=== PATIENT | male | born 1950 | race Caucasian/White ===

== ENCOUNTER 2020-03-25 14:58 | Inpatient (IN) | payer MEDICARE, SELFPAY ==
[2020-03-25] VITALS (27 sets, daily range): BP systolic 83–127; BP diastolic 60–87; PULSE 98–172; RESP 12–33; TEMP 36.7–37.9; O2SAT 77–98; BMI 32.8; BMI 36.1; BMI 33.4
[2020-03-25] MEDS: dilTIAZem 25 MG/5 ML Vial IV BOLUS (15:18)
--- NOTE | 2020-03-25 15:22 | NURSING ---
NO OLD EKGS
--- NOTE | 2020-03-25 15:23 | RAD_ITS ---
STUDY: X-RAY CHEST REASON FOR EXAM: Male, 69 years old. and quot;PT WAS AT [facility] AND SENT OVER FOR LOW BP AND LOW PULSE OX. 78% ON RA IN TRIAGE and quot; TECHNIQUE: Single AP portable view of the chest. COMPARISON: None. FINDINGS: Bilateral basilar predominant alveolar opacities of the consistent with bilateral pneumonia, pulmonary edema, RDS. There is no demonstrated pleural abnormality. Normal size heart. Normal mediastinum and monica. Normal visualized pulmonary arteries. Normal visualized aortic arch and descending thoracic aorta. Normal visualized thoracic spine. Normal visualized ribs, clavicles, and shoulders. There is no demonstrated abnormality of the visualized soft tissue structures of the upper abdomen. RAD/Chest 1 View (Portable) IMPRESSION: Bilateral basilar predominant pneumonia, pulmonary edema, or ARDS. Electronically Signed: Simón Pham MD at 15:54 EDT Tel , Service support ,
--- NOTE | 2020-03-25 15:23 | EKG12_ITS ---
Test Reason : Blood Pressure : / mmHG Vent. Rate : 186 BPM Atrial Rate : 202 BPM P-R Int : 000 ms QRS Dur : 084 ms QT Int : 218 ms P-R-T Axes : 000 063 -03 degrees QTc Int : 383 ms Atrial fibrillation with rapid ventricular response Nonspecific ST and T wave abnormality Abnormal ECG Confirmed by ARIADNA NANCE, CHRISTIANO ([id number]), film and video editor MADI KEARNS ([id number]) on 03/27/2020 2:37:34 PM Referred By: RAFA Confirmed By:LETICIA ROSENTHAL MD
[2020-03-25 15:56] LABS: Hematocrit 52.1 % (40-54); Hemoglobin 16.5 g/dL (13.0-16.5); Mean Corp Hgb Conc 31.7 g/dL (32-36); Mean Corpuscular Hgb 29.2 pg (27.0-32.0); Mean Corpuscular Volume 92.2 fL (80-94); Mean Platelet Vol. 10.3 fl (6.2-12.0); POSITIVE COUNT YES; POSITIVE DIFFERENTIAL YES; POSITIVE MORPHOLOGY YES; Platelet Count 180 K/mm3 (150-450); RBC Distribution Width CV 14.1 % (11.6-14.6); RBC Distribution Width SD 46.5 fl (35.1-43.9); Red Blood Count 5.65 M/mm3 (4.6-6.2)
[2020-03-25 16:23] LABS: ALB/GLOB Ratio 0.6 RATIO (0.9-2.4); AST(SGOT) 33 U/L (15-37); Alanine Aminotransfer ALT/SGPT 142 U/L (16-61); Albumin, Serum 2.4 g/dL (3.2-5.0); Alkaline Phosphatase 77 U/L (45-117); Anion Gap 8 (5-15); BUN 28 mg/dL (7-18); BUN/Creat Ratio 16.2 RATIO (10-20); Calcium,Total 8.4 mg/dL (8.5-10.1); Chloride 98 mmol/L (98-107); Creatinine, Serum 1.73 mg/dL (0.70-1.30); EST Glomerular Filtration Rate 42 mL/min (>60); Est Glom Filt Rate - Afr Amer 51 mL/min (>60); Glucose 180 mg/dL (74-106); Potassium 4.7 mmol/L (3.5-5.1); Protein, Total 6.4 g/dL (6.4-8.2); Sodium Level 137 mmol/L (136-145)
[2020-03-25 16:29] LABS: International Normalized Ratio 1.2; Prothrombin Time (Protime)PT. 14.7 SECONDS (11.7-14.9)
[2020-03-25 16:30] LABS: Partial Thromboplast Time 27.1 Seconds (24.1-36.2)
[2020-03-25 16:47] LABS: Differential Indicated MANUAL DIFF
[2020-03-25 16:50] LABS: Lymphocyte 2 % (19-41); Monocyte 4 % (0-10); Neutrophil-Band 16 % (0-5); Neutrophil-Segmented 78 % (47-70); Total Cells Counted 100 (MANUAL DIFF)
[2020-03-25 16:51] LABS: Platelet Estimate ADEQUATE (ADEQ); Red Cell Morphology NORM C+C NORMAL (NORM C&C)
[2020-03-25 16:53] LABS: Absolute Lymphocyte Count 0.64 X10^3/uL (0.83-4.51); Absolute Neutrophil Count 30.1 X10^3/uL (2.0-7.7)
--- NOTE | 2020-03-25 17:00 | NURSING ---
DR BOX FOR DR CRAIG
--- NOTE | 2020-03-25 17:03 | ED.DCSUM_ITS ---
- ER Visit Summary Date of Service: 03/25/20 Chief Complaint: Shortness of breath and cough History of Present Illness: The patient is a 69 M who presents with shortness of breath and cough that is been getting worse over the past 2 days. Patient states he feels like he has some shortness of breath in his chest. Patient admits to a cough but denies any sputum production. Patient had a recent resection of a glioblastoma at the [facility]. Patient was being seen by the radiation oncologist today and noticed that his pulse oximeter was 80%. Patient was then referred to the emergency department for possible COVID versus pulmonary embolus versus pneumonia. Physical Examination: Vital signs showed a blood pressure 95/60 with a heart rate of 172 and a respiratory rate of 33 pulse oximeter is 77% on room air. Patient is afebrile. Oral mucosa is pink and moist. Neck is supple. Trachea is midline. There is no JVD. Heart was irregularly irregular and tachycardic. Lungs are diminished bilaterally with some rhonchi in the bases. There is adequate respiratory effort noted. Abdomen is soft. Bowel sounds are normal. There is no tenderness. There is no rebound or guarding noted. Cranial nerves II through XII are intact. There are no focal motor or sensory deficits. Test Results: EKG showed atrial fibrillation with a rate of 186. There are no acute ST or T wave changes. Portable chest x-ray shows bilateral lower lobe infiltrates versus pulmonary edema versus ARDS. This was interpreted by the radiologist and reviewed by myself. CBC shows a leukocytosis of 32.0. BUN and creatinine were slightly elevated at 28 and 1.73. Total bilirubin was slightly elevated at 1.6. Troponin was slightly elevated at 0.112. Lactate was elevated at 6.0. COVID swab was obtained and was positive. Emergency Department Course and Treatment: Patient was given a dose of Cardizem initially. Patient heart rate improved with this but his blood pressure dropped to 85 systolic. Patient was given a 500 cc bolus after this. Patient's blood pressure improved. Patient's heart rate increased again to the 160s. Patient was started on a Cardizem drip. Blood cultures were obtained. Patient was started on Rocephin and Zithromax. COVID swab was obtained and is pending. Case was discussed with the hospitalist. He recommended obtaining arterial blood gas and obtaining a CT scan of the brain. CT scan of the brain does not show any acute abnormality. There is some postsurgical air and fluid collection but there is no edema. Patient will be admitted to ICU. Disposition: Admit to ICU Impression: 1. A. fib with rapid ventricular response 2. Septic shock 3. Pneumonia 4. Elevated troponin 5. COVID-19 Critical care time: 45 minutes. This was time spent obtaining history, performing physical examination, documenting, interpreting test results, discussion with consultants, and determining disposition. This note was generated with [employer] dictation software. It may contain incorrect words, spelling, and punctuation that were not noted in review of the chart prior to signing ED Disposition - Plan for ED Patient: Disposition: Acute Care Hospital [facility] Diagnosis: Bilateral COVID-19 viral pneumonia, Healthcare-associated pneumonia, Septic shock, Atrial fibrillation with rapid ventricular response, COVID-19
--- NOTE | 2020-03-25 17:08 | CT_ITS ---
STUDY: CT BRAIN WITHOUT CONTRAST REASON FOR EXAM: Male, 69 years old. Decreased blood pressure. Hypoxia. History of lymphoma. RADIATION DOSAGE (If Supplied By Facility): CTDIvol = ( 44.99 ) mGy, DLP = ( 812.98 ) mGycm TECHNIQUE: Transaxial CT imaging of the brain was performed without administration of intravenous contrast material. Individualized dose optimization techniques were used for this CT. COMPARISON: No relevant priors. FINDINGS: Normal soft tissue structures. There is evidence of a recent craniotomy in the left occipitoparietal region. There is low attenuation within the left occipital parietal region underlying the craniotomy. There is a small foci of air in the surgical bed. There is a subdural collection extending along the length of the craniotomy with a maximum thickness of 3 mm. Normal size ventricles and extra-axial spaces for the patient''s age. Otherwise normal white matter tracts of the brain. Normal basal ganglia and thalami. Normal brainstem. Normal cerebellum. There are no findings of an acute ischemic infarction. Normal visualized paranasal sinuses. CT/Brain/Head without Contrast IMPRESSION: 1. Evidence of recent surgery involving the left occipitoparietal region. There is encephalomalacia and a small subdural fluid collection underlying the craniotomy site. 2. Otherwise normal CT of the brain. Electronically Signed: Jordy Gonzalez DO at 17:52 EDT Tel [phone], Service support ,
--- NOTE | 2020-03-25 17:24 | NURSING ---
ICU 1
[2020-03-25 17:46] LABS: Allen Test Positive; Base Excess 8 mmol/L (-2 to +2); Bicarbonate 32.2 mmol/L (22-26); Blood Gas Specimen Type ART; FI02 100; O2 Delivery Device NRB; PO2 57 mmHG (75-100); SITE R Radial; SO2 91 % (95-99); Total Carbon Dioxide 34 mmol/L; pCO2 45.2 mmHg (35-45); pH 7.46 (7.35-7.45)
--- NOTE | 2020-03-25 17:48 | HP.PCM_ITS ---
Problem List (1) Acute kidney injury Status: Acute (2) Healthcare-associated pneumonia Status: Acute (3) Septic shock Status: Acute (4) Seizure disorder Status: Chronic (5) Brain tumor Status: Acute (6) Chronic atrial fibrillation Status: Chronic (7) Non Hodgkin's lymphoma Status: Chronic History of Present Illness Date of Admission: 03/25/20 Chief Complaint: Cough, weakness, shortness of breath. The patient is a 69 year old M with past medical history as mentioned above presented to the emergency room because of cough, weakness and shortness of breath. Her symptoms started around 2 days ago with mild cough, persistent, dry without sputum production, associated with shortness of breath on activity as well as profound weakness and without aggravating or relieving factors. Denies fever or chills. He mentioned that he gets short of breath when walking for short distance. He denied sore throat, nasal or sinus congestion. He denied chest pain or palpitation. He had a brain surgery on March 10, 2020 brain tumor and he was discharged from [facility] on March 14, 2020. Patient's daughter mentioned that he did well after discharge but he has been more weak and tired over the last 2 days. He had a history of non-Hodgkin's lymphoma back in 2007 and currently, he is in remission and stable. He had a history of chronic atrial fibrillation and he has been on metoprolol and Cardizem for rate control. In the emergency department, patient was in A. fib with RVR, received IV Cardizem bolus x2 without improvement and he was started on IV Cardizem drip. He was afebrile, blood pressure stable, pulse ox is 95% on nonrebreather mask. Routine blood work was remarkable for WBC of 32,000, BUN of 28, creatinine is 1.73. Blood glucose is 180. Lactic acid was 6. Troponin was 0.11. EKG revealed A. fib with RVR, no acute segment changes. COVID-19 PCR is positive. Chest x-ray revealed bilateral basilar prominent infiltrate/edema with possible ARDS. Patient is being admitted for septic shock secondary to healthcare associated pneumonia/COVID-19 viral pneumonia, complicated by acute hypoxic respiratory failure and acute kidney injury and also found to have A. fib with RVR. Past Medical History Past Medical History (Chronic Problems): Chronic Problems Seizure disorder (Chronic) Chronic atrial fibrillation (Chronic) Non Hodgkin's lymphoma (Chronic) Allergies No Known Allergies Allergy (Verified 03/25/20 15:04) Home Medications: Ambulatory Orders Medication Instructions Recorded Acetaminophen [Tylenol] 650 mg PO Q4H PRN 03/25/20 Aspirin [Aspirin, Baby] 81 mg PO DAILY 03/25/20 Dexamethasone 2 mg PO DAILY 03/25/20 Diltiazem CD [Cardizem CD] 240 mg PO DAILY 03/25/20 Levetiracetam [Keppra] 1,000 mg PO BID 03/25/20 Metoprolol Succinate [Toprol Xl] 50 mg PO DAILY 03/25/20 Ondansetron HCl [Zofran] 4 mg PO Q6H PRN 03/25/20 Sennosides/Docusate Sodium 1 ea PO BID 03/25/20 [Senna-S 8.6-50 mg Tablet] Surgical History: - - Brain surgery for tumor. Psychiatric History: No pertinent psych hx Lives: With Family Smoking Status: Never smoker Alcohol: None Drugs: None - *Family History Maternal History Items: No pertinent history Paternal History Items: No pertinent history Review of Systems Constitutional: Reports: Weakness, Fatigue. Denies: Anorexia, Chills, Fever Eyes: Denies: Blurred vision, Double vision, Drainage, Redness HEENT: Denies: Difficulty Hearing, Ear Pain, Eye Pain, Nasal bleeding, Nasal Congestion, Sore Throat Cardiovascular: Denies: Chest Pain, Chest Pressure, Chest Tightness, Heaviness, Light Headedness, Palpitations, Syncope Respiratory: Reports: Cough, Shortness of Breath, Shortness of breath at rest, Shortness of breath upon exertion. Denies: Sputum production, Wheezing Gastrointestinal: Denies: Abdominal Pain, Constipation, Diarrhea, Nausea, Vomiting Genitourinary: Denies: Dysuria, Frequency, Hematuria Musculoskeletal: Denies: Arm Pain, Back Pain, Foot Pain Skin: Denies: Dryness, Rash Neurological: Denies: Balance problems, Double vision, Change in Speech, Slurred speech, Confusion, Focal weakness, Headaches Psychiatric: Denies: Anxiety, Depression Endocrine: Denies: Change in Body Habitus, Polydipsia, Polyuria VTE Information - Inpt Only VTE Present on Admission: No VTE Mechan Device Prophylaxis: SCD's VTE Pharm Prophylaxis ordered?: No Patient Problems: Active and Suspected Problems Atrial fibrillation with rapid ventricular response (Acute) COVID-19 (Acute) Bilateral COVID-19 viral pneumonia (Acute) Acute kidney injury (Acute) Healthcare-associated pneumonia (Acute) Septic shock (Acute) Brain tumor (Acute) - Physical Exam Vitals/I&O's: Vital Signs Temp Pulse Resp BP Pulse Ox 98.1 F 145 H 28 H 111/74 95 03/25/20 17:02 03/25/20 17:02 03/25/20 17:02 03/25/20 17:16 03/25/20 17:02 Oxygen Flow Rate (L/min) 15 Oxygen Delivery Method Non-Rebreather Weight: 229 lb 4.492 oz Body Mass Index (BMI) 32.8 Intake and Output for Last 24 Hours 03/23/20 03/24/20 03/25/20 23:59 23:59 23:59 Intake Total 500 / 500 Balance 500 / 500 General: Alert, Oriented x3, Cooperative, - - Minimally short of breath. HEENT: Atraumatic, PERRLA, EOMI, Normocephalic, - - Surgical scar on the left occipital region, dry and clean, no edema or infection. Oral: Moist Mucosa, No Gingival or Mucosal Lesions/ Ulcerations Neck: Supple, No JVD, Negative Carotid Bruits, Trachea Midline, Thyroid Normal Size and Texture Lungs: Clear to auscultation, Normal air movement, No rhonchi, No wheeze, No rales, Diminished Cardiovascular: Normal S1, Normal S2, No murmurs, PMI Normal, Irregular Rate, Ta chycardic Abdomen: Bowel Sounds Present, Soft, Non Tender, Non-Distended, No Hepato- splenomegaly Extremities: No clubbing, No cyanosis, No edema Skin: No rashes, No breakdown, Incision Lymphatic: No Cervical, Supraclavicular, or Inguinal Adenopathy Neurological: Cranial nerves II-XII grossly intact, Motor Exam 5/5 strength throughout Psych/Mental Status: Normal Affect, Appropriate, Alert and oriented to time, place, person, mood and affect Laboratory Results 03/25/20 15:15: WBC 32.0 H*, RBC 5.65, Hgb 16.5, Hct 52.1, MCV 92.2, MCH 29.2, MCHC 31.7 L, RDW Std Deviation 46.5 H, RDW Coeff of Dontae 14.1, Plt Count 180, MPV 10.3, Neut % (Auto) Not Reportable, Absolute Neuts (auto) 30.1 H, Absolute Lymphs (auto) 0.64 L, Total Counted 100, Neutrophils % (Manual) 78 H, Band Neutrophils % 16 H, Lymphocytes % (Manual) 2 L, Monocytes % (Manual) 4, Diff Path Review December, Platelet Estimate ADEQUATE, RBC Morphology NORM C+C 03/25/20 15:15: PT 14.7, INR 1.2, APTT 27.1 03/25/20 15:15: Sodium 137, Potassium 4.7, Chloride 98, Carbon Dioxide 31.0, Anion Gap 8, BUN 28 H, Creatinine 1.73 H, Estim Creat Clear Calc 42.20, Est GFR (MDRD) Af Amer 51 L, Est GFR (MDRD) Non-Af 42 L, BUN/Creatinine Ratio 16.2, Glucose 180 H, Calcium 8.4 L, Total Bilirubin 1.60 H, AST 33, ALT 142 H, Alkaline Phosphatase 77, Troponin I 0.112 H, Total Protein 6.4, Albumin 2.4 L, Globulin 4.0, Albumin/Globulin Ratio 0.6 L 03/25/20 15:40: Lactic Acid 6.0 H* 03/25/20 16:35: COVID-19 (LAVON) Pending 03/25/20 17:40: Specimen Type ART, Sample Site R Radial, pH 7.46 H, Bicarbonate Actual 32.2 H, Total CO2 34, Base Excess 8 H, O2 Saturation 91 L, O2 % 100, ABG pCO2 45.2 H, ABG pO2 57 L, Jair Test Positive, O2 Delivery Device NRB Clinical Impression(s) from Imaging Studies Chest X-Ray 03/25/20 15:23 IMPRESSION: Bilateral basilar predominant pneumonia, pulmonary edema, or ARDS. Electronically Signed: Simón Pham MD at 15:54 EDT Tel , Service support , Brain CT 03/25/20 17:08 IMPRESSION: 1. Evidence of recent surgery involving the left occipitoparietal region. There is encephalomalacia and a small subdural fluid collection underlying the craniotomy site. 2. Otherwise normal CT of the brain. Electronically Signed: Jordy Gonzalez DO at 17:52 EDT Tel [phone], Service support , Current Medications Diltiazem HCl 125 mg/ Dextrose 125 mls @ 5 mls/hr IV .Q25H BRYANT; Protocol Stop: 03/26/20 17:39 Last Admin: 03/25/20 17:16 Dose: 5 mg/hr, 5 mls/hr Documented by: Sodium Chloride () 500 mls @ 500 mls/hr IV .Q1H BRYANT Stop: 03/25/20 17:59 Last Infusion: 03/25/20 16:33 Dose: Infused Documented by: Sodium Chloride () 1,000 mls @ 999 mls/hr IV .Q1H1M BRYANT; Protocol Stop: 03/25/20 20:35 Assessment/Plan All Active Problems Atrial fibrillation with rapid ventricular response (Acute) COVID-19 (Acute) Bilateral COVID-19 viral pneumonia (Acute) Acute kidney injury (Acute) Healthcare-associated pneumonia (Acute) Septic shock (Acute) Brain tumor (Acute) This is a 69 years old male patient presented to the emergency room because of cough, weakness and shortness of breath, found to have bilateral basilar lung opacities consistent with pneumonia versus ARDS, found to have lactic acid of 6 consistent with septic shock and he is being admitted for healthcare associated pneumonia. #1 septic shock: Secondary to healthcare associated/COVID-19 pneumonia. Chest x-ray reviewed. Lactic acid is 6. He is tachycardic, blood pressure stable. Patient supposed to get 30 cc/kg of IV fluid bolus but because of his COVID-19 pneumonia, I do not think that we need to give him the whole bolus of IV fluids as this may aggravate his respiratory status. Plan: Admit to ICU, cardiac monitoring, complete bedrest, blood culture, urine culture, urinalysis, start IV vancomycin and Zosyn, IV Decadron, bronchodilators, repeat lactic acid in 3 hours, critical care consult, infectious disease consult, repeat CBC and BMP t omorrow morning, PT OT evaluation and treatment when appropriate. #2 bilateral basilar Healthcare associated/COVID-19 pneumonia: COVID-19 PCR came back positive. Plan: Blood culture, urine culture, start IV vancomycin and Zosyn as above, start IV Decadron 6 mg every 24 hours, isolation precautions, infectious disease consult, repeat CBC and BMP in morning. #3 acute hypoxic respiratory failure: Secondary to #2. ABG reviewed, revealed pH of 7.46, PCO2 of 45 and PO2 57. Currently, he is on nonrebreather mask with pulse ox of 95%. He is not very tachypneic. May use BiPAP if patient started to be very tachypneic and dyspneic. #4 acute kidney injury: Secondary to #1. Patient denied any history of kidney disease. Plan for IV fluids, input output chart, repeat BMP tomorrow morning. #5 A. fib with RVR: Patient does have a history of chronic atrial fibrillation. He received IV Cardizem bolus but remained fast. He was started on IV Cardizem drip. Plan: Continue IV Cardizem drip, correct electrolytes as appropriate, continue metoprolol. Patient is not a candidate for anticoagulation because of recent brain surgery. #6 recent history of brain tumor status post brain surgery: Surgery was done on March 10, 2020 at [facility]. CT scan brain done and reviewed, no acute findings. Surgical scars clean and dry. #7 history of margins lymphoma: This is back in 2007, status post treatment, stable, in remission. He does have significant leukocytosis, hemoglobin and platelet count are normal. #8 seizure disorder: Continue Keppra. #9 CODE STATUS: DNR CCA, no intubation. I discussed the different types of CODE STATUS with the patient and his daughter was at the bedside. I informed the patient about the differences between different types of CODE STATUS including full code, DNR CCA with and without intubation and DNR CC. Patient stated that he does not want any life-sustaining measures, no intubation, no mechanical ventilation, no chest compressions. Patient's daughter was at the bedside and she asked with him again same question and she suggested that he should try breathing machine if needed and patient clearly stated that he does not want any life-sustaining measures and he does not want to live as a vegetable. CODE STATUS is DNR CCA, no intubation, confirmed with the patient. #10 DVT prophylaxis: SCDs. This note was generated with [employer] software. It may contain incorrect words, spelling, and punctuation that were not noted in checking the note before signing. Inpatient E&M: 27957 Init Hosp L3 Procedures: 83527 Advncd Care Plan 30 Min - Time spent is 18 minutes on discussion about CODE STATUS with the patient and his daughter.
[2020-03-25] MEDS: 0.9% Normal Saline 1,000 ML 999 ML IV (17:53)
[2020-03-25 18:03] LABS: Probe Check PASS
[2020-03-25 19:42] LABS: Reflex Lactate? Y
[2020-03-25 20:06] LABS: Erythrocyte Sedimentation Rate 16 mm/hr (0-20)
[2020-03-25 20:12] LABS: Fibrinogen 840 mg/dl (203-444)
[2020-03-25 20:41] LABS: CPK Total, Creatine Kinase 44 U/L (39-308); Ferritin 723 ng/mL (26-388)
[2020-03-25 20:48] LABS: Bacteria 0 SEEN /hpf (None Seen); Red Blood Cells-Urine 0 SEEN /hpf (0-5); Squamous Epithelial Cells - UA 0 SEEN /hpf (0-5)
[2020-03-25 20:49] LABS: Color, Urine Amber (Yellow); Glucose, Dipstick Normal (Normal); Ketone-Dipstick Negative (Negative); Leukocyte Esterase-Dipstick Negative /ul (Negative); Nitrite-Dipstick Negative (Negative); Occult Blood-Urine 10 /ul (Negative); Protein-Dipstick 30 mg/dl (Negative); Urine Bilirubin Dipstick Negative (Negative); Urine Clarity Clear (Clear); Urine Urobilinogen 4 mg/dl (Normal)
[2020-03-25 20:53] LABS: D-Dimer Quantitative (DVT/PE) 1.39 FEU/ug/m (0.27-0.49)
[2020-03-25 21:07] LABS: Hyaline Cast 5-10 SEEN /lpf (0-5); Mucous, Urine 1+ /hpf (<or=2+); White Blood Cells 0-5 SEEN /hpf (0-5)
[2020-03-25 21:12] LABS: Lactic Acid 2.8 mmol/L (0.4-1.9)
[2020-03-25] MEDS: dexAMETHasone 10 MG/ML Vial 6 MG IV (22:02)
[2020-03-25] MEDS: levETIRAcetam 1,000 MG Tablet 1000 MG PO (22:02)
[2020-03-25] MEDS: 0.9% Saline Lock 10 ML Syringe IV (22:03)
--- NOTE | 2020-03-25 23:35 | PCM.RX.CS ---
Consult Pharmacy has been consulted to manage selected antiobiotic: Vancomycin Type of Consult: New start Suspected Infection: Sepsis, Pneumonia Prior Doses of Antibiotics Received/Current Regimen: Medications Vancomycin HCl (Vancomycin) 1,000 mg in 200 mls @ 200 mls/hr IV Q12H BRYANT Discontinued Medications Vancomycin HCl 2,000 mg/ (Sodium Chloride) 540 mls @ 250 mls/hr IV X1 ONE Stop: 03/25/20 22:39 Last Admin: 03/25/20 22:52 Dose: Infused Labs: Sodium 137 mmol/L (136-145) 03/25/20 15:15 Potassium 4.7 mmol/L (3.5-5.1) 03/25/20 15:15 Chloride 98 mmol/L (98-107) 03/25/20 15:15 Carbon Dioxide 31.0 mmol/L (21.0-32.0) 03/25/20 15:15 Anion Gap 8 (5-15) 03/25/20 15:15 BUN 28 mg/dL (7-18) H 03/25/20 15:15 Creatinine 1.73 mg/dL (0.70-1.30) H 03/25/20 15:15 Est GFR (MDRD) Af Amer 51 mL/min (>60) L 03/25/20 15:15 Est GFR (MDRD) Non-Af 42 mL/min (>60) L 03/25/20 15:15 BUN/Creatinine Ratio 16.2 RATIO (10-20) 03/25/20 15:15 Glucose 180 mg/dL (74-106) H 03/25/20 15:15 Weight used for dosin.6 kg Estimated Creatinine Clearance: 50 Goal Trough: 15-20 mcg/mL Pharmacy Plan for Drug Dosing: Pharmacy Service will continue to monitor and adjust dosing as required. Follow-Up Labs: Trough Vancomycin Labs to be done on [date and time ordered]: 03/27/20 @0800
[2020-03-26] VITALS (43 sets, daily range): BP systolic 87–128; BP diastolic 43–92; PULSE 72–100; RESP 12–29; TEMP 37.1–37.7; O2SAT 90–97
[2020-03-26 02:53] LABS: Absolute Lymphocyte Count 0.34 X10^3/uL (0.83-4.51); Absolute Neutrophil Count 18.3 X10^3/uL (2.0-7.7); Basophil# 0.03 X10^3/uL; Basophil% 0.2 % (0-1); Hematocrit 41.8 % (40-54); Hemoglobin 13.5 g/dL (13.0-16.5); Lymphocyte # 0.34 X10^3/ul (4.0); Lymphocyte % 1.7 % (19-41); Mean Corp Hgb Conc 32.3 g/dL (32-36); Mean Corpuscular Hgb 29.7 pg (27.0-32.0); Mean Corpuscular Volume 92.1 fL (80-94); Mean Platelet Vol. 10.1 fl (6.2-12.0); Monocyte# 0.71 X10^3/uL; Monocyte% 3.6 % (0-10); NRBC Flagged by Analyzer 0 % (0-5); Neutrophil # 18.32 X10^3/uL (2.7-7.7); Neutrophil % 92.7 % (47-70); POSITIVE DIFFERENTIAL YES; POSITIVE MORPHOLOGY YES; Platelet Count 138 K/mm3 (150-450); RBC Distribution Width CV 13.9 % (11.6-14.6); RBC Distribution Width SD 46.7 fl (35.1-43.9); Red Blood Count 4.54 M/mm3 (4.6-6.2); White Blood Count 19.8 K/mm3 (4.4-11.0)
[2020-03-26 02:56] LABS: Differential Indicated SCAN CRITERIA MET
[2020-03-26 03:55] LABS: ALB/GLOB Ratio 0.5 RATIO (0.9-2.4); AST(SGOT) 21 U/L (15-37); Alanine Aminotransfer ALT/SGPT 97 U/L (16-61); Albumin, Serum 1.8 g/dL (3.2-5.0); Alkaline Phosphatase 61 U/L (45-117); Anion Gap 5 (5-15); BUN 24 mg/dL (7-18); Calcium,Total 7.4 mg/dL (8.5-10.1); Chloride 101 mmol/L (98-107); Creatinine, Serum 0.92 mg/dL (0.70-1.30); EST Glomerular Filtration Rate 86 mL/min (>60); Est Glom Filt Rate - Afr Amer 105 mL/min (>60); Estimated Creatinine Clearance 79.35 ml/min; Globulin 3.6 g/dL (2.2-4.2); Glucose 164 mg/dL (74-106); Potassium 4.6 mmol/L (3.5-5.1); Protein, Total 5.4 g/dL (6.4-8.2); Sodium Level 139 mmol/L (136-145)
[2020-03-26 04:03] LABS: Differential Comment SCANNED
--- NOTE | 2020-03-26 06:28 | CON.PCM_ITS ---
Problem List (1) Atrial fibrillation with rapid ventricular response Status: Acute (2) COVID-19 Status: Acute (3) Bilateral COVID-19 viral pneumonia Status: Acute (4) Acute kidney injury Status: Acute (5) Septic shock Status: Acute (6) Seizure disorder Status: Chronic (7) Brain tumor Status: Acute (8) Chronic atrial fibrillation Status: Chronic (9) Non Hodgkin's lymphoma Status: Chronic Reason for Consult Date of Consultation: 03/26/20 Reason for Consultation: Septic shock History of Present Illness: The patient is a 69 year old M, with extensive past medical history and recent resection of glioblastoma at the end of February at [facility], who presented to [facility] on 03/25/2020 secondary to a 2-day course of progressive shortness of breath and cough. Patient denied any sputum production, but was seen by his radiation oncologist and noted to have a pulse ox in the 80s. Patient was referred to the ER for further evaluation. On presentation to the ER, patient was noted to have a blood pressure of 95/60 with a heart rate of 172 bpm. Patient's respiratory rate was 33 and he was noted to be 77% on room air. EKG confirmed A. fib with RVR and chest x-ray showed bilateral lower lobe infiltrates. Patient had a leukocytosis of 32 and an elevated creatinine of 1.73. Troponin was slightly elevated at 1.12 and lactate was elevated at 6. COVID swab was obtained and was found to be positive. Patient was given Cardizem initially, but then a fluid bolus. P atient's heart rate remained elevated, so Cardizem drip was initiated. Cultures were obtained and patient was placed on Rocephin and Zithromax. Patient did have a CT scan of the head that showed some postsurgical air and fluid collection, but no edema. Patient was admitted to the intensive care unit. Since being in the intensive care unit, patient has been placed on BiPAP 20/12 centimeters of water and requiring 75% FiO2 to maintain saturations. Patient does report improvement in his dyspnea and chest heaviness. Patient denies any nausea or vomiting. Patient was unaware of any fevers while at home. Patient states he has not had any exterior exposure and believes he contracted COVID-19 while at the [facility] for surgery. Patient denies any respiratory conditions such as COPD or asthma. Patient does have multiple malignancies in the past. Patient is not currently on anticoagulation secondary to recent brain surgery. Did discuss with the patient about convalescent serum. After review the risks, benefits alternatives, patient is willing to proceed with convalescent serum. Patient would be open to Remdesivir, but wants to discuss it with ID. Patient is not interested in intubation unless I am sure to make it off. Review of systems otherwise negative from a constitutional, HEENT, respiratory, cardiovascular, GI, genitourinary, musculoskeletal, skin, neurologic, psychiatric and hematologic system unless stated above. Past Medical History Past Medical History (Chronic Problems): Chronic Problems Seizure disorder (Chronic) Chronic atrial fibrillation (Chronic) Non Hodgkin's lymphoma (Chronic) Allergies No Known Allergies Allergy (Verified 03/25/20 15:04) Home Medications: Ambulatory Orders Medication Instructions Recorded Acetaminophen [Tylenol] 650 mg PO Q4H PRN 03/25/20 Aspirin [Aspirin, Baby] 81 mg PO DAILY 03/25/20 Dexamethasone 2 mg PO DAILY 03/25/20 Diltiazem CD [Cardizem CD] 240 mg PO DAILY 03/25/20 Levetiracetam [Keppra] 1,000 mg PO BID 03/25/20 Metoprolol Succinate [Toprol Xl] 50 mg PO DAILY 03/25/20 Ondansetron HCl [Zofran] 4 mg PO Q6H PRN 03/25/20 Sennosides/Docusate Sodium 1 ea PO BID 03/25/20 [Senna-S 8.6-50 mg Tablet] Surgical History: - - Brain surgery for tumor. Psychiatric History: No pertinent psych hx Lives: With Family Smoking Status: Never smoker Alcohol: None Drugs: None - *Family History Maternal History Items: No pertinent history Paternal History Items: No pertinent history Review of Systems Comment: See HPI Patient Problems: Active and Suspected Problems Atrial fibrillation with rapid ventricular response (Acute) COVID-19 (Acute) Bilateral COVID-19 viral pneumonia (Acute) Acute kidney injury (Acute) Healthcare-associated pneumonia (Acute) Septic shock (Acute) Brain tumor (Acute) Objective: Chest x-ray was personally reviewed and shows bilateral lower lobe infiltrates. Patient has never had an echocardiogram or PFT at [facility]. - Physical Exam Vitals/I&O's: Vital Signs Temp Pulse Resp BP Pulse Ox 37.3 C H 95 25 H 118/82 H 94 03/26/20 06:00 03/26/20 06:00 03/26/20 06:00 03/26/20 06:00 03/26/20 06:00 Oxygen Flow Rate (L/min) 15 Oxygen Delivery Method Bi-pap Weight: 106.6 kg Body Mass Index (BMI) 33.4 Intake and Output for Last 24 Hours 03/24/20 03/25/20 03/26/20 23:59 23:59 23:59 Intake Total 2439.08 / 2465.75 185.00 / 185.00 Output Total 535 / 535 275 / 275 Balance 1904.08 / 1930.75 -90.00 / -90.00 General: Alert, Oriented x3, Cooperative, No apparent distress - On BiPAP therapy, - - Obese. HEENT: Atraumatic, PERRLA, EOMI, Normocephalic, - - No scleral icterus or injection noted. Oral: No Gingival or Mucosal Lesions/ Ulcerations, Dry Mucosa Neck: Supple, No JVD, No Nodes, Trachea Midline Lungs: No wheeze, No rales, Rhonchi - Bilateral lower lobes, - - Symmetric expansion Cardiovascular: Normal S1, Normal S2, No murmurs, Irregular Rate, No rub noted, No Gallop, Tachycardic Abdomen: Bowel Sounds Present, Soft, Non Tender, Non-Distended, Obese Extremities: No clubbing, No cyanosis, No edema, Capillary Refill Less than 3 Seconds Skin: No rashes, No breakdown Musculoskeletal: No Tenderness to Palpation of Joints or Extremities Lymphatic: No Cervical, Supraclavicular, or Inguinal Adenopathy Neurological: Cranial nerves II-XII grossly intact, Neuro grossly intact, Motor Exam 5/5 strength throughout Psych/Mental Status: Alert and oriented to time, place, person, mood and affect Laboratory Results 03/25/20 15:15: WBC 32.0 H*, RBC 5.65, Hgb 16.5, Hct 52.1, MCV 92.2, MCH 29.2, MCHC 31.7 L, RDW Std Deviation 46.5 H, RDW Coeff of Dontae 14.1, Plt Count 180, MPV 10.3, Neut % (Auto) Not Reportable, Absolute Neuts (auto) 30.1 H, Absolute Lymphs (auto) 0.64 L, Total Counted 100, Neutrophils % (Manual) 78 H, Band Neutrophils % 16 H, Lymphocytes % (Manual) 2 L, Monocytes % (Manual) 4, Diff Path Review December, Platelet Estimate ADEQUATE, RBC Morphology NORM C+C 03/25/20 15:15: PT 14.7, INR 1.2, APTT 27.1 03/25/20 15:15: Sodium 137, Potassium 4.7, Chloride 98, Carbon Dioxide 31.0, Anion Gap 8, BUN 28 H, Creatinine 1.73 H, Estim Creat Clear Calc 42.20, Est GFR (MDRD) Af Amer 51 L, Est GFR (MDRD) Non-Af 42 L, BUN/Creatinine Ratio 16.2, Glucose 180 H, Calcium 8.4 L, Total Bilirubin 1.60 H, AST 33, ALT 142 H, Alkaline Phosphatase 77, Troponin I 0.112 H, Total Protein 6.4, Albumin 2.4 L, Globulin 4.0, Albumin/Globulin Ratio 0.6 L 03/25/20 15:15: Fibrinogen 840 H, D-Dimer Quant (PE/DVT) 1.39 H* 03/25/20 15:15: ESR 16 03/25/20 15:40: Lactic Acid 6.0 H* 03/25/20 16:35: COVID-19 (LAVON) Positive 03/25/20 17:40: Specimen Type ART, Sample Site R Radial, pH 7.46 H, Bicarbonate Actual 32.2 H, Total CO2 34, Base Excess 8 H, O2 Saturation 91 L, O2 % 100, ABG pCO2 45.2 H, ABG pO2 57 L, Jair Test Positive, O2 Delivery Device NRB 03/25/20 19:57: Ferritin 723 H, Total Creatine Kinase 44, Troponin I 0.063 H, C- React Prot Ext Range 185.00 H 03/25/20 20:20: Urine Color Mile, Urine Clarity Clear, Urine pH 6.0, Ur Specific [place] 1.020, Urine Protein 30 H, Urine Glucose (UA) Normal, Urine Ketones Negative, Urine Occult Blood 10 H, Urine Nitrite Negative, Urine Bilirubin Negative, Urine Urobilinogen 4 H, Ur Leukocyte Esterase Negative, Urine RBC 0 SEEN, Urine WBC 0-5 SEEN, Ur Squamous Epith Cells 0 SEEN, Urine Bacteria 0 SEEN, Hyaline Casts 5-10 SEEN, Urine Mucus 1+ 03/25/20 20:30: Lactic Acid 2.8 H* 03/25/20 23:03: Troponin I 0.046 H 03/26/20 02:40: WBC 19.8 H, RBC 4.54 L, Hgb 13.5, Hct 41.8, MCV 92.1, MCH 29.7, MCHC 32.3, RDW Std Deviation 46.7 H, RDW Coeff of Dontae 13.9, Plt Count 138 L, MPV 10.1, Immature Gran % (Auto) 1.800 H, Neut % (Auto) 92.7 H, Lymph % (Auto) 1.7 L , [place] % (Auto) 3.6, Eos % (Auto) 0.0, Baso % (Auto) 0.2, Absolute Neuts (auto) 18.3 H, Absolute Lymphs (auto) 0.34 L, Nucleated RBC % 0, Differential Comment SCANNED 03/26/20 02:40: Sodium 139, Potassium 4.6, Chloride 101, Carbon Dioxide 33.0 H, Anion Gap 5, BUN 24 H, Creatinine 0.92, Estim Creat Clear Calc 79.35, Est GFR (MDRD) Af Amer 105, Est GFR (MDRD) Non-Af 86, BUN/Creatinine Ratio 26.0 H, Glucose 164 H, Calcium 7.4 L, Total Bilirubin 0.90, AST 21, ALT 97 H, Alkaline Phosphatase 61, Total Protein 5.4 L, Albumin 1.8 L, Globulin 3.6, Albumin/Globulin Ratio 0.5 L 03/26/20 02:40: Troponin I 0.016 Current Medications Acetaminophen (Tylenol) 650 mg PO Q6H PRN PRN PRN Reason: Pain Score 1-10/Temp > 100.7 F Albuterol/Ipratropium (Duoneb) 3 ml INHALATION Q6H.RT [facility] Last Admin: 03/26/20 01:00 Dose: Not Given Documented by: Aspirin (Aspirin, Baby) 81 mg PO DAILY [facility] Dexamethasone Sodium Phosphate (Decadron) 6 mg IV DAILY [facility] Last Admin: 03/25/20 22:02 Dose: 6 mg Documented by: Diltiazem HCl 125 mg/ Dextrose 125 mls @ 5 mls/hr IV .Q25H [facility]; Protocol Stop: 03/26/20 17:39 Last Titration: 03/26/20 06:00 Dose: 15 mg/hr, 15 mls/hr Documented by: Piperacillin Sod/Tazobactam (Sod 3.375 gm/ Sodium Chloride) 50 mls @ 12.5 mls/hr IV Q8 [facility] Last Admin: 03/26/20 06:17 Dose: 12.5 mls/hr Documented by: Vancomycin IV Pharmacy to Dose (1 ea/ Sodium Chloride) 500 mls @ 250 mls/hr IV PRN PRN; Protocol PRN Reason: Rx to Dose Vancomycin HCl (Vancomycin) 1,000 mg in 200 mls @ 200 mls/hr IV Q12H [facility] Levetiracetam (Keppra Tablet) 1,000 mg PO BID [facility] Last Admin: 03/25/20 22:02 Dose: 1,000 mg Documented by: Metoprolol Succinate (Toprol Xl (Beta Bekah)) 50 mg PO DAILY [facility] Ondansetron HCl (Zofran) 4 mg IV Q8H PRN PRN PRN Reason: NAUSEA/VOMITING Senna/Docusate Sodium (Senokot-S, Stephany-Colace) 2 tablet PO BID PRN PRN Reason: Constipation Sodium Chloride () 10 - 40 ml IV UD PRN PRN Reason: SALINE FLUSH Last Admin: 03/25/20 22:03 Dose: 40 ml Documented by: Zolpidem Tartrate (Ambien (Generic)) 5 mg PO QHS PRN PRN PRN Reason: INSOMNIA Clinical Impression(s) from Imaging Studies Chest X-Ray 03/25/20 15:23 IMPRESSION: Bilateral basilar predominant pneumonia, pulmonary edema, or ARDS. Electronically Signed: Simón Pham MD at 15:54 EDT Tel , Service support , Brain CT 03/25/20 17:08 IMPRESSION: 1. Evidence of recent surgery involving the left occipitoparietal region. There is encephalomalacia and a small subdural fluid collection underlying the craniotomy site. 2. Otherwise normal CT of the brain. Electronically Signed: Jordy Gonzalez DO at 17:52 EDT Tel [phone], Service support , Assessment/Plan Active and Suspected Problems Atrial fibrillation with rapid ventricular response (Acute) COVID-19 (Acute) Bilateral COVID-19 viral pneumonia (Acute) Acute kidney injury (Acute) Healthcare-associated pneumonia (Acute) Septic shock (Acute) Brain tumor (Acute) RECOMMENDATIONS: 1. Continue BiPAP therapy with increased FiO2 2. Agree with holding on fluid resuscitation given COVID-19 status 3. Obtain type and screen for possible convalescent serum 4. Rate control with Cardizem drip, but no coagulation 5. Possibly transition to IV Keppra 6. Defer antiviral therapy to infectious disease IMPRESSIONS: 1. Acute hypoxic respiratory failure secondary to COVID-19 and possible healthcare associated pneumonia Patient currently BiPAP dependent with high FiO2 and EPAP requirements. Patient is a DNR Comfort Care arrest without intubation. Patient is open to convalescent serum, so this procedure will be initiated. Patient will be continued on IV Decadron, but no anticoagulation given recent brain surgery. Continue with empiric antibiotics for now pending other results. Patient does have an elevated bicarbonate on BMP of unclear etiology. Patient reportedly does not have underlying lung disease and no CO2 retention of significance was noted on ABG. 2. Possible septic shock Patient does have bilateral infiltrates. Patient came in significantly hypoxic, so this may account for elevated lactate and mildly elevated troponin. Agree with empiric antibiotics for now. Blood pressures are adequate. 3. A. fib with RVR Patient with a history of chronic A. fib and is currently controlled with a Cardizem bolus marginally. Continue to replace electrolytes as necessary. Okay to continue with beta-bekah from my perspective. Patient cannot receive anticoagulation secondary to recent brain surgery. 4. Glioblastoma status post resection?seizure disorder Patient reportedly had surgery on March 10, 2020 at [facility]. Patient is suspecting this is the etiology of his COVID-19 infection. This would make patient at approximately day 16 of infection. Clinical suspicion for symptomatology longer than previously reported. Patient does have a history of seizure disorder and will need to remain on Keppra therapy. Consider reaching out to [facility] to see when patient can be reinitiated on anticoagulation. 5. Acute kidney injury Likely secondary to prerenal etiology. Patient has responded well to therapy with improvement in creatinine. Continue to replete electrolytes as necessary. 6. History of penile resection/non-Hodgkin's lymphoma/CODE STATUS Complicates care, management, recovery and prognosis. [place] catheter has been placed to facilitate urine monitoring. Patient with high FiO2 requirements at this time. We will continue to discuss with patient about intubation. Patient does have multiple comorbidities with malignancies limiting desire to be aggressive. TIME: 32 minutes critical care time spent addressing patient's hypoxic respiratory failure, septic shock, A. fib with RVR, discussion of therapy options and CODE STATUS, review of all data and collaboration with care team. (5:30 AM to 6:40 AM) [id number]: [id number] Critical care first hour
--- NOTE | 2020-03-26 08:49 | PN_ITS ---
Patient Problems: Active and Suspected Problems Atrial fibrillation with rapid ventricular response (Acute) COVID-19 (Acute) Bilateral COVID-19 viral pneumonia (Acute) Acute kidney injury (Acute) Healthcare-associated pneumonia (Acute) Septic shock (Acute) Brain tumor (Acute) Reason for Visit: Follow-up on acute respiratory failure/septic shock/COVID-19 infection Subjective: Patient was seen and examined. He is on Bipap. He dropped his oxygen saturations to the 60s whilst attempting to have his breakfast. Vitals/I&O's: Vital Signs Temp Pulse Resp BP Pulse Ox 99.2 F H 83 23 H 118/82 H 95 03/26/20 06:00 03/26/20 07:42 03/26/20 07:25 03/26/20 06:00 03/26/20 07:25 Oxygen Flow Rate (L/min) 15 Oxygen Delivery Method Bi-pap Weight: 106.6 kg Body Mass Index (BMI) 33.4 Intake and Output for Last 24 Hours 03/24/20 03/25/20 03/26/20 23:59 23:59 23:59 Intake Total 2439.08 / 2465.75 185.00 / 185.00 Output Total 535 / 535 275 / 275 Balance 1904.08 / 1930.75 -90.00 / -90.00 General: Alert, Oriented x3, Cooperative, - - in moderate respiratory distress, on Bipap HEENT: Atraumatic, PERRLA, EOMI, Normocephalic Oral: Moist Mucosa - In moderate respiratory distress, on BiPAP, looks pale, obese Neck: Supple Lungs: Clear to auscultation, Normal air movement Cardiovascular: Regular rate, Regular Rhythm, Normal S1, Normal S2, No murmurs Abdomen: Bowel Sounds Present, Soft, Non Tender, Non-Distended, No Hepato- splenomegaly Extremities: Edema - Bilateral pedal edema +1 Skin: No rashes Musculoskeletal: No Tenderness to Palpation of Joints or Extremities Lymphatic: No Cervical, Supraclavicular, or Inguinal Adenopathy Neurological: Cranial nerves II-XII grossly intact Psych/Mental Status: Normal Affect, Appropriate Laboratory Results 03/25/20 15:15: WBC 32.0 H*, RBC 5.65, Hgb 16.5, Hct 52.1, MCV 92.2, MCH 29.2, MCHC 31.7 L, RDW Std Deviation 46.5 H, RDW Coeff of Dontae 14.1, Plt Count 180, MPV 10.3, Neut % (Auto) Not Reportable, Absolute Neuts (auto) 30.1 H, Absolute Lymphs (auto) 0.64 L, Total Counted 100, Neutrophils % (Manual) 78 H, Band Neutrophils % 16 H, Lymphocytes % (Manual) 2 L, Monocytes % (Manual) 4, Diff Path Review December, Platelet Estimate ADEQUATE, RBC Morphology NORM C+C 03/25/20 15:15: PT 14.7, INR 1.2, APTT 27.1 03/25/20 15:15: Sodium 137, Potassium 4.7, Chloride 98, Carbon Dioxide 31.0, Anion Gap 8, BUN 28 H, Creatinine 1.73 H, Estim Creat Clear Calc 42.20, Est GFR (MDRD) Af Amer 51 L, Est GFR (MDRD) Non-Af 42 L, BUN/Creatinine Ratio 16.2, Glucose 180 H, Calcium 8.4 L, Total Bilirubin 1.60 H, AST 33, ALT 142 H, Alkaline Phosphatase 77, Troponin I 0.112 H, Total Protein 6.4, Albumin 2.4 L, Globulin 4.0, Albumin/Globulin Ratio 0.6 L 03/25/20 15:15: Fibrinogen 840 H, D-Dimer Quant (PE/DVT) 1.39 H* 03/25/20 15:15: ESR 16 03/25/20 15:40: Lactic Acid 6.0 H* 03/25/20 16:35: COVID-19 (LAVON) Positive 03/25/20 17:40: Specimen Type ART, Sample Site R Radial, pH 7.46 H, Bicarbonate Actual 32.2 H, Total CO2 34, Base Excess 8 H, O2 Saturation 91 L, O2 % 100, ABG pCO2 45.2 H, ABG pO2 57 L, Jair Test Positive, O2 Delivery Device NRB 03/25/20 19:57: Ferritin 723 H, Total Creatine Kinase 44, Troponin I 0.063 H, C- React Prot Ext Range 185.00 H 03/25/20 20:20: Urine Color Mile, Urine Clarity Clear, Urine pH 6.0, Ur Specific [place] 1.020, Urine Protein 30 H, Urine Glucose (UA) Normal, Urine Ketones Negative, Urine Occult Blood 10 H, Urine Nitrite Negative, Urine Bilirubin Negative, Urine Urobilinogen 4 H, Ur Leukocyte Esterase Negative, Urine RBC 0 SEEN, Urine WBC 0-5 SEEN, Ur Squamous Epith Cells 0 SEEN, Urine Bacteria 0 SEEN, Hyaline Casts 5-10 SEEN, Urine Mucus 1+ 03/25/20 20:30: Lactic Acid 2.8 H* 03/25/20 23:03: Troponin I 0.046 H 03/26/20 02:40: WBC 19.8 H, RBC 4.54 L, Hgb 13.5, Hct 41.8, MCV 92.1, MCH 29.7, MCHC 32.3, RDW Std Deviation 46.7 H, RDW Coeff of Dontae 13.9, Plt Count 138 L, MPV 10.1, Immature Gran % (Auto) 1.800 H, Neut % (Auto) 92.7 H, Lymph % (Auto) 1.7 L , [place] % (Auto) 3.6, Eos % (Auto) 0.0, Baso % (Auto) 0.2, Absolute Neuts (auto) 18.3 H, Absolute Lymphs (auto) 0.34 L, Nucleated RBC % 0, Differential Comment SCANNED 03/26/20 02:40: Sodium 139, Potassium 4.6, Chloride 101, Carbon Dioxide 33.0 H, Anion Gap 5, BUN 24 H, Creatinine 0.92, Estim Creat Clear Calc 79.35, Est GFR (MDRD) Af Amer 105, Est GFR (MDRD) Non-Af 86, BUN/Creatinine Ratio 26.0 H, Glucose 164 H, Calcium 7.4 L, Total Bilirubin 0.90, AST 21, ALT 97 H, Alkaline Phosphatase 61, Total Protein 5.4 L, Albumin 1.8 L, Globulin 3.6, Albumin/Globulin Ratio 0.5 L 03/26/20 02:40: Troponin I 0.016 03/26/20 06:15: Blood Type AB POSITIVE, Antibody Screen NEGATIVE Current Medications Acetaminophen (Tylenol) 650 mg PO Q6H PRN PRN PRN Reason: Pain Score 1-10/Temp > 100.7 F Albuterol/Ipratropium (Duoneb) 3 ml INHALATION Q4H.RT PRN PRN Reason: WHEEZING Aspirin (Aspirin, Baby) 81 mg PO DAILY [facility] Dexamethasone Sodium Phosphate (Decadron) 6 mg IV DAILY [facility] Last Admin: 03/25/20 22:02 Dose: 6 mg Documented by: Diltiazem HCl 125 mg/ Dextrose 125 mls @ 5 mls/hr IV .Q25H [facility]; Protocol Stop: 03/26/20 17:39 Last Titration: 03/26/20 06:00 Dose: 15 mg/hr, 15 mls/hr Documented by: Piperacillin Sod/Tazobactam (Sod 3.375 gm/ Sodium Chloride) 50 mls @ 12.5 mls/hr IV Q8 [facility] Last Admin: 03/26/20 06:17 Dose: 12.5 mls/hr Documented by: Vancomycin IV Pharmacy to Dose (1 ea/ Sodium Chloride) 500 mls @ 250 mls/hr IV PRN PRN; Protocol PRN Reason: Rx to Dose Vancomycin HCl (Vancomycin) 1,000 mg in 200 mls @ 200 mls/hr IV Q12H [facility] Levetiracetam (Keppra Tablet) 1,000 mg PO BID [facility] Last Admin: 03/25/20 22:02 Dose: 1,000 mg Documented by: Metoprolol Succinate (Toprol Xl (Beta Bekah)) 50 mg PO DAILY [facility] Ondansetron HCl (Zofran) 4 mg IV Q8H PRN PRN PRN Reason: NAUSEA/VOMITING Senna/Docusate Sodium (Senokot-S, Stephany-Colace) 2 tablet PO BID PRN PRN Reason: Constipation Sodium Chloride () 10 - 40 ml IV UD PRN PRN Reason: SALINE FLUSH Last Admin: 03/25/20 22:03 Dose: 40 ml Documented by: Zolpidem Tartrate (Ambien (Generic)) 5 mg PO QHS PRN PRN PRN Reason: INSOMNIA STROKE Vital Signs/Narrative: Vital Signs Temp Pulse Resp BP Pulse Ox 03/26/20 07:42 83 03/26/20 07:25 88 23 H 95 03/26/20 06:00 99.2 F H 95 25 H 118/82 H 94 03/26/20 05:00 99.2 F H 90 24 H 110/85 H 95 Medical Necessity - Tobacco Use Smoking Status: Never smoker Assessment/Plan All Active Problems Atrial fibrillation with rapid ventricular response (Acute) COVID-19 (Acute) Bilateral COVID-19 viral pneumonia (Acute) Acute kidney injury (Acute) Healthcare-associated pneumonia (Acute) Septic shock (Acute) Brain tumor (Acute) 1. Septic shock secondary to acute COVID-19 infection, improved Pressures have remained stable. Did not require use of pressors. Lactic acid improved from 6.0. Last lactic acid was 2.8 Will continue to monitor 2. Acute hypoxic respiratory failure secondary to acute COVID-19 infection, severe Patient is a DNR CC. Will continue on BiPAP, representative consulted 3. Acute COVID-19 infection, severe WBC count appears improved from 32 to 19.8 Procalcitonin is elevated, CRP elevated, urine streptococcal and Legionella antigen negative. Blood cultures are pending Continue on IV dexamethasone, Remdesivir, convalescent plasma, IV Zosyn Critical care and ID following 4. RIYA, pre-renal, secondary to #1 and 2, resolved Admitted with Cr 1.73, Creatinine now is 0.92 Will continue to monitor 5. A. fib with RVR, controlled now, on IV Cardizem drip Would add metoprolol 25 mg p.o. twice daily to overlap. Will wean off Cardizem drip. Not on anticoagulation on account of recent brain surgery 6. Status post brain surgery, for glioblastoma on 03/10/20. Records requested 7. Marginal lymphoma, stable 8. Seizure disorder, continue on Keppra 9. CODE STATUS - DNR CCA, no intubation Inpatient E&M: [id number] [facility] L3
--- NOTE | 2020-03-26 10:03 | CON.PCM_ITS ---
Problem List (1) COVID-19 Status: Acute Reason for Consult: covid Consulted by: Dr. Magaña History of Present Illness: The patient is a 69 year old M with glioblastoma resection 03/10/20 at [facility], discharged 03/14, presented to ED last night with 2 days of weakness, dyspnea, mild dry cough. Sx started 03/23 in the evening. No sick contacts, lives by himself, has been masking, had neg covid tests in the past. No headache, mild change in taste, no change in smell, no aches, no sputum, no chest pain, no abd pain, no n/v/d, no dysuria, no fever. Mild chills. Came to ED, found to be hypoxic, afib with rvr, high lactate, temp 100.3. Given azithro/ceftriaxone, changed to vanc/zosyn on admit to icu. On bipap, feeling a little better. Surgical site healing well with no issues. Full ROS performed and neg except as noted above. - Medical History Past Medical History (Chronic Problems): Chronic Problems Seizure disorder (Chronic) Chronic atrial fibrillation (Chronic) Non Hodgkin's lymphoma (Chronic) Allergies/Adverse Reactions: Allergies No Known Allergies Allergy (Verified 03/25/20 15:04) Home Medications: Ambulatory Orders Medication Instructions Recorded Acetaminophen [Tylenol] 650 mg PO Q4H PRN 03/25/20 Aspirin [Aspirin, Baby] 81 mg PO DAILY 03/25/20 Dexamethasone 2 mg PO DAILY 03/25/20 Diltiazem CD [Cardizem CD] 240 mg PO DAILY 03/25/20 Levetiracetam [Keppra] 1,000 mg PO BID 03/25/20 Metoprolol Succinate [Toprol Xl] 50 mg PO DAILY 03/25/20 Ondansetron HCl [Zofran] 4 mg PO Q6H PRN 03/25/20 Sennosides/Docusate Sodium 1 ea PO BID 03/25/20 [Senna-S 8.6-50 mg Tablet] - Social History Tobacco Use: non-smoker Vital Signs Temp Pulse Resp BP Pulse Ox 99.2 F H 89 23 H 118/82 H 92 03/26/20 06:00 03/26/20 08:00 03/26/20 07:25 03/26/20 06:00 03/26/20 08:00 Oxygen Flow Rate (L/min) 15 Oxygen Delivery Method Bi-pap Weight: 106.6 kg Body Mass Index (BMI) 33.4 Laboratory Tests Past 24 Hrs 03/25/20 03/25/20 03/25/20 15:15 15:15 15:15 WBC 32.0 H* RBC 5.65 Hgb 16.5 Hct 52.1 MCV 92.2 MCH 29.2 MCHC 31.7 L RDW Std Deviation 46.5 H RDW Coeff of Dontae 14.1 Plt Count 180 MPV 10.3 Immature Gran % (Auto) Neut % (Auto) Not Reportable Lymph % (Auto) [place] % (Auto) Eos % (Auto) Baso % (Auto) Absolute Neuts (auto) 30.1 H Absolute Lymphs (auto) 0.64 L Total Counted 100 Neutrophils % (Manual) 78 H Band Neutrophils % 16 H Lymphocytes % (Manual) 2 L Monocytes % (Manual) 4 Nucleated RBC % Differential Comment Diff Path Review May foll Platelet Estimate ADEQUATE RBC Morphology NORM C+C ESR PT 14.7 INR 1.2 APTT 27.1 Fibrinogen D-Dimer Quant (PE/DVT) Specimen Type Sample Site pH Bicarbonate Actual Total CO2 Base Excess O2 Saturation O2 % ABG pCO2 ABG pO2 Jair Test O2 Delivery Device Sodium 137 Potassium 4.7 Chloride 98 Carbon Dioxide 31.0 Anion Gap 8 BUN 28 H Creatinine 1.73 H Estim Creat Clear Calc 42.20 Est GFR (MDRD) Af Amer 51 L Est GFR (MDRD) Non-Af 42 L BUN/Creatinine Ratio 16.2 Glucose 180 H Lactic Acid Calcium 8.4 L Ferritin Total Bilirubin 1.60 H AST 33 ALT 142 H Alkaline Phosphatase 77 Total Creatine Kinase Troponin I 0.112 H C-React Prot Ext Range B-Natriuretic Peptide Total Protein 6.4 Albumin 2.4 L Globulin 4.0 Albumin/Globulin Ratio 0.6 L Urine Color Urine Clarity Urine pH Ur Specific [place] Urine Protein Urine Glucose (UA) Urine Ketones Urine Occult Blood Urine Nitrite Urine Bilirubin Urine Urobilinogen Ur Leukocyte Esterase Urine RBC Urine WBC Ur Squamous Epith Cells Urine Bacteria Hyaline Casts Urine Mucus COVID-19 (LAVON) Blood Type Antibody Screen 03/25/20 03/25/20 03/25/20 15:15 15:15 15:40 WBC RBC Hgb Hct MCV MCH MCHC RDW Std Deviation RDW Coeff of Dontae Plt Count MPV Immature Gran % (Auto) Neut % (Auto) Lymph % (Auto) [place] % (Auto) Eos % (Auto) Baso % (Auto) Absolute Neuts (auto) Absolute Lymphs (auto) Total Counted Neutrophils % (Manual) Band Neutrophils % Lymphocytes % (Manual) Monocytes % (Manual) Nucleated RBC % Differential Comment Diff Path Review Platelet Estimate RBC Morphology ESR 16 PT INR APTT Fibrinogen 840 H D-Dimer Quant (PE/DVT) 1.39 H* Specimen Type Sample Site pH Bicarbonate Actual Total CO2 Base Excess O2 Saturation O2 % ABG pCO2 ABG pO2 Jair Test O2 Delivery Device Sodium Potassium Chloride Carbon Dioxide Anion Gap BUN Creatinine Estim Creat Clear Calc Est GFR (MDRD) Af Amer Est GFR (MDRD) Non-Af BUN/Creatinine Ratio Glucose Lactic Acid 6.0 H* Calcium Ferritin Total Bilirubin AST ALT Alkaline Phosphatase Total Creatine Kinase Troponin I C-React Prot Ext Range B-Natriuretic Peptide Total Protein Albumin Globulin Albumin/Globulin Ratio Urine Color Urine Clarity Urine pH Ur Specific [place] Urine Protein Urine Glucose (UA) Urine Ketones Urine Occult Blood Urine Nitrite Urine Bilirubin Urine Urobilinogen Ur Leukocyte Esterase Urine RBC Urine WBC Ur Squamous Epith Cells Urine Bacteria Hyaline Casts Urine Mucus COVID-19 (LAVON) Blood Type Antibody Screen 03/25/20 03/25/20 03/25/20 16:35 17:40 19:57 WBC RBC Hgb Hct MCV MCH MCHC RDW Std Deviation RDW Coeff of Dontae Plt Count MPV Immature Gran % (Auto) Neut % (Auto) Lymph % (Auto) [place] % (Auto) Eos % (Auto) Baso % (Auto) Absolute Neuts (auto) Absolute Lymphs (auto) Total Counted Neutrophils % (Manual) Band Neutrophils % Lymphocytes % (Manual) Monocytes % (Manual) Nucleated RBC % Differential Comment Diff Path Review Platelet Estimate RBC Morphology ESR PT INR APTT Fibrinogen D-Dimer Quant (PE/DVT) Specimen Type ART Sample Site R Radial pH 7.46 H Bicarbonate Actual 32.2 H Total CO2 34 Base Excess 8 H O2 Saturation 91 L O2 % 100 ABG pCO2 45.2 H ABG pO2 57 L Jair Test Positive O2 Delivery Device NRB Sodium Potassium Chloride Carbon Dioxide Anion Gap BUN Creatinine Estim Creat Clear Calc Est GFR (MDRD) Af Amer Est GFR (MDRD) Non-Af BUN/Creatinine Ratio Glucose Lactic Acid Calcium Ferritin 723 H Total Bilirubin AST ALT Alkaline Phosphatase Total Creatine Kinase 44 Troponin I 0.063 H C-React Prot Ext Range 185.00 H B-Natriuretic Peptide Total Protein Albumin Globulin Albumin/Globulin Ratio Urine Color Urine Clarity Urine pH Ur Specific [place] Urine Protein Urine Glucose (UA) Urine Ketones Urine Occult Blood Urine Nitrite Urine Bilirubin Urine Urobilinogen Ur Leukocyte Esterase Urine RBC Urine WBC Ur Squamous Epith Cells Urine Bacteria Hyaline Casts Urine Mucus COVID-19 (LAVON) Positive Blood Type Antibody Screen 03/25/20 03/25/20 03/25/20 20:20 20:30 23:03 WBC RBC Hgb Hct MCV MCH MCHC RDW Std Deviation RDW Coeff of Dontae Plt Count MPV Immature Gran % (Auto) Neut % (Auto) Lymph % (Auto) [place] % (Auto) Eos % (Auto) Baso % (Auto) Absolute Neuts (auto) Absolute Lymphs (auto) Total Counted Neutrophils % (Manual) Band Neutrophils % Lymphocytes % (Manual) Monocytes % (Manual) Nucleated RBC % Differential Comment Diff Path Review Platelet Estimate RBC Morphology ESR PT INR APTT Fibrinogen D-Dimer Quant (PE/DVT) Specimen Type Sample Site pH Bicarbonate Actual Total CO2 Base Excess O2 Saturation O2 % ABG pCO2 ABG pO2 Jair Test O2 Delivery Device Sodium Potassium Chloride Carbon Dioxide Anion Gap BUN Creatinine Estim Creat Clear Calc Est GFR (MDRD) Af Amer Est GFR (MDRD) Non-Af BUN/Creatinine Ratio Glucose Lactic Acid 2.8 H* Calcium Ferritin Total Bilirubin AST ALT Alkaline Phosphatase Total Creatine Kinase Troponin I 0.046 H C-React Prot Ext Range B-Natriuretic Peptide Total Protein Albumin Globulin Albumin/Globulin Ratio Urine Color [place] Urine Clarity Clear Urine pH 6.0 Ur Specific [place] 1.020 Urine Protein 30 H Urine Glucose (UA) Normal Urine Ketones Negative Urine Occult Blood 10 H Urine Nitrite Negative Urine Bilirubin Negative Urine Urobilinogen 4 H Ur Leukocyte Esterase Negative Urine RBC 0 SEEN Urine WBC 0-5 SEEN Ur Squamous Epith Cells 0 SEEN Urine Bacteria 0 SEEN Hyaline Casts 5-10 SEEN Urine Mucus 1+ COVID-19 (LAVON) Blood Type Antibody Screen 03/26/20 03/26/20 03/26/20 02:40 02:40 02:40 WBC 19.8 H RBC 4.54 L Hgb 13.5 Hct 41.8 MCV 92.1 MCH 29.7 MCHC 32.3 RDW Std Deviation 46.7 H RDW Coeff of Dontae 13.9 Plt Count 138 L MPV 10.1 Immature Gran % (Auto) 1.800 H Neut % (Auto) 92.7 H Lymph % (Auto) 1.7 L [place] % (Auto) 3.6 Eos % (Auto) 0.0 Baso % (Auto) 0.2 Absolute Neuts (auto) 18.3 H Absolute Lymphs (auto) 0.34 L Total Counted Neutrophils % (Manual) Band Neutrophils % Lymphocytes % (Manual) Monocytes % (Manual) Nucleated RBC % 0 Differential Comment SCANNED Diff Path Review Platelet Estimate RBC Morphology ESR PT INR APTT Fibrinogen D-Dimer Quant (PE/DVT) Specimen Type Sample Site pH Bicarbonate Actual Total CO2 Base Excess O2 Saturation O2 % ABG pCO2 ABG pO2 Jair Test O2 Delivery Device Sodium 139 Potassium 4.6 Chloride 101 Carbon Dioxide 33.0 H Anion Gap 5 BUN 24 H Creatinine 0.92 Estim Creat Clear Calc 79.35 Est GFR (MDRD) Af Amer 105 Est GFR (MDRD) Non-Af 86 BUN/Creatinine Ratio 26.0 H Glucose 164 H Lactic Acid Calcium 7.4 L Ferritin Total Bilirubin 0.90 AST 21 ALT 97 H Alkaline Phosphatase 61 Total Creatine Kinase Troponin I 0.016 C-React Prot Ext Range B-Natriuretic Peptide Total Protein 5.4 L Albumin 1.8 L Globulin 3.6 Albumin/Globulin Ratio 0.5 L Urine Color Urine Clarity Urine pH Ur Specific [place] Urine Protein Urine Glucose (UA) Urine Ketones Urine Occult Blood Urine Nitrite Urine Bilirubin Urine Urobilinogen Ur Leukocyte Esterase Urine RBC Urine WBC Ur Squamous Epith Cells Urine Bacteria Hyaline Casts Urine Mucus COVID-19 (LAVON) Blood Type Antibody Screen 03/26/20 03/26/20 02:40 06:15 WBC RBC Hgb Hct MCV MCH MCHC RDW Std Deviation RDW Coeff of Dontae Plt Count MPV Immature Gran % (Auto) Neut % (Auto) Lymph % (Auto) [place] % (Auto) Eos % (Auto) Baso % (Auto) Absolute Neuts (auto) Absolute Lymphs (auto) Total Counted Neutrophils % (Manual) Band Neutrophils % Lymphocytes % (Manual) Monocytes % (Manual) Nucleated RBC % Differential Comment Diff Path Review Platelet Estimate RBC Morphology ESR PT INR APTT Fibrinogen D-Dimer Quant (PE/DVT) Specimen Type Sample Site pH Bicarbonate Actual Total CO2 Base Excess O2 Saturation O2 % ABG pCO2 ABG pO2 Jair Test O2 Delivery Device Sodium Potassium Chloride Carbon Dioxide Anion Gap BUN Creatinine Estim Creat Clear Calc Est GFR (MDRD) Af Amer Est GFR (MDRD) Non-Af BUN/Creatinine Ratio Glucose Lactic Acid Calcium Ferritin Total Bilirubin AST ALT Alkaline Phosphatase Total Creatine Kinase Troponin I C-React Prot Ext Range B-Natriuretic Peptide Pending Total Protein Albumin Globulin Albumin/Globulin Ratio Urine Color Urine Clarity Urine pH Ur Specific [place] Urine Protein Urine Glucose (UA) Urine Ketones Urine Occult Blood Urine Nitrite Urine Bilirubin Urine Urobilinogen Ur Leukocyte Esterase Urine RBC Urine WBC Ur Squamous Epith Cells Urine Bacteria Hyaline Casts Urine Mucus COVID-19 (LAVON) Blood Type AB POSITIVE Antibody Screen NEGATIVE - Other Studies Radiology: [] reviewed cxr images, bilateral alveolar infiltrates Other Studies: [] Route of nutrition/ use of supplements: [] Nutritional Intake: [] IV Site: [] [place] Catheter: [] - Physical Exam General: Alert, Oriented x3, Cooperative HEENT: Atraumatic, PERRLA, EOMI Neck: Supple, No Nodes Lungs: Diminished - some air movement, mild wheeze Cardiovascular: Irregular Rate, Tachycardic Abdomen: Soft, Non Tender, Non-Distended Extremities: No edema Skin: No rashes IV Site: Peripheral, without redness Musculoskeletal: No Tenderness to Palpation of Joints or Extremities Neurological: Cranial nerves II-XII grossly intact - Assessment/Plan Antibiotics: [] Assessment/Plan: [] Active and Suspected Problems Atrial fibrillation with rapid ventricular response (Acute) COVID-19 (Acute) Bilateral COVID-19 viral pneumonia (Acute) Acute kidney injury (Acute) Healthcare-associated pneumonia (Acute) Septic shock (Acute) Brain tumor (Acute) septic shock and hypoxic resp failure due to covid - overall low suspicion for bacterial component. Will check urine antigens, PCT, BNP. Stop vanc. Plasma has been ordered by pulm. On dex. Holding anticoag due to recent brain surgery. RIYA resolved. LFTs improving. FiO2 being weaned. Will order 5 day course of remdesivir; he gave consent. May be able to stop zosyn soon. Will follow, thank you, d/w nursing. Patient or caregiver was given a copy of the Remdesivir Fact Sheet for Patients and Parents/Caregivers. The following information was communicated to the patient or caregiver: Remdesivir is not an FDA approved drug. The FDA has authorized the emergency use of Remdesivir. The patient had the option to refuse or accept treatment with Remdesivir. The patient was informed that the number of people treated with Remdesivir is small at this time. The potential benefits and potential risks of Remdesivir are not fully known. Potential benefits of Remdesivir include a shorter time to recovery of COVID-19 infection. Potential risks or side effects of Remdesivir include sweating, shivering, nausea and vomiting or low blood pressure related to a reaction to the medication infusion and increases in liver enzymes. No drugs are approved by the FDA to treat COVID-19 at this time. The patient (or appointed lead generation representative) stated understanding of information communicated and wished to proceed with Remdesivir treatment.
[2020-03-26 10:05] LABS: BNP,B-Type NATRIURETIC PEPTIDE 191.8 pg/mL (0-100)
[2020-03-26] MEDS: dexAMETHasone 10 MG/ML Vial 6 MG IV (10:09)
[2020-03-26 10:57] LABS: Procalcitonin 6.02 ng/mL (0.00-0.09)
[2020-03-26] MEDS: levETIRAcetam IV 1,000 MG/100 ML BAG 400 MG IV ×2 (12:40→23:23)
--- NOTE | 2020-03-26 12:43 | CASEMGMT ---
Pt is on continuous bipap and pt unable to complete CM assessment at this time. Message left with pt's daughter to call this RN CM back when able. SStaten RN CM
--- NOTE | 2020-03-26 12:44 | CASEMGMT ---
RN JAZZ assessment: Phone interview with pt's daughter, Sally Lang, for initial transition planning/care coordination assessment as pt has been on continuous bipap since admission. RN JAZZ introduced self and role at [facility], daughter voices understanding and consents to assessment at this time. Daughter is A/Ox4 at this time and answers all questions appropriately at this time. Care providers, pharmacy, and demographics verified/updated at this time. Presentation: Pt sent for low BP and low pulse ox-78% on ra at triage- pt was just d/c'd from [facility] on 03/14/2020 s/p resection of glioblastoma-per daughter, pt started having 'COVID' sx's on 03/23/2020 Admitting dx: Septic, HCAP, RIYA-pt is COVID positive-daughter states the family is all quarantining at home at this time and will be continuing same as well as once pt home-daughter states no concerns getting needed supplies PCP: [facility] Specialists: [facility] neuro surg; [facility] radiation onc Preferred Pharmacy: [facility] [place] Insurance: [facility] Prescription Benefit: [facility] Living Will/HPOA: Daughter states that pt has LW/HPOA and is aware that they are not on file at [facility] at this time. Per daughter, pt's son, Stan Benton, is HPOA. Stan's phone number was incorrect in the system but corrected by this RN CM at this time. LNOK: Stan Benton, son/HPOA; Sally Lang, daughter Living Arrangements: Daughter states pt has no current DME and declines need for any further DME at this time. Pt had been independent with ADL's prior to his brain resection but family has been assisting since d/c'd from [facility]. Per daughter, pt does have some memory loss from the glioblastoma that he has not recovered. Transportation: Pt did drive prior to surgery but has not driven since and per daughter, pt has not transportation concerns. DME/HHC: Pt has no current DME and daughter declines need for any at this time. Daughter states no hx of HHC or SNF in the past and states 'I promised him I will never send him to a SNF.' Daughter states that she will take care of pt at her home at discharge, if needed. Daughter states she does not work. Daughter states no concerns with pt coming home with her at discharge. Pt is retired. Daughter states pt does not smoke or drink ETOH. Daughter inquires about physician/nurse calling to talk to her brother as he is HPOA and this RN CM advised her that would notify pt's RN, voices understanding. Daughter also reiterates that pt does not want intubation to this RN CM at this time and this RN CM advised her that pt had also told physician that as well. CM to follow PT/OT evals, home oxygen qualifications, and for any further discharge planning/needs. Advised daughter to ask for CM if any further questions/concerns/needs arise, voices understanding. Call to Christal RN to notify of son as HPOA and that he is awaiting contact from nurse/physician, voices understanding. Family Goal: Home w/ family support Plan: ANUP De Luna RN CM
[2020-03-26 14:09] LABS: Pathologist Review Reviewed
[2020-03-27] VITALS (45 sets, daily range): BP systolic 88–122; BP diastolic 65–87; PULSE 66–87; RESP 12–96; TEMP 36.9–37.5; O2SAT 87–100
--- NOTE | 2020-03-27 00:25 | CPS ---
BiPAP's IPAP and EPAP titrated down 4; readying pt. for possible use of AirVo
[2020-03-27 03:53] LABS: Hematocrit 39.6 % (40-54); Hemoglobin 12.5 g/dL (13.0-16.5); Mean Corp Hgb Conc 31.6 g/dL (32-36); Mean Corpuscular Hgb 29.7 pg (27.0-32.0); Mean Corpuscular Volume 94.1 fL (80-94); Mean Platelet Vol. 9.9 fl (6.2-12.0); Platelet Count 125 K/mm3 (150-450); RBC Distribution Width SD 47.3 fl (35.1-43.9); Red Blood Count 4.21 M/mm3 (4.6-6.2); White Blood Count 14.5 K/mm3 (4.4-11.0)
[2020-03-27 04:11] LABS: ALB/GLOB Ratio 0.5 RATIO (0.9-2.4); AST(SGOT) 38 U/L (15-37); Alanine Aminotransfer ALT/SGPT 70 U/L (16-61); Albumin, Serum 1.9 g/dL (3.2-5.0); Alkaline Phosphatase 57 U/L (45-117); Anion Gap 1 (5-15); BUN 21 mg/dL (7-18); BUN/Creat Ratio 26.8 RATIO (10-20); Chloride 101 mmol/L (98-107); Creatinine, Serum 0.78 mg/dL (0.70-1.30); EST Glomerular Filtration Rate 104 mL/min (>60); Est Glom Filt Rate - Afr Amer 126 mL/min (>60); Globulin 4.2 g/dL (2.2-4.2); Glucose 136 mg/dL (74-106); Potassium 5.7 mmol/L (3.5-5.1); Protein, Total 6.1 g/dL (6.4-8.2); Sodium Level 137 mmol/L (136-145)
--- NOTE | 2020-03-27 04:50 | CPS ---
AirVo set up in pt.'s room (60L - 80% FiO2). Pt. taken off of BiPAP to trial the AirVo and see if oxygenation demands could be met. The pt. was grateful for the momentary break from the BiPAP, but after about 10 minutes on the AirVo, the pt. started to desaturate into the mid 80's. Pt. appreciated the small break from BiPAP, and he had no problem with us putting the BiPAP back on. AirVo is currently in pt.'s room, set-up and disconnected from oxygen flowmeter. I changed pt.'s BiPAP settings back to 20/12 (alveolar recruitment).
--- NOTE | 2020-03-27 07:27 | PCM.PN.INT ---
Subjective: Patient did okay overnight. Patient has not been able to tolerate any BiPAP breaks for an extended period of time. Patient reports he feels subjectively slightly improved compared to previous. Patient denies any nausea or vomiting. No seizure activity has been reported. Patient did receive his convalescent serum yesterday. This was tolerated well without complications. General: Alert, Oriented x3, Cooperative, No apparent distress, Well developed, Well nourished, - - Speaking in full sentences HEENT: Atraumatic, PERRLA, EOMI, Normocephalic, - - No scleral icterus or injection noted Oral: No Gingival or Mucosal Lesions/ Ulcerations, Dry Mucosa Neck: Supple, No JVD, No Nodes, Trachea Midline Lungs: No rhonchi, No wheeze, No rales, Diminished, - - Symmetric expansion. Cardiovascular: Normal S1, Normal S2, No murmurs, No rub noted, No Gallop Abdomen: Bowel Sounds Present, Soft, Non Tender, Non-Distended, Obese Extremities: No clubbing, No cyanosis, No edema Skin: No rashes, No breakdown Musculoskeletal: No Tenderness to Palpation of Joints or Extremities Lymphatic: No Cervical, Supraclavicular, or Inguinal Adenopathy Neurological: Cranial nerves II-XII grossly intact, Neuro grossly intact, Motor Exam 5/5 strength throughout Psych/Mental Status: Alert and oriented to time, place, person, mood and affect Vital Signs Temp Pulse Resp BP Pulse Ox 37.4 C H 77 18 106/87 H 95 03/27/20 06:00 03/27/20 06:00 03/27/20 06:00 03/27/20 06:00 03/27/20 06:00 Oxygen Flow Rate (L/min) 15 Oxygen Delivery Method Bi-pap Weight: 106.8 kg Body Mass Index (BMI) 33.4 Intake and Output for Last 24 Hours 03/25/20 03/26/20 03/27/20 23:59 23:59 23:59 Intake Total 2439.08 / 2465.75 1287.25 / 1302.25 154.25 / 154.25 Output Total 535 / 535 1135 / 1135 290 / 290 Balance 1904.08 / 1930.75 152.25 / 167.25 -135.75 / -135.75 Labs (Last 48 Hours) 03/25/20 03/25/2003/25/20 15:15 15:15 15:15 WBC 32.0 H* RBC 5.65 Hgb 16.5 Hct 52.1 MCV 92.2 MCH 29.2 MCHC 31.7 L RDW Std Deviation 46.5 H RDW Coeff of Dontae 14.1 Plt Count 180 MPV 10.3 Immature Gran % (Auto) Neut % (Auto) Not Reportable Lymph % (Auto) [place] % (Auto) Eos % (Auto) Baso % (Auto) Absolute Neuts (auto) 30.1 H Absolute Lymphs (auto) 0.64 L Total Counted 100 Neutrophils % (Manual) 78 H Band Neutrophils % 16 H Lymphocytes % (Manual) 2 L Monocytes % (Manual) 4 Nucleated RBC % Differential Comment Diff Path Review Reviewed Platelet Estimate ADEQUATE RBC Morphology NORM C+C ESR PT 14.7 INR 1.2 APTT 27.1 Fibrinogen D-Dimer Quant (PE/DVT) Specimen Type Sample Site pH Bicarbonate Actual Total CO2 Base Excess O2 Saturation O2 % ABG pCO2 ABG pO2 Jair Test O2 Delivery Device Sodium 137 Potassium 4.7 Chloride 98 Carbon Dioxide 31.0 Anion Gap 8 BUN 28 H Creatinine 1.73 H Estim Creat Clear Calc 42.20 Est GFR (MDRD) Af Amer 51 L Est GFR (MDRD) Non-Af 42 L BUN/Creatinine Ratio 16.2 Glucose 180 H Lactic Acid Calcium 8.4 L Ferritin Total Bilirubin 1.60 H AST 33 ALT 142 H Alkaline Phosphatase 77 Total Creatine Kinase Troponin I 0.112 H C-React Prot Ext Range B-Natriuretic Peptide Total Protein 6.4 Albumin 2.4 L Globulin 4.0 Albumin/Globulin Ratio 0.6 L Procalcitonin Urine Color Urine Clarity Urine pH Ur Specific [place] Urine Protein Urine Glucose (UA) Urine Ketones Urine Occult Blood Urine Nitrite Urine Bilirubin Urine Urobilinogen Ur Leukocyte Esterase Urine RBC Urine WBC Ur Squamous Epith Cells Urine Bacteria Hyaline Casts Urine Mucus COVID-19 (LAVON) Blood Type Antibody Screen 03/25/20 03/25/20 03/25/20 15:15 15:15 15:40 WBC RBC Hgb Hct MCV MCH MCHC RDW Std Deviation RDW Coeff of Dontae Plt Count MPV Immature Gran % (Auto) Neut % (Auto) Lymph % (Auto) [place] % (Auto) Eos % (Auto) Baso % (Auto) Absolute Neuts (auto) Absolute Lymphs (auto) Total Counted Neutrophils % (Manual) Band Neutrophils % Lymphocytes % (Manual) Monocytes % (Manual) Nucleated RBC % Differential Comment Diff Path Review Platelet Estimate RBC Morphology ESR 16 PT INR APTT Fibrinogen 840 H D-Dimer Quant (PE/DVT) 1.39 H* Specimen Type Sample Site pH Bicarbonate Actual Total CO2 Base Excess O2 Saturation O2 % ABG pCO2 ABG pO2 Jair Test O2 Delivery Device Sodium Potassium Chloride Carbon Dioxide Anion Gap BUN Creatinine Estim Creat Clear Calc Est GFR (MDRD) Af Amer Est GFR (MDRD) Non-Af BUN/Creatinine Ratio Glucose Lactic Acid 6.0 H* Calcium Ferritin Total Bilirubin AST ALT Alkaline Phosphatase Total Creatine Kinase Troponin I C-React Prot Ext Range B-Natriuretic Peptide Total Protein Albumin Globulin Albumin/Globulin Ratio Procalcitonin Urine Color Urine Clarity Urine pH Ur Specific [place] Urine Protein Urine Glucose (UA) Urine Ketones Urine Occult Blood Urine Nitrite Urine Bilirubin Urine Urobilinogen Ur Leukocyte Esterase Urine RBC Urine WBC Ur Squamous Epith Cells Urine Bacteria Hyaline Casts Urine Mucus COVID-19 (LAVON) Blood Type Antibody Screen 03/25/20 03/25/20 03/25/20 16:35 17:40 19:57 WBC RBC Hgb Hct MCV MCH MCHC RDW Std Deviation RDW Coeff of Dontae Plt Count MPV Immature Gran % (Auto) Neut % (Auto) Lymph % (Auto) [place] % (Auto) Eos % (Auto) Baso % (Auto) Absolute Neuts (auto) Absolute Lymphs (auto) Total Counted Neutrophils % (Manual) Band Neutrophils % Lymphocytes % (Manual) Monocytes % (Manual) Nucleated RBC % Differential Comment Diff Path Review Platelet Estimate RBC Morphology ESR PT INR APTT Fibrinogen D-Dimer Quant (PE/DVT) Specimen Type ART Sample Site R Radial pH 7.46 H Bicarbonate Actual 32.2 H Total CO2 34 Base Excess 8 H O2 Saturation 91 L O2 % 100 ABG pCO2 45.2 H ABG pO2 57 L Jair Test Positive O2 Delivery Device NRB Sodium Potassium Chloride Carbon Dioxide Anion Gap BUN Creatinine Estim Creat Clear Calc Est GFR (MDRD) Af Amer Est GFR (MDRD) Non-Af BUN/Creatinine Ratio Glucose Lactic Acid Calcium Ferritin 723 H Total Bilirubin AST ALT Alkaline Phosphatase Total Creatine Kinase 44 Troponin I 0.063 H C-React Prot Ext Range 185.00 H B-Natriuretic Peptide Total Protein Albumin Globulin Albumin/Globulin Ratio Procalcitonin Urine Color Urine Clarity Urine pH Ur Specific [place] Urine Protein Urine Glucose (UA) Urine Ketones Urine Occult Blood Urine Nitrite Urine Bilirubin Urine Urobilinogen Ur Leukocyte Esterase Urine RBC Urine WBC Ur Squamous Epith Cells Urine Bacteria Hyaline Casts Urine Mucus COVID-19 (LAVON) Positive Blood Type Antibody Screen 03/25/20 03/25/20 03/25/20 20:20 20:30 23:03 WBC RBC Hgb Hct MCV MCH MCHC RDW Std Deviation RDW Coeff of Dontae Plt Count MPV Immature Gran % (Auto) Neut % (Auto) Lymph % (Auto) [place] % (Auto) Eos % (Auto) Baso % (Auto) Absolute Neuts (auto) Absolute Lymphs (auto) Total Counted Neutrophils % (Manual) Band Neutrophils % Lymphocytes % (Manual) Monocytes % (Manual) Nucleated RBC % Differential Comment Diff Path Review Platelet Estimate RBC Morphology ESR PT INR APTT Fibrinogen D-Dimer Quant (PE/DVT) Specimen Type Sample Site pH Bicarbonate Actual Total CO2 Base Excess O2 Saturation O2 % ABG pCO2 ABG pO2 Jair Test O2 Delivery Device Sodium Potassium Chloride Carbon Dioxide Anion Gap BUN Creatinine Estim Creat Clear Calc Est GFR (MDRD) Af Amer Est GFR (MDRD) Non-Af BUN/Creatinine Ratio Glucose Lactic Acid 2.8 H* Calcium Ferritin Total Bilirubin AST ALT Alkaline Phosphatase Total Creatine Kinase Troponin I 0.046 H C-React Prot Ext Range B-Natriuretic Peptide Total Protein Albumin Globulin Albumin/Globulin Ratio Procalcitonin Urine Color [place] Urine Clarity Clear Urine pH 6.0 Ur Specific [place] 1.020 Urine Protein 30 H Urine Glucose (UA) Normal Urine Ketones Negative Urine Occult Blood 10 H Urine Nitrite Negative Urine Bilirubin Negative Urine Urobilinogen 4 H Ur Leukocyte Esterase Negative Urine RBC 0 SEEN Urine WBC 0-5 SEEN Ur Squamous Epith Cells 0 SEEN Urine Bacteria 0 SEEN Hyaline Casts 5-10 SEEN Urine Mucus 1+ COVID-19 (LAVON) Blood Type Antibody Screen 03/26/20 03/26/20 03/26/20 02:40 02:40 02:40 WBC 19.8 H RBC 4.54 L Hgb 13.5 Hct 41.8 MCV 92.1 MCH 29.7 MCHC 32.3 RDW Std Deviation 46.7 H RDW Coeff of Dontae 13.9 Plt Count 138 L MPV 10.1 Immature Gran % (Auto) 1.800 H Neut % (Auto) 92.7 H Lymph % (Auto) 1.7 L [place] % (Auto) 3.6 Eos % (Auto) 0.0 Baso % (Auto) 0.2 Absolute Neuts (auto) 18.3 H Absolute Lymphs (auto) 0.34 L Total Counted Neutrophils % (Manual) Band Neutrophils % Lymphocytes % (Manual) Monocytes % (Manual) Nucleated RBC % 0 Differential Comment SCANNED Diff Path Review Platelet Estimate RBC Morphology ESR PT INR APTT Fibrinogen D-Dimer Quant (PE/DVT) Specimen Type Sample Site pH Bicarbonate Actual Total CO2 Base Excess O2 Saturation O2 % ABG pCO2 ABG pO2 Jair Test O2 Delivery Device Sodium 139 Potassium 4.6 Chloride 101 Carbon Dioxide 33.0 H Anion Gap 5 BUN 24 H Creatinine 0.92 Estim Creat Clear Calc 79.35 Est GFR (MDRD) Af Amer 105 Est GFR (MDRD) Non-Af 86 BUN/Creatinine Ratio 26.0 H Glucose 164 H Lactic Acid Calcium 7.4 L Ferritin Total Bilirubin 0.90 AST 21 ALT 97 H Alkaline Phosphatase 61 Total Creatine Kinase Troponin I 0.016 C-React Prot Ext Range B-Natriuretic Peptide Total Protein 5.4 L Albumin 1.8 L Globulin 3.6 Albumin/Globulin Ratio 0.5 L Procalcitonin Urine Color Urine Clarity Urine pH Ur Specific [place] Urine Protein Urine Glucose (UA) Urine Ketones Urine Occult Blood Urine Nitrite Urine Bilirubin Urine Urobilinogen Ur Leukocyte Esterase Urine RBC Urine WBC Ur Squamous Epith Cells Urine Bacteria Hyaline Casts Urine Mucus COVID-19 (LAVON) Blood Type Antibody Screen 03/26/20 03/26/20 03/26/20 02:40 06:15 10:15 WBC RBC Hgb Hct MCV MCH MCHC RDW Std Deviation RDW Coeff of Dontae Plt Count MPV Immature Gran % (Auto) Neut % (Auto) Lymph % (Auto) [place] % (Auto) Eos % (Auto) Baso % (Auto) Absolute Neuts (auto) Absolute Lymphs (auto) Total Counted Neutrophils % (Manual) Band Neutrophils % Lymphocytes % (Manual) Monocytes % (Manual) Nucleated RBC % Differential Comment Diff Path Review Platelet Estimate RBC Morphology ESR PT INR APTT Fibrinogen D-Dimer Quant (PE/DVT) Specimen Type Sample Site pH Bicarbonate Actual Total CO2 Base Excess O2 Saturation O2 % ABG pCO2 ABG pO2 Jair Test O2 Delivery Device Sodium Potassium Chloride Carbon Dioxide Anion Gap BUN Creatinine Estim Creat Clear Calc Est GFR (MDRD) Af Amer Est GFR (MDRD) Non-Af BUN/Creatinine Ratio Glucose Lactic Acid Calcium Ferritin Total Bilirubin AST ALT Alkaline Phosphatase Total Creatine Kinase Troponin I C-React Prot Ext Range B-Natriuretic Peptide 191.8 H Total Protein Albumin Globulin Albumin/Globulin Ratio Procalcitonin 6.02 H Urine Color Urine Clarity Urine pH Ur Specific [place] Urine Protein Urine Glucose (UA) Urine Ketones Urine Occult Blood Urine Nitrite Urine Bilirubin Urine Urobilinogen Ur Leukocyte Esterase Urine RBC Urine WBC Ur Squamous Epith Cells Urine Bacteria Hyaline Casts Urine Mucus COVID-19 (LAVON) Blood Type AB POSITIVE Antibody Screen NEGATIVE 03/27/20 03/27/20 03:45 03:45 WBC 14.5 H RBC 4.21 L Hgb 12.5 L Hct 39.6 L MCV 94.1 H MCH 29.7 MCHC 31.6 L RDW Std Deviation 47.3 H RDW Coeff of Dontae 14.0 Plt Count 125 L MPV 9.9 Immature Gran % (Auto) Neut % (Auto) Lymph % (Auto) [place] % (Auto) Eos % (Auto) Baso % (Auto) Absolute Neuts (auto) Absolute Lymphs (auto) Total Counted Neutrophils % (Manual) Band Neutrophils % Lymphocytes % (Manual) Monocytes % (Manual) Nucleated RBC % Differential Comment Diff Path Review Platelet Estimate RBC Morphology ESR PT INR APTT Fibrinogen D-Dimer Quant (PE/DVT) Specimen Type Sample Site pH Bicarbonate Actual Total CO2 Base Excess O2 Saturation O2 % ABG pCO2 ABG pO2 Jair Test O2 Delivery Device Sodium 137 Potassium 5.7 H Chloride 101 Carbon Dioxide 35.0 H Anion Gap 1 L BUN 21 H Creatinine 0.78 Estim Creat Clear Calc 73.00 Est GFR (MDRD) Af Amer 126 Est GFR (MDRD) Non-Af 104 BUN/Creatinine Ratio 26.8 H Glucose 136 H Lactic Acid Calcium 8.0 L Ferritin Total Bilirubin 1.00 AST 38 H ALT 70 H Alkaline Phosphatase 57 Total Creatine Kinase Troponin I C-React Prot Ext Range B-Natriuretic Peptide Total Protein 6.1 L Albumin 1.9 L Globulin 4.2 Albumin/Globulin Ratio 0.5 L Procalcitonin Urine Color Urine Clarity Urine pH Ur Specific [place] Urine Protein Urine Glucose (UA) Urine Ketones Urine Occult Blood Urine Nitrite Urine Bilirubin Urine Urobilinogen Ur Leukocyte Esterase Urine RBC Urine WBC Ur Squamous Epith Cells Urine Bacteria Hyaline Casts Urine Mucus COVID-19 (LAVON) Blood Type Antibody Screen Microbiology 03/25/20 20:20 Urine Catheter - [place] Urine Culture - Preliminary Culture exhibits no growth. 03/26/20 10:30 Urine Catheter - Catheter Streptococcus pneumoniae Antigen (M - Final 03/26/20 10:30 Urine Catheter - Catheter Legionella Antigen - Final Medical Necessity - Tobacco Use Smoking Status: Never smoker Assessment/Plan All Active Problems Atrial fibrillation with rapid ventricular response (Acute) COVID-19 (Acute) Bilateral COVID-19 viral pneumonia (Acute) Acute kidney injury (Acute) Healthcare-associated pneumonia (Acute) Septic shock (Acute) Brain tumor (Acute) RECOMMENDATIONS: 1. Continue BiPAP therapy with increased FiO2 2. Agree with holding on fluid resuscitation given COVID-19 status 3. Continue Redesivir per ID 4. Rate control with Cardizem drip, but no coagulation 5. Continue IV Keppra 6. Possible transition to p.o. Cardizem if able to tolerate BiPAP breaks IMPRESSIONS: 1. Acute hypoxic respiratory failure secondary to COVID-19 and possible healthcare associated pneumonia Patient currently BiPAP dependent with high FiO2 and EPAP requirements. Patient is a DNR Comfort Care arrest without intubation. Patient is open to convalescent serum, so this procedure will be initiated. Patient will be continued on IV Decadron, but no anticoagulation given recent brain surgery. Continue with empiric antibiotics for now given increased procalcitonin. Infectious disease is following. Patient reportedly does not have underlying lung disease and no CO2 retention of significance was noted on ABG. 2. Possible septic shock Patient does have bilateral infiltrates. Patient came in significantly hypoxic, so this may account for elevated lactate and mildly elevated troponin. Agree with empiric antibiotics for now. Blood pressures are adequate. 3. A. fib with RVR Patient with a history of chronic A. fib and is currently controlled with a Cardizem drip marginally. Potentially transition to p.o. Cardizem if able to take oral by the end of the day. Continue to replace electrolytes as necessary. Patient cannot receive anticoagulation secondary to recent brain surgery. 4. Glioblastoma status post resection?seizure disorder Patient reportedly had surgery on March 10, 2020 at [facility]. Patient is suspecting this is the etiology of his COVID-19 infection. This would make patient at approximately day 16 of infection. Clinical suspicion for symptomatology longer than previously reported. Patient does have a history of seizure disorder and will need to remain on Keppra therapy. Consider reaching out to [facility] to see when patient can be reinitiated on anticoagulation. 5. Acute kidney injury Resolved. Likely secondary to prerenal etiology. Patient has responded well to therapy with improvement in creatinine. Continue to replete electrolytes as necessary. Elevated potassium likely secondary to hemolysis. 6. History of penile resection/non-Hodgkin's lymphoma/CODE STATUS Complicates care, management, recovery and prognosis. [place] catheter has been placed to facilitate urine monitoring. Patient with high FiO2 requirements at this time. We will continue to discuss with patient about intubation. Patient does have multiple comorbidities with malignancies limiting desire to be aggressive. TIME: 35 minutes critical care time spent addressing patient's hypoxic respiratory failure, septic shock, A. fib with RVR, discussion of therapy options and CODE STATUS, review of all data and collaboration with care team. (5:30 AM to 7:40 AM) [id number] Critical care first hour
--- NOTE | 2020-03-27 07:58 | PN_ITS ---
Patient Problems: Active and Suspected Problems Atrial fibrillation with rapid ventricular response (Acute) COVID-19 (Acute) Bilateral COVID-19 viral pneumonia (Acute) Acute kidney injury (Acute) Healthcare-associated pneumonia (Acute) Septic shock (Acute) Brain tumor (Acute) Reason for Visit: Follow-up on acute respiratory failure/septic shock/COVID-19 infection Subjective: Patient was seen and examined. Overnight, patient's FiO2 requirements were decreased a bit but now up on FiO2. He easily desaturates when the BiPAP was taken off. Currently on FiO2 100%, BiPAP, 26/07. He is being kept n.p.o. Remains on Cardizem drip as he cannot take any oral medications. Records from the [facility] are still pending. His CODE STATUS is a DNR CCA, no intubation. Objective: Physical exam: General: Alert, Oriented x3, Cooperative, - - in moderate respiratory distress, on Bipap HEENT: Atraumatic, PERRLA, EOMI, Normocephalic Oral: Moist Mucosa - In moderate respiratory distress, on BiPAP, looks pale, obese Neck: Supple Lungs: Clear to auscultation, Normal air movement Cardiovascular: Regular rate, Regular Rhythm, Normal S1, Normal S2, No murmurs Abdomen: Bowel Sounds Present, Soft, Non Tender, Non-Distended, No Hepato- splenomegaly Extremities: Edema - Bilateral pedal edema +1 Skin: No rashes Musculoskeletal: No Tenderness to Palpation of Joints or Extremities Lymphatic: No Cervical, Supraclavicular, or Inguinal Adenopathy Neurological: Cranial nerves II-XII grossly intact Psych/Mental Status: Normal Affect, Appropriate Vitals/I&O's: Vital Signs Temp Pulse Resp BP Pulse Ox 99.2 F H 77 26 H 105/73 95 03/27/20 07:52 03/27/20 07:52 03/27/20 07:52 03/27/20 07:52 03/27/20 07:52 Oxygen Flow Rate (L/min) 15 Oxygen Delivery Method Bi-pap Weight: 106.8 kg Body Mass Index (BMI) 33.4 Intake and Output for Last 24 Hours 03/25/20 03/26/20 03/27/20 23:59 23:59 23:59 Intake Total 2439.08 / 2465.75 1287.25 / 1302.25 154.25 / 154.25 Output Total 535 / 535 1135 / 1135 290 / 290 Balance 1904.08 / 1930.75 152.25 / 167.25 -135.75 / -135.75 Microbiology Past 72 Hours 03/25/20 20:20 Urine Catheter - [place] Urine Culture - Preliminary Culture exhibits no growth. 03/26/20 10:30 Urine Catheter - Catheter Streptococcus pneumoniae Antigen (M - Final 03/26/20 10:30 Urine Catheter - Catheter Legionella Antigen - Final Laboratory Results 03/25/20 15:15: Diff Path Review Reviewed 03/26/20 02:40: B-Natriuretic Peptide 191.8 H 03/26/20 10:15: Procalcitonin 6.02 H 03/27/20 03:45: WBC 14.5 H, RBC 4.21 L, Hgb 12.5 L, Hct 39.6 L, MCV 94.1 H, MCH 29.7, MCHC 31.6 L, RDW Std Deviation 47.3 H, RDW Coeff of Dontae 14.0, Plt Count 125 L, MPV 9.9 03/27/20 03:45: Sodium 137, Potassium 5.7 H, Chloride 101, Carbon Dioxide 35.0 H , Anion Gap 1 L, BUN 21 H, Creatinine 0.78, Estim Creat Clear Calc 73.00, Est GFR (MDRD) Af Amer 126, Est GFR (MDRD) Non-Af 104, BUN/Creatinine Ratio 26.8 H, Glucose 136 H, Calcium 8.0 L, Total Bilirubin 1.00, AST 38 H, ALT 70 H, Alkaline Phosphatase 57, Total Protein 6.1 L, Albumin 1.9 L, Globulin 4.2, Albumin/Globulin Ratio 0.5 L Current Medications Acetaminophen (Tylenol) 650 mg PO Q6H PRN PRN PRN Reason: Pain Score 1-10/Temp > 100.7 F Albuterol/Ipratropium (Duoneb) 3 ml INHALATION Q4H.RT PRN PRN Reason: WHEEZING Aspirin (Aspirin, Baby) 81 mg PO DAILY [facility] Last Admin: 03/26/20 11:24 Dose: Not Given Documented by: Dexamethasone Sodium Phosphate (Decadron) 6 mg IV DAILY [facility] Last Admin: 03/26/20 10:09 Dose: 6 mg Documented by: Piperacillin Sod/Tazobactam (Sod 3.375 gm/ Sodium Chloride) 50 mls @ 12.5 mls/hr IV Q8 [facility] Last Admin: 03/27/20 06:23 Dose: 12.5 mls/hr Documented by: Levetiracetam () 1,000 mg in 100 mls @ 400 mls/hr IV Q12 BR[facility] Last Infusion: 03/26/20 23:38 Dose: Infused Documented by: Remdesivir (Investigational) (100 mg/ Sodium Chloride) 250 mls @ 125 mls/hr IV DAILY BRY[facility]; Protocol Stop: 03/30/20 11:59 Diltiazem HCl 125 mg/ Dextrose 125 mls @ 5 mls/hr IV .Q25H BRYANT; Protocol Last Titration: 03/27/20 06:00 Dose: 15 mg/hr, 15 mls/hr Documented by: Metoprolol Tartrate (Lopressor (Beta Bekah)) 25 mg PO BID [facility] Last Admin: 03/26/20 22:40 Dose: Not Given Documented by: Ondansetron HCl (Zofran) 4 mg IV Q8H PRN PRN PRN Reason: NAUSEA/VOMITING Senna/Docusate Sodium (Senokot-S, Stephany-Colace) 2 tablet PO BID PRN PRN Reason: Constipation Sodium Chloride () 10 - 40 ml IV UD PRN PRN Reason: SALINE FLUSH Last Admin: 03/25/20 22:03 Dose: 40 ml Documented by: Zolpidem Tartrate (Ambien (Generic)) 5 mg PO QHS PRN PRN PRN Reason: INSOMNIA STROKE Vital Signs/Narrative: Vital Signs Temp Pulse Resp BP Pulse Ox 03/27/20 07:52 99.2 F H 77 26 H 105/73 95 03/27/20 07:51 77 03/27/20 06:00 99.4 F H 77 18 106/87 H 95 03/27/20 05:00 99.2 F H 82 24 H 109/65 94 03/27/20 04:25 80 28 H 94 03/27/20 04:00 99.1 F 83 24 H 122/83 H 92 Medical Necessity - Tobacco Use Smoking Status: Never smoker Assessment/Plan All Active Problems Atrial fibrillation with rapid ventricular response (Acute) COVID-19 (Acute) Bilateral COVID-19 viral pneumonia (Acute) Acute kidney injury (Acute) Healthcare-associated pneumonia (Acute) Septic shock (Acute) Brain tumor (Acute) Summary of care: 69-year-old male with past medical history of non-Hodgkin's lymphoma, glioblastoma status post resection 03/10/20 at the [facility] [place], admitted on 03/25/20 with 2-day history of weakness, shortness of breath and cough. Patient was found to have hypoxia, elevated temperature, elevated lactic acid of 6.0, bilateral infiltrates, suggestive of bilateral pneumonia/ARDS. COVID-19 test was positive. Patient is on IV antibiotics. His CODE STATUS is a DNR CCA. 1. Septic shock secondary to acute COVID-19 infection, resolved, Lactic acid was 6.0 on admission. BPs are stable Did not require use of pressors. Last lactic acid was 2.8 Will continue to monitor 2. Acute hypoxic respiratory failure secondary to acute COVID-19 infection, severe, slightly worse Will give Lasix 40mg IV x 1 to see if it helps with oxygen saturations. Patient is a DNR CCA. Will continue on BiPAP, director of clinical education consulted 3. Acute COVID-19 infection, severe WBC count appears improved from 32 to 14.5 Procalcitonin is elevated, CRP elevated, urine streptococcal and Legionella antigen negative. Blood cultures are pending Transfused convalescent serum yesterday (2 units) Continue on IV dexamethasone, Remdesivir, convalescent plasma, IV Zosyn Critical care and ID following 4. RIYA, pre-renal, secondary to #1 and 2, resolved Admitted with Cr 1.73, Creatinine now is 0.78 Will continue to monitor 5. A. fib with RVR, controlled now, on IV Cardizem drip Unable to wean off Cardizem on account of sudden drops in oxygen saturations even with mouthcare. Not on anticoagulation on account of recent brain surgery 6. Status post brain surgery, for glioblastoma on 03/10/20. Records requested 7. Marginal lymphoma, stable 8. Seizure disorder, continue on Keppra 9. CODE STATUS - DNR CCA, no intubation Inpatient E&M: [id number] [facility] L3
[2020-03-27] MEDS: levETIRAcetam IV 1,000 MG/100 ML BAG 400 MG IV ×2 (08:21→20:35)
[2020-03-27] MEDS: dexAMETHasone 10 MG/ML Vial 6 MG IV (08:22)
[2020-03-27 08:45] LABS: Potassium 4.5 mmol/L (3.5-5.1)
[2020-03-27] MEDS: Enoxaparin 40 MG/0.4 ML Syringe SC (09:12)
[2020-03-27 10:08] LABS: Platelet Count 128 K/mm3 (150-450); RET-HE 29.1 pg (30-35); Reticulocyte Count 1.13 % (0.5-1.5)
[2020-03-27] MEDS: Furosemide 40 MG/4 ML Vial IV (10:54)
--- NOTE | 2020-03-27 12:55 | PN.ID_ITS ---
Patient Problems: Active and Suspected Problems Atrial fibrillation with rapid ventricular response (Acute) COVID-19 (Acute) Bilateral COVID-19 viral pneumonia (Acute) Acute kidney injury (Acute) Healthcare-associated pneumonia (Acute) Septic shock (Acute) Brain tumor (Acute) Subjective: Feeling ok, on 100% nippv, breathing better, no fever, no nausea - Physical Exam Vitals/I&O's: Vital Signs Temp Pulse Resp BP Pulse Ox 98.9 F 81 24 H 108/77 100 03/27/20 12:00 03/27/20 12:00 03/27/20 12:00 03/27/20 12:00 03/27/20 12:00 Oxygen Flow Rate (L/min) 100 Oxygen Delivery Method Bi-pap Weight: 106.8 kg Body Mass Index (BMI) 33.4 Intake and Output for Last 24 Hours 03/25/20 03/26/20 03/27/20 23:59 23:59 23:59 Intake Total 2439.08 / 2465.75 1287.25 / 1302.25 349.25 / 349.25 Output Total 535 / 535 1135 / 1135 1790 / 1790 Balance 1904.08 / 1930.75 152.25 / 167.25 -1440.75 / -1440.75 General: Cooperative, No apparent distress Lungs: Diminished Cardiovascular: Tachycardic Abdomen: Soft, Non Tender, Non-Distended Skin: No rashes Microbiology Past 72 Hours 03/25/20 20:20 Urine Catheter - Montgomery Urine Culture - Preliminary Culture exhibits no growth. 03/26/20 10:30 Urine Catheter - Catheter Streptococcus pneumoniae Antigen (M - Final 03/26/20 10:30 Urine Catheter - Catheter Legionella Antigen - Final Laboratory Results 03/25/20 15:15: Diff Path Review Reviewed 03/27/20 03:45: WBC 14.5 H, RBC 4.21 L, Hgb 12.5 L, Hct 39.6 L, MCV 94.1 H, MCH 29.7, MCHC 31.6 L, RDW Std Deviation 47.3 H, RDW Coeff of Dontae 14.0, Plt Count 125 L, MPV 9.9 03/27/20 03:45: Sodium 137, Potassium 5.7 H, Chloride 101, Carbon Dioxide 35.0 H , Anion Gap 1 L, BUN 21 H, Creatinine 0.78, Estim Creat Clear Calc 73.00, Est GFR (MDRD) Af Amer 126, Est GFR (MDRD) Non-Af 104, BUN/Creatinine Ratio 26.8 H, Glucose 136 H, Calcium 8.0 L, Total Bilirubin 1.00, AST 38 H, ALT 70 H, Alkaline Phosphatase 57, Total Protein 6.1 L, Albumin 1.9 L, Globulin 4.2, Albumin/Globulin Ratio 0.5 L 03/27/20 08:15: Potassium 4.5 03/27/20 08:15: Retic Count 1.13, Immature Retic Fraction 7.60, Retic Hgb Equivalent 29.1 L Current Medications Acetaminophen (Tylenol) 650 mg PO Q6H PRN PRN PRN Reason: Pain Score 1-10/Temp > 100.7 F Albuterol/Ipratropium (Duoneb) 3 ml INHALATION Q4H.RT PRN PRN Reason: WHEEZING Aspirin (Aspirin, Baby) 81 mg PO DAILY [facility] Last Admin: 03/27/20 08:22 Dose: Not Given Documented by: Dexamethasone Sodium Phosphate (Decadron) 6 mg IV DAILY [facility] Last Admin: 03/27/20 08:22 Dose: 6 mg Documented by: Enoxaparin Sodium (Lovenox) 40 mg SC DAILY@0600 [facility] Last Admin: 03/27/20 09:12 Dose: 40 mg Documented by: Piperacillin Sod/Tazobactam (Sod 3.375 gm/ Sodium Chloride) 50 mls @ 12.5 mls/hr IV Q8 [facility] Last Infusion: 03/27/20 10:25 Dose: Infused Documented by: Levetiracetam () 1,000 mg in 100 mls @ 400 mls/hr IV Q12 [facility] [place] Last Infusion: 03/27/20 08:44 Dose: Infused Documented by: Remdesivir (Investigational) (100 mg/ Sodium Chloride) 250 mls @ 125 mls/hr IV DAILY [facility]; Protocol Stop: 03/30/20 11:59 Last Admin: 03/27/20 10:54 Dose: 125 mls/hr Documented by: Diltiazem HCl 125 mg/ Dextrose 125 mls @ 5 mls/hr IV .Q25H [facility]; Protocol Last Titration: 03/27/20 09:00 Dose: 15 mg/hr, 15 mls/hr Documented by: Metoprolol Tartrate (Lopressor (Beta Bekah)) 25 mg PO BID [facility] Last Admin: 03/27/20 08:22 Dose: Not Given Documented by: Ondansetron HCl (Zofran) 4 mg IV Q8H PRN PRN PRN Reason: NAUSEA/VOMITING Senna/Docusate Sodium (Senokot-S, Stephany-Colace) 2 tablet PO BID PRN PRN Reason: Constipation Sodium Chloride () 10 - 40 ml IV UD PRN PRN Reason: SALINE FLUSH Last Admin: 03/25/20 22:03 Dose: 40 ml Documented by: Zolpidem Tartrate (Ambien (Generic)) 5 mg PO QHS PRN PRN PRN Reason: INSOMNIA Medical Necessity - Tobacco Use Smoking Status: Never smoker Route of nutrition/ use of supplements: [] Nutritional Intake: [] IV Site: [] [place] Catheter: [] - Assessment/Plan Antibiotics: [] Assessment/Plan: [] Active and Suspected Problems Atrial fibrillation with rapid ventricular response (Acute) COVID-19 (Acute) Bilateral COVID-19 viral pneumonia (Acute) Acute kidney injury (Acute) Healthcare-associated pneumonia (Acute) Septic shock (Acute) Brain tumor (Acute) septic shock and hypoxic resp failure due to covid - Given convalescent plasma. PCT was 6, cxs neg so far. On dex. Holding anticoag due to recent brain surgery. RIYA resolved. LFTs improving. 03/26 started 5 day course of remdesivir; he gave consent. On zosyn, plan on 5 days total if cxs remain neg to complete empiric short course. Will follow
--- NOTE | 2020-03-27 14:41 | NURSING ---
assisted patient in face time with family
[2020-03-27] MEDS: Metoprolol Tartrate 25 MG Tablet PO (20:31)
--- NOTE | 2020-03-27 22:25 | CPS ---
Patient trialed on a High Flow Nasal Cannula with 12 l/m of flow. Patient lasted for 8 minutes off of BIPAP.
[2020-03-28] VITALS (37 sets, daily range): BP systolic 98–146; BP diastolic 01–95; PULSE 70–128; RESP 12–28; TEMP 36.7–37.8; O2SAT 81–99
[2020-03-28] MEDS: Zolpidem Tartrate 5 MG Tablet PO (00:31)
--- NOTE | 2020-03-28 02:33 | CPS ---
BiPAP FiO2 increased to 100% per nurse for SPO2 desaturation
[2020-03-28 05:08] LABS: Hematocrit 39.6 % (40-54); Hemoglobin 12.7 g/dL (13.0-16.5); Mean Corp Hgb Conc 32.1 g/dL (32-36); Mean Corpuscular Hgb 29.7 pg (27.0-32.0); Mean Corpuscular Volume 92.7 fL (80-94); Mean Platelet Vol. 9.8 fl (6.2-12.0); Platelet Count 131 K/mm3 (150-450); RBC Distribution Width CV 13.6 % (11.6-14.6); RBC Distribution Width SD 46.2 fl (35.1-43.9); Red Blood Count 4.27 M/mm3 (4.6-6.2)
[2020-03-28 05:39] LABS: ALB/GLOB Ratio 0.5 RATIO (0.9-2.4); AST(SGOT) 19 U/L (15-37); Alanine Aminotransfer ALT/SGPT 56 U/L (16-61); Albumin, Serum 1.9 g/dL (3.2-5.0); Alkaline Phosphatase 56 U/L (45-117); Anion Gap 2 (5-15); BUN 30 mg/dL (7-18); BUN/Creat Ratio 43.3 RATIO (10-20); Calcium,Total 7.9 mg/dL (8.5-10.1); Chloride 101 mmol/L (98-107); Creatinine, Serum 0.69 mg/dL (0.70-1.30); EST Glomerular Filtration Rate 121 mL/min (>60); Est Glom Filt Rate - Afr Amer 146 mL/min (>60); Globulin 4.1 g/dL (2.2-4.2); Glucose 139 mg/dL (74-106); Potassium 4.3 mmol/L (3.5-5.1); Sodium Level 137 mmol/L (136-145)
--- NOTE | 2020-03-28 06:20 | RAD_ITS ---
STUDY: X-RAY CHEST REASON FOR EXAM: Male, 69 years old. SEVERE HYPOXIA, POSITIVE COVID-19 INFECTION TECHNIQUE: Single AP portable view of the chest. COMPARISON: 03/25/2020 FINDINGS: There is a slight decrease in alveolar opacity throughout both lungs particularly on the left consistent with improved bilateral pneumonia, pulmonary edema, or ARDS. There is no demonstrated pleural abnormality. Normal size heart. Normal mediastinum and monica. Normal visualized pulmonary arteries. Normal visualized aortic arch and descending thoracic aorta. Normal visualized thoracic spine. Normal visualized ribs, clavicles, and shoulders. There is no demonstrated abnormality of the visualized soft tissue structures of the upper abdomen. RAD/Chest 1 View (Portable) IMPRESSION: Improved bilateral pneumonia, pulmonary edema, or ARDS. Electronically Signed: Simón Pham MD at 6:40 EDT Tel , Service support ,
[2020-03-28] MEDS: Enoxaparin 40 MG/0.4 ML Syringe SC (06:28)
[2020-03-28] MEDS: Furosemide 20 MG/2 ML VIAL IV (06:29)
--- NOTE | 2020-03-28 07:14 | PCM.PN.INT ---
Subjective: Patient did okay overnight. Patient has been able to take short breaks off of the BiPAP and FiO2 requirements have slightly improved. Patient is not reporting any pain and nursing is reporting 20 to 30-minute breaks off the BiPAP. Patient has not had any significant p.o. intake. Patient did respond to diuretic therapy yesterday. Cardizem requirements have also improved General: Alert, Oriented x3, Cooperative, - - Mild conversational dyspnea. Obese. HEENT: Atraumatic, PERRLA, EOMI, Normocephalic, - - No scleral icterus or injection noted Oral: Moist Mucosa, No Gingival or Mucosal Lesions/ Ulcerations Neck: Supple, No Nodes, Trachea Midline, JVD, Right Lungs: No rhonchi, No wheeze, Diminished, Rales, - - Symmetric expansion Cardiovascular: Normal S1, Normal S2, Irregular Rate, Murmur - Grade 2 out of 6 systolic ejection murmur, No rub noted, No Gallop Abdomen: Bowel Sounds Present, Soft, Non Tender, Non-Distended, Obese Extremities: No clubbing, No cyanosis, Edema - 2+ anasarca Skin: No rashes, No breakdown Musculoskeletal: No Tenderness to Palpation of Joints or Extremities Lymphatic: No Cervical, Supraclavicular, or Inguinal Adenopathy Neurological: Cranial nerves II-XII grossly intact, Neuro grossly intact, Motor Exam 5/5 strength throughout Psych/Mental Status: Alert and oriented to time, place, person, mood and affect Vital Signs Temp Pulse Resp BP Pulse Ox 37.1 C 92 23 H 120/82 H 95 03/28/20 06:00 03/28/20 06:00 03/28/20 06:00 03/28/20 06:00 03/28/20 06:00 Oxygen Flow Rate (L/min) 50 Oxygen Delivery Method Bi-pap Weight: 105 kg Body Mass Index (BMI) 33.4 Intake and Output for Last 24 Hours 03/26/20 03/27/20 03/28/20 23:59 23:59 23:59 Intake Total 1287.25 / 1302.25 929.00 / 930.25 276.25 / 276.25 Output Total 1135 / 1135 3440 / 3490 250 / 250 Balance 152.25 / 167.25 -2511.00 / -2559.75 26.25 / 26.25 Labs (Last 48 Hours) 03/25/20 03/25/20 03/26/20 15:15 16:35 02:40 WBC RBC Hgb Hct MCV MCH MCHC RDW Std Deviation RDW Coeff of Dontae Plt Count MPV Diff Path Review Reviewed Retic Count Immature Retic Fraction Retic Hgb Equivalent Sodium Potassium Chloride Carbon Dioxide Anion Gap BUN Creatinine Estim Creat Clear Calc Est GFR (MDRD) Af Amer Est GFR (MDRD) Non-Af BUN/Creatinine Ratio Glucose Calcium Total Bilirubin AST ALT Alkaline Phosphatase B-Natriuretic Peptide 191.8 H Total Protein Albumin Globulin Albumin/Globulin Ratio Procalcitonin COVID-19 ([facility]) Positive Blood Type Antibody Screen 03/26/20 03/26/20 03/27/20 06:15 10:15 03:45 WBC 14.5 H RBC 4.21 L Hgb 12.5 L Hct 39.6 L MCV 94.1 H MCH 29.7 MCHC 31.6 L RDW Std Deviation 47.3 H RDW Coeff of Dontae 14.0 Plt Count 125 L MPV 9.9 Diff Path Review Retic Count Immature Retic Fraction Retic Hgb Equivalent Sodium Potassium Chloride Carbon Dioxide Anion Gap BUN Creatinine Estim Creat Clear Calc Est GFR (MDRD) Af Amer Est GFR (MDRD) Non-Af BUN/Creatinine Ratio Glucose Calcium Total Bilirubin AST ALT Alkaline Phosphatase B-Natriuretic Peptide Total Protein Albumin Globulin Albumin/Globulin Ratio Procalcitonin 6.02 H COVID-19 ([facility]) Blood Type AB POSITIVE Antibody Screen NEGATIVE 03/27/20 03/27/20 03/27/20 03:45 08:15 08:15 WBC RBC Hgb Hct MCV MCH MCHC RDW Std Deviation RDW Coeff of Dontae Plt Count MPV Diff Path Review Retic Count 1.13 Immature Retic Fraction 7.60 Retic Hgb Equivalent 29.1 L Sodium 137 Potassium 5.7 H 4.5 Chloride 101 Carbon Dioxide 35.0 H Anion Gap 1 L BUN 21 H Creatinine 0.78 Estim Creat Clear Calc 73.00 Est GFR (MDRD) Af Amer 126 Est GFR (MDRD) Non-Af 104 BUN/Creatinine Ratio 26.8 H Glucose 136 H Calcium 8.0 L Total Bilirubin 1.00 AST 38 H ALT 70 H Alkaline Phosphatase 57 B-Natriuretic Peptide Total Protein 6.1 L Albumin 1.9 L Globulin 4.2 Albumin/Globulin Ratio 0.5 L Procalcitonin COVID-19 ([facility]) Blood Type Antibody Screen 03/28/20 03/28/20 04:50 04:50 WBC 12.0 H RBC 4.27 L Hgb 12.7 L Hct 39.6 L MCV 92.7 MCH 29.7 MCHC 32.1 RDW Std Deviation 46.2 H RDW Coeff of Dontae 13.6 Plt Count 131 L MPV 9.8 Diff Path Review Retic Count Immature Retic Fraction Retic Hgb Equivalent Sodium 137 Potassium 4.3 Chloride 101 Carbon Dioxide 34.0 H Anion Gap 2 L BUN 30 H Creatinine 0.69 L Estim Creat Clear Calc 73.00 Est GFR (MDRD) Af Amer 146 Est GFR (MDRD) Non-Af 121 BUN/Creatinine Ratio 43.3 H Glucose 139 H Calcium 7.9 L Total Bilirubin 1.10 H AST 19 ALT 56 Alkaline Phosphatase 56 B-Natriuretic Peptide Total Protein 6.0 L Albumin 1.9 L Globulin 4.1 Albumin/Globulin Ratio 0.5 L Procalcitonin COVID-19 ([facility]) Blood Type Antibody Screen Microbiology 03/25/20 20:20 Urine Catheter - [place] Urine Culture - Preliminary Culture exhibits no growth. 03/26/20 10:30 Urine Catheter - Catheter Streptococcus pneumoniae Antigen (M - Final 03/26/20 10:30 Urine Catheter - Catheter Legionella Antigen - Final Clinical Impression(s) from Imaging Studies Chest X-Ray 03/28/20 06:20 IMPRESSION: Improved bilateral pneumonia, pulmonary edema, or ARDS. Electronically Signed: Simón Pham MD at 6:40 EDT Tel , Service support , Medical Necessity - Tobacco Use Smoking Status: Never smoker Assessment/Plan All Active Problems Atrial fibrillation with rapid ventricular response (Acute) COVID-19 (Acute) Bilateral COVID-19 viral pneumonia (Acute) Acute kidney injury (Acute) Healthcare-associated pneumonia (Acute) Septic shock (Acute) Brain tumor (Acute) RECOMMENDATIONS: 1. Continue BiPAP therapy with increased FiO2 2. Agree with holding on fluid resuscitation given COVID-19 status 3. Continue Redesivir per ID 4. Rate control with Cardizem drip, but no therapeutic coagulation given surgery 5. In addition to p.o. medications if possible 6. Attempt to discontinue Cardizem drip with initiation of p.o. rate control 7. Continue with diuretic therapy IMPRESSIONS: 1. Acute hypoxic respiratory failure secondary to COVID-19 and possible healthcare associated pneumonia Patient currently BiPAP dependent with high FiO2 and EPAP requirements. Patient is a DNR Comfort Care arrest without intubation. Patient is open to convalescent serum, so this procedure was completed. Patient will be continued on IV Decadron, but no therapeutic anticoagulation given recent brain surgery. Continue with empiric antibiotics for now given increased procalcitonin. Infectious disease is following. Patient reportedly does not have underlying lung disease and no CO2 retention of significance was noted on ABG. Patient did respond to diuretic therapy, so this will be continued on lower dose 2. Possible septic shock Patient does have bilateral infiltrates, but improved following diuresis. Patient came in significantly hypoxic, so this may account for elevated lactate and mildly elevated troponin. Agree with empiric antibiotics for now. Blood pressures are adequate. 3. A. fib with RVR Patient with a history of chronic A. fib and is currently controlled with a Cardizem drip. Will attempt to discontinue Cardizem with initiation of p.o. medications. Continue to replace electrolytes as necessary. Patient cannot receive therapeutic anticoagulation secondary to recent brain surgery. 4. Glioblastoma status post resection?seizure disorder Patient reportedly had surgery on March 10, 2020 at [facility]. Patient is suspecting this is the etiology of his COVID-19 infection. This would make patient at approximately day 16 of infection. Clinical suspicion for symptomatology longer than previously reported. Patient does have a history of seizure disorder and will need to remain on Keppra therapy. Consider reaching out to [facility] to see when patient can be reinitiated on anticoagulation. 5. Acute kidney injury Resolved. Likely secondary to prerenal etiology. Patient has responded well to therapy with improvement in creatinine. Continue to replete electrolytes as necessary. Elevated potassium likely secondary to hemolysis. 6. History of penile resection/non-Hodgkin's lymphoma/CODE STATUS Complicates care, management, recovery and prognosis. Montgomery catheter has been placed to facilitate urine monitoring. Patient with high FiO2 requirements at this time. We will continue to discuss with patient about intubation. Patient does have multiple comorbidities with malignancies limiting desire to be aggressive. Inpatient E&M: [id number] [facility] Hosp L3
[2020-03-28] MEDS: Metoprolol Tartrate 25 MG Tablet PO (08:18)
[2020-03-28] MEDS: Aspirin 81 MG TAB.CHEW PO (08:18)
--- NOTE | 2020-03-28 09:26 | PCM.PN.HOSP ---
Patient Problems: Active and Suspected Problems Atrial fibrillation with rapid ventricular response (Acute) COVID-19 (Acute) Bilateral COVID-19 viral pneumonia (Acute) Acute kidney injury (Acute) Healthcare-associated pneumonia (Acute) Septic shock (Acute) Brain tumor (Acute) Subjective: Patient seen and examined. He had no complaints this morning. He thinks his breathing is a bit better. He was put on Airvo and is tolerating it well. Tachycardia has also improved and he is now back on p.o. Cardizem. Vitals/I&O's: Vital Signs Temp Pulse Resp BP Pulse Ox 98.7 F 101 H 20 H 120/82 H 89 03/28/20 06:00 03/28/20 08:18 03/28/20 07:32 03/28/20 06:00 03/28/20 08:00 Oxygen Flow Rate (L/min) 60 Oxygen Delivery Method Bi-pap Weight: 231 lb 7.766 oz Body Mass Index (BMI) 33.4 Intake and Output for Last 24 Hours 03/26/20 03/27/20 03/28/20 23:59 23:59 23:59 Intake Total 1287.25 / 1302.25 929.00 / 930.25 276.25 / 276.25 Output Total 1135 / 1135 3440 / 3490 250 / 250 Balance 152.25 / 167.25 -2511.00 / -2559.75 26.25 / 26.25 General: Alert, Oriented x3, Cooperative, No apparent distress HEENT: Atraumatic, PERRLA, EOMI, Normocephalic Oral: Dry Mucosa Neck: Supple, No JVD, Negative Carotid Bruits Lungs: - - decreased breath sounds bibasally, few crackles. on AirVo Cardiovascular: Regular rate, Regular Rhythm, Normal S1, Normal S2, - - grade 2-3 ejection systolic murmur Abdomen: Bowel Sounds Present, Soft, Non Tender, Non-Distended, No Hepato-splenomegaly Extremities: No clubbing, No cyanosis, No edema, Capillary Refill Less than 3 Seconds Skin: No rashes, No breakdown Musculoskeletal: No Tenderness to Palpation of Joints or Extremities Lymphatic: No Cervical, Supraclavicular, or Inguinal Adenopathy Neurological: Cranial nerves II-XII grossly intact, Neuro grossly intact, Motor Exam 5/5 strength throughout Psych/Mental Status: Normal Affect, Appropriate, Alert and oriented to time, place, person, mood and affect Microbiology Past 72 Hours 03/25/20 20:20 Urine Catheter - [place] Urine Culture - Final Culture exhibits no growth. 03/26/20 10:30 Urine Catheter - Catheter Streptococcus pneumoniae Antigen (M - Final 03/26/20 10:30 Urine Catheter - Catheter Legionella Antigen - Final Laboratory Results 03/27/20 08:15: Retic Count 1.13, Immature Retic Fraction 7.60, Retic Hgb Equivalent 29.1 L 03/28/20 04:50: WBC 12.0 H, RBC 4.27 L, Hgb 12.7 L, Hct 39.6 L, MCV 92.7, MCH 29.7, MCHC 32.1, RDW Std Deviation 46.2 H, RDW Coeff of Dontae 13.6, Plt Count 131 L, MPV 9.8 03/28/20 04:50: Sodium 137, Potassium 4.3, Chloride 101, Carbon Dioxide 34.0 H, Anion Gap 2 L, BUN 30 H, Creatinine 0.69 L, Estim Creat Clear Calc 73.00, Est GFR (MDRD) Af Amer 146, Est GFR (MDRD) Non-Af 121, BUN/Creatinine Ratio 43.3 H, Glucose 139 H, Calcium 7.9 L, Total Bilirubin 1.10 H, AST 19, ALT 56, Alkaline Phosphatase 56, Total Protein 6.0 L, Albumin 1.9 L, Globulin 4.1, Albumin/Globulin Ratio 0.5 L Diagnostic Data Brain CT 03/25/20 17:08 IMPRESSION: 1. Evidence of recent surgery involving the left occipitoparietal region. There is encephalomalacia and a small subdural fluid collection underlying the craniotomy site. 2. Otherwise normal CT of the brain. Electronically Signed: Jordy Gonzalez DO at 17:52 EDT Tel [phone], Service support , Chest X-Ray 03/28/20 06:20 IMPRESSION: Improved bilateral pneumonia, pulmonary edema, or ARDS. Electronically Signed: Simón Pham MD at 6:40 EDT Tel , Service support , Current Medications Acetaminophen (Tylenol) 650 mg PO Q6H PRN PRN PRN Reason: Pain Score 1-10/Temp > 100.7 F Albuterol/Ipratropium (Duoneb) 3 ml INHALATION Q4H.RT PRN PRN Reason: WHEEZING Aspirin (Aspirin, Baby) 81 mg PO DAILY [facility] Last Admin: 03/28/20 08:18 Dose: 81 mg Documented by: Dexamethasone Sodium Phosphate (Decadron) 6 mg IV DAILY [facility] Last Admin: 03/27/20 08:22 Dose: 6 mg Documented by: Enoxaparin Sodium (Lovenox) 40 mg SC DAILY@0600 [facility] Last Admin: 03/28/20 06:28 Dose: 40 mg Documented by: Piperacillin Sod/Tazobactam (Sod 3.375 gm/ Sodium Chloride) 50 mls @ 12.5 mls/hr IV Q8 [facility] Last Admin: 03/28/20 06:31 Dose: 12.5 mls/hr Documented by: Remdesivir (Investigational) (100 mg/ Sodium Chloride) 250 mls @ 125 mls/hr IV DAILY [facility]; Protocol Stop: 03/30/20 11:59 Last Infusion: 03/27/20 14:26 Dose: Infused Documented by: Diltiazem HCl 125 mg/ Dextrose 125 mls @ 5 mls/hr IV .Q25H [facility]; Protocol Last Titration: 03/28/20 05:00 Dose: 5 mg/hr, 5 mls/hr Documented by: Levetiracetam (Keppra Tablet) 1,000 mg PO BID [facility] Metoprolol Tartrate (Lopressor (Beta Bekah)) 25 mg PO BID [facility] Last Admin: 03/28/20 08:18 Dose: 25 mg Documented by: Ondansetron HCl (Zofran) 4 mg IV Q8H PRN PRN PRN Reason: NAUSEA/VOMITING Senna/Docusate Sodium (Senokot-S, Stephany-Colace) 2 tablet PO BID PRN PRN Reason: Constipation Sodium Chloride () 10 - 40 ml IV UD PRN PRN Reason: SALINE FLUSH Last Admin: 03/25/20 22:03 Dose: 40 ml Documented by: Zolpidem Tartrate (Ambien (Generic)) 5 mg PO QHS PRN PRN PRN Reason: INSOMNIA Last Admin: 03/28/20 00:31 Dose: 5 mg Documented by: STROKE Vital Signs/Narrative: Vital Signs Temp Pulse Resp BP Pulse Ox 03/28/20 08:18 101 H 03/28/20 08:00 98 89 03/28/20 07:32 95 20 H 96 03/28/20 06:00 98.7 F 92 23 H 120/82 H 95 Medical Necessity - Tobacco Use Smoking Status: Never smoker Assessment/Plan All Active Problems Atrial fibrillation with rapid ventricular response (Acute) COVID-19 (Acute) Bilateral COVID-19 viral pneumonia (Acute) Acute kidney injury (Acute) Healthcare-associated pneumonia (Acute) Septic shock (Acute) Brain tumor (Acute) 1. Acute hypoxic respiratory failure due to COVID 19 infection. now on Airvo being diuresed gently as well titrate oxygen to maintain sats >90% 2. Septic shock due to COVID 19 infection: resolved. 3. COVID 19 infection wbc down to 12 now s/p 2 units of convalescent serum on IV dexamethasone and remdesivir. on IV zosyn as well o./a of elevated procalcitonin and elevated CRP. blood cultures still pending critical care and ID are on board 4. RIYA: resolved. 5. Afib with RVR was on cardizem drip. No on PO cardizem. not on therapeutic anticoagulation due to recent brains surgery for glioblastoma 6. History of glioblastoma s/p brain surgery had surgery on 03/10/2020 @ [facility] 7. History of marginal lymphoma: stable 8. Seizure disorder: on Keppra DVT prophylaxis; on lovenox 40mg daily Inpatient E&M: [id number] [facility] Hosp L3
--- NOTE | 2020-03-28 10:11 | CASEMGMT ---
RN CM Note: participated in ICU rounds, family on phone. Pt on airvo 95%, mohr, remdesivir, decadron. cardizem gtt off. Family updated that CM will continue to follow for needs on dc which may include HHC, oxygen, PT/OT. DC PLAN: undetermined. PT/OT evals today. Chai BLANCAN LONI ACM
--- NOTE | 2020-03-28 11:01 | CPS ---
pt oxygen levels decreased to 88% FiO2 on the Airvo. sats remaining above 90%.
[2020-03-28] MEDS: levETIRAcetam 1,000 MG Tablet 1000 MG PO ×2 (11:58→21:03)
[2020-03-28] MEDS: dexAMETHasone 10 MG/ML Vial 6 MG IV (11:58)
[2020-03-28] MEDS: 0.9% Saline Lock 10 ML Syringe IV ×3 (11:59→17:49)
[2020-03-28] MEDS: Metoprolol Tartrate 5 MG/5 ML Vial IV (17:25)
[2020-03-28] MEDS: Senna/Docusate Sodium 1 Tablet 2 TABLET PO (17:49)
[2020-03-28] MEDS: Ondansetron 4 MG/2 ML Vial IV (17:49)
[2020-03-28] MEDS: Metoprolol Tartrate 50 MG Tablet PO (20:52)
[2020-03-29] VITALS (34 sets, daily range): BP systolic 110–145; BP diastolic 75–107; PULSE 94–139; RESP 10–25; TEMP 37–37.8; O2SAT 90–99
[2020-03-29 04:55] LABS: Absolute Lymphocyte Count 0.37 X10^3/uL (0.83-4.51); Absolute Neutrophil Count 8.4 X10^3/uL (2.0-7.7); Basophil# 0.01 X10^3/uL; Basophil% 0.1 % (0-1); Hematocrit 41.1 % (40-54); Hemoglobin 12.9 g/dL (13.0-16.5); Lymphocyte # 0.37 X10^3/ul (4.0); Mean Corp Hgb Conc 31.4 g/dL (32-36); Mean Corpuscular Hgb 29.1 pg (27.0-32.0); Mean Corpuscular Volume 92.6 fL (80-94); Mean Platelet Vol. 9.7 fl (6.2-12.0); Monocyte# 0.48 X10^3/uL; Monocyte% 5.1 % (0-10); NRBC Flagged by Analyzer 0 % (0-5); Neutrophil # 8.44 X10^3/uL (2.7-7.7); Neutrophil % 90.2 % (47-70); POSITIVE DIFFERENTIAL YES; POSITIVE MORPHOLOGY YES; Platelet Count 132 K/mm3 (150-450); RBC Distribution Width CV 13.5 % (11.6-14.6); RBC Distribution Width SD 45.7 fl (35.1-43.9); Red Blood Count 4.44 M/mm3 (4.6-6.2); White Blood Count 9.4 K/mm3 (4.4-11.0)
[2020-03-29 05:03] LABS: Differential Indicated SCAN CRITERIA MET
[2020-03-29 05:19] LABS: ALB/GLOB Ratio 0.5 RATIO (0.9-2.4); AST(SGOT) 27 U/L (15-37); Alanine Aminotransfer ALT/SGPT 56 U/L (16-61); Albumin, Serum 1.8 g/dL (3.2-5.0); Alkaline Phosphatase 52 U/L (45-117); Anion Gap 3 (5-15); BUN 33 mg/dL (7-18); BUN/Creat Ratio 49.7 RATIO (10-20); Calcium,Total 7.8 mg/dL (8.5-10.1); Chloride 103 mmol/L (98-107); Creatinine, Serum 0.66 mg/dL (0.70-1.30); EST Glomerular Filtration Rate 127 mL/min (>60); Est Glom Filt Rate - Afr Amer 153 mL/min (>60); Globulin 3.8 g/dL (2.2-4.2); Glucose 116 mg/dL (74-106); Potassium 4.6 mmol/L (3.5-5.1); Protein, Total 5.6 g/dL (6.4-8.2); Sodium Level 139 mmol/L (136-145)
[2020-03-29] MEDS: Enoxaparin 40 MG/0.4 ML Syringe SC (05:32)
[2020-03-29 05:46] LABS: Differential Comment SCANNED; Reactive Lymphocyte 2+
--- NOTE | 2020-03-29 07:06 | PCM.PN.INT ---
Subjective: Patient did well overnight. Patient continues on BiPAP with sleep, but was able to tolerate high flow nasal cannula for significant portion of the day yesterday. No significant fever was reported overnight. Patient continues to have a dry cough. No seizure activity has been noted. Patient situation has been discussed with daughter and son on 2 separate occasions, so they are updated Objective: Patient able to be taken off the Cardizem drip over the last 24 hours. General: Alert, Oriented x3, Cooperative, No apparent distress, Well developed, Well nourished, - - Obese. HEENT: Atraumatic, PERRLA, EOMI, Normocephalic, - - No scleral icterus or injection noted Oral: Moist Mucosa, No Gingival or Mucosal Lesions/ Ulcerations Neck: Supple, No JVD, No Nodes, Trachea Midline Lungs: No rhonchi, No wheeze, Diminished, Rales - Right base Cardiovascular: Normal S1, Normal S2, Irregular Rate Abdomen: Bowel Sounds Present, Soft, Non Tender, Non-Distended, Obese Extremities: No clubbing, No cyanosis, Edema Skin: No rashes, No breakdown Musculoskeletal: No Tenderness to Palpation of Joints or Extremities Lymphatic: No Cervical, Supraclavicular, or Inguinal Adenopathy Neurological: Cranial nerves II-XII grossly intact, Neuro grossly intact, Motor Exam 5/5 strength throughout Psych/Mental Status: Alert and oriented to time, place, person, mood and affect Vital Signs Temp Pulse Resp BP Pulse Ox 37.1 C 128 H 19 H 114/75 95 03/29/20 07:00 03/29/20 07:00 03/29/20 07:00 03/29/20 07:00 03/29/20 07:00 Oxygen Flow Rate (L/min) 60 Oxygen Delivery Method Bi-pap Weight: 106 kg Body Mass Index (BMI) 33.4 Intake and Output for Last 24 Hours 03/27/20 03/28/20 03/29/20 23:59 23:59 23:59 Intake Total 929.00 / 930.25 1016.25 / 1016.25 100 / 100 Output Total 3440 / 3490 2150 / 2150 475 / 475 Balance -2511.00 / -2559.75 -1133.75 / -1133.75 -375 / -375 Labs (Last 48 Hours) 03/27/20 03/27/2003/28/20 08:15 08:15 04:50 WBC 12.0 H RBC 4.27 L Hgb 12.7 L Hct 39.6 L MCV 92.7 MCH 29.7 MCHC 32.1 RDW Std Deviation 46.2 H RDW Coeff of Dontae 13.6 Plt Count 131 L MPV 9.8 Immature Gran % (Auto) Neut % (Auto) Lymph % (Auto) Dare % (Auto) Eos % (Auto) Baso % (Auto) Absolute Neuts (auto) Absolute Lymphs (auto) Nucleated RBC % Differential Comment Reactive Lymphocytes Retic Count 1.13 Immature Retic Fraction 7.60 Retic Hgb Equivalent 29.1 L Sodium Potassium 4.5 Chloride Carbon Dioxide Anion Gap BUN Creatinine Estim Creat Clear Calc Est GFR (MDRD) Af Amer Est GFR (MDRD) Non-Af BUN/Creatinine Ratio Glucose Calcium Total Bilirubin AST ALT Alkaline Phosphatase Total Protein Albumin Globulin Albumin/Globulin Ratio 03/28/20 03/29/20 03/29/20 04:50 04:40 04:40 WBC 9.4 RBC 4.44 L Hgb 12.9 L Hct 41.1 MCV 92.6 MCH 29.1 MCHC 31.4 L RDW Std Deviation 45.7 H RDW Coeff of Dontae 13.5 Plt Count 132 L MPV 9.7 Immature Gran % (Auto) 0.600 Neut % (Auto) 90.2 H Lymph % (Auto) 4.0 L Dare % (Auto) 5.1 Eos % (Auto) 0.0 Baso % (Auto) 0.1 Absolute Neuts (auto) 8.4 H Absolute Lymphs (auto) 0.37 L Nucleated RBC % 0 Differential Comment SCANNED Reactive Lymphocytes 2+ Retic Count Immature Retic Fraction Retic Hgb Equivalent Sodium 137 139 Potassium 4.3 4.6 Chloride 101 103 Carbon Dioxide 34.0 H 33.0 H Anion Gap 2 L 3 L BUN 30 H 33 H Creatinine 0.69 L 0.66 L Estim Creat Clear Calc 73.00 73.00 Est GFR (MDRD) Af Amer 146 153 Est GFR (MDRD) Non-Af 121 127 BUN/Creatinine Ratio 43.3 H 49.7 H Glucose 139 H 116 H Calcium 7.9 L 7.8 L Total Bilirubin 1.10 H 1.70 H AST 19 27 ALT 56 56 Alkaline Phosphatase 56 52 Total Protein 6.0 L 5.6 L Albumin 1.9 L 1.8 L Globulin 4.1 3.8 Albumin/Globulin Ratio 0.5 L 0.5 L Microbiology 03/25/20 17:10 Blood Culture (Wb) - Anticubital Right Blood Culture - Preliminary No growth in 48 hours. 03/25/20 17:08 Blood Culture (Wb) - Left Forearm Blood Culture - Preliminary No growth in 48 hours. 03/25/20 20:20 Urine Catheter - Montgomery Urine Culture - Final Culture exhibits no growth. Medical Necessity - Tobacco Use Smoking Status: Never smoker Assessment/Plan All Active Problems Atrial fibrillation with rapid ventricular response (Acute) COVID-19 (Acute) Bilateral COVID-19 viral pneumonia (Acute) Acute kidney injury (Acute) Healthcare-associated pneumonia (Acute) Septic shock (Acute) Brain tumor (Acute) RECOMMENDATIONS: 1. Continue BiPAP therapy with increased FiO2 2. Agree with holding on fluid resuscitation given COVID-19 status 3. Continue Redesivir per ID 4. Continue with rate control. Possibly titrate up 5. No systemic anticoagulation secondary to recent surgery status 6. Add diuretic therapy 7. Wean oxygen as tolerated IMPRESSIONS: 1. Acute hypoxic respiratory failure secondary to COVID-19 and possible healthcare associated pneumonia Patient currently BiPAP dependent with high FiO2 and EPAP requirements. Patient is a DNR Comfort Care arrest without intubation. Patient is open to convalescent serum, so this procedure was completed. Patient will be continued on IV Decadron, but no therapeutic anticoagulation given recent brain surgery. Continue with empiric antibiotics for now given increased procalcitonin. Infectious disease is following, so we will defer to them on discontinuation. Patient reportedly does not have underlying lung disease and no CO2 retention of significance was noted on ABG. Patient did respond to diuretic therapy, so this will be continued on lower dose 2. Possible septic shock Patient does have bilateral infiltrates, but improved following diuresis. Patient came in significantly hypoxic, so this may account for elevated lactate and mildly elevated troponin. Agree with empiric antibiotics for now. Blood pressures are adequate. 3. A. fib with RVR Patient with a history of chronic A. fib and is currently controlled with Lopressor. Can titrate up if necessary for rate control. Continue to replace electrolytes as necessary. Patient cannot receive therapeutic anticoagulation secondary to recent brain surgery. 4. Glioblastoma status post resection?seizure disorder Patient reportedly had surgery on March 10, 2020 at [facility]. Patient is suspecting this is the etiology of his COVID-19 infection. This would make patient at approximately day 16 of infection. Clinical suspicion for symptomatology longer than previously reported. Patient does have a history of seizure disorder and will need to remain on Keppra therapy. Consider reaching out to [facility] to see when patient can be reinitiated on anticoagulation. 5. Acute kidney injury Resolved. Likely secondary to prerenal etiology. Patient has responded well to therapy with improvement in creatinine. Continue to replete electrolytes as necessary. Elevated potassium likely secondary to hemolysis. This has been stable otherwise 6. History of penile resection/non-Hodgkin's lymphoma/CODE STATUS Complicates care, management, recovery and prognosis. Montgomery catheter has been placed to facilitate urine monitoring. Patient with high FiO2 requirements at this time. We will continue to discuss with patient about intubation. Patient does have multiple comorbidities with malignancies limiting desire to be aggressive. Inpatient E&M: [id number] [facility] Hosp L3
[2020-03-29] MEDS: Aspirin 81 MG TAB.CHEW PO (09:19)
[2020-03-29] MEDS: Senna/Docusate Sodium 1 Tablet 2 TABLET PO (09:19)
[2020-03-29] MEDS: Metoprolol Tartrate 100 MG Tablet PO (09:19)
[2020-03-29] MEDS: 0.9% Saline Lock 10 ML Syringe IV ×2 (09:19→16:10)
[2020-03-29] MEDS: levETIRAcetam 1,000 MG Tablet 1000 MG PO ×2 (09:20→21:21)
[2020-03-29] MEDS: Furosemide 20 MG Tablet PO (09:20)
[2020-03-29] MEDS: dexAMETHasone 10 MG/ML Vial 6 MG IV (09:20)
--- NOTE | 2020-03-29 10:13 | PN_ITS ---
Patient Problems: Active and Suspected Problems Atrial fibrillation with rapid ventricular response (Acute) COVID-19 (Acute) Bilateral COVID-19 viral pneumonia (Acute) Acute kidney injury (Acute) Healthcare-associated pneumonia (Acute) Septic shock (Acute) Brain tumor (Acute) Subjective: Patient seen. He had an uneventful night. He complained of constipation. Shortness of breath that improved. He was on arrival at time of review. Review of stems otherwise negative. Vitals reviewed. He was a bit tachycardic this morning with heart rate being around 115. Vitals/I&O's: Vital Signs Temp Pulse Resp BP Pulse Ox 98.7 F 115 H 19 H 114/75 95 03/29/20 07:00 03/29/20 09:19 03/29/20 07:00 03/29/20 07:00 03/29/20 07:00 Oxygen Flow Rate (L/min) 60 Oxygen Delivery Method Bi-pap Weight: 233 lb 11.04 oz Body Mass Index (BMI) 33.4 Intake and Output for Last 24 Hours 03/27/20 03/28/20 03/29/20 23:59 23:59 23:59 Intake Total 929.00 / 930.25 1016.25 / 1016.25 100 / 100 Output Total 3440 / 3490 2150 / 2150 475 / 475 Balance -2511.00 / -2559.75 -1133.75 / -1133.75 -375 / -375 General: Alert, Oriented x3, Cooperative, No apparent distress HEENT: Atraumatic, PERRLA, EOMI, Normocephalic Oral: Dry Mucosa Neck: Supple, No JVD, Negative Carotid Bruits Lungs: - - decreased breath sounds bibasally, few crackles. on AirVo Cardiovascular: Regular rate, Regular Rhythm, Normal S1, Normal S2, - - grade 2- 3 ejection systolic murmur Abdomen: Bowel Sounds Present, Soft, Non Tender, Non-Distended, No Hepato- splenomegaly Extremities: No clubbing, No cyanosis, No edema, Capillary Refill Less than 3 Seconds Skin: No rashes, No breakdown Musculoskeletal: No Tenderness to Palpation of Joints or Extremities Lymphatic: No Cervical, Supraclavicular, or Inguinal Adenopathy Neurological: Cranial nerves II-XII grossly intact, Neuro grossly intact, Motor Exam 5/5 strength throughout Psych/Mental Status: Normal Affect, Appropriate, Alert and oriented to time, place, person, mood and affect Microbiology Past 72 Hours 03/25/20 17:10 Blood Culture (Wb) - Anticubital Right Blood Culture - Preliminary No growth in 48 hours. 03/25/20 17:08 Blood Culture (Wb) - Left Forearm Blood Culture - Preliminary No growth in 48 hours. 03/25/20 20:20 Urine Catheter - Montgomery Urine Culture - Final Culture exhibits no growth. 03/26/20 10:30 Urine Catheter - Catheter Streptococcus pneumoniae Antigen (M - Final 03/26/20 10:30 Urine Catheter - Catheter Legionella Antigen - Final Laboratory Results 03/29/20 04:40: WBC 9.4, RBC 4.44 L, Hgb 12.9 L, Hct 41.1, MCV 92.6, MCH 29.1, MCHC 31.4 L, RDW Std Deviation 45.7 H, RDW Coeff of Dontae 13.5, Plt Count 132 L, MPV 9.7, Immature Gran % (Auto) 0.600, Neut % (Auto) 90.2 H, Lymph % (Auto) 4.0 L, [place] % (Auto) 5.1, Eos % (Auto) 0.0, Baso % (Auto) 0.1, Absolute Neuts (auto) 8.4 H, Absolute Lymphs (auto) 0.37 L, Nucleated RBC % 0, Differential Comment SCANNED, Reactive Lymphocytes 2+ 03/29/20 04:40: Sodium 139, Potassium 4.6, Chloride 103, Carbon Dioxide 33.0 H, Anion Gap 3 L, BUN 33 H, Creatinine 0.66 L, Estim Creat Clear Calc 73.00, Est GFR (MDRD) Af Amer 153, Est GFR (MDRD) Non-Af 127, BUN/Creatinine Ratio 49.7 H, Glucose 116 H, Calcium 7.8 L, Total Bilirubin 1.70 H, AST 27, ALT 56, Alkaline Phosphatase 52, Total Protein 5.6 L, Albumin 1.8 L, Globulin 3.8, Albumin/Globulin Ratio 0.5 L Current Medications Acetaminophen (Tylenol) 650 mg PO Q6H PRN PRN PRN Reason: Pain Score 1-10/Temp > 100.7 F Albuterol/Ipratropium (Duoneb) 3 ml INHALATION Q4H.RT PRN PRN Reason: WHEEZING Aspirin (Aspirin, Baby) 81 mg PO DAILY [facility] Last Admin: 03/29/20 09:19 Dose: 81 mg Documented by: Dexamethasone Sodium Phosphate (Decadron) 6 mg IV DAILY [facility] Last Admin: 03/29/20 09:20 Dose: 6 mg Documented by: Enoxaparin Sodium (Lovenox) 40 mg SC DAILY@0600 [facility] Last Admin: 03/29/20 05:32 Dose: 40 mg Documented by: Piperacillin Sod/Tazobactam (Sod 3.375 gm/ Sodium Chloride) 50 mls @ 12.5 mls/hr IV Q8 [facility] Last Admin: 03/29/20 05:33 Dose: 12.5 mls/hr Documented by: Remdesivir (Investigational) (100 mg/ Sodium Chloride) 250 mls @ 125 mls/hr IV DAILY [facility]; Protocol Stop: 03/30/20 11:59 Last Infusion: 03/28/20 16:00 Dose: Infused Documented by: Levetiracetam (Keppra Tablet) 1,000 mg PO BID [facility] Last Admin: 03/29/20 09:20 Dose: 1,000 mg Documented by: Metoprolol Tartrate (Lopressor (Beta Bekah)) 100 mg PO BID [facility] Last Admin: 03/29/20 09:19 Dose: 100 mg Documented by: Ondansetron HCl (Zofran) 4 mg IV Q8H PRN PRN PRN Reason: NAUSEA/VOMITING Last Admin: 03/28/20 17:49 Dose: 4 mg Documented by: Senna/Docusate Sodium (Senokot-S, Stephany-Colace) 2 tablet PO BID PRN PRN Reason: Constipation Last Admin: 03/29/20 09:19 Dose: 2 tablet Documented by: Sodium Chloride () 10 - 40 ml IV UD PRN PRN Reason: SALINE FLUSH Last Admin: 03/29/20 09:19 Dose: 30 ml Documented by: Zolpidem Tartrate (Ambien (Generic)) 5 mg PO QHS PRN PRN PRN Reason: INSOMNIA Last Admin: 03/28/20 00:31 Dose: 5 mg Documented by: STROKE Vital Signs/Narrative: Vital Signs Temp Pulse Resp BP Pulse Ox 03/29/20 09:19 115 H 03/29/20 07:00 98.7 F 110 H 19 H 114/75 95 Medical Necessity - Tobacco Use Smoking Status: Never smoker Assessment/Plan All Active Problems Atrial fibrillation with rapid ventricular response (Acute) COVID-19 (Acute) Bilateral COVID-19 viral pneumonia (Acute) Acute kidney injury (Acute) Healthcare-associated pneumonia (Acute) Septic shock (Acute) Brain tumor (Acute) 1. Acute hypoxic respiratory failure due to COVID 19 infection. * now on Airvo * being diuresed gently as well * titrate oxygen to maintain sats >90% * 2. Septic shock due to COVID 19 infection: resolved. 3. COVID 19 infection * wbc down to 9.4 * s/p 2 units of convalescent serum * on IV dexamethasone and remdesivir. on IV zosyn as well o./a of elevated procalcitonin and elevated CRP. blood cultures show no growth after 48 hours * critical care and ID are on board * 4. RIYA: resolved. 5. Afib with RVR * was on cardizem drip. No on PO cardizem. * not on therapeutic anticoagulation due to recent brains surgery for glioblastoma * 6. History of glioblastoma s/p brain surgery * had surgery on 03/10/2020 @ [facility] * 7. History of marginal lymphoma: stable 8. Seizure disorder: on Keppra DVT prophylaxis; on lovenox 40mg daily Inpatient E&M: [id number] [facility] Hosp L3
[2020-03-29] MEDS: Metoprolol Tartrate 5 MG/5 ML Vial IV (16:10)
[2020-03-29] MEDS: Polyethylene Glycol 3350 17 GM PACKET PO (16:10)
[2020-03-29] MEDS: Ondansetron 4 MG/2 ML Vial IV (16:11)
[2020-03-29] MEDS: Metoprolol Tartrate 100 MG Tablet 200 MG PO (21:21)
[2020-03-30] VITALS (37 sets, daily range): BP systolic 100–147; BP diastolic 67–101; PULSE 82–126; RESP 12–27; TEMP 37.1–37.7; O2SAT 89–97
[2020-03-30] MEDS: 0.9% Saline Lock 10 ML Syringe IV ×3 (00:13→08:31)
--- NOTE | 2020-03-30 01:13 | CPS ---
nurse decreased fio2 to 65%
[2020-03-30] MEDS: Enoxaparin 40 MG/0.4 ML Syringe SC (04:26)
[2020-03-30 04:57] LABS: Absolute Lymphocyte Count 0.44 X10^3/uL (0.83-4.51); Absolute Neutrophil Count 10.2 X10^3/uL (2.0-7.7); Basophil# 0.02 X10^3/uL; Basophil% 0.2 % (0-1); Eosinophil# 0.01 X10^3/uL; Eosinophils% 0.1 % (0-5); Hematocrit 43.7 % (40-54); Hemoglobin 13.8 g/dL (13.0-16.5); Lymphocyte # 0.44 X10^3/ul (4.0); Lymphocyte % 3.9 % (19-41); Mean Corp Hgb Conc 31.6 g/dL (32-36); Mean Corpuscular Hgb 29.4 pg (27.0-32.0); Mean Platelet Vol. 10.6 fl (6.2-12.0); Monocyte# 0.58 X10^3/uL; Monocyte% 5.1 % (0-10); NRBC Flagged by Analyzer 0.2 % (0-5); Neutrophil # 10.24 X10^3/uL (2.7-7.7); Neutrophil % 89.6 % (47-70); POSITIVE DIFFERENTIAL YES; Platelet Count 122 K/mm3 (150-450); RBC Distribution Width CV 13.6 % (11.6-14.6); RBC Distribution Width SD 45.7 fl (35.1-43.9); White Blood Count 11.4 K/mm3 (4.4-11.0)
[2020-03-30 04:58] LABS: Differential Indicated SCAN CRITERIA MET
[2020-03-30 05:08] LABS: ALB/GLOB Ratio 0.5 RATIO (0.9-2.4); AST(SGOT) 34 U/L (15-37); Alanine Aminotransfer ALT/SGPT 70 U/L (16-61); Alkaline Phosphatase 56 U/L (45-117); Anion Gap 4 (5-15); BUN 33 mg/dL (7-18); BUN/Creat Ratio 39.6 RATIO (10-20); Chloride 102 mmol/L (98-107); Creatinine, Serum 0.83 mg/dL (0.70-1.30); EST Glomerular Filtration Rate 97 mL/min (>60); Est Glom Filt Rate - Afr Amer 118 mL/min (>60); Estimated Creatinine Clearance 87.95 ml/min; Globulin 3.8 g/dL (2.2-4.2); Glucose 117 mg/dL (74-106); Potassium 4.6 mmol/L (3.5-5.1); Protein, Total 5.8 g/dL (6.4-8.2); Sodium Level 139 mmol/L (136-145)
[2020-03-30 05:30] LABS: Differential Comment SCANNED
--- NOTE | 2020-03-30 06:14 | PN_ITS ---
Subjective: The patient was seen and examined at the bedside this morning. Events from the last 24 hours have been reviewed. The patient is currently afebrile, hemodynamically stable and maintaining appropriate oxygen saturations on BiPAP with an FiO2 requirement of 60%. The patient does report some improvement in his shortness of breath. Objective: The patient's most recent lab work, culture data and imaging studies have all been personally reviewed. Strep and urine Legionella antigens were negative. Blood and urine cultures have shown no growth to date. General: Alert, Cooperative, No apparent distress HEENT: Atraumatic, Normocephalic Oral: No Gingival or Mucosal Lesions/ Ulcerations Neck: Supple, No Nodes, Trachea Midline Lungs: Diminished Cardiovascular: Normal S1, Normal S2, Irregular Rate Abdomen: Bowel Sounds Present, Soft, Non Tender, Obese Extremities: No clubbing, No cyanosis, Edema Skin: No breakdown Musculoskeletal: No Muscle Wasting Lymphatic: No Cervical, Supraclavicular, or Inguinal Adenopathy Neurological: Cranial nerves II-XII grossly intact, Neuro grossly intact Psych/Mental Status: Flat Affect Vital Signs Temp Pulse Resp BP Pulse Ox 98.8 F 113 H 19 H 137/96 H 95 03/30/20 05:00 03/30/20 05:00 03/30/20 05:00 03/30/20 05:00 03/30/20 05:00 Oxygen Flow Rate (L/min) 60 Oxygen Delivery Method Bi-pap Weight: 228 lb 13.437 oz Body Mass Index (BMI) 33.4 Intake and Output for Last 24 Hours 03/28/20 03/29/20 03/30/20 23:59 23:59 23:59 Intake Total 1016.25 / 1016.25 910 / 910 50 / 50 Output Total 2150 / 2150 1275 / 1450 375 / 375 Balance -1133.75 / -1133.75 -365 / -540 -325 / -325 Labs (Last 48 Hours) 03/29/20 03/29/20 03/30/20 04:40 04:40 04:20 WBC 9.4 11.4 H RBC 4.44 L 4.70 Hgb 12.9 L 13.8 Hct 41.1 43.7 MCV 92.6 93.0 MCH 29.1 29.4 MCHC 31.4 L 31.6 L RDW Std Deviation 45.7 H 45.7 H RDW Coeff of Dontae 13.5 13.6 Plt Count 132 L 122 L MPV 9.7 10.6 Immature Gran % (Auto) 0.600 1.100 H Neut % (Auto) 90.2 H 89.6 H Lymph % (Auto) 4.0 L 3.9 L [place] % (Auto) 5.1 5.1 Eos % (Auto) 0.0 0.1 Baso % (Auto) 0.1 0.2 Absolute Neuts (auto) 8.4 H 10.2 H Absolute Lymphs (auto) 0.37 L 0.44 L Nucleated RBC % 0 0.2 Differential Comment SCANNED SCANNED Reactive Lymphocytes 2+ Sodium 139 Potassium 4.6 Chloride 103 Carbon Dioxide 33.0 H Anion Gap 3 L BUN 33 H Creatinine 0.66 L Estim Creat Clear Calc 73.00 Est GFR (MDRD) Af Amer 153 Est GFR (MDRD) Non-Af 127 BUN/Creatinine Ratio 49.7 H Glucose 116 H Calcium 7.8 L Total Bilirubin 1.70 H AST 27 ALT 56 Alkaline Phosphatase 52 Total Protein 5.6 L Albumin 1.8 L Globulin 3.8 Albumin/Globulin Ratio 0.5 L 03/30/20 04:20 WBC RBC Hgb Hct MCV MCH MCHC RDW Std Deviation RDW Coeff of Dontae Plt Count MPV Immature Gran % (Auto) Neut % (Auto) Lymph % (Auto) [place] % (Auto) Eos % (Auto) Baso % (Auto) Absolute Neuts (auto) Absolute Lymphs (auto) Nucleated RBC % Differential Comment Reactive Lymphocytes Sodium 139 Potassium 4.6 Chloride 102 Carbon Dioxide 33.0 H Anion Gap 4 L BUN 33 H Creatinine 0.83 Estim Creat Clear Calc 87.95 Est GFR (MDRD) Af Amer 118 Est GFR (MDRD) Non-Af 97 BUN/Creatinine Ratio 39.6 H Glucose 117 H Calcium 8.0 L Total Bilirubin 1.60 H AST 34 ALT 70 H Alkaline Phosphatase 56 Total Protein 5.8 L Albumin 2.0 L Globulin 3.8 Albumin/Globulin Ratio 0.5 L Microbiology 03/25/20 17:10 Blood Culture (Wb) - Anticubital Right Blood Culture - Preliminary No growth in 48 hours. 03/25/20 17:08 Blood Culture (Wb) - Left Forearm Blood Culture - Preliminary No growth in 48 hours. 03/25/20 20:20 Urine Catheter - [place] Urine Culture - Final Culture exhibits no growth. Clinical Impression(s) from Imaging Studies Chest X-Ray 03/25/20 15:23 IMPRESSION: Bilateral basilar predominant pneumonia, pulmonary edema, or ARDS. Electronically Signed: Simón Pham MD at 15:54 EDT Tel , Service support , Brain CT 03/25/20 17:08 IMPRESSION: 1. Evidence of recent surgery involving the left occipitoparietal region. There is encephalomalacia and a small subdural fluid collection underlying the craniotomy site. 2. Otherwise normal CT of the brain. Electronically Signed: Jordy Gonzalez DO at 17:52 EDT Tel [phone], Service support , Chest X-Ray 03/28/20 06:20 IMPRESSION: Improved bilateral pneumonia, pulmonary edema, or ARDS. Electronically Signed: Simón Pham MD at 6:40 EDT Tel , Service support , Medical Necessity - Tobacco Use Smoking Status: Never smoker Assessment/Plan All Active Problems Atrial fibrillation with rapid ventricular response (Acute) COVID-19 (Acute) Bilateral COVID-19 viral pneumonia (Acute) Acute kidney injury (Acute) Healthcare-associated pneumonia (Acute) Septic shock (Acute) Brain tumor (Acute) RECOMMENDATIONS: 1. Continue current supportive measures and wean supplemental oxygen to maintain saturations at or above 90%. 2. Continue Decadron as ordered to complete 10 days of treatment. Continue Remdesevir. 3. Continue DVT prophylaxis Lovenox. 4. Continue baseline antiepileptics. 5. Continue scheduled beta-jaspreet. 6. Continue empiric antimicrobial therapy. IMPRESSIONS: 1. Acute hypoxemic respiratory failure secondary to COVID-19 and possible healthcare associated pneumonia Oxygenation status appears to be slowly improving. Recommend continuing current supportive measures including noninvasive positive pressure ventilatory support as tolerated. Wean FiO2 to maintain oxygen saturations at or above 90%. Continue empiric antimicrobials for now. Continue Decadron and Remdesevir to complete treatment course. 2. Atrial fibrillation with RVR The patient does have a history of chronic atrial fibrillation. He is currently on high doses of beta-jaspreet with marginal control of heart rate. Recommend restarting outpatient Cardizem and long-acting beta blockade tomorrow. 3. Glioblastoma status post recent resection/unspecified seizure disorder Continue outpatient Keppra. Recent neurosurgical intervention would preclude the use of treatment strength Lovenox in this setting. 4. Acute kidney injury Most likely prerenal in etiology. Continue current supportive measures. Continue to monitor urine output. No indication for renal replacement therapy at the current time. 5. History of non-Hodgkin's lymphoma Complicates care, management, recovery and prognosis. Physical therapy to evaluate the patient once medically stabilized. Nutrition services is currently following. This note was generated with [employer] dictation software. It may contain incorrect words, spelling, and punctuation that were not noted in checking the note before signing. Inpatient E&M: [id number] [facility] Hosp L3
[2020-03-30] MEDS: Metoprolol Tartrate 100 MG Tablet 200 MG PO (08:29)
[2020-03-30] MEDS: dexAMETHasone 10 MG/ML Vial 6 MG IV (08:30)
[2020-03-30] MEDS: Polyethylene Glycol 3350 17 GM PACKET PO (08:30)
[2020-03-30] MEDS: Aspirin 81 MG TAB.CHEW PO (08:30)
[2020-03-30] MEDS: levETIRAcetam 1,000 MG Tablet 1000 MG PO ×2 (08:30→20:48)
--- NOTE | 2020-03-30 10:43 | PN_ITS ---
Patient Problems: Active and Suspected Problems Atrial fibrillation with rapid ventricular response (Acute) COVID-19 (Acute) Bilateral COVID-19 viral pneumonia (Acute) Acute kidney injury (Acute) Healthcare-associated pneumonia (Acute) Septic shock (Acute) Brain tumor (Acute) Subjective: Patient seen and examined. He has no complaints this morning. He remains on the Airvo during the nightand was on BiPAP during the night. He has been tachycardic with heart rate being 120 today he had a mild fever of 99.4 Fahrenheit today. Vitals/I&O's: Vital Signs Temp Pulse Resp BP Pulse Ox 99.4 F H 120 H 15 112/82 H 95 03/30/20 10:00 03/30/20 10:00 03/30/20 10:00 03/30/20 10:00 03/30/20 10:00 Oxygen Flow Rate (L/min) 60 Oxygen Delivery Method CPAP Weight: 228 lb 13.437 oz Body Mass Index (BMI) 33.4 Intake and Output for Last 24 Hours 03/28/20 03/29/20 03/30/20 23:59 23:59 23:59 Intake Total 1016.25 / 1016.25 910 / 910 350 / 350 Output Total 2150 / 2150 1275 / 1450 575 / 575 Balance -1133.75 / -1133.75 -365 / -540 -225 / -225 General: Alert, Oriented x3, Cooperative, No apparent distress HEENT: Atraumatic, PERRLA, EOMI, Normocephalic Oral: Dry Mucosa Neck: Supple, No JVD, Negative Carotid Bruits Lungs: - - decreased breath sounds bibasally, no crackles. on AirVo Cardiovascular: Regular rate, Regular Rhythm, Normal S1, Normal S2, - - grade 2- 3 ejection systolic murmur Abdomen: Bowel Sounds Present, Soft, Non Tender, Non-Distended, No Hepato- splenomegaly Extremities: No clubbing, No cyanosis, No edema, Capillary Refill Less than 3 Seconds Skin: No rashes, No breakdown Musculoskeletal: No Tenderness to Palpation of Joints or Extremities Lymphatic: No Cervical, Supraclavicular, or Inguinal Adenopathy Neurological: Cranial nerves II-XII grossly intact, Neuro grossly intact, Motor Exam 5/5 strength throughout Psych/Mental Status: Normal Affect, Appropriate, Alert and oriented to time, place, person, mood and affect Microbiology Past 72 Hours 03/25/20 17:10 Blood Culture (Wb) - Anticubital Right Blood Culture - Preliminary No growth in 48 hours. 03/25/20 17:08 Blood Culture (Wb) - Left Forearm Blood Culture - Preliminary No growth in 48 hours. 03/25/20 20:20 Urine Catheter - [place] Urine Culture - Final Culture exhibits no growth. Laboratory Results 03/30/20 04:20: WBC 11.4 H, RBC 4.70, Hgb 13.8, Hct 43.7, MCV 93.0, MCH 29.4, MCHC 31.6 L, RDW Std Deviation 45.7 H, RDW Coeff of Dontae 13.6, Plt Count 122 L, MPV 10.6, Immature Gran % (Auto) 1.100 H, Neut % (Auto) 89.6 H, Lymph % (Auto) 3.9 L, [place] % (Auto) 5.1, Eos % (Auto) 0.1, Baso % (Auto) 0.2, Absolute Neuts (auto) 10.2 H, Absolute Lymphs (auto) 0.44 L, Nucleated RBC % 0.2, Differential Comment SCANNED 03/30/20 04:20: Sodium 139, Potassium 4.6, Chloride 102, Carbon Dioxide 33.0 H, Anion Gap 4 L, BUN 33 H, Creatinine 0.83, Estim Creat Clear Calc 87.95, Est GFR (MDRD) Af Amer 118, Est GFR (MDRD) Non-Af 97, BUN/Creatinine Ratio 39.6 H, Glucose 117 H, Calcium 8.0 L, Total Bilirubin 1.60 H, AST 34, ALT 70 H, Alkaline Phosphatase 56, Total Protein 5.8 L, Albumin 2.0 L, Globulin 3.8, Albumin/Globulin Ratio 0.5 L Diagnostic Data Brain CT 03/25/20 17:08 IMPRESSION: 1. Evidence of recent surgery involving the left occipitoparietal region. There is encephalomalacia and a small subdural fluid collection underlying the craniotomy site. 2. Otherwise normal CT of the brain. Electronically Signed: Jordy Gonzalez DO at 17:52 EDT Tel [phone], Service support , Chest X-Ray 03/28/20 06:20 IMPRESSION: Improved bilateral pneumonia, pulmonary edema, or ARDS. Electronically Signed: Simón Pham MD at 6:40 EDT Tel , Service support , Current Medications Acetaminophen (Tylenol) 650 mg PO Q6H PRN PRN PRN Reason: Pain Score 1-10/Temp > 100.7 F Albuterol/Ipratropium (Duoneb) 3 ml INHALATION Q4H.RT PRN PRN Reason: WHEEZING Aspirin (Aspirin, Baby) 81 mg PO DAILY [facility] Last Admin: 03/30/20 08:30 Dose: 81 mg Documented by: Dexamethasone Sodium Phosphate (Decadron) 6 mg IV DAILY [facility] Stop: 04/03/20 12:00 Last Admin: 03/30/20 08:30 Dose: 6 mg Documented by: Diltiazem HCl (Cardizem Cd) 240 mg PO DAILY [facility] Enoxaparin Sodium (Lovenox) 40 mg SC DAILY@0600 [facility] Last Admin: 03/30/20 04:26 Dose: 40 mg Documented by: Piperacillin Sod/Tazobactam (Sod 3.375 gm/ Sodium Chloride) 50 mls @ 12.5 mls/hr IV Q8 [facility] Last Admin: 03/30/20 05:15 Dose: 12.5 mls/hr Documented by: Remdesivir (Investigational) (100 mg/ Sodium Chloride) 250 mls @ 125 mls/hr IV DAILY [facility]; Protocol Stop: 03/30/20 11:59 Last Infusion: 03/29/20 13:14 Dose: Infused Documented by: Levetiracetam (Keppra Tablet) 1,000 mg PO BID [facility] Last Admin: 03/30/20 08:30 Dose: 1,000 mg Documented by: Metoprolol Succinate (Toprol Xl (Beta Bekah)) 50 mg PO DAILY [facility] Ondansetron HCl (Zofran) 4 mg IV Q8H PRN PRN PRN Reason: NAUSEA/VOMITING Last Admin: 03/29/20 16:11 Dose: 4 mg Documented by: Polyethylene Glycol (Miralax) 17 gm PO DAILY [facility] Last Admin: 03/30/20 08:30 Dose: 17 gm Documented by: Senna/Docusate Sodium (Senokot-S, Stephany-Colace) 2 tablet PO BID PRN PRN Reason: Constipation Last Admin: 03/29/20 09:19 Dose: 2 tablet Documented by: Sodium Chloride () 10 - 40 ml IV UD PRN PRN Reason: SALINE FLUSH Last Admin: 03/30/20 08:31 Dose: 10 ml Documented by: Zolpidem Tartrate (Ambien (Generic)) 5 mg PO QHS PRN PRN PRN Reason: INSOMNIA Last Admin: 03/28/20 00:31 Dose: 5 mg Documented by: STROKE Vital Signs/Narrative: Vital Signs Temp Pulse Resp BP BP Pulse Ox 03/30/20 10:00 99.4 F H 120 H 15 112/82 H 95 03/30/20 09:00 116 H 27 H 108/88 H 94 03/30/20 08:29 107 H 108/84 H 03/30/20 08:00 99 F 106 H 21 H 108/84 H 93 03/30/20 07:14 115 H 03/30/20 07:00 99.2 F H 113 H 25 H 128/97 H 95 Medical Necessity - Tobacco Use Smoking Status: Never smoker Assessment/Plan All Active Problems Atrial fibrillation with rapid ventricular response (Acute) COVID-19 (Acute) Bilateral COVID-19 viral pneumonia (Acute) Acute kidney injury (Acute) Healthcare-associated pneumonia (Acute) Septic shock (Acute) Brain tumor (Acute) 1. Acute hypoxic respiratory failure due to COVID 19 infection. * still on Airvo and BIPAP intermittently * being diuresed gently as well * titrate oxygen to maintain sats >90% * 2. Septic shock due to COVID 19 infection: resolved. 3. COVID 19 infection * wbc up to 11.4 today * s/p 2 units of convalescent serum * on IV dexamethasone and remdesivir. on IV zosyn as well o./a of elevated procalcitonin and elevated CRP. blood cultures show no growth after 48 hours * critical care and ID are on board * 4. RIYA: resolved. 5. Afib with RVR * on PO cardizem. HR is up to 120 today. On cardizem 240mg daily * not on therapeutic anticoagulation due to recent brains surgery for glioblastoma * 6. History of glioblastoma s/p brain surgery * had surgery on 03/10/2020 @ [facility] * 7. History of marginal lymphoma: stable 8. Seizure disorder: on Keppra DVT prophylaxis; on lovenox 40mg daily Inpatient E&M: [id number] [facility] Hosp L3
[2020-03-31] VITALS (35 sets, daily range): BP systolic 89–124; BP diastolic 60–91; PULSE 97–127; RESP 12–28; TEMP 36.9–37.6; O2SAT 91–97
[2020-03-31 04:40] LABS: ALB/GLOB Ratio 0.6 RATIO (0.9-2.4); AST(SGOT) 23 U/L (15-37); Alanine Aminotransfer ALT/SGPT 63 U/L (16-61); Alkaline Phosphatase 53 U/L (45-117); Anion Gap 2 (5-15); BUN 28 mg/dL (7-18); BUN/Creat Ratio 32.4 RATIO (10-20); Calcium,Total 7.7 mg/dL (8.5-10.1); Chloride 103 mmol/L (98-107); Creatinine, Serum 0.86 mg/dL (0.70-1.30); EST Glomerular Filtration Rate 93 mL/min (>60); Est Glom Filt Rate - Afr Amer 113 mL/min (>60); Estimated Creatinine Clearance 84.88 ml/min; Globulin 3.6 g/dL (2.2-4.2); Glucose 100 mg/dL (74-106); Potassium 4.2 mmol/L (3.5-5.1); Protein, Total 5.6 g/dL (6.4-8.2); Sodium Level 140 mmol/L (136-145)
[2020-03-31] MEDS: Enoxaparin 40 MG/0.4 ML Syringe SC (05:11)
[2020-03-31] MEDS: 0.9% Saline Lock 10 ML Syringe IV ×2 (05:12→08:11)
--- NOTE | 2020-03-31 05:56 | PN_ITS ---
Subjective: The patient was seen and examined at the bedside this morning. Events from the last 24 hours have been reviewed. The patient is currently afebrile, hemodynamically stable and maintaining appropriate oxygen saturations on Airvo heated high flow. The patient is currently documented to be overall net -2.2 L for the hospital admission. Objective: The patient's most recent lab work, culture data and imaging studies have all been personally reviewed. Strep and urine Legionella antigens were negative. Blood and urine cultures have shown no growth to date. General: Alert, Cooperative, No apparent distress HEENT: Atraumatic, Normocephalic Oral: No Gingival or Mucosal Lesions/ Ulcerations Neck: Supple, No Nodes, Trachea Midline Lungs: No rhonchi, No wheeze, No rales, Diminished, Tachypneic Cardiovascular: Normal S1, Normal S2, Irregular Rate, Murmur, Tachycardic Abdomen: Bowel Sounds Present, Soft, Non Tender Extremities: No clubbing, No cyanosis, Edema Skin: No breakdown Musculoskeletal: No Tenderness to Palpation of Joints or Extremities Lymphatic: No Cervical, Supraclavicular, or Inguinal Adenopathy Neurological: Cranial nerves II-XII grossly intact, Neuro grossly intact Psych/Mental Status: Flat Affect Vital Signs Temp Pulse Resp BP Pulse Ox 98.6 F 125 H 21 H 110/69 97 03/31/20 05:00 03/31/20 05:00 03/31/20 05:00 03/31/20 05:00 03/31/20 05:00 Oxygen Flow Rate (L/min) 40 Oxygen Delivery Method CPAP Weight: 226 lb 6.636 oz Body Mass Index (BMI) 33.4 Intake and Output for Last 24 Hours 03/29/20 03/30/20 03/31/20 23:59 23:59 23:59 Intake Total 910 / 910 1070 / 1070 110 / 110 Output Total 1275 / 1450 1210 / 1210 280 / 280 Balance -365 / -540 -140 / -140 -170 / -170 Labs (Last 48 Hours) 03/30/20 03/30/20 03/31/20 04:20 04:20 04:10 WBC 11.4 H 6.7 RBC 4.70 Pending Hgb 13.8 Pending Hct 43.7 Pending MCV 93.0 Pending MCH 29.4 Pending MCHC 31.6 L Pending RDW Std Deviation 45.7 H Pending RDW Coeff of Dontae 13.6 Pending Plt Count 122 L Pending MPV 10.6 Immature Gran % (Auto) 1.100 H Neut % (Auto) 89.6 H Pending Lymph % (Auto) 3.9 L [place] % (Auto) 5.1 Eos % (Auto) 0.1 Baso % (Auto) 0.2 Absolute Neuts (auto) 10.2 H Pending Absolute Lymphs (auto) 0.44 L Total Counted 100 Neutrophils % (Manual) 92 H Lymphocytes % (Manual) 6 L Monocytes % (Manual) 2 Nucleated RBC % 0.2 Differential Comment SCANNED MANUAL DIFF Platelet Estimate ADEQUATE RBC Morphology NORM C+C Sodium 139 Potassium 4.6 Chloride 102 Carbon Dioxide 33.0 H Anion Gap 4 L BUN 33 H Creatinine 0.83 Estim Creat Clear Calc 87.95 Est GFR (MDRD) Af Amer 118 Est GFR (MDRD) Non-Af 97 BUN/Creatinine Ratio 39.6 H Glucose 117 H Calcium 8.0 L Total Bilirubin 1.60 H AST 34 ALT 70 H Alkaline Phosphatase 56 Total Protein 5.8 L Albumin 2.0 L Globulin 3.8 Albumin/Globulin Ratio 0.5 L 03/31/20 04:10 WBC RBC Hgb Hct MCV MCH MCHC RDW Std Deviation RDW Coeff of Dontae Plt Count MPV Immature Gran % (Auto) Neut % (Auto) Lymph % (Auto) [place] % (Auto) Eos % (Auto) Baso % (Auto) Absolute Neuts (auto) Absolute Lymphs (auto) Total Counted Neutrophils % (Manual) Lymphocytes % (Manual) Monocytes % (Manual) Nucleated RBC % Differential Comment Platelet Estimate RBC Morphology Sodium 140 Potassium 4.2 Chloride 103 Carbon Dioxide 35.0 H Anion Gap 2 L BUN 28 H Creatinine 0.86 Estim Creat Clear Calc 84.88 Est GFR (MDRD) Af Amer 113 Est GFR (MDRD) Non-Af 93 BUN/Creatinine Ratio 32.4 H Glucose 100 Calcium 7.7 L Total Bilirubin 1.70 H AST 23 ALT 63 H Alkaline Phosphatase 53 Total Protein 5.6 L Albumin 2.0 L Globulin 3.6 Albumin/Globulin Ratio 0.6 L Clinical Impression(s) from Imaging Studies Chest X-Ray 03/25/20 15:23 IMPRESSION: Bilateral basilar predominant pneumonia, pulmonary edema, or ARDS. Electronically Signed: Simón Pham MD at 15:54 EDT Tel , Service support , Brain CT 03/25/20 17:08 IMPRESSION: 1. Evidence of recent surgery involving the left occipitoparietal region. There is encephalomalacia and a small subdural fluid collection underlying the craniotomy site. 2. Otherwise normal CT of the brain. Electronically Signed: Jordy Gonzalez DO at 17:52 EDT Tel [phone], Service support , Chest X-Ray 03/28/20 06:20 IMPRESSION: Improved bilateral pneumonia, pulmonary edema, or ARDS. Electronically Signed: Simón Pham MD at 6:40 EDT Tel , Service support , Medical Necessity - Tobacco Use Smoking Status: Never smoker Assessment/Plan All Active Problems Atrial fibrillation with rapid ventricular response (Acute) COVID-19 (Acute) Bilateral COVID-19 viral pneumonia (Acute) Acute kidney injury (Acute) Healthcare-associated pneumonia (Acute) Septic shock (Acute) Brain tumor (Acute) RECOMMENDATIONS: 1. Continue current supportive measures and wean supplemental oxygen to maintain saturations at or above 90%. 2. Continue Decadron as ordered to complete 10 days of treatment. Continue Remdesevir. 3. Continue DVT prophylaxis Lovenox. 4. Continue baseline antiepileptics. 5. Continue scheduled beta-jaspreet and cardizem. 6. Continue empiric antimicrobial therapy. IMPRESSIONS: 1. Acute hypoxemic respiratory failure secondary to COVID-19 and possible healthcare associated pneumonia Oxygenation status appears to be slowly improving. Recommend continuing current supportive measures including noninvasive positive pressure ventilatory support as tolerated. Wean FiO2 to maintain oxygen saturations at or above 90%. Continue empiric antimicrobials for now. Continue Decadron and Remdesevir to complete treatment course. 2. Atrial fibrillation with RVR The patient does have a history of chronic atrial fibrillation. Plan to continue baseline outpatient Cardizem and Toprol-XL. 3. Glioblastoma status post recent resection/unspecified seizure disorder Continue outpatient Keppra. Recent neurosurgical intervention would preclude the use of treatment strength Lovenox in this setting. 4. Acute kidney injury Improved. Most likely prerenal in etiology. Continue current supportive measures. Continue to monitor urine output. No indication for renal replacement therapy at the current time. 5. History of non-Hodgkin's lymphoma Complicates care, management, recovery and prognosis. Physical therapy to work with the patient. Nutrition services is currently following. This note was generated with [employer] dictation software. It may contain incorrect words, spelling, and punctuation that were not noted in checking the note before signing. Inpatient E&M: 58705 [facility]s Hosp L3
--- NOTE | 2020-03-31 06:45 | CPS ---
P had dried blood on his upper lip, mustache when R.T. came in to the room. R.T. cleaned up blood and put Airvo cannula back in. while R.T. decreased settings on the Airvo, pt had a nose bleed which R.T. cleaned up and informed RN about. R.T. left a small gauze pad under right nare in case he had another nose bleed. Might have to switch to BIPAP or Venti mask if nose bleeds continue.
[2020-03-31] MEDS: levETIRAcetam 1,000 MG Tablet 1000 MG PO ×2 (08:10→21:36)
[2020-03-31] MEDS: dilTIAZem CD 240 MG Capsule PO (08:10)
[2020-03-31] MEDS: Aspirin 81 MG TAB.CHEW PO (08:10)
[2020-03-31] MEDS: Metoprolol(XL)Succ 50 MG Tablet PO (08:10)
[2020-03-31] MEDS: Polyethylene Glycol 3350 17 GM PACKET PO (08:10)
[2020-03-31] MEDS: dexAMETHasone 10 MG/ML Vial 6 MG IV (08:11)
[2020-03-31 09:15] LABS: Absolute Neutrophil Count 10.5 X10^3/uL (2.0-7.7); Basophil# 0.01 X10^3/uL; Basophil% 0.1 % (0-1); Eosinophil# 0.04 X10^3/uL; Eosinophils% 0.3 % (0-5); Hematocrit 44.7 % (40-54); Lymphocyte % 5.1 % (19-41); Mean Corp Hgb Conc 31.3 g/dL (32-36); Mean Corpuscular Hgb 29.1 pg (27.0-32.0); Mean Corpuscular Volume 92.9 fL (80-94); Mean Platelet Vol. 10.6 fl (6.2-12.0); Monocyte# 0.46 X10^3/uL; Monocyte% 3.9 % (0-10); NRBC Flagged by Analyzer 0 % (0-5); Neutrophil # 10.53 X10^3/uL (2.7-7.7); Neutrophil % 89.2 % (47-70); POSITIVE DIFFERENTIAL YES; Platelet Count 132 K/mm3 (150-450); RBC Distribution Width CV 13.2 % (11.6-14.6); RBC Distribution Width SD 44.9 fl (35.1-43.9); Red Blood Count 4.81 M/mm3 (4.6-6.2); White Blood Count 11.8 K/mm3 (4.4-11.0)
[2020-03-31 09:19] LABS: Differential Indicated SCAN CRITERIA MET
--- NOTE | 2020-03-31 09:45 | CASEMGMT ---
RN CM Note: participated in ICU interdisciplinary rounds. Pt remains on Airvo and Bipap for oxygen needs. IV antibiotics, Decadron IV, Lovenox. Passed mobility: PT/OT working with patient. DC Plan is undetermined. Family states they do not wish to consider SNF, however if pt would need SNF on dc, may need to speak with them re: TCU as an option for short term. DC Plan: undetermined. Chai JO RN ACM
--- NOTE | 2020-03-31 10:30 | PN_ITS ---
Patient Problems: Active and Suspected Problems Atrial fibrillation with rapid ventricular response (Acute) COVID-19 (Acute) Bilateral COVID-19 viral pneumonia (Acute) Acute kidney injury (Acute) Healthcare-associated pneumonia (Acute) Septic shock (Acute) Brain tumor (Acute) Subjective: Patient seen and examined. He had had an uneventful night and has no complaints today. Review of symptoms otherwise negative. Labs and vitals reviewed. He remains on airvo. Still remains tachycardic and tachypneic. Blood pressure come down to 89/62 today. Vitals/I&O's: Vital Signs Temp Pulse Resp BP Pulse Ox 98.7 F 120 H 24 H 89/62 L 93 03/31/20 10:00 03/31/20 10:00 03/31/20 10:00 03/31/20 10:00 03/31/20 10:00 Oxygen Flow Rate (L/min) 40 Oxygen Delivery Method CPAP Weight: 226 lb 6.636 oz Body Mass Index (BMI) 33.4 Intake and Output for Last 24 Hours 03/29/20 03/30/20 03/31/20 23:59 23:59 23:59 Intake Total 910 / 910 1070 / 1070 520 / 520 Output Total 1275 / 1450 1210 / 1210 495 / 495 Balance -365 / -540 -140 / -140 General: Alert, Oriented x3, Cooperative, No apparent distress HEENT: Atraumatic, PERRLA, EOMI, Normocephalic Oral: Dry Mucosa Neck: Supple, No JVD, Negative Carotid Bruits Lungs: - - decreased breath sounds bibasally, no crackles. on AirVo Cardiovascular: Regular rate, Regular Rhythm, Normal S1, Normal S2, - - grade 2- 3 ejection systolic murmur Abdomen: Bowel Sounds Present, Soft, Non Tender, Non-Distended, No Hepato- splenomegaly Extremities: No clubbing, No cyanosis, No edema, Capillary Refill Less than 3 Seconds Skin: No rashes, No breakdown Musculoskeletal: No Tenderness to Palpation of Joints or Extremities Lymphatic: No Cervical, Supraclavicular, or Inguinal Adenopathy Neurological: Cranial nerves II-XII grossly intact, Neuro grossly intact, Motor Exam 5/5 strength throughout Psych/Mental Status: Normal Affect, Appropriate, Alert and oriented to time, place, person, mood and affect Microbiology Past 72 Hours 03/25/20 17:10 Blood Culture (Wb) - Anticubital Right Blood Culture - Final No growth in 5 days. 03/25/20 17:08 Blood Culture (Wb) - Left Forearm Blood Culture - Final No growth in 5 days. 03/25/20 20:20 Urine Catheter - [place] Urine Culture - Final Culture exhibits no growth. Laboratory Results 03/31/20 04:10: WBC Cancelled, Corrected WBC Cancelled, RBC Cancelled, Hgb Cancelled, Hct Cancelled, MCV Cancelled, MCH Cancelled, MCHC Cancelled, RDW Std Deviation Cancelled, RDW Coeff of Dontae Cancelled, Plt Count Cancelled, MPV Cancelled, Immature Gran % (Auto) Cancelled, Neut % (Auto) Cancelled, Lymph % (Auto) Cancelled, [place] % (Auto) Cancelled, Eos % (Auto) Cancelled, Baso % (Auto) Cancelled, Absolute Neuts (auto) Cancelled, Absolute Lymphs (auto) Cancelled, Total Counted Cancelled, Neutrophils % (Manual) Cancelled, Band Neutrophils % Cancelled, Lymphocytes % (Manual) Cancelled, Monocytes % (Manual) Cancelled, Eosinophils % (Manual) Cancelled, Basophils % (Manual) Cancelled, Metamyelocytes % Cancelled, Myelocytes % Cancelled, Promyelocytes % Cancelled, Blast Cells % Cancelled, Plasma Cell % (Manual) Cancelled, Other Cells % Cancelled, Nucleated RBC % Cancelled, Nucleated RBCs/100 WBC Cancelled, Differential Comment Cancelled, Diff Path Review Cancelled, Hypersegmented Neuts Cancelled, Atypical Lymphocytes Cancelled, Reactive Lymphocytes Cancelled, Smudge Cells Cancelled, Toxic Granulation Cancelled, Toxic Vacuolation Cancelled, Dohle Bodies Cancelled, Sujatha Rods Cancelled, Platelet Estimate Cancelled, Plt Morphology Comment Cancelled, RBC Morphology Cancelled, Polychromasia Cancelled, Hypochromasia Cancelled, Poikilocytosis Cancelled, Basophilic Stippling Cancelled, Anisocytosis Cancelled, Microcytosis Cancelled, Macrocytosis Cancelled, Spherocytes Cancelled, Sickle Cells Cancelled, Target Cells Cancelled, Tear Drop Cells Cancelled, Ovalocytes Cancelled, Stomatocytes Cancelled, [place] Bodies Cancelled, [place] Cells Cancelled, Bite Cells Cancelled, Crenated Cell Cancelled, Acanthocytes (Spur) Cancelled, Rouleaux Cancelled, Schistocytes Cancelled 03/31/20 04:10: Sodium 140, Potassium 4.2, Chloride 103, Carbon Dioxide 35.0 H, Anion Gap 2 L, BUN 28 H, Creatinine 0.86, Estim Creat Clear Calc 84.88, Est GFR (MDRD) Af Amer 113, Est GFR (MDRD) Non-Af 93, BUN/Creatinine Ratio 32.4 H, Glucose 100, Calcium 7.7 L, Total Bilirubin 1.70 H, AST 23, ALT 63 H, Alkaline Phosphatase 53, Total Protein 5.6 L, Albumin 2.0 L, Globulin 3.6, Albumin/Globulin Ratio 0.6 L 03/31/20 04:10: WBC 11.8 H, RBC 4.81, Hgb 14.0, Hct 44.7, MCV 92.9, MCH 29.1, MCHC 31.3 L, RDW Std Deviation 44.9 H, RDW Coeff of Dontae 13.2, Plt Count 132 L, MPV 10.6, Immature Gran % (Auto) 1.400 H, Neut % (Auto) 89.2 H, Lymph % (Auto) 5.1 L, [place] % (Auto) 3.9, Eos % (Auto) 0.3, Baso % (Auto) 0.1, Absolute Neuts (auto) 10.5 H, Absolute Lymphs (auto) 0.60 L, Nucleated RBC % 0 Current Medications Acetaminophen (Tylenol) 650 mg PO Q6H PRN PRN PRN Reason: Pain Score 1-10/Temp > 100.7 F Albuterol/Ipratropium (Duoneb) 3 ml INHALATION Q4H.RT PRN PRN Reason: WHEEZING Aspirin (Aspirin, Baby) 81 mg PO DAILY [facility] Last Admin: 03/31/20 08:10 Dose: 81 mg Documented by: Dexamethasone Sodium Phosphate (Decadron) 6 mg IV DAILY [facility] Stop: 04/03/20 12:00 Last Admin: 03/31/20 08:11 Dose: 6 mg Documented by: Diltiazem HCl (Cardizem Cd) 240 mg PO DAILY [facility] Last Admin: 03/31/20 08:10 Dose: 240 mg Documented by: Enoxaparin Sodium (Lovenox) 40 mg SC DAILY@0600 [facility] Last Admin: 03/31/20 05:11 Dose: 40 mg Documented by: Piperacillin Sod/Tazobactam (Sod 3.375 gm/ Sodium Chloride) 50 mls @ 12.5 mls/hr IV Q8 [facility] Last Infusion: 03/31/20 09:12 Dose: Infused Documented by: Sodium Chloride () 250 mls @ 15 mls/hr IV .[id number] PRN PRN Reason: Saline Flush Last Admin: 03/31/20 09:12 Dose: 12.5 mls/hr Documented by: Sodium Chloride () 250 mls @ 15 mls/hr IV .[id number] PRN PRN Reason: Additional IVPB Infusion Levetiracetam (Keppra Tablet) 1,000 mg PO BID [facility] Last Admin: 03/31/20 08:10 Dose: 1,000 mg Documented by: Metoprolol Succinate (Toprol Xl (Beta Bekah)) 50 mg PO DAILY [facility] Last Admin: 03/31/20 08:10 Dose: 50 mg Documented by: Ondansetron HCl (Zofran) 4 mg IV Q8H PRN PRN PRN Reason: NAUSEA/VOMITING Last Admin: 03/29/20 16:11 Dose: 4 mg Documented by: Polyethylene Glycol (Miralax) 17 gm PO DAILY [facility] Last Admin: 03/31/20 08:10 Dose: 17 gm Documented by: Senna/Docusate Sodium (Senokot-S, Stephany-Colace) 2 tablet PO BID PRN PRN Reason: Constipation Last Admin: 03/29/20 09:19 Dose: 2 tablet Documented by: Sodium Chloride () 10 - 40 ml IV UD PRN PRN Reason: SALINE FLUSH Last Admin: 03/31/20 08:11 Dose: 10 ml Documented by: Zolpidem Tartrate (Ambien (Generic)) 5 mg PO QHS PRN PRN PRN Reason: INSOMNIA Last Admin: 03/28/20 00:31 Dose: 5 mg Documented by: STROKE Vital Signs/Narrative: Vital Signs Temp Pulse Resp BP Pulse Ox 03/31/20 10:00 98.7 F 120 H 24 H 89/62 L 93 03/31/20 09:00 98.6 F 123 H 21 H 99/63 92 08/25/20 08:10 120 H 03/31/20 08:00 98.7 F 118 H 19 H 95/63 94 03/31/20 07:47 108 H 03/31/20 07:00 98.9 F 117 H 23 H 112/79 97 03/31/20 06:45 109 H 22 H 94 Medical Necessity - Tobacco Use Smoking Status: Never smoker Assessment/Plan All Active Problems Atrial fibrillation with rapid ventricular response (Acute) COVID-19 (Acute) Bilateral COVID-19 viral pneumonia (Acute) Acute kidney injury (Acute) Healthcare-associated pneumonia (Acute) Septic shock (Acute) Brain tumor (Acute) 1. Acute hypoxic respiratory failure due to COVID 19 infection. * still on Airvo and BIPAP intermittently * Gentle diuresis with IV Lasix. * titrate oxygen to maintain sats >90% * 2. Septic shock due to COVID 19 infection: resolved. 3. COVID 19 infection * wbc up to 11.4 today * s/p 2 units of convalescent serum * on IV dexamethasone and remdesivir. on IV zosyn as well o./a of elevated procalcitonin and elevated CRP. blood cultures show no growth after 48 hours * critical care and ID are on board * 4. RIYA: resolved. 5. Afib with RVR * On cardizem 240mg daily and metoprolol * not on therapeutic anticoagulation due to recent brains surgery for gliobla stoma * 6. History of glioblastoma s/p brain surgery * had surgery on 03/10/2020 @ [facility] * 7. History of marginal lymphoma: stable 8. Seizure disorder: on Keppra DVT prophylaxis; on lovenox 40mg daily Inpatient E&M: 94782 [facility] Hosp L3
--- NOTE | 2020-03-31 14:21 | CASEMGMT ---
SW called daughter to offer support, message left. GERBER Esquivel
[2020-04-01] VITALS (35 sets, daily range): BP systolic 81–116; BP diastolic 59–83; PULSE 82–115; RESP 12–95; TEMP 37.1–38.1; O2SAT 89–98
--- NOTE | 2020-04-01 00:46 | CPS ---
Pt. taken of AirVo and placed back on BiPAP. Titrated pt.'s FiO2 from 50% to 65%; meet pt.'s oxygenation needs
[2020-04-01] MEDS: Enoxaparin 40 MG/0.4 ML Syringe SC (05:05)
[2020-04-01 05:06] LABS: Absolute Lymphocyte Count 0.44 X10^3/uL (0.83-4.51); Absolute Neutrophil Count 9.4 X10^3/uL (2.0-7.7); Basophil# 0.01 X10^3/uL; Basophil% 0.1 % (0-1); Eosinophil# 0.05 X10^3/uL; Eosinophils% 0.5 % (0-5); Hematocrit 43.1 % (40-54); Lymphocyte # 0.44 X10^3/ul (4.0); Lymphocyte % 4.2 % (19-41); Mean Corp Hgb Conc 32.5 g/dL (32-36); Mean Corpuscular Hgb 29.5 pg (27.0-32.0); Mean Corpuscular Volume 90.7 fL (80-94); Mean Platelet Vol. 10.1 fl (6.2-12.0); Monocyte# 0.24 X10^3/uL; Monocyte% 2.3 % (0-10); NRBC Flagged by Analyzer 0 % (0-5); Neutrophil # 9.43 X10^3/uL (2.7-7.7); Neutrophil % 90.9 % (47-70); POSITIVE DIFFERENTIAL YES; Platelet Count 125 K/mm3 (150-450); RBC Distribution Width CV 13.1 % (11.6-14.6); RBC Distribution Width SD 42.9 fl (35.1-43.9); Red Blood Count 4.75 M/mm3 (4.6-6.2); White Blood Count 10.4 K/mm3 (4.4-11.0)
[2020-04-01 05:09] LABS: Differential Indicated SCAN CRITERIA MET
[2020-04-01 05:23] LABS: Differential Comment SCANNED
[2020-04-01 05:28] LABS: Anion Gap 2 (5-15); BUN 22 mg/dL (7-18); BUN/Creat Ratio 34.6 RATIO (10-20); Calcium,Total 7.9 mg/dL (8.5-10.1); Chloride 105 mmol/L (98-107); Creatinine, Serum 0.64 mg/dL (0.70-1.30); EST Glomerular Filtration Rate 133 mL/min (>60); Est Glom Filt Rate - Afr Amer 161 mL/min (>60); Glucose 102 mg/dL (74-106); Potassium 4.3 mmol/L (3.5-5.1); Sodium Level 140 mmol/L (136-145)
--- NOTE | 2020-04-01 06:09 | PCM.PN.INT ---
Subjective: The patient was seen and examined at the bedside this morning. Events from the last 24 hours have been reviewed. The patient is currently afebrile, hemodynamically stable and maintaining appropriate oxygen saturations on Airvo at the present time. The patient once again tolerated BiPAP overnight. He is currently documented to be overall net -2.8 L for the hospital admission. Objective: The patient's most recent lab work, culture data and imaging studies have all been personally reviewed. Strep and urine Legionella antigens were negative. Blood and urine cultures have shown no growth to date. General: Alert, Cooperative, No apparent distress, - - Sitting in bedside recliner. HEENT: Atraumatic, PERRLA, Normocephalic Oral: Dry Mucosa Neck: Supple, No Nodes, Trachea Midline Lungs: No rhonchi, No wheeze, No rales, Diminished, Tachypneic Cardiovascular: Normal S1, Normal S2, Irregular Rate, Murmur, Tachycardic Abdomen: Bowel Sounds Present, Soft, Non Tender Extremities: No clubbing, No cyanosis Skin: No breakdown Musculoskeletal: No Tenderness to Palpation of Joints or Extremities Lymphatic: No Cervical, Supraclavicular, or Inguinal Adenopathy Neurological: Cranial nerves II-XII grossly intact, Neuro grossly intact Psych/Mental Status: Flat Affect Vital Signs Temp Pulse Resp BP Pulse Ox 98.8 F 94 21 H 111/74 96 04/01/20 06:00 04/01/20 06:00 04/01/20 06:00 04/01/20 06:00 04/01/20 06:00 Oxygen Flow Rate (L/min) 45 Oxygen Delivery Method CPAP Weight: 227 lb 15.327 oz Body Mass Index (BMI) 33.4 Intake and Output for Last 24 Hours 03/30/20 03/31/20 04/01/20 23:59 23:59 23:59 Intake Total 1070 / 1070 841.88 / 841.88 Output Total 1210 / 1210 1160 / 1260 425 / 425 Balance -140 / -140 -318.12 / -418.12 -425 / -425 Labs (Last 48 Hours) 03/31/20 03/31/20 03/31/20 04:10 04:10 04:10 WBC Cancelled 11.8 H Corrected WBC Cancelled RBC Cancelled 4.81 Hgb Cancelled 14.0 Hct Cancelled 44.7 MCV Cancelled 92.9 MCH Cancelled 29.1 MCHC Cancelled 31.3 L RDW Std Deviation Cancelled 44.9 H RDW Coeff of Dontae Cancelled 13.2 Plt Count Cancelled 132 L MPV Cancelled 10.6 Immature Gran % (Auto) Cancelled 1.400 H Neut % (Auto) Cancelled 89.2 H Lymph % (Auto) Cancelled 5.1 L [place] % (Auto) Cancelled 3.9 Eos % (Auto) Cancelled 0.3 Baso % (Auto) Cancelled 0.1 Absolute Neuts (auto) Cancelled 10.5 H Absolute Lymphs (auto) Cancelled 0.60 L Total Counted Cancelled Neutrophils % (Manual) Cancelled Band Neutrophils % Cancelled Lymphocytes % (Manual) Cancelled Monocytes % (Manual) Cancelled Eosinophils % (Manual) Cancelled Basophils % (Manual) Cancelled Metamyelocytes % Cancelled Myelocytes % Cancelled Promyelocytes % Cancelled Blast Cells % Cancelled Plasma Cell % (Manual) Cancelled Other Cells % Cancelled Nucleated RBC % Cancelled 0 Nucleated RBCs/100 WBC Cancelled Differential Comment Cancelled Diff Path Review Cancelled Hypersegmented Neuts Cancelled Atypical Lymphocytes Cancelled Reactive Lymphocytes Cancelled Smudge Cells Cancelled Toxic Granulation Cancelled Toxic Vacuolation Cancelled Dohle Bodies Cancelled Sujatha Rods Cancelled Platelet Estimate Cancelled Plt Morphology Comment Cancelled RBC Morphology Cancelled Polychromasia Cancelled Hypochromasia Cancelled Poikilocytosis Cancelled Basophilic Stippling Cancelled Anisocytosis Cancelled Microcytosis Cancelled Macrocytosis Cancelled Spherocytes Cancelled Sickle Cells Cancelled Target Cells Cancelled Tear Drop Cells Cancelled Ovalocytes Cancelled Stomatocytes Cancelled Michel-[place] Bodies Cancelled [place] Cells Cancelled Bite Cells Cancelled Crenated Cell Cancelled Acanthocytes (Spur) Cancelled Rouleaux Cancelled Schistocytes Cancelled Sodium 140 Potassium 4.2 Chloride 103 Carbon Dioxide 35.0 H Anion Gap 2 L BUN 28 H Creatinine 0.86 Estim Creat Clear Calc 84.88 Est GFR (MDRD) Af Amer 113 Est GFR (MDRD) Non-Af 93 BUN/Creatinine Ratio 32.4 H Glucose 100 Calcium 7.7 L Total Bilirubin 1.70 H AST 23 ALT 63 H Alkaline Phosphatase 53 Total Protein 5.6 L Albumin 2.0 L Globulin 3.6 Albumin/Globulin Ratio 0.6 L 04/01/20 04/01/20 05:00 05:00 WBC 10.4 Corrected WBC RBC 4.75 Hgb 14.0 Hct 43.1 MCV 90.7 MCH 29.5 MCHC 32.5 RDW Std Deviation 42.9 RDW Coeff of Dontae 13.1 Plt Count 125 L MPV 10.1 Immature Gran % (Auto) 2.000 H Neut % (Auto) 90.9 H Lymph % (Auto) 4.2 L [place] % (Auto) 2.3 Eos % (Auto) 0.5 Baso % (Auto) 0.1 Absolute Neuts (auto) 9.4 H Absolute Lymphs (auto) 0.44 L Total Counted Neutrophils % (Manual) Band Neutrophils % Lymphocytes % (Manual) Monocytes % (Manual) Eosinophils % (Manual) Basophils % (Manual) Metamyelocytes % Myelocytes % Promyelocytes % Blast Cells % Plasma Cell % (Manual) Other Cells % Nucleated RBC % 0 Nucleated RBCs/100 WBC Differential Comment SCANNED Diff Path Review Hypersegmented Neuts Atypical Lymphocytes Reactive Lymphocytes Smudge Cells Toxic Granulation Toxic Vacuolation Dohle Bodies Sujatha Rods Platelet Estimate Plt Morphology Comment RBC Morphology Polychromasia Hypochromasia Poikilocytosis Basophilic Stippling Anisocytosis Microcytosis Macrocytosis Spherocytes Sickle Cells Target Cells Tear Drop Cells Ovalocytes Stomatocytes Michel-[place] Bodies Camila Cells Bite Cells Crenated Cell Acanthocytes (Spur) Rouleaux Schistocytes Sodium 140 Potassium 4.3 Chloride 105 Carbon Dioxide 33.0 H Anion Gap 2 L BUN 22 H Creatinine 0.64 L Estim Creat Clear Calc 73.00 Est GFR (MDRD) Af Amer 161 Est GFR (MDRD) Non-Af 133 BUN/Creatinine Ratio 34.6 H Glucose 102 Calcium 7.9 L Total Bilirubin AST ALT Alkaline Phosphatase Total Protein Albumin Globulin Albumin/Globulin Ratio Microbiology 03/25/20 17:10 Blood Culture (Wb) - Anticubital Right Blood Culture - Final No growth in 5 days. 03/25/20 17:08 Blood Culture (Wb) - Left Forearm Blood Culture - Final No growth in 5 days. Clinical Impression(s) from Imaging Studies Chest X-Ray 03/25/20 15:23 IMPRESSION: Bilateral basilar predominant pneumonia, pulmonary edema, or ARDS. Electronically Signed: Simón Pham MD at 15:54 EDT Tel , Service support , Brain CT 03/25/20 17:08 IMPRESSION: 1. Evidence of recent surgery involving the left occipitoparietal region. There is encephalomalacia and a small subdural fluid collection underlying the craniotomy site. 2. Otherwise normal CT of the brain. Electronically Signed: Jordy Gonzalez DO at 17:52 EDT Tel [phone], Service support , Chest X-Ray 03/28/20 06:20 IMPRESSION: Improved bilateral pneumonia, pulmonary edema, or ARDS. Electronically Signed: Simón Pham MD at 6:40 EDT Tel , Service support , Medical Necessity - Tobacco Use Smoking Status: Never smoker Assessment/Plan All Active Problems Atrial fibrillation with rapid ventricular response (Acute) COVID-19 (Acute) Bilateral COVID-19 viral pneumonia (Acute) Acute kidney injury (Acute) Healthcare-associated pneumonia (Acute) Septic shock (Acute) Brain tumor (Acute) RECOMMENDATIONS: 1. Continue current supportive measures and wean supplemental oxygen to maintain saturations at or above 90%. 2. Continue Decadron as ordered to complete 10 days of treatment. 3. Continue DVT prophylaxis Lovenox. 4. Continue baseline antiepileptics. 5. Continue scheduled beta-jaspreet and cardizem. IMPRESSIONS: 1. Acute hypoxemic respiratory failure secondary to COVID-19 and possible healthcare associated pneumonia Oxygenation status appears to be slowly improving. Recommend continuing current supportive measures including noninvasive positive pressure ventilatory support as tolerated. Wean FiO2 to maintain oxygen saturations at or above 90%. The patient has completed treatment courses of antimicrobials and Remdesevir. Continue Decadron x 10 days to complete treatment course. 2. Atrial fibrillation with RVR The patient does have a history of chronic atrial fibrillation. Plan to continue baseline outpatient Cardizem and Toprol-XL. 3. Glioblastoma status post recent resection/unspecified seizure disorder Continue outpatient Keppra. Recent neurosurgical intervention would preclude the use of treatment strength Lovenox in this setting. 4. Acute kidney injury Improved. Most likely prerenal in etiology. Continue current supportive measures. Continue to monitor urine output. No indication for renal replacement therapy at the current time. 5. History of non-Hodgkin's lymphoma Complicates care, management, recovery and prognosis. Physical therapy to work with the patient. Nutrition services is currently following. This note was generated with [employer] dictation software. It may contain incorrect words, spelling, and punctuation that were not noted in checking the note before signing. Inpatient E&M: 70424 Subs Hosp L3
[2020-04-01] MEDS: Metoprolol(XL)Succ 50 MG Tablet PO (08:41)
[2020-04-01] MEDS: levETIRAcetam 1,000 MG Tablet 1000 MG PO ×2 (08:41→20:54)
[2020-04-01] MEDS: Aspirin 81 MG TAB.CHEW PO (08:42)
[2020-04-01] MEDS: dilTIAZem CD 240 MG Capsule PO (08:42)
[2020-04-01] MEDS: dexAMETHasone 10 MG/ML Vial 6 MG IV (08:42)
[2020-04-01] MEDS: Polyethylene Glycol 3350 17 GM PACKET PO (08:42)
--- NOTE | 2020-04-01 09:59 | PCM.PN.HOSP ---
Patient Problems: Active and Suspected Problems Atrial fibrillation with rapid ventricular response (Acute) COVID-19 (Acute) Bilateral COVID-19 viral pneumonia (Acute) Acute kidney injury (Acute) Healthcare-associated pneumonia (Acute) Septic shock (Acute) Brain tumor (Acute) Subjective: Patient seen and examined. He has no complaints and feels well. He still is on Airvo. Review of systems otherwise negative. He has remained hemodynamically stable and tachycardia is improving. He has been a bit tachypneic. Labs and vitals reviewed. Vitals/I&O's: Vital Signs Temp Pulse Resp BP Pulse Ox 98.8 F 103 H 25 H 108/69 95 04/01/20 09:00 04/01/20 09:00 04/01/20 09:00 04/01/20 09:00 04/01/20 09:00 Oxygen Flow Rate (L/min) 45 Oxygen Delivery Method CPAP Weight: 227 lb 15.327 oz Body Mass Index (BMI) 33.4 Intake and Output for Last 24 Hours 03/30/20 03/31/20 04/01/20 23:59 23:59 23:59 Intake Total 1070 / 1070 841.88 / 841.88 298.12 / 298.12 Output Total 1210 / 1210 1160 / 1260 425 / 425 Balance -140 / -140 -318.12 / -418.12 -126.88 / -126.88 General: Alert, Oriented x3, Cooperative, No apparent distress HEENT: Atraumatic, PERRLA, EOMI, Normocephalic Oral: Dry Mucosa Neck: Supple, No JVD, Negative Carotid Bruits Lungs: - - decreased breath sounds bibasally, no crackles. on AirVo Cardiovascular: Regular rate, Regular Rhythm, Normal S1, Normal S2, - - grade 2-3 ejection systolic murmur Abdomen: Bowel Sounds Present, Soft, Non Tender, Non-Distended, No Hepato-splenomegaly Extremities: No clubbing, No cyanosis, No edema, Capillary Refill Less than 3 Seconds Skin: No rashes, No breakdown Musculoskeletal: No Tenderness to Palpation of Joints or Extremities Lymphatic: No Cervical, Supraclavicular, or Inguinal Adenopathy Neurological: Cranial nerves II-XII grossly intact, Neuro grossly intact, Motor Exam 5/5 strength throughout Psych/Mental Status: Normal Affect, Appropriate, Alert and oriented to time, place, person, mood and affect Microbiology Past 72 Hours 03/25/20 17:10 Blood Culture (Wb) - Anticubital Right Blood Culture - Final No growth in 5 days. 03/25/20 17:08 Blood Culture (Wb) - Left Forearm Blood Culture - Final No growth in 5 days. Laboratory Results 04/01/20 05:00: WBC 10.4, RBC 4.75, Hgb 14.0, Hct 43.1, MCV 90.7, MCH 29.5, MCHC 32.5, RDW Std Deviation 42.9, RDW Coeff of Dontae 13.1, Plt Count 125 L, MPV 10.1, Immature Gran % (Auto) 2.000 H, Neut % (Auto) 90.9 H, Lymph % (Auto) 4.2 L, [place] % (Auto) 2.3, Eos % (Auto) 0.5, Baso % (Auto) 0.1, Absolute Neuts (auto) 9.4 H, Absolute Lymphs (auto) 0.44 L, Nucleated RBC % 0, Differential Comment SCANNED 04/01/20 05:00: Sodium 140, Potassium 4.3, Chloride 105, Carbon Dioxide 33.0 H, Anion Gap 2 L, BUN 22 H, Creatinine 0.64 L, Estim Creat Clear Calc 73.00, Est GFR (MDRD) Af Amer 161, Est GFR (MDRD) Non-Af 133, BUN/Creatinine Ratio 34.6 H, Glucose 102, Calcium 7.9 L Current Medications Acetaminophen (Tylenol) 650 mg PO Q6H PRN PRN PRN Reason: Pain Score 1-10/Temp > 100.7 F Albuterol/Ipratropium (Duoneb) 3 ml INHALATION Q4H.RT PRN PRN Reason: WHEEZING Aspirin (Aspirin, Baby) 81 mg PO DAILY [facility] Last Admin: 04/01/20 08:42 Dose: 81 mg Documented by: Dexamethasone Sodium Phosphate (Decadron) 6 mg IV DAILY [facility] Stop: 04/03/20 12:00 Last Admin: 04/01/20 08:42 Dose: 6 mg Documented by: Diltiazem HCl (Cardizem Cd) 240 mg PO DAILY [facility] Last Admin: 04/01/20 08:42 Dose: 240 mg Documented by: Enoxaparin Sodium (Lovenox) 40 mg SC DAILY@0600 [facility] Last Admin: 04/01/20 05:05 Dose: 40 mg Documented by: Sodium Chloride () 250 mls @ 15 mls/hr IV .[id number] PRN PRN Reason: Saline Flush Last Infusion: 04/01/20 09:13 Dose: Infused Documented by: Sodium Chloride () 250 mls @ 15 mls/hr IV .[id number] PRN PRN Reason: Additional IVPB Infusion Levetiracetam (Keppra Tablet) 1,000 mg PO BID [facility] Last Admin: 04/01/20 08:41 Dose: 1,000 mg Documented by: Metoprolol Succinate (Toprol Xl (Beta Bekah)) 50 mg PO DAILY [facility] Last Admin: 04/01/20 08:41 Dose: 50 mg Documented by: Ondansetron HCl (Zofran) 4 mg IV Q8H PRN PRN PRN Reason: NAUSEA/VOMITING Last Admin: 03/29/20 16:11 Dose: 4 mg Documented by: Polyethylene Glycol (Miralax) 17 gm PO DAILY [facility] Last Admin: 04/01/20 08:42 Dose: 17 gm Documented by: Senna/Docusate Sodium (Senokot-S, Stephany-Colace) 2 tablet PO BID PRN PRN Reason: Constipation Last Admin: 03/29/20 09:19 Dose: 2 tablet Documented by: Sodium Chloride () 10 - 40 ml IV UD PRN PRN Reason: SALINE FLUSH Last Admin: 03/31/20 08:11 Dose: 10 ml Documented by: Zolpidem Tartrate (Ambien (Generic)) 5 mg PO QHS PRN PRN PRN Reason: INSOMNIA Last Admin: 03/28/20 00:31 Dose: 5 mg Documented by: STROKE Vital Signs/Narrative: Vital Signs Temp Pulse Resp BP BP Pulse Ox 04/01/20 09:00 98.8 F 103 H 25 H 108/69 95 04/01/20 08:41 106 H 116/83 H 04/01/20 08:00 99 F 97 25 H 116/83 H 96 04/01/20 07:42 101 H 04/01/20 07:00 98.7 F 97 12 101/65 96 04/01/20 06:30 99 22 H 93 04/01/20 06:00 98.8 F 94 21 H 111/74 96 Medical Necessity - Tobacco Use Smoking Status: Never smoker Assessment/Plan All Active Problems Atrial fibrillation with rapid ventricular response (Acute) COVID-19 (Acute) Bilateral COVID-19 viral pneumonia (Acute) Acute kidney injury (Acute) Healthcare-associated pneumonia (Acute) Septic shock (Acute) Brain tumor (Acute) 1. Acute hypoxic respiratory failure due to COVID 19 infection. still on Airvo and BIPAP intermittently titrate oxygen to maintain sats >90% 2. Septic shock due to COVID 19 infection: resolved. 3. COVID 19 infection s/p 2 units of convalescent serum on IV dexamethasone and remdesivir. has completed course of IV zosyn. critical care and ID are on board 4. RIYA: resolved. 5. Afib with RVR On cardizem 240mg daily and metoprolol. HR control is improving. not on therapeutic anticoagulation due to recent brains surgery for glioblastoma 6. History of glioblastoma s/p brain surgery had surgery on 03/10/2020 @ [facility] 7. History of marginal lymphoma: stable 8. Seizure disorder: on Keppra DVT prophylaxis; on lovenox 40mg daily Inpatient E&M: 53717 [facility] Hosp L3
[2020-04-01] MEDS: Mirtazapine 15 MG Tablet 7.5 MG PO (20:54)
[2020-04-02] VITALS (33 sets, daily range): BP systolic 87–109; BP diastolic 55–77; PULSE 84–121; RESP 11–30; TEMP 37.3–37.9; O2SAT 89–97; BMI 32.2
[2020-04-02 04:03] LABS: Absolute Lymphocyte Count 0.44 X10^3/uL (0.83-4.51); Basophil# 0.01 X10^3/uL; Basophil% 0.1 % (0-1); Eosinophil# 0.13 X10^3/uL; Eosinophils% 1.5 % (0-5); Hematocrit 42.2 % (40-54); Hemoglobin 13.6 g/dL (13.0-16.5); Lymphocyte # 0.44 X10^3/ul (4.0); Lymphocyte % 4.9 % (19-41); Mean Corp Hgb Conc 32.2 g/dL (32-36); Mean Corpuscular Hgb 28.9 pg (27.0-32.0); Mean Corpuscular Volume 89.8 fL (80-94); Mean Platelet Vol. 10.4 fl (6.2-12.0); Monocyte# 0.22 X10^3/uL; Monocyte% 2.5 % (0-10); NRBC Flagged by Analyzer 0 % (0-5); Neutrophil % 89.7 % (47-70); POSITIVE DIFFERENTIAL YES; Platelet Count 119 K/mm3 (150-450); RBC Distribution Width CV 13.1 % (11.6-14.6); White Blood Count 8.9 K/mm3 (4.4-11.0)
[2020-04-02 04:04] LABS: Anion Gap 2 (5-15); BUN 19 mg/dL (7-18); BUN/Creat Ratio 42.6 RATIO (10-20); Calcium,Total 7.6 mg/dL (8.5-10.1); Chloride 106 mmol/L (98-107); Creatinine, Serum 0.45 mg/dL (0.70-1.30); Differential Indicated SCAN CRITERIA MET; EST Glomerular Filtration Rate 200 mL/min (>60); Est Glom Filt Rate - Afr Amer 242 mL/min (>60); Glucose 96 mg/dL (74-106); Potassium 3.8 mmol/L (3.5-5.1); Sodium Level 139 mmol/L (136-145)
--- NOTE | 2020-04-02 04:33 | NURSING ---
pt refused nystatin at 0220, states I would rather wait until other AM meds and bipap is off.
[2020-04-02 04:55] LABS: Differential Comment SCANNED
[2020-04-02] MEDS: Enoxaparin 40 MG/0.4 ML Syringe SC (06:03)
[2020-04-02] MEDS: NYSTATIN 500,000 UNIT/5 ML UDC 500000 UNIT PO ×5 (06:04→21:20)
--- NOTE | 2020-04-02 06:08 | PN_ITS ---
Subjective: The patient was seen and examined at the bedside this morning. Events from the last 24 hours have been reviewed. The patient is currently afebrile, hemodynamically stable and maintaining appropriate oxygen saturations on BiPAP with an FiO2 requirement of 55%. Per nursing report, the patient has developed thrush and was started on scheduled nystatin overnight. Objective: The patient's most recent lab work, culture data and imaging studies have all been personally reviewed. Strep and urine Legionella antigens were negative. Blood and urine cultures have shown no growth to date. General: Alert, Cooperative, No apparent distress HEENT: Atraumatic, Normocephalic Oral: - - Thrush present Neck: Supple, No Nodes, Trachea Midline Lungs: No rhonchi, No wheeze, No rales, Diminished Cardiovascular: Normal S1, Normal S2, Irregular Rate, Murmur Abdomen: Bowel Sounds Present, Soft, Non Tender Extremities: No clubbing, No cyanosis Skin: No breakdown Musculoskeletal: No Muscle Wasting Lymphatic: No Cervical, Supraclavicular, or Inguinal Adenopathy Neurological: Cranial nerves II-XII grossly intact, Neuro grossly intact Psych/Mental Status: Flat Affect Vital Signs Temp Pulse Resp BP Pulse Ox 99.8 F H 108 H 26 H 91/64 95 04/02/20 04:00 04/02/20 05:23 04/02/20 05:23 04/02/20 05:00 04/02/20 05:23 Oxygen Flow Rate (L/min) 45 Oxygen Delivery Method Bi-pap Weight: 227 lb 15.327 oz Body Mass Index (BMI) 33.4 Intake and Output for Last 24 Hours 03/31/20 04/01/20 04/02/20 23:59 23:59 23:59 Intake Total 841.88 / 841.88 1158.12 / 1158.12 7.5 / 7.5 Output Total 1160 / 1260 1275 / 1275 200 / 200 Balance -318.12 / -418.12 -116.88 / -116.88 -192.5 / -192.5 Labs (Last 48 Hours) 03/31/20 03/31/20 04/01/20 04:10 04:10 05:00 WBC Cancelled 11.8 H 10.4 Corrected WBC Cancelled RBC Cancelled 4.81 4.75 Hgb Cancelled 14.0 14.0 Hct Cancelled 44.7 43.1 MCV Cancelled 92.9 90.7 MCH Cancelled 29.1 29.5 MCHC Cancelled 31.3 L 32.5 RDW Std Deviation Cancelled 44.9 H 42.9 RDW Coeff of Dontae Cancelled 13.2 13.1 Plt Count Cancelled 132 L 125 L MPV Cancelled 10.6 10.1 Immature Gran % (Auto) Cancelled 1.400 H 2.000 H Neut % (Auto) Cancelled 89.2 H 90.9 H Lymph % (Auto) Cancelled 5.1 L 4.2 L [place] % (Auto) Cancelled 3.9 2.3 Eos % (Auto) Cancelled 0.3 0.5 Baso % (Auto) Cancelled 0.1 0.1 Absolute Neuts (auto) Cancelled 10.5 H 9.4 H Absolute Lymphs (auto) Cancelled 0.60 L 0.44 L Total Counted Cancelled Neutrophils % (Manual) Cancelled Band Neutrophils % Cancelled Lymphocytes % (Manual) Cancelled Monocytes % (Manual) Cancelled Eosinophils % (Manual) Cancelled Basophils % (Manual) Cancelled Metamyelocytes % Cancelled Myelocytes % Cancelled Promyelocytes % Cancelled Blast Cells % Cancelled Plasma Cell % (Manual) Cancelled Other Cells % Cancelled Nucleated RBC % Cancelled 0 0 Nucleated RBCs/100 WBC Cancelled Differential Comment Cancelled SCANNED Diff Path Review Cancelled Hypersegmented Neuts Cancelled Atypical Lymphocytes Cancelled Reactive Lymphocytes Cancelled Smudge Cells Cancelled Toxic Granulation Cancelled Toxic Vacuolation Cancelled Dohle Bodies Cancelled Sujatha Rods Cancelled Platelet Estimate Cancelled Plt Morphology Comment Cancelled RBC Morphology Cancelled Polychromasia Cancelled Hypochromasia Cancelled Poikilocytosis Cancelled Basophilic Stippling Cancelled Anisocytosis Cancelled Microcytosis Cancelled Macrocytosis Cancelled Spherocytes Cancelled Sickle Cells Cancelled Target Cells Cancelled Tear Drop Cells Cancelled Ovalocytes Cancelled Stomatocytes Cancelled Michel-[place] Bodies Cancelled [place] Cells Cancelled Bite Cells Cancelled Crenated Cell Cancelled Acanthocytes (Spur) Cancelled Rouleaux Cancelled Schistocytes Cancelled Sodium Potassium Chloride Carbon Dioxide Anion Gap BUN Creatinine Estim Creat Clear Calc Est GFR (MDRD) Af Amer Est GFR (MDRD) Non-Af BUN/Creatinine Ratio Glucose Calcium 04/01/20 04/02/20 04/02/20 05:00 03:40 03:40 WBC 8.9 Corrected WBC RBC 4.70 Hgb 13.6 Hct 42.2 MCV 89.8 MCH 28.9 MCHC 32.2 RDW Std Deviation 43.0 RDW Coeff of Dontae 13.1 Plt Count 119 L MPV 10.4 Immature Gran % (Auto) 1.300 H Neut % (Auto) 89.7 H Lymph % (Auto) 4.9 L [place] % (Auto) 2.5 Eos % (Auto) 1.5 Baso % (Auto) 0.1 Absolute Neuts (auto) 8.0 H Absolute Lymphs (auto) 0.44 L Total Counted Neutrophils % (Manual) Band Neutrophils % Lymphocytes % (Manual) Monocytes % (Manual) Eosinophils % (Manual) Basophils % (Manual) Metamyelocytes % Myelocytes % Promyelocytes % Blast Cells % Plasma Cell % (Manual) Other Cells % Nucleated RBC % 0 Nucleated RBCs/100 WBC Differential Comment SCANNED Diff Path Review Hypersegmented Neuts Atypical Lymphocytes Reactive Lymphocytes Smudge Cells Toxic Granulation Toxic Vacuolation Dohle Bodies Sujatha Rods Platelet Estimate Plt Morphology Comment RBC Morphology Polychromasia Hypochromasia Poikilocytosis Basophilic Stippling Anisocytosis Microcytosis Macrocytosis Spherocytes Sickle Cells Target Cells Tear Drop Cells Ovalocytes Stomatocytes Michel-[place] Bodies [place] Cells Bite Cells Crenated Cell Acanthocytes (Spur) Rouleaux Schistocytes Sodium 140 139 Potassium 4.3 3.8 Chloride 105 106 Carbon Dioxide 33.0 H 31.0 Anion Gap 2 L 2 L BUN 22 H 19 H Creatinine 0.64 L 0.45 L Estim Creat Clear Calc 73.00 73.00 Est GFR (MDRD) Af Amer 161 242 Est GFR (MDRD) Non-Af 133 200 BUN/Creatinine Ratio 34.6 H 42.6 H Glucose 102 96 Calcium 7.9 L 7.6 L Microbiology 03/25/20 17:10 Blood Culture (Wb) - Anticubital Right Blood Culture - Final No growth in 5 days. 03/25/20 17:08 Blood Culture (Wb) - Left Forearm Blood Culture - Final No growth in 5 days. Clinical Impression(s) from Imaging Studies Chest X-Ray 03/25/20 15:23 IMPRESSION: Bilateral basilar predominant pneumonia, pulmonary edema, or ARDS. Electronically Signed: Simón Pham MD at 15:54 EDT Tel , Service support , Brain CT 03/25/20 17:08 IMPRESSION: 1. Evidence of recent surgery involving the left occipitoparietal region. There is encephalomalacia and a small subdural fluid collection underlying the craniotomy site. 2. Otherwise normal CT of the brain. Electronically Signed: Jrody Gonzalez DO at 17:52 EDT Tel [phone], Service support , Chest X-Ray 03/28/20 06:20 IMPRESSION: Improved bilateral pneumonia, pulmonary edema, or ARDS. Electronically Signed: Simón Pham MD at 6:40 EDT Tel , Service support , Medical Necessity - Tobacco Use Smoking Status: Never smoker Assessment/Plan All Active Problems Atrial fibrillation with rapid ventricular response (Acute) COVID-19 (Acute) Bilateral COVID-19 viral pneumonia (Acute) Acute kidney injury (Acute) Healthcare-associated pneumonia (Acute) Septic shock (Acute) Brain tumor (Acute) RECOMMENDATIONS: 1. Continue current supportive measures and wean supplemental oxygen to maintain saturations at or above 90%. 2. Continue Decadron as ordered to complete 10 days of treatment. 3. Continue DVT prophylaxis Lovenox. 4. Continue baseline antiepileptics. 5. Continue scheduled beta-jaspreet and cardizem. 6. Obtain repeat chest x-ray this morning. 7. Encourage incentive spirometer use and mobilize patient as tolerated. IMPRESSIONS: 1. Acute hypoxemic respiratory failure secondary to COVID-19 and possible healthcare associated pneumonia Oxygenation status appears to be slowly improving. Recommend continuing current supportive measures including noninvasive positive pressure ventilatory support as tolerated. Wean FiO2 to maintain oxygen saturations at or above 90%. The patient has completed treatment courses of antimicrobials and Remdesevir. Continue Decadron x 10 days to complete treatment course. 2. Atrial fibrillation with RVR The patient does have a history of chronic atrial fibrillation. Plan to continue baseline outpatient Cardizem and Toprol-XL. 3. Glioblastoma status post recent resection/unspecified seizure disorder Continue outpatient Keppra. Recent neurosurgical intervention would preclude the use of treatment strength Lovenox in this setting. 4. Acute kidney injury Improved. Most likely prerenal in etiology. Continue current supportive measures. Continue to monitor urine output. No indication for renal replacement therapy at the current time. 5. History of non-Hodgkin's lymphoma Complicates care, management, recovery and prognosis. Physical therapy to work with the patient. Nutrition services is currently following. This note was generated with [employer] dictation software. It may contain incorrect words, spelling, and punctuation that were not noted in checking the note before signing. Inpatient E&M: 33709 Subs Hosp L3
[2020-04-02] MEDS: levETIRAcetam 1,000 MG Tablet 1000 MG PO ×2 (08:45→21:20)
[2020-04-02] MEDS: Aspirin 81 MG TAB.CHEW PO (08:45)
[2020-04-02] MEDS: dilTIAZem CD 240 MG Capsule PO (08:45)
[2020-04-02] MEDS: dexAMETHasone 10 MG/ML Vial 6 MG IV (08:45)
[2020-04-02] MEDS: Metoprolol(XL)Succ 50 MG Tablet PO (08:45)
[2020-04-02] MEDS: Polyethylene Glycol 3350 17 GM PACKET PO (08:56)
[2020-04-02] MEDS: 0.9% Saline Lock 10 ML Syringe IV (08:57)
--- NOTE | 2020-04-02 09:31 | RAD_ITS ---
STUDY: X-RAY CHEST REASON FOR EXAM: Male, 69 years old. RESPIRATORY FAILURE, COVID TECHNIQUE: Single AP portable view of the chest. COMPARISON: Comparison is made with prior study 03/28/2020. FINDINGS: EKG electrodes are seen. Persistent bilateral pulmonary infiltrates. Since prior study, there has been mild degree of improvement at the left lung base. Blunting of both costophrenic angles. Normal size heart. Normal mediastinum and monica. Normal visualized pulmonary arteries. There is atherosclerotic tortuosity of the aortic arch and descending thoracic aorta. There are diffuse degenerative changes of the visualized thoracic spine. Normal visualized ribs, clavicles, and shoulders. Gaseous distention of the visualized colon. RAD/Chest 1 View (Portable) IMPRESSION: Bilateral pulmonary infiltrates worse in the right hemithorax with mild improved aeration at the left lung base. Electronically Signed: Jona Gonzalez, at 11:21 EDT , Service support ,
--- NOTE | 2020-04-02 10:20 | CASEMGMT ---
LONI CM Note: COVID +. Participated in ICU interdisciplinary rounds. Patient continues on Airvo high flow oxygen. PT/OT ok to work with patient, but is limited with oxygen needs. Will increase ambulation when high flow O2 is not needed. Decadron x 2 more days. Continue Cardizem and metoprolol, per physician HR control is difficult. DC PLAN: undetermined. Family would like patient to return home. CM will continue to follow and evaluate when oxygen needs are down to nasal cannula and PT/OT is able to fully work with patient. Chai BLANCAN RN ACM
--- NOTE | 2020-04-02 10:36 | PN_ITS ---
Patient Problems: Active and Suspected Problems Atrial fibrillation with rapid ventricular response (Acute) COVID-19 (Acute) Bilateral COVID-19 viral pneumonia (Acute) Acute kidney injury (Acute) Healthcare-associated pneumonia (Acute) Septic shock (Acute) Brain tumor (Acute) Reason for Visit: follow up for COVID 19 infection Subjective: Patient seen and examined. He has no complaints, and feels at baseline,. He was started on remeron to help with his mood and also his appetite. Review of systems otherwise negative. He is still remains tachycardic and tachypneic. Vitals/I&O's: Vital Signs Temp Pulse Resp BP Pulse Ox 99.4 F H 107 H 26 H 96/64 94 04/02/20 09:00 04/02/20 09:00 04/02/20 09:00 04/02/20 09:00 04/02/20 08:00 Oxygen Flow Rate (L/min) 45 Oxygen Delivery Method Bi-pap Weight: 224 lb 6.889 oz Body Mass Index (BMI) 33.4 Intake and Output for Last 24 Hours 03/31/20 04/01/20 04/02/20 23:59 23:59 23:59 Intake Total 841.88 / 841.88 1158.12 / 1158.12 157.5 / 157.5 Output Total 1160 / 1260 1275 / 1275 200 / 200 Balance -318.12 / -418.12 -116.88 / -116.88 -42.5 / -42.5 General: Alert, Oriented x3, Cooperative, No apparent distress HEENT: Atraumatic, PERRLA, EOMI, Normocephalic Oral: Dry Mucosa Neck: Supple, No JVD, Negative Carotid Bruits Lungs: - - decreased breath sounds bibasally, no crackles. on AirVo Cardiovascular: Regular rate, Regular Rhythm, Normal S1, Normal S2, - - grade 2- 3 ejection systolic murmur Abdomen: Bowel Sounds Present, Soft, Non Tender, Non-Distended, No Hepato- splenomegaly Extremities: No clubbing, No cyanosis, No edema, Capillary Refill Less than 3 Seconds Skin: No rashes, No breakdown Musculoskeletal: No Tenderness to Palpation of Joints or Extremities Lymphatic: No Cervical, Supraclavicular, or Inguinal Adenopathy Neurological: Cranial nerves II-XII grossly intact, Neuro grossly intact, Motor Exam 5/5 strength throughout Psych/Mental Status: Normal Affect, Appropriate, Alert and oriented to time, place, person, mood and affect Microbiology Past 72 Hours 03/25/20 17:10 Blood Culture (Wb) - Anticubital Right Blood Culture - Final No growth in 5 days. 03/25/20 17:08 Blood Culture (Wb) - Left Forearm Blood Culture - Final No growth in 5 days. Laboratory Results 04/02/20 03:40: WBC 8.9, RBC 4.70, Hgb 13.6, Hct 42.2, MCV 89.8, MCH 28.9, MCHC 32.2, RDW Std Deviation 43.0, RDW Coeff of Dontae 13.1, Plt Count 119 L, MPV 10.4, Immature Gran % (Auto) 1.300 H, Neut % (Auto) 89.7 H, Lymph % (Auto) 4.9 L, [place] % (Auto) 2.5, Eos % (Auto) 1.5, Baso % (Auto) 0.1, Absolute Neuts (auto) 8.0 H, Absolute Lymphs (auto) 0.44 L, Nucleated RBC % 0, Differential Comment SCANNED 04/02/20 03:40: Sodium 139, Potassium 3.8, Chloride 106, Carbon Dioxide 31.0, Anion Gap 2 L, BUN 19 H, Creatinine 0.45 L, Estim Creat Clear Calc 73.00, Est GFR (MDRD) Af Amer 242, Est GFR (MDRD) Non-Af 200, BUN/Creatinine Ratio 42.6 H, Glucose 96, Calcium 7.6 L Diagnostic Data Brain CT 03/25/20 17:08 IMPRESSION: 1. Evidence of recent surgery involving the left occipitoparietal region. There is encephalomalacia and a small subdural fluid collection underlying the craniotomy site. 2. Otherwise normal CT of the brain. Electronically Signed: Jordy Gonzalez DO at 17:52 EDT Tel [phone], Service support , Current Medications Acetaminophen (Tylenol) 650 mg PO Q6H PRN PRN PRN Reason: Pain Score 1-10/Temp > 100.7 F Albuterol/Ipratropium (Duoneb) 3 ml INHALATION Q4H.RT PRN PRN Reason: WHEEZING Aspirin (Aspirin, Baby) 81 mg PO DAILY [facility] Last Admin: 04/02/20 08:45 Dose: 81 mg Documented by: Dexamethasone Sodium Phosphate (Decadron) 6 mg IV DAILY [facility] Stop: 04/03/20 12:00 Last Admin: 04/02/20 08:45 Dose: 6 mg Documented by: Diltiazem HCl (Cardizem Cd) 240 mg PO DAILY [facility] Last Admin: 04/02/20 08:45 Dose: 240 mg Documented by: Enoxaparin Sodium (Lovenox) 40 mg SC DAILY@0600 [facility] Last Admin: 04/02/20 06:03 Dose: 40 mg Documented by: Sodium Chloride () 250 mls @ 15 mls/hr IV .[id number] PRN PRN Reason: Saline Flush Last Infusion: 04/02/20 03:30 Dose: 0 mls/hr Documented by: Sodium Chloride () 250 mls @ 15 mls/hr IV .[id number] PRN PRN Reason: Additional IVPB Infusion Levetiracetam (Keppra Tablet) 1,000 mg PO BID [facility] Last Admin: 04/02/20 08:45 Dose: 1,000 mg Documented by: Metoprolol Succinate (Toprol Xl (Beta Bekah)) 50 mg PO DAILY [facility] Last Admin: 04/02/20 08:45 Dose: 50 mg Documented by: Mirtazapine (Remeron) 7.5 mg PO QHS [facility] Last Admin: 04/01/20 20:54 Dose: 7.5 mg Documented by: Nystatin (Nystatin) 500,000 unit PO 4X/DAY [facility] Last Admin: 04/02/20 08:45 Dose: 500,000 unit Documented by: Ondansetron HCl (Zofran) 4 mg IV Q8H PRN PRN PRN Reason: NAUSEA/VOMITING Last Admin: 03/29/20 16:11 Dose: 4 mg Documented by: Polyethylene Glycol (Miralax) 17 gm PO DAILY [facility] Last Admin: 04/02/20 08:56 Dose: 17 gm Documented by: Senna/Docusate Sodium (Senokot-S, Stephany-Colace) 2 tablet PO BID PRN PRN Reason: Constipation Last Admin: 03/29/20 09:19 Dose: 2 tablet Documented by: Sodium Chloride () 10 - 40 ml IV UD PRN PRN Reason: SALINE FLUSH Last Admin: 04/02/20 08:57 Dose: 10 ml Documented by: Zolpidem Tartrate (Ambien (Generic)) 5 mg PO QHS PRN PRN PRN Reason: INSOMNIA Last Admin: 03/28/20 00:31 Dose: 5 mg Documented by: STROKE Vital Signs/Narrative: Vital Signs Temp Pulse Resp BP BP Pulse Ox 04/02/20 09:00 99.4 F H 107 H 26 H 96/64 04/02/20 08:45 96 100/72 04/02/20 08:00 99.3 F H 99 25 H 100/72 94 04/02/20 07:30 103 H 04/02/20 07:00 101 H 23 H 93/71 94 Medical Necessity - Tobacco Use Smoking Status: Never smoker Assessment/Plan All Active Problems Atrial fibrillation with rapid ventricular response (Acute) COVID-19 (Acute) Bilateral COVID-19 viral pneumonia (Acute) Acute kidney injury (Acute) Healthcare-associated pneumonia (Acute) Septic shock (Acute) Brain tumor (Acute) 1. Acute hypoxic respiratory failure due to COVID 19 infection. * still on Airvo and BIPAP intermittently * titrate oxygen to maintain sats >90% * 2. Septic shock due to COVID 19 infection: resolved. 3. COVID 19 infection * s/p 2 units of convalescent serum * on IV dexamethasone and remdesivir. has completed course of IV zosyn. * critical care and ID are on board * 4. RIYA: resolved. 5. Afib with RVR * On cardizem 240mg daily and metoprolol. HR control is still difficult. BP has been running in the 90s, so cant titrate cardizem and metoprolol now. * not on therapeutic anticoagulation due to recent brains surgery for glioblastoma * 6. History of glioblastoma s/p brain surgery * had surgery on 03/10/2020 @ [facility] * 7. History of marginal lymphoma: stable 8. Seizure disorder: on Keppra DVT prophylaxis; on lovenox 40mg daily Inpatient E&M: 33522 [facility] L3
--- NOTE | 2020-04-02 10:45 | PCM.NTREPORT ---
Nutrition Therapy Report - History Current diet / nutrition support order:: regular diet; Ensure Enlive w/ meals and Ensure pudding or Magic Cup w/ meals - Anthropometric Measurements Height:: 5 ft 10 in Weight:: 101.8 kg Body Mass Index (BMI):: 32.2 - Relevant Labs Relevant Labs:: WBC 11.8 K/mm3 (4.4-11.0) H 03/31/20 04:10 RBC 4.44 M/mm3 (4.6-6.2) L 03/29/20 04:40 Hgb 12.9 g/dL (13.0-16.5) L 03/29/20 04:40 Hct 39.6 % (40-54) L 03/28/20 04:50 MCV 94.1 fL (80-94) H 03/27/20 03:45 MCHC 31.3 g/dL (32-36) L 03/31/20 04:10 RDW Std Deviation 44.9 fl (35.1-43.9) H 03/31/20 04:10 Plt Count 119 K/mm3 (150-450) L 04/02/20 03:40 Immature Gran % (Auto) 1.300 % (0.0-0.9) H 04/02/20 03:40 Neut % (Auto) 89.7 % (47-70) H 04/02/20 03:40 Lymph % (Auto) 4.9 % (19-41) L 04/02/20 03:40 Absolute Neuts (auto) 8.0 X10^3/uL (2.0-7.7) H 04/02/20 03:40 Absolute Lymphs (auto) 0.44 X10^3/uL (0.83-4.51) L 04/02/20 03:40 Neutrophils % (Manual) 78 % (47-70) H 03/25/20 15:15 Band Neutrophils % 16 % (0-5) H 03/25/20 15:15 Lymphocytes % (Manual) 2 % (19-41) L 03/25/20 15:15 Retic Hgb Equivalent 29.1 pg (30-35) L 03/27/20 08:15 Fibrinogen 840 mg/dl (203-444) H 03/25/20 15:15 D-Dimer Quant (PE/DVT) 1.39 FEU/ug/m (0.27-0.49) H* 03/25/20 15:15 Potassium 5.7 mmol/L (3.5-5.1) H 03/27/20 03:45 Carbon Dioxide 33.0 mmol/L (21.0-32.0) H 04/01/20 05:00 Anion Gap 2 (5-15) L 04/02/20 03:40 BUN 19 mg/dL (7-18) H 04/02/20 03:40 Creatinine 0.45 mg/dL (0.70-1.30) L 04/02/20 03:40 Est GFR (MDRD) Af Amer 51 mL/min (>60) L 03/25/20 15:15 Est GFR (MDRD) Non-Af 42 mL/min (>60) L 03/25/20 15:15 BUN/Creatinine Ratio 42.6 RATIO (10-20) H 04/02/20 03:40 Glucose 117 mg/dL (74-106) H 03/30/20 04:20 Lactic Acid 2.8 mmol/L (0.4-1.9) H* 03/25/20 20:30 Calcium 7.6 mg/dL (8.5-10.1) L 04/02/20 03:40 Ferritin 723 ng/mL (26-388) H 03/25/20 19:57 Total Bilirubin 1.70 mg/dL (0.20-1.00) H 03/31/20 04:10 AST 38 U/L (15-37) H 03/27/20 03:45 ALT 63 U/L (16-61) H 03/31/20 04:10 Troponin I 0.046 ng/mL (<0.045) H 03/25/20 23:03 C-React Prot Ext Range 185.00 mg/L (0.0-3.0) H 03/25/20 19:57 B-Natriuretic Peptide 191.8 pg/mL (0-100) H 03/26/20 02:40 Total Protein 5.6 g/dL (6.4-8.2) L 03/31/20 04:10 Albumin 2.0 g/dL (3.2-5.0) L 03/31/20 04:10 Albumin/Globulin Ratio 0.6 RATIO (0.9-2.4) L 03/31/20 04:10 Procalcitonin 6.02 ng/mL (0.00-0.09) H 03/26/20 10:15 - Assessment Food / Nutrition-Related History:: Discussed in ICU rounds. Continues w/ poor intake-consuming only juice at times. Remeron started yesterday. Per nursing staff, pt w/ thrush, which may also be contributing to poor appetite/intake. Wt decrease of 1.6 kg since last review. Overall wt loss of 3.8kg/3.5% since admission on 03/25/20. Currently w/ scrotal, bilat ankle/arm/pedal non-pitting edema per nursing documentation. - Nutrition Diagnosis Problem / Etiology / Signs & Symptoms (PES):: Severe, acute malnutrition in context of acute illness related to inadequate energy intake as evidenced by estimated PO intake meeting <50% of estimated nutritional needs and 3.8kg/3.5% wt loss x 8 days Evidence of Malnutrition Exists:: Yes Severe PCM:: Acute Illness - Nutrition Intervention Nutrition Prescription:: 3417-0303 calories/day, 90-110 g protein/day - Food / Nutrient Delivery Interventions Summary of nutrition intervention:: Discussed w/ family and nursing staff in rounds. Will continue to monitor PO intake at meals. Will change ONS to Ensure Clear as pt appears to be most accepting of juice at this time. Nutrition support ordered as / adjusted to:: continue regular diet; will switch supplement to ensure clear Nutrition education provided?: No - MNT Monitoring Further MNT monitoring and evaluation required?: Yes MNT Follow-up in:: 1-2 days
[2020-04-02] MEDS: Mirtazapine 15 MG Tablet 7.5 MG PO (21:20)
--- NOTE | 2020-04-02 22:46 | NURSING ---
spoke with daughter, Sally for pt update.
[2020-04-03] VITALS (37 sets, daily range): BP systolic 84–131; BP diastolic 60–92; PULSE 82–105; RESP 12–32; TEMP 37–37.7; O2SAT 90–98
[2020-04-03] MEDS: Enoxaparin 40 MG/0.4 ML Syringe SC (05:44)
--- NOTE | 2020-04-03 06:14 | PN_ITS ---
Subjective: The patient was seen and examined at the bedside this morning. Events from the last 24 hours have been reviewed. Patient once again tolerated BiPAP overnight with a decrease in his FiO2 to 50%. He was subsequently transitioned back to Airvo heated high flow this morning with an FiO2 of 71%. Per nursing staff, urine output has been decreasing. P.o. intake has not been great. Therefore, gentle IV fluid hydration was started this morning. Objective: The patient's most recent lab work, culture data and imaging studies have all been personally reviewed. Strep and urine Legionella antigens were negative. Blood and urine cultures have shown no growth to date. General: Alert, Cooperative, No apparent distress HEENT: Atraumatic, Normocephalic Oral: No Gingival or Mucosal Lesions/ Ulcerations Neck: Supple, No Nodes, Trachea Midline Lungs: Diminished Cardiovascular: Normal S1, Normal S2, Irregular Rate, Murmur Abdomen: Bowel Sounds Present, Soft, Non Tender Extremities: No clubbing, No cyanosis, No edema Skin: No breakdown Musculoskeletal: No Tenderness to Palpation of Joints or Extremities Lymphatic: No Cervical, Supraclavicular, or Inguinal Adenopathy Neurological: Neuro grossly intact Psych/Mental Status: Flat Affect Vital Signs Temp Pulse Resp BP Pulse Ox 98.6 F 99 21 H 115/80 94 04/03/20 05:00 04/03/20 05:21 04/03/20 05:21 04/03/20 05:00 04/03/20 05:21 Oxygen Flow Rate (L/min) 35 Oxygen Delivery Method Bi-pap Weight: 225 lb 8.526 oz Body Mass Index (BMI) 32.2 Intake and Output for Last 24 Hours 04/01/20 04/02/20 04/03/20 23:59 23:59 23:59 Intake Total 1158.12 / 1158.12 427.5 / 427.5 Output Total 1275 / 1275 750 / 850 350 / 350 Balance -116.88 / -116.88 -322.5 / -422.5 -350 / -350 Labs (Last 48 Hours) 04/02/20 04/02/20 03:40 03:40 WBC 8.9 RBC 4.70 Hgb 13.6 Hct 42.2 MCV 89.8 MCH 28.9 MCHC 32.2 RDW Std Deviation 43.0 RDW Coeff of Dontae 13.1 Plt Count 119 L MPV 10.4 Immature Gran % (Auto) 1.300 H Neut % (Auto) 89.7 H Lymph % (Auto) 4.9 L [place] % (Auto) 2.5 Eos % (Auto) 1.5 Baso % (Auto) 0.1 Absolute Neuts (auto) 8.0 H Absolute Lymphs (auto) 0.44 L Nucleated RBC % 0 Differential Comment SCANNED Sodium 139 Potassium 3.8 Chloride 106 Carbon Dioxide 31.0 Anion Gap 2 L BUN 19 H Creatinine 0.45 L Estim Creat Clear Calc 73.00 Est GFR (MDRD) Af Amer 242 Est GFR (MDRD) Non-Af 200 BUN/Creatinine Ratio 42.6 H Glucose 96 Calcium 7.6 L Clinical Impression(s) from Imaging Studies Chest X-Ray 03/25/20 15:23 IMPRESSION: Bilateral basilar predominant pneumonia, pulmonary edema, or ARDS. Electronically Signed: Simón Pham MD at 15:54 EDT Tel , Service support , Brain CT 03/25/20 17:08 IMPRESSION: 1. Evidence of recent surgery involving the left occipitoparietal region. There is encephalomalacia and a small subdural fluid collection underlying the craniotomy site. 2. Otherwise normal CT of the brain. Electronically Signed: Jordy Gonzalez DO at 17:52 EDT Tel [phone], Service support , Chest X-Ray 03/28/20 06:20 IMPRESSION: Improved bilateral pneumonia, pulmonary edema, or ARDS. Electronically Signed: Simón Pham MD at 6:40 EDT Tel , Service support , Chest X-Ray 04/02/20 09:31 IMPRESSION: Bilateral pulmonary infiltrates worse in the right hemithorax with mild improved aeration at the left lung base. Electronically Signed: Jona Gonzalez, at 11:21 EDT , Service support , Medical Necessity - Tobacco Use Smoking Status: Never smoker Assessment/Plan All Active Problems Atrial fibrillation with rapid ventricular response (Acute) COVID-19 (Acute) Bilateral COVID-19 viral pneumonia (Acute) Acute kidney injury (Acute) Healthcare-associated pneumonia (Acute) Septic shock (Acute) Brain tumor (Acute) RECOMMENDATIONS: 1. Continue current supportive measures and wean supplemental oxygen to maintain saturations at or above 90%. 2. Continue Decadron as ordered to complete 10 days of treatment. 3. Continue DVT prophylaxis Lovenox. 4. Continue baseline antiepileptics. 5. Continue scheduled beta-jaspreet and cardizem. 6. Start gentle IV fluid hydration. 7. Encourage incentive spirometer use and mobilize patient as tolerated. IMPRESSIONS: 1. Acute hypoxemic respiratory failure secondary to COVID-19 and possible healthcare associated pneumonia Oxygenation status appears to be slowly improving. Recommend continuing current supportive measures including noninvasive positive pressure ventilatory support as tolerated. Wean FiO2 to maintain oxygen saturations at or above 90%. The patient has completed treatment courses of antimicrobials and Remdesevir. Continue Decadron x 10 days to complete treatment course. 2. Atrial fibrillation with RVR The patient does have a history of chronic atrial fibrillation. Plan to continue baseline outpatient Cardizem and Toprol-XL. 3. Glioblastoma status post recent resection/unspecified seizure disorder Continue outpatient Keppra. Recent neurosurgical intervention would preclude the use of treatment strength Lovenox in this setting. 4. Acute kidney injury Improved. Most likely prerenal in etiology. Continue current supportive measures. Continue to monitor urine output. No indication for renal rep lacement therapy at the current time. 5. History of non-Hodgkin's lymphoma Complicates care, management, recovery and prognosis. Physical therapy to work with the patient. Nutrition services is currently following. This note was generated with [employer] software. It may contain incorrect words, spelling, and punctuation that were not noted in checking the note before signing. Inpatient E&M: [id number] [facility] L3
[2020-04-03] MEDS: Dext 5%-0.45% NS 1,000 ML 100 ML IV ×2 (07:56→17:34)
[2020-04-03 08:23] LABS: Absolute Neutrophil Count 8.6 X10^3/uL (2.0-7.7); Basophil# 0.02 X10^3/uL; Basophil% 0.2 % (0-1); Eosinophil# 0.03 X10^3/uL; Eosinophils% 0.3 % (0-5); Hematocrit 41.3 % (40-54); Hemoglobin 13.2 g/dL (13.0-16.5); Lymphocyte % 3.2 % (19-41); Mean Corpuscular Hgb 28.8 pg (27.0-32.0); Mean Corpuscular Volume 90.2 fL (80-94); Mean Platelet Vol. 10.6 fl (6.2-12.0); Monocyte# 0.32 X10^3/uL; Monocyte% 3.4 % (0-10); NRBC Flagged by Analyzer 0 % (0-5); Neutrophil # 8.64 X10^3/uL (2.7-7.7); Neutrophil % 91.2 % (47-70); POSITIVE COUNT YES; POSITIVE DIFFERENTIAL YES; Platelet Count 136 K/mm3 (150-450); RBC Distribution Width CV 13.3 % (11.6-14.6); Red Blood Count 4.58 M/mm3 (4.6-6.2); White Blood Count 9.5 K/mm3 (4.4-11.0)
[2020-04-03] MEDS: levETIRAcetam 1,000 MG Tablet 1000 MG PO ×2 (08:33→20:19)
[2020-04-03] MEDS: Aspirin 81 MG TAB.CHEW PO (08:33)
[2020-04-03] MEDS: NYSTATIN 500,000 UNIT/5 ML UDC 500000 UNIT PO ×3 (08:33→20:19)
[2020-04-03] MEDS: Polyethylene Glycol 3350 17 GM PACKET PO (08:33)
[2020-04-03] MEDS: Metoprolol(XL)Succ 50 MG Tablet PO (08:34)
[2020-04-03] MEDS: dexAMETHasone 10 MG/ML Vial 6 MG IV (08:34)
[2020-04-03] MEDS: dilTIAZem CD 240 MG Capsule PO (08:34)
[2020-04-03] MEDS: 0.9% Saline Lock 10 ML Syringe IV (08:35)
[2020-04-03 08:40] LABS: Anion Gap 4 (5-15); BUN 19 mg/dL (7-18); BUN/Creat Ratio 37.5 RATIO (10-20); Calcium,Total 7.8 mg/dL (8.5-10.1); Chloride 109 mmol/L (98-107); Creatinine, Serum 0.51 mg/dL (0.70-1.30); EST Glomerular Filtration Rate 173 mL/min (>60); Est Glom Filt Rate - Afr Amer 210 mL/min (>60); Glucose 113 mg/dL (74-106); Potassium 4.1 mmol/L (3.5-5.1); Sodium Level 141 mmol/L (136-145)
[2020-04-03 08:47] LABS: Differential Indicated SCAN CRITERIA MET
[2020-04-03 08:48] LABS: Platelet Estimate ADEQUATE (ADEQ)
[2020-04-03 09:26] LABS: BNP,B-Type NATRIURETIC PEPTIDE 136.9 pg/mL (0-100)
--- NOTE | 2020-04-03 09:40 | PN_ITS ---
Patient Problems: Active and Suspected Problems Atrial fibrillation with rapid ventricular response (Acute) COVID-19 (Acute) Bilateral COVID-19 viral pneumonia (Acute) Acute kidney injury (Acute) Healthcare-associated pneumonia (Acute) Septic shock (Acute) Brain tumor (Acute) Subjective: Patient seen and examined. He had no complaints today. He does seem depressed and was started on Remeron yesterday. He remains on Avap. He remains hemodynamically stable. Heart rate control has improved. Labs and vitals reviewed. Vitals/I&O's: Vital Signs Temp Pulse Resp BP Pulse Ox 98.6 F 94 27 H 115/73 90 04/03/20 08:00 04/03/20 09:00 04/03/20 09:00 04/03/20 09:00 04/03/20 09:00 Oxygen Flow Rate (L/min) 35 Oxygen Delivery Method Bi-pap Weight: 225 lb 8.526 oz Body Mass Index (BMI) 32.2 Intake and Output for Last 24 Hours 04/01/20 04/02/20 04/03/20 23:59 23:59 23:59 Intake Total 1158.12 / 1158.12 427.5 / 427.5 Output Total 1275 / 1275 750 / 850 400 / 400 Balance -116.88 / -116.88 -322.5 / -422.5 -400 / -400 General: Alert, Oriented x3, Cooperative, No apparent distress HEENT: Atraumatic, PERRLA, EOMI, Normocephalic Oral: Dry Mucosa Neck: Supple, No JVD, Negative Carotid Bruits Lungs: - - decreased breath sounds bibasally, no crackles. on AirVo Cardiovascular: Regular rate, Regular Rhythm, Normal S1, Normal S2, - - grade 2- 3 ejection systolic murmur Abdomen: Bowel Sounds Present, Soft, Non Tender, Non-Distended, No Hepato- splenomegaly Extremities: No clubbing, No cyanosis, No edema, Capillary Refill Less than 3 Seconds Skin: No rashes, No breakdown Musculoskeletal: No Tenderness to Palpation of Joints or Extremities Lymphatic: No Cervical, Supraclavicular, or Inguinal Adenopathy Neurological: Cranial nerves II-XII grossly intact, Neuro grossly intact, Motor Exam 5/5 strength throughout Psych/Mental Status: Normal Affect, Appropriate, Alert and oriented to time, place, person, mood and affect Psych/Mental Status: Depressed, Alert and oriented to time, place, person, mood and affect Microbiology Past 72 Hours 03/25/20 17:10 Blood Culture (Wb) - Anticubital Right Blood Culture - Final No growth in 5 days. 03/25/20 17:08 Blood Culture (Wb) - Left Forearm Blood Culture - Final No growth in 5 days. Laboratory Results 04/03/20 07:50: WBC 9.5, RBC 4.58 L, Hgb 13.2, Hct 41.3, MCV 90.2, MCH 28.8, MCHC 32.0, RDW Std Deviation 43.0, RDW Coeff of Dontae 13.3, Plt Count 136 L, MPV 10.6, Immature Gran % (Auto) 1.700 H, Neut % (Auto) 91.2 H, Lymph % (Auto) 3.2 L , [place] % (Auto) 3.4, Eos % (Auto) 0.3, Baso % (Auto) 0.2, Absolute Neuts (auto) 8.6 H, Absolute Lymphs (auto) 0.30 L, Nucleated RBC % 0, Platelet Estimate ADEQUATE 04/03/20 07:50: Sodium 141, Potassium 4.1, Chloride 109 H, Carbon Dioxide 28.0, Anion Gap 4 L, BUN 19 H, Creatinine 0.51 L, Estim Creat Clear Calc 73.00, Est GFR (MDRD) Af Amer 210, Est GFR (MDRD) Non-Af 173, BUN/Creatinine Ratio 37.5 H, Glucose 113 H, Calcium 7.8 L 04/03/20 07:50: B-Natriuretic Peptide 136.9 H Diagnostic Data Brain CT 03/25/20 17:08 IMPRESSION: 1. Evidence of recent surgery involving the left occipitoparietal region. There is encephalomalacia and a small subdural fluid collection underlying the craniotomy site. 2. Otherwise normal CT of the brain. Electronically Signed: Jordy Gonzalez DO at 17:52 EDT Tel [phone], Service support , Chest X-Ray 04/02/20 09:31 IMPRESSION: Bilateral pulmonary infiltrates worse in the right hemithorax with mild improved aeration at the left lung base. Electronically Signed: Jona Gonzalez, at 11:21 EDT , Service support , Current Medications Acetaminophen (Tylenol) 650 mg PO Q6H PRN PRN PRN Reason: Pain Score 1-10/Temp > 100.7 F Albuterol/Ipratropium (Duoneb) 3 ml INHALATION Q4H.RT PRN PRN Reason: WHEEZING Aspirin (Aspirin, Baby) 81 mg PO DAILY [facility] Last Admin: 04/03/20 08:33 Dose: 81 mg Documented by: Dexamethasone Sodium Phosphate (Decadron) 6 mg IV DAILY [facility] Stop: 04/03/20 12:00 Last Admin: 04/03/20 08:34 Dose: 6 mg Documented by: Diltiazem HCl (Cardizem Cd) 240 mg PO DAILY [facility] Last Admin: 04/03/20 08:34 Dose: 240 mg Documented by: Enoxaparin Sodium (Lovenox) 40 mg SC DAILY@0600 [facility] Last Admin: 04/03/20 05:44 Dose: 40 mg Documented by: Sodium Chloride () 250 mls @ 15 mls/hr IV .[id number] PRN PRN Reason: Saline Flush Last Infusion: 04/02/20 03:30 Dose: 0 mls/hr Documented by: Sodium Chloride () 250 mls @ 15 mls/hr IV .[id number] PRN PRN Reason: Additional IVPB Infusion Dextrose/Sodium Chloride () 1,000 mls @ 100 mls/hr IV .Q10H [facility] Last Admin: 04/03/20 07:56 Dose: 100 mls/hr Documented by: Levetiracetam (Keppra Tablet) 1,000 mg PO BID [facility] Last Admin: 04/03/20 08:33 Dose: 1,000 mg Documented by: Metoprolol Succinate (Toprol Xl (Beta Bekah)) 50 mg PO DAILY [facility] Last Admin: 04/03/20 08:34 Dose: 50 mg Documented by: Mirtazapine (Remeron) 7.5 mg PO QHS [facility] Last Admin: 04/02/20 21:20 Dose: 7.5 mg Documented by: Nystatin (Nystatin) 500,000 unit PO 4X/DAY [facility] Last Admin: 04/03/20 08:33 Dose: 500,000 unit Documented by: Ondansetron HCl (Zofran) 4 mg IV Q8H PRN PRN PRN Reason: NAUSEA/VOMITING Last Admin: 03/29/20 16:11 Dose: 4 mg Documented by: Polyethylene Glycol (Miralax) 17 gm PO DAILY [facility] Last Admin: 04/03/20 08:33 Dose: 17 gm Documented by: Senna/Docusate Sodium (Senokot-S, Stephany-Colace) 2 tablet PO BID PRN PRN Reason: Constipation Last Admin: 03/29/20 09:19 Dose: 2 tablet Documented by: Sodium Chloride () 10 - 40 ml IV UD PRN PRN Reason: SALINE FLUSH Last Admin: 04/03/20 08:35 Dose: 20 ml Documented by: Zolpidem Tartrate (Ambien (Generic)) 5 mg PO QHS PRN PRN PRN Reason: INSOMNIA Last Admin: 03/28/20 00:31 Dose: 5 mg Documented by: STROKE Vital Signs/Narrative: Vital Signs Temp Pulse Resp BP BP Pulse Ox 04/03/20 09:00 94 27 H 115/73 90 04/03/20 08:34 105 H 113/73 04/03/20 08:00 98.6 F 97 20 H 113/73 93 04/03/20 07:16 86 04/03/20 07:00 92 20 H 103/79 93 04/03/20 06:55 91 20 H 94 04/03/20 06:00 84 19 H 121/83 H 90 Medical Necessity - Tobacco Use Smoking Status: Never smoker Assessment/Plan All Active Problems Atrial fibrillation with rapid ventricular response (Acute) COVID-19 (Acute) Bilateral COVID-19 viral pneumonia (Acute) Acute kidney injury (Acute) Healthcare-associated pneumonia (Acute) Septic shock (Acute) Brain tumor (Acute) 1. Acute hypoxic respiratory failure due to COVID 19 infection. * still on Airvo and BIPAP intermittently * CXR yesterday showed bilateral pulmonary infiltrates worse in the right hemithorax with mild improved aeration of the left lung base. * in cumulative negative balance by 3.25L * titrate oxygen to maintain sats >90% * 2. Septic shock due to COVID 19 infection: resolved. 3. COVID 19 infection * s/p 2 units of convalescent serum * on IV dexamethasone and remdesivir. has completed course of IV zosyn. * critical care and ID are on board * 4. Depression: patient started on remeron to help with his mood and his appetite 5. RIYA: resolved. 6. Afib with RVR * On cardizem 240mg daily and metoprolol. HR control has improved. * not on therapeutic anticoagulation due to recent brains surgery for glioblastoma * 7. History of glioblastoma s/p brain surgery * had surgery on 03/10/2020 @ [facility] * 8. History of marginal lymphoma: stable 9. Seizure disorder: on Keppra DVT prophylaxis; on lovenox 40mg daily Inpatient E&M: 44781 [facility] Hosp L3
--- NOTE | 2020-04-03 16:55 | CPS ---
decreased airvo to 65%. pt tolerated well.
[2020-04-03] MEDS: Mirtazapine 15 MG Tablet 7.5 MG PO (20:19)
[2020-04-04] VITALS (35 sets, daily range): BP systolic 70–117; BP diastolic 50–82; PULSE 67–111; RESP 12–32; TEMP 36.7–37.8; O2SAT 84–97
[2020-04-04] MEDS: Dext 5%-0.45% NS 1,000 ML 100 ML IV ×3 (03:35→23:53)
[2020-04-04 04:06] LABS: Absolute Lymphocyte Count 0.37 X10^3/uL (0.83-4.51); Basophil# 0.02 X10^3/uL; Basophil% 0.2 % (0-1); Eosinophil# 0.02 X10^3/uL; Eosinophils% 0.2 % (0-5); Hematocrit 40.6 % (40-54); Hemoglobin 13.2 g/dL (13.0-16.5); Lymphocyte # 0.37 X10^3/ul (4.0); Lymphocyte % 3.7 % (19-41); Mean Corp Hgb Conc 32.5 g/dL (32-36); Mean Corpuscular Hgb 29.5 pg (27.0-32.0); Mean Corpuscular Volume 90.6 fL (80-94); Mean Platelet Vol. 10.2 fl (6.2-12.0); Monocyte# 0.48 X10^3/uL; Monocyte% 4.8 % (0-10); NRBC Flagged by Analyzer 0 % (0-5); Neutrophil # 8.95 X10^3/uL (2.7-7.7); Neutrophil % 89.2 % (47-70); POSITIVE DIFFERENTIAL YES; Platelet Count 190 K/mm3 (150-450); RBC Distribution Width CV 13.2 % (11.6-14.6); Red Blood Count 4.48 M/mm3 (4.6-6.2)
[2020-04-04 04:07] LABS: Differential Indicated SCAN CRITERIA MET
[2020-04-04 04:15] LABS: Differential Comment SCANNED
[2020-04-04 04:19] LABS: Anion Gap 6 (5-15); BUN 19 mg/dL (7-18); BUN/Creat Ratio 33.7 RATIO (10-20); Calcium,Total 7.5 mg/dL (8.5-10.1); Chloride 105 mmol/L (98-107); Creatinine, Serum 0.56 mg/dL (0.70-1.30); EST Glomerular Filtration Rate 153 mL/min (>60); Est Glom Filt Rate - Afr Amer 185 mL/min (>60); Glucose 134 mg/dL (74-106); Potassium 3.9 mmol/L (3.5-5.1); Sodium Level 138 mmol/L (136-145)
[2020-04-04] MEDS: Enoxaparin 40 MG/0.4 ML Syringe SC (05:36)
[2020-04-04] MEDS: 0.9% Saline Lock 10 ML Syringe IV (05:36)
--- NOTE | 2020-04-04 05:56 | PCM.PN.INT ---
Subjective: The patient was seen and examined at the bedside this morning. Events from the last 24 hours have been reviewed. The patient is currently afebrile, hemodynamically stable and maintaining appropriate oxygen saturations on BiPAP with an FiO2 requirement of 50%. The patient is currently documented to be overall net -1.3 L for the hospital admission. He seems to be in better spirits this morning. He does report improvement in his degree of shortness of breath with time. Objective: The patient's most recent lab work, culture data and imaging studies have all been personally reviewed. Strep and urine Legionella antigens were negative. Blood and urine cultures have shown no growth to date. General: Alert, Cooperative, No apparent distress HEENT: Atraumatic, PERRLA, Normocephalic Oral: No Gingival or Mucosal Lesions/ Ulcerations Neck: Supple, No Nodes, Trachea Midline Lungs: No rhonchi, No wheeze, No rales, Diminished, - - Fair inspiratory effort Cardiovascular: Normal S1, Normal S2, Irregular Rate, Murmur Abdomen: Bowel Sounds Present, Soft, Non Tender Extremities: No clubbing, No cyanosis, No edema Skin: No breakdown Musculoskeletal: No Tenderness to Palpation of Joints or Extremities Lymphatic: No Cervical, Supraclavicular, or Inguinal Adenopathy Neurological: Cranial nerves II-XII grossly intact, Neuro grossly intact Psych/Mental Status: Normal Affect, Appropriate Vital Signs Temp Pulse Resp BP Pulse Ox 98.4 F 75 26 H 80/69 L 97 04/04/20 05:00 04/04/20 05:00 04/04/20 05:00 04/04/20 05:00 04/04/20 05:00 Oxygen Flow Rate (L/min) 35 Oxygen Delivery Method Bi-pap Weight: 233 lb 7.512 oz Body Mass Index (BMI) 32.2 Intake and Output for Last 24 Hours 04/02/20 04/03/20 04/04/20 23:59 23:59 23:59 Intake Total 427.5 / 427.5 1493.33 / 1493.33 1000 / 1000 Output Total 750 / 850 840 / 840 125 / 125 Balance -322.5 / -422.5 653.33 / 653.33 875 / 875 Labs (Last 48 Hours) 04/03/20 04/03/20 04/03/20 07:50 07:50 07:50 WBC 9.5 RBC 4.58 L Hgb 13.2 Hct 41.3 MCV 90.2 MCH 28.8 MCHC 32.0 RDW Std Deviation 43.0 RDW Coeff of Dontae 13.3 Plt Count 136 L MPV 10.6 Immature Gran % (Auto) 1.700 H Neut % (Auto) 91.2 H Lymph % (Auto) 3.2 L [place] % (Auto) 3.4 Eos % (Auto) 0.3 Baso % (Auto) 0.2 Absolute Neuts (auto) 8.6 H Absolute Lymphs (auto) 0.30 L Nucleated RBC % 0 Differential Comment Platelet Estimate ADEQUATE Sodium 141 Potassium 4.1 Chloride 109 H Carbon Dioxide 28.0 Anion Gap 4 L BUN 19 H Creatinine 0.51 L Estim Creat Clear Calc 73.00 Est GFR (MDRD) Af Amer 210 Est GFR (MDRD) Non-Af 173 BUN/Creatinine Ratio 37.5 H Glucose 113 H Calcium 7.8 L B-Natriuretic Peptide 136.9 H 04/04/20 04/04/20 03:50 03:50 WBC 10.0 RBC 4.48 L Hgb 13.2 Hct 40.6 MCV 90.6 MCH 29.5 MCHC 32.5 RDW Std Deviation 43.0 RDW Coeff of Dontae 13.2 Plt Count 190 MPV 10.2 Immature Gran % (Auto) 1.900 H Neut % (Auto) 89.2 H Lymph % (Auto) 3.7 L [place] % (Auto) 4.8 Eos % (Auto) 0.2 Baso % (Auto) 0.2 Absolute Neuts (auto) 9.0 H Absolute Lymphs (auto) 0.37 L Nucleated RBC % 0 Differential Comment SCANNED Platelet Estimate Sodium 138 Potassium 3.9 Chloride 105 Carbon Dioxide 27.0 Anion Gap 6 BUN 19 H Creatinine 0.56 L Estim Creat Clear Calc 73.00 Est GFR (MDRD) Af Amer 185 Est GFR (MDRD) Non-Af 153 BUN/Creatinine Ratio 33.7 H Glucose 134 H Calcium 7.5 L B-Natriuretic Peptide Clinical Impression(s) from Imaging Studies Chest X-Ray 03/25/20 15:23 IMPRESSION: Bilateral basilar predominant pneumonia, pulmonary edema, or ARDS. Electronically Signed: Simón Pham MD at 15:54 EDT Tel , Service support , Brain CT 03/25/20 17:08 IMPRESSION: 1. Evidence of recent surgery involving the left occipitoparietal region. There is encephalomalacia and a small subdural fluid collection underlying the craniotomy site. 2. Otherwise normal CT of the brain. Electronically Signed: Jordy Gonzalez DO at 17:52 EDT Tel [phone], Service support , Chest X-Ray 03/28/20 06:20 IMPRESSION: Improved bilateral pneumonia, pulmonary edema, or ARDS. Electronically Signed: Simón Pham MD at 6:40 EDT Tel , Service support , Chest X-Ray 04/02/20 09:31 IMPRESSION: Bilateral pulmonary infiltrates worse in the right hemithorax with mild improved aeration at the left lung base. Electronically Signed: Jona Gonzalez, at 11:21 EDT , Service support , Medical Necessity - Tobacco Use Smoking Status: Never smoker Assessment/Plan All Active Problems Atrial fibrillation with rapid ventricular response (Acute) COVID-19 (Acute) Bilateral COVID-19 viral pneumonia (Acute) Acute kidney injury (Acute) Healthcare-associated pneumonia (Acute) Septic shock (Acute) Brain tumor (Acute) RECOMMENDATIONS: 1. Continue current supportive measures and wean supplemental oxygen to maintain saturations at or above 90%. 2. Continue Decadron as ordered to complete 10 days of treatment. 3. Continue DVT prophylaxis Lovenox. 4. Continue baseline antiepileptics. 5. Continue scheduled beta-jaspreet and cardizem. 6. Continue gentle IV fluid hydration. 7. Encourage incentive spirometer use and mobilize patient as tolerated. IMPRESSIONS: 1. Acute hypoxemic respiratory failure secondary to COVID-19 and possible healthcare associated pneumonia Oxygenation status appears to be slowly improving. Recommend continuing current supportive measures including noninvasive positive pressure ventilatory support and Airvo heated high flow as tolerated. Wean FiO2 to maintain oxygen saturations at or above 90%. The patient has completed treatment courses of antimicrobials and Remdesevir. Continue Decadron x 10 days to complete treatment course. 2. Atrial fibrillation with RVR The patient does have a history of chronic atrial fibrillation. Plan to continue baseline outpatient Cardizem and Toprol-XL. Rate is currently controlled. 3. Glioblastoma status post recent resection/unspecified seizure disorder Continue outpatient Keppra. Recent neurosurgical intervention would preclude the use of treatment strength Lovenox in this setting. 4. Acute kidney injury Resolved. Most likely prerenal in etiology. Continue current supportive measures. Continue to monitor urine output. No indication for renal replacement therapy at the current time. 5. History of non-Hodgkin's lymphoma Complicates care, management, recovery and prognosis. Physical therapy to work with the patient. Nutrition services is currently following. This note was generated with [employer] dictation software. It may contain incorrect words, spelling, and punctuation that were not noted in checking the note before signing. Inpatient E&M: [id number] Subs Hosp L2
--- NOTE | 2020-04-04 09:47 | PN_ITS ---
Patient Problems: Active and Suspected Problems Atrial fibrillation with rapid ventricular response (Acute) COVID-19 (Acute) Bilateral COVID-19 viral pneumonia (Acute) Acute kidney injury (Acute) Healthcare-associated pneumonia (Acute) Septic shock (Acute) Brain tumor (Acute) Subjective: Patient seen and examined. He feels well and has no complaints. His mood is much better today. Review of systems otherwise negative. He has remained hemodynamically stable. He remains on airvo Vitals/I&O's: Vital Signs Temp Pulse Resp BP Pulse Ox 98.4 F 80 19 H 93/74 94 04/04/20 08:00 04/04/20 08:00 04/04/20 08:00 04/04/20 08:00 04/04/20 08:00 Oxygen Flow Rate (L/min) 35 Oxygen Delivery Method CPAP Weight: 233 lb 7.512 oz Body Mass Index (BMI) 32.2 Intake and Output for Last 24 Hours 04/02/20 04/03/20 04/04/20 23:59 23:59 23:59 Intake Total 427.5 / 427.5 1493.33 / 1493.33 1000 / 1000 Output Total 750 / 850 840 / 840 170 / 170 Balance -322.5 / -422.5 653.33 / 653.33 830 / 830 General: Alert, Oriented x3, Cooperative, No apparent distress HEENT: Atraumatic, PERRLA, EOMI, Normocephalic Oral: Dry Mucosa Neck: Supple, No JVD, Negative Carotid Bruits Lungs: - - decreased breath sounds bibasally, no crackles. on AirVo Cardiovascular: Regular rate, Regular Rhythm, Normal S1, Normal S2, - - grade 2- 3 ejection systolic murmur Abdomen: Bowel Sounds Present, Soft, Non Tender, Non-Distended, No Hepato- splenomegaly Extremities: No clubbing, No cyanosis, No edema, Capillary Refill Less than 3 Seconds Skin: No rashes, No breakdown Musculoskeletal: No Tenderness to Palpation of Joints or Extremities Lymphatic: No Cervical, Supraclavicular, or Inguinal Adenopathy Neurological: Cranial nerves II-XII grossly intact, Neuro grossly intact, Motor Exam 5/5 strength throughout Psych/Mental Status: Normal Affect, Appropriate, Alert and oriented to time, place, person, mood and affect Psych/Mental Status: normal affet Alert and oriented to time, place, person, mood and affect Laboratory Results 04/04/20 03:50: WBC 10.0, RBC 4.48 L, Hgb 13.2, Hct 40.6, MCV 90.6, MCH 29.5, MCHC 32.5, RDW Std Deviation 43.0, RDW Coeff of Dontae 13.2, Plt Count 190, MPV 10.2, Immature Gran % (Auto) 1.900 H, Neut % (Auto) 89.2 H, Lymph % (Auto) 3.7 L , [place] % (Auto) 4.8, Eos % (Auto) 0.2, Baso % (Auto) 0.2, Absolute Neuts (auto) 9.0 H, Absolute Lymphs (auto) 0.37 L, Nucleated RBC % 0, Differential Comment SCANNED 04/04/20 03:50: Sodium 138, Potassium 3.9, Chloride 105, Carbon Dioxide 27.0, Anion Gap 6, BUN 19 H, Creatinine 0.56 L, Estim Creat Clear Calc 73.00, Est GFR (MDRD) Af Amer 185, Est GFR (MDRD) Non-Af 153, BUN/Creatinine Ratio 33.7 H, Glucose 134 H, Calcium 7.5 L Diagnostic Data Brain CT 03/25/20 17:08 IMPRESSION: 1. Evidence of recent surgery involving the left occipitoparietal region. There is encephalomalacia and a small subdural fluid collection underlying the craniotomy site. 2. Otherwise normal CT of the brain. Electronically Signed: Jordy Gonzalez DO at 17:52 EDT Tel [phone], Service support , Chest X-Ray 04/02/20 09:31 IMPRESSION: Bilateral pulmonary infiltrates worse in the right hemithorax with mild improved aeration at the left lung base. Electronically Signed: Jona Gonzalez, at 11:21 EDT , Service support , Current Medications Acetaminophen (Tylenol) 650 mg PO Q6H PRN PRN PRN Reason: Pain Score 1-10/Temp > 100.7 F Albuterol/Ipratropium (Duoneb) 3 ml INHALATION Q4H.RT PRN PRN Reason: WHEEZING Aspirin (Aspirin, Baby) 81 mg PO DAILY [facility] Last Admin: 04/03/20 08:33 Dose: 81 mg Documented by: Diltiazem HCl (Cardizem Cd) 240 mg PO DAILY [facility] Last Admin: 04/03/20 08:34 Dose: 240 mg Documented by: Enoxaparin Sodium (Lovenox) 40 mg SC DAILY@0600 [facility] Last Admin: 04/04/20 05:36 Dose: 40 mg Documented by: Sodium Chloride () 250 mls @ 15 mls/hr IV .[id number] PRN PRN Reason: Saline Flush Last Infusion: 04/04/20 04:42 Dose: Infused Documented by: Sodium Chloride () 250 mls @ 15 mls/hr IV .[id number] PRN PRN Reason: Additional IVPB Infusion Dextrose/Sodium Chloride () 1,000 mls @ 100 mls/hr IV .Q10H [facility] Last Admin: 04/04/20 03:35 Dose: 100 mls/hr Documented by: Levetiracetam (Keppra Tablet) 1,000 mg PO BID [facility] Last Admin: 04/03/20 20:19 Dose: 1,000 mg Documented by: Metoprolol Succinate (Toprol Xl (Beta Bekah)) 50 mg PO DAILY [facility] Last Admin: 04/03/20 08:34 Dose: 50 mg Documented by: Mirtazapine (Remeron) 7.5 mg PO QHS [facility] Last Admin: 04/03/20 20:19 Dose: 7.5 mg Documented by: Nystatin (Nystatin) 500,000 unit PO 4X/DAY [facility] Last Admin: 04/03/20 20:19 Dose: 500,000 unit Documented by: Ondansetron HCl (Zofran) 4 mg IV Q8H PRN PRN PRN Reason: NAUSEA/VOMITING Last Admin: 03/29/20 16:11 Dose: 4 mg Documented by: Polyethylene Glycol (Miralax) 17 gm PO DAILY [facility] Last Admin: 04/03/20 08:33 Dose: 17 gm Documented by: Senna/Docusate Sodium (Senokot-S, Stephany-Colace) 2 tablet PO BID PRN PRN Reason: Constipation Last Admin: 03/29/20 09:19 Dose: 2 tablet Documented by: Sodium Chloride () 10 - 40 ml IV UD PRN PRN Reason: SALINE FLUSH Last Admin: 04/04/20 05:36 Dose: 20 ml Documented by: Zolpidem Tartrate (Ambien (Generic)) 5 mg PO QHS PRN PRN PRN Reason: INSOMNIA Last Admin: 03/28/20 00:31 Dose: 5 mg Documented by: STROKE Vital Signs/Narrative: Vital Signs Temp Pulse Resp BP Pulse Ox 04/04/20 08:00 98.4 F 80 19 H 93/74 94 04/04/20 07:57 87 04/04/20 07:22 67 20 H 94 04/04/20 07:00 98.3 F 77 20 H 109/72 93 04/04/20 06:00 98.4 F 82 20 H 108/70 90 Medical Necessity - Tobacco Use Smoking Status: Never smoker Assessment/Plan All Active Problems Atrial fibrillation with rapid ventricular response (Acute) COVID-19 (Acute) Bilateral COVID-19 viral pneumonia (Acute) Acute kidney injury (Acute) Healthcare-associated pneumonia (Acute) Septic shock (Acute) Brain tumor (Acute) 1. Acute hypoxic respiratory failure due to COVID 19 infection. * still on Airvo and BIPAP intermittently * in cumulative negative balance by 1.37L * titrate oxygen to maintain sats >90% * 2. Septic shock due to COVID 19 infection: resolved. 3. COVID 19 infection * s/p 2 units of convalescent serum * has completed his course of IV zosyn, remeron and dexamethasone. * critical care and ID are on board * 4. Depression: feels much better today. On remeron. 5. RIYA: resolved. 6. Afib with RVR * On cardizem 240mg daily and metoprolol. HR control has improved. * not on therapeutic anticoagulation due to recent brains surgery for glioblastoma * 7. History of glioblastoma s/p brain surgery * had surgery on 03/10/2020 @ [facility] * 8. History of marginal lymphoma: stable 9. Seizure disorder: on Keppra DVT prophylaxis; on lovenox 40mg daily Inpatient E&M: [id number] Subs Hosp L2
[2020-04-04] MEDS: Aspirin 81 MG TAB.CHEW PO (10:23)
[2020-04-04] MEDS: levETIRAcetam 1,000 MG Tablet 1000 MG PO ×2 (10:23→22:28)
[2020-04-04] MEDS: dilTIAZem CD 240 MG Capsule PO (10:23)
[2020-04-04] MEDS: Polyethylene Glycol 3350 17 GM PACKET PO (10:24)
[2020-04-04] MEDS: Metoprolol(XL)Succ 50 MG Tablet PO (10:24)
[2020-04-04] MEDS: NYSTATIN 500,000 UNIT/5 ML UDC 500000 UNIT PO ×4 (10:24→22:29)
[2020-04-04] MEDS: Mirtazapine 15 MG Tablet 7.5 MG PO (22:28)
[2020-04-05] VITALS (32 sets, daily range): BP systolic 81–116; BP diastolic 58–79; PULSE 83–110; RESP 12–32; TEMP 37.4–37.9; O2SAT 90–97
[2020-04-05 04:26] LABS: Absolute Lymphocyte Count 0.51 X10^3/uL (0.83-4.51); Absolute Neutrophil Count 6.9 X10^3/uL (2.0-7.7); Basophil# 0.02 X10^3/uL; Basophil% 0.2 % (0-1); Eosinophil# 0.22 X10^3/uL; Eosinophils% 2.6 % (0-5); Hematocrit 43.7 % (40-54); Hemoglobin 14.1 g/dL (13.0-16.5); Lymphocyte # 0.51 X10^3/ul (4.0); Mean Corp Hgb Conc 32.3 g/dL (32-36); Mean Corpuscular Hgb 29.5 pg (27.0-32.0); Mean Corpuscular Volume 91.4 fL (80-94); Mean Platelet Vol. 9.9 fl (6.2-12.0); Monocyte% 7.1 % (0-10); NRBC Flagged by Analyzer 0 % (0-5); Neutrophil # 6.88 X10^3/uL (2.7-7.7); Neutrophil % 81.7 % (47-70); POSITIVE DIFFERENTIAL YES; Platelet Count 204 K/mm3 (150-450); RBC Distribution Width CV 13.3 % (11.6-14.6); RBC Distribution Width SD 44.8 fl (35.1-43.9); Red Blood Count 4.78 M/mm3 (4.6-6.2); White Blood Count 8.4 K/mm3 (4.4-11.0)
[2020-04-05 04:28] LABS: Differential Indicated SCAN CRITERIA MET
[2020-04-05 05:02] LABS: Anion Gap 4 (5-15); BUN 12 mg/dL (7-18); BUN/Creat Ratio 18.9 RATIO (10-20); Calcium,Total 7.5 mg/dL (8.5-10.1); Chloride 103 mmol/L (98-107); Creatinine, Serum 0.64 mg/dL (0.70-1.30); EST Glomerular Filtration Rate 133 mL/min (>60); Est Glom Filt Rate - Afr Amer 161 mL/min (>60); Glucose 86 mg/dL (74-106); Potassium 3.7 mmol/L (3.5-5.1); Sodium Level 139 mmol/L (136-145)
[2020-04-05 05:05] LABS: Differential Comment SCANNED
[2020-04-05] MEDS: Enoxaparin 40 MG/0.4 ML Syringe SC (05:57)
--- NOTE | 2020-04-05 06:17 | PCM.PN.INT ---
Subjective: The patient was seen and examined at the bedside this morning. Events from the last 24 hours have been reviewed. The patient was again maintained on BiPAP overnight with an FiO2 requirement of 40%. He was subsequently transitioned back to Airvo heated high flow this morning with an FiO2 of 50%. The patient is currently net even for the hospital admission. Objective: The patient's most recent lab work, culture data and imaging studies have all been personally reviewed. Strep and urine Legionella antigens were negative. Blood and urine cultures have shown no growth to date. General: Alert, Cooperative, No apparent distress HEENT: Atraumatic, PERRLA, Normocephalic Oral: Moist Mucosa, No Gingival or Mucosal Lesions/ Ulcerations Neck: Supple, No Nodes, Trachea Midline Lungs: No rhonchi, No wheeze, No rales, Diminished Cardiovascular: Normal S1, Normal S2, Irregular Rate, Murmur Abdomen: Bowel Sounds Present, Soft, Non Tender Extremities: No clubbing, No cyanosis, No edema Skin: No breakdown Musculoskeletal: No Tenderness to Palpation of Joints or Extremities Lymphatic: No Cervical, Supraclavicular, or Inguinal Adenopathy Neurological: Cranial nerves II-XII grossly intact, Neuro grossly intact Psych/Mental Status: Normal Affect, Appropriate Vital Signs Temp Pulse Resp BP Pulse Ox 100.1 F H 93 25 H 102/68 93 04/05/20 06:00 04/05/20 06:00 04/05/20 06:00 04/05/20 06:00 04/05/20 06:00 Oxygen Flow Rate (L/min) 35 Oxygen Delivery Method CPAP Weight: 228 lb 13.437 oz Body Mass Index (BMI) 32.2 Intake and Output for Last 24 Hours 04/03/20 04/04/20 04/05/20 23:59 23:59 23:59 Intake Total 1493.33 / 1493.33 4176.67 / 4176.67 Output Total 840 / 840 1070 / 1220 835 / 835 Balance 653.33 / 653.33 3106.67 / 2956.67 -835 / -835 Labs (Last 48 Hours) 04/03/20 04/03/20 04/03/20 07:50 07:50 07:50 WBC 9.5 RBC 4.58 L Hgb 13.2 Hct 41.3 MCV 90.2 MCH 28.8 MCHC 32.0 RDW Std Deviation 43.0 RDW Coeff of Dontae 13.3 Plt Count 136 L MPV 10.6 Immature Gran % (Auto) 1.700 H Neut % (Auto) 91.2 H Lymph % (Auto) 3.2 L [place] % (Auto) 3.4 Eos % (Auto) 0.3 Baso % (Auto) 0.2 Absolute Neuts (auto) 8.6 H Absolute Lymphs (auto) 0.30 L Nucleated RBC % 0 Differential Comment Platelet Estimate ADEQUATE Sodium 141 Potassium 4.1 Chloride 109 H Carbon Dioxide 28.0 Anion Gap 4 L BUN 19 H Creatinine 0.51 L Estim Creat Clear Calc 73.00 Est GFR (MDRD) Af Amer 210 Est GFR (MDRD) Non-Af 173 BUN/Creatinine Ratio 37.5 H Glucose 113 H Calcium 7.8 L B-Natriuretic Peptide 136.9 H 04/04/20 04/04/20 04/05/20 03:50 03:50 04:00 WBC 10.0 8.4 RBC 4.48 L 4.78 Hgb 13.2 14.1 Hct 40.6 43.7 MCV 90.6 91.4 MCH 29.5 29.5 MCHC 32.5 32.3 RDW Std Deviation 43.0 44.8 H RDW Coeff of Dontae 13.2 13.3 Plt Count 190 204 MPV 10.2 9.9 Immature Gran % (Auto) 1.900 H 2.400 H Neut % (Auto) 89.2 H 81.7 H Lymph % (Auto) 3.7 L 6.0 L [place] % (Auto) 4.8 7.1 Eos % (Auto) 0.2 2.6 Baso % (Auto) 0.2 0.2 Absolute Neuts (auto) 9.0 H 6.9 Absolute Lymphs (auto) 0.37 L 0.51 L Nucleated RBC % 0 0 Differential Comment SCANNED SCANNED Platelet Estimate Sodium 138 Potassium 3.9 Chloride 105 Carbon Dioxide 27.0 Anion Gap 6 BUN 19 H Creatinine 0.56 L Estim Creat Clear Calc 73.00 Est GFR (MDRD) Af Amer 185 Est GFR (MDRD) Non-Af 153 BUN/Creatinine Ratio 33.7 H Glucose 134 H Calcium 7.5 L B-Natriuretic Peptide 04/05/20 04:00 WBC RBC Hgb Hct MCV MCH MCHC RDW Std Deviation RDW Coeff of Dontae Plt Count MPV Immature Gran % (Auto) Neut % (Auto) Lymph % (Auto) [place] % (Auto) Eos % (Auto) Baso % (Auto) Absolute Neuts (auto) Absolute Lymphs (auto) Nucleated RBC % Differential Comment Platelet Estimate Sodium 139 Potassium 3.7 Chloride 103 Carbon Dioxide 32.0 Anion Gap 4 L BUN 12 Creatinine 0.64 L Estim Creat Clear Calc 73.00 Est GFR (MDRD) Af Amer 161 Est GFR (MDRD) Non-Af 133 BUN/Creatinine Ratio 18.9 Glucose 86 Calcium 7.5 L B-Natriuretic Peptide Clinical Impression(s) from Imaging Studies Chest X-Ray 03/25/20 15:23 IMPRESSION: Bilateral basilar predominant pneumonia, pulmonary edema, or ARDS. Electronically Signed: Simón Pham MD at 15:54 EDT Tel , Service support , Brain CT 03/25/20 17:08 IMPRESSION: 1. Evidence of recent surgery involving the left occipitoparietal region. There is encephalomalacia and a small subdural fluid collection underlying the craniotomy site. 2. Otherwise normal CT of the brain. Electronically Signed: Jordy Gonzalez DO at 17:52 EDT Tel [phone], Service support , Chest X-Ray 03/28/20 06:20 IMPRESSION: Improved bilateral pneumonia, pulmonary edema, or ARDS. Electronically Signed: Simón Pham MD at 6:40 EDT Tel , Service support , Chest X-Ray 04/02/20 09:31 IMPRESSION: Bilateral pulmonary infiltrates worse in the right hemithorax with mild improved aeration at the left lung base. Electronically Signed: Jona Gonzalez, at 11:21 EDT , Service support , Medical Necessity - Tobacco Use Smoking Status: Never smoker Assessment/Plan All Active Problems Atrial fibrillation with rapid ventricular response (Acute) COVID-19 (Acute) Bilateral COVID-19 viral pneumonia (Acute) Acute kidney injury (Acute) Healthcare-associated pneumonia (Acute) Septic shock (Acute) Brain tumor (Acute) RECOMMENDATIONS: 1. Continue current supportive measures and wean supplemental oxygen to maintain saturations at or above 90%. 2. Continue DVT prophylaxis Lovenox. 3. Continue baseline antiepileptics. 4. Continue scheduled beta-jaspreet and cardizem. 5. Encourage incentive spirometer use and mobilize patient as tolerated. 6. The patient can be made PCU status. IMPRESSIONS: 1. Acute hypoxemic respiratory failure secondary to COVID-19 and possible healthcare associated pneumonia Oxygenation status appears to be slowly improving. Recommend continuing current supportive measures including noninvasive positive pressure ventilatory support and Airvo heated high flow as tolerated. Wean FiO2 to maintain oxygen saturations at or above 90%. The patient has completed treatment courses of decadron, antimicrobials and Remdesevir. 2. Atrial fibrillation with RVR The patient does have a history of chronic atrial fibrillation. Plan to continue baseline outpatient Cardizem and Toprol-XL. Rate is currently controlled. 3. Glioblastoma status post recent resection/unspecified seizure disorder Continue outpatient Keppra. Recent neurosurgical intervention would preclude the use of treatment strength Lovenox in this setting. 4. Acute kidney injury Resolved. Most likely prerenal in etiology. Continue current supportive measures. Continue to monitor urine output. No indication for renal replacement therapy at the current time. 5. History of non-Hodgkin's lymphoma Complicates care, management, recovery and prognosis. Physical therapy to work with the patient. Nutrition services is currently following. This note was generated with [employer] software. It may contain incorrect words, spelling, and punctuation that were not noted in checking the note before signing. Inpatient E&M: 94695 Subs Hosp L2
--- NOTE | 2020-04-05 07:28 | PN_ITS ---
Patient Problems: Active and Suspected Problems Atrial fibrillation with rapid ventricular response (Acute) COVID-19 (Acute) Bilateral COVID-19 viral pneumonia (Acute) Acute kidney injury (Acute) Healthcare-associated pneumonia (Acute) Septic shock (Acute) Brain tumor (Acute) Subjective: Patient seen and examined. He had no acute events overnight. He has mild fever peaking at 100.1 Fahrenheit. He was on BiPAP overnight with 50% oxygen and is back on the Airvo this morning. Labs and vitals reviewed. Vitals/I&O's: Vital Signs Temp Pulse Resp BP Pulse Ox 100.1 F H 93 25 H 102/68 93 04/05/20 06:00 04/05/20 06:00 04/05/20 06:00 04/05/20 06:00 04/05/20 06:00 Oxygen Flow Rate (L/min) 35 Oxygen Delivery Method CPAP Weight: 228 lb 13.437 oz Body Mass Index (BMI) 32.2 Intake and Output for Last 24 Hours 04/03/20 04/04/20 04/05/20 23:59 23:59 23:59 Intake Total 1493.33 / 1493.33 4176.67 / 4176.67 Output Total 840 / 840 1070 / 1220 835 / 835 Balance 653.33 / 653.33 3106.67 / 2956.67 -835 / -835 General: Alert, Oriented x3, Cooperative, No apparent distress HEENT: Atraumatic, PERRLA, EOMI, Normocephalic Oral: Dry Mucosa Neck: Supple, No JVD, Negative Carotid Bruits Lungs: - - decreased breath sounds bibasally, no crackles. on AirVo Cardiovascular: Regular rate, Regular Rhythm, Normal S1, Normal S2, - - grade 2- 3 ejection systolic murmur Abdomen: Bowel Sounds Present, Soft, Non Tender, Non-Distended, No Hepato- splenomegaly Extremities: No clubbing, No cyanosis, No edema, Capillary Refill Less than 3 Seconds Skin: No rashes, No breakdown Musculoskeletal: No Tenderness to Palpation of Joints or Extremities Lymphatic: No Cervical, Supraclavicular, or Inguinal Adenopathy Neurological: Cranial nerves II-XII grossly intact, Neuro grossly intact, Motor Exam 5/5 strength throughout Psych/Mental Status: Normal Affect, Appropriate, Alert and oriented to time, place, person, mood and affect Psych/Mental Status: normal affect Alert and oriented to time, place, person, mood and affect Laboratory Results 04/05/20 04:00: WBC 8.4, RBC 4.78, Hgb 14.1, Hct 43.7, MCV 91.4, MCH 29.5, MCHC 32.3, RDW Std Deviation 44.8 H, RDW Coeff of Dontae 13.3, Plt Count 204, MPV 9.9, Immature Gran % (Auto) 2.400 H, Neut % (Auto) 81.7 H, Lymph % (Auto) 6.0 L, [place] % (Auto) 7.1, Eos % (Auto) 2.6, Baso % (Auto) 0.2, Absolute Neuts (auto) 6.9, Absolute Lymphs (auto) 0.51 L, Nucleated RBC % 0, Differential Comment SCANNED 04/05/20 04:00: Sodium 139, Potassium 3.7, Chloride 103, Carbon Dioxide 32.0, Anion Gap 4 L, BUN 12, Creatinine 0.64 L, Estim Creat Clear Calc 73.00, Est GFR (MDRD) Af Amer 161, Est GFR (MDRD) Non-Af 133, BUN/Creatinine Ratio 18.9, Glucose 86, Calcium 7.5 L Diagnostic Data Brain CT 03/25/20 17:08 IMPRESSION: 1. Evidence of recent surgery involving the left occipitoparietal region. There is encephalomalacia and a small subdural fluid collection underlying the craniotomy site. 2. Otherwise normal CT of the brain. Electronically Signed: Jordy Gonzalez DO at 17:52 EDT Tel [phone], Service support , Chest X-Ray 04/02/20 09:31 IMPRESSION: Bilateral pulmonary infiltrates worse in the right hemithorax with mild improved aeration at the left lung base. Electronically Signed: Jona Gonzalez, at 11:21 EDT , Service support , Current Medications Acetaminophen (Tylenol) 650 mg PO Q6H PRN PRN PRN Reason: Pain Score 1-10/Temp > 100.7 F Albuterol/Ipratropium (Duoneb) 3 ml INHALATION Q4H.RT PRN PRN Reason: WHEEZING Aspirin (Aspirin, Baby) 81 mg PO DAILY [facility] Last Admin: 04/04/20 10:23 Dose: 81 mg Documented by: Diltiazem HCl (Cardizem Cd) 240 mg PO DAILY [facility] Last Admin: 04/04/20 10:23 Dose: 240 mg Documented by: Enoxaparin Sodium (Lovenox) 40 mg SC DAILY@0600 [facility] Last Admin: 04/05/20 05:57 Dose: 40 mg Documented by: Sodium Chloride () 250 mls @ 15 mls/hr IV .[id number] PRN PRN Reason: Saline Flush Last Infusion: 04/04/20 04:42 Dose: Infused Documented by: Sodium Chloride () 250 mls @ 15 mls/hr IV .[id number] PRN PRN Reason: Additional IVPB Infusion Dextrose/Sodium Chloride () 1,000 mls @ 100 mls/hr IV .Q10H [facility] Last Admin: 04/04/20 23:53 Dose: 100 mls/hr Documented by: Levetiracetam (Keppra Tablet) 1,000 mg PO BID [facility] Last Admin: 04/04/20 22:28 Dose: 1,000 mg Documented by: Metoprolol Succinate (Toprol Xl (Beta Bekah)) 50 mg PO DAILY [facility] Last Admin: 04/04/20 10:24 Dose: 50 mg Documented by: Mirtazapine (Remeron) 7.5 mg PO QHS [facility] Last Admin: 04/04/20 22:28 Dose: 7.5 mg Documented by: Nystatin (Nystatin) 500,000 unit PO 4X/DAY [facility] Last Admin: 04/04/20 22:29 Dose: 500,000 unit Documented by: Ondansetron HCl (Zofran) 4 mg IV Q8H PRN PRN PRN Reason: NAUSEA/VOMITING Last Admin: 03/29/20 16:11 Dose: 4 mg Documented by: Polyethylene Glycol (Miralax) 17 gm PO DAILY [facility] Last Admin: 04/04/20 10:24 Dose: 17 gm Documented by: Senna/Docusate Sodium (Senokot-S, Stephany-Colace) 2 tablet PO BID PRN PRN Reason: Constipation Last Admin: 03/29/20 09:19 Dose: 2 tablet Documented by: Sodium Chloride () 10 - 40 ml IV UD PRN PRN Reason: SALINE FLUSH Last Admin: 04/04/20 05:36 Dose: 20 ml Documented by: Zolpidem Tartrate (Ambien (Generic)) 5 mg PO QHS PRN PRN PRN Reason: INSOMNIA Last Admin: 03/28/20 00:31 Dose: 5 mg Documented by: STROKE Vital Signs/Narrative: Vital Signs Temp Pulse Resp BP Pulse Ox 04/05/20 06:00 100.1 F H 93 25 H 102/68 93 04/05/20 05:35 99 26 H 97 04/05/20 05:00 100.2 F H 104 H 26 H 104/71 96 04/05/20 04:00 100.1 F H 104 H 27 H 109/76 96 Medical Necessity - Tobacco Use Smoking Status: Never smoker Assessment/Plan All Active Problems Atrial fibrillation with rapid ventricular response (Acute) COVID-19 (Acute) Bilateral COVID-19 viral pneumonia (Acute) Acute kidney injury (Acute) Healthcare-associated pneumonia (Acute) Septic shock (Acute) Brain tumor (Acute) 1. Acute hypoxic respiratory failure due to COVID 19 infection. * still on Airvo and BIPAP intermittently * in cumulative positive balance by 74 mils. * titrate oxygen to maintain sats >90% * 2. Septic shock due to COVID 19 infection: resolved. 3. COVID 19 infection * s/p 2 units of convalescent serum * completed course of IV zosyn, remeron and dexamethasone. * critical care and ID are on board * 4. Depression: On remeron. 5. RIYA: resolved. 6. Afib with RVR * On cardizem 240mg daily and metoprolol. * not on therapeutic anticoagulation due to recent brains surgery for glioblastoma * 7. History of glioblastoma s/p brain surgery * had surgery on 03/10/2020 @ [facility] * 8. History of marginal lymphoma: stable 9. Seizure disorder: on Keppra DVT prophylaxis; on lovenox 40mg daily Inpatient E&M: [id number] [facility] [place] Hosp L2
[2020-04-05] MEDS: Dext 5%-0.45% NS 1,000 ML 100 ML IV ×2 (09:34→19:16)
[2020-04-05] MEDS: levETIRAcetam 1,000 MG Tablet 1000 MG PO ×2 (09:50→21:11)
[2020-04-05] MEDS: dilTIAZem CD 240 MG Capsule PO (09:50)
[2020-04-05] MEDS: Aspirin 81 MG TAB.CHEW PO (09:50)
[2020-04-05] MEDS: Polyethylene Glycol 3350 17 GM PACKET PO (09:50)
[2020-04-05] MEDS: NYSTATIN 500,000 UNIT/5 ML UDC 500000 UNIT PO ×4 (09:51→21:11)
[2020-04-05] MEDS: Mirtazapine 15 MG Tablet 7.5 MG PO (21:11)
[2020-04-06] VITALS (20 sets, daily range): BP systolic 84–122; BP diastolic 56–80; PULSE 84–123; RESP 20–29; TEMP 37.4–38; O2SAT 90–96
[2020-04-06 04:24] LABS: Absolute Lymphocyte Count 0.57 X10^3/uL (0.83-4.51); Absolute Neutrophil Count 5.9 X10^3/uL (2.0-7.7); Basophil# 0.02 X10^3/uL; Basophil% 0.3 % (0-1); Eosinophil# 0.18 X10^3/uL; Eosinophils% 2.3 % (0-5); Hematocrit 38.8 % (40-54); Hemoglobin 12.4 g/dL (13.0-16.5); Lymphocyte # 0.57 X10^3/ul (4.0); Lymphocyte % 7.4 % (19-41); Mean Corpuscular Hgb 29.2 pg (27.0-32.0); Mean Corpuscular Volume 91.3 fL (80-94); Mean Platelet Vol. 9.9 fl (6.2-12.0); Monocyte# 0.77 X10^3/uL; NRBC Flagged by Analyzer 0 % (0-5); Neutrophil # 5.86 X10^3/uL (2.7-7.7); POSITIVE DIFFERENTIAL YES; Platelet Count 212 K/mm3 (150-450); RBC Distribution Width CV 13.7 % (11.6-14.6); RBC Distribution Width SD 45.5 fl (35.1-43.9); Red Blood Count 4.25 M/mm3 (4.6-6.2); White Blood Count 7.7 K/mm3 (4.4-11.0)
[2020-04-06 04:26] LABS: Differential Indicated SCAN CRITERIA MET
[2020-04-06 04:38] LABS: Anion Gap 4 (5-15); BUN 8 mg/dL (7-18); BUN/Creat Ratio 11.9 RATIO (10-20); Calcium,Total 7.3 mg/dL (8.5-10.1); Chloride 103 mmol/L (98-107); Creatinine, Serum 0.67 mg/dL (0.70-1.30); EST Glomerular Filtration Rate 124 mL/min (>60); Est Glom Filt Rate - Afr Amer 151 mL/min (>60); Glucose 105 mg/dL (74-106); Potassium 3.4 mmol/L (3.5-5.1); Sodium Level 138 mmol/L (136-145)
[2020-04-06 04:49] LABS: Differential Comment SCANNED
[2020-04-06] MEDS: Dext 5%-0.45% NS 1,000 ML 100 ML IV (05:48)
[2020-04-06] MEDS: Enoxaparin 40 MG/0.4 ML Syringe SC (06:04)
--- NOTE | 2020-04-06 06:54 | PN_ITS ---
Patient Problems: Active and Suspected Problems Atrial fibrillation with rapid ventricular response (Acute) COVID-19 (Acute) Bilateral COVID-19 viral pneumonia (Acute) Acute kidney injury (Acute) Healthcare-associated pneumonia (Acute) Septic shock (Acute) Brain tumor (Acute) Subjective: Patient did well overnight. No acute issues were reported. Patient was placed on D5 half-normal saline secondary to decreased p.o. intake. Patient has required 50% by high flow nasal cannula to maintain saturations. Blood pressure has been acceptable. Patient is not reporting any dyspnea or pain at this time. Patient does state that therapy wipes me out. - Physical Exam Vitals/I&O's: Vital Signs Temp Pulse Resp BP Pulse Ox 37.5 C H 87 28 H 106/69 95 04/06/20 04:00 04/06/20 05:45 04/06/20 05:45 04/06/20 04:00 04/06/20 05:45 Oxygen Flow Rate (L/min) 35 Oxygen Delivery Method CPAP Weight: 105.4 kg Body Mass Index (BMI) 32.2 Intake and Output for Last 24 Hours 04/04/20 04/05/20 04/06/20 23:59 23:59 23:59 Intake Total 4176.67 / 4176.67 2610.00 / 2610.00 1013.33 / 1013.33 Output Total 1070 / 1220 1935 / 1935 650 / 650 Balance 3106.67 / 2956.67 675.00 / 675.00 363.33 / 363.33 General: Alert, Oriented x3, Cooperative, No apparent distress, Well developed, Well nourished, - - Speaks in full sentences. HEENT: Atraumatic, PERRLA, EOMI, Normocephalic, - - No scleral icterus or inje ction noted. Nasal cannula in place. Oral: Moist Mucosa, No Gingival or Mucosal Lesions/ Ulcerations Neck: Supple, No JVD, No Nodes, Trachea Midline Lungs: No rhonchi, No wheeze, No rales, Diminished, - - Symmetric expansion. Cardiovascular: Normal S1, Normal S2, Irregular Rate, Murmur, No rub noted, No Gallop Abdomen: Bowel Sounds Present, Soft, Non Tender, Non-Distended Extremities: No clubbing, No cyanosis, No edema, Capillary Refill Less than 3 Seconds Skin: No rashes, No breakdown Musculoskeletal: No Tenderness to Palpation of Joints or Extremities Lymphatic: No Cervical, Supraclavicular, or Inguinal Adenopathy Neurological: Cranial nerves II-XII grossly intact, Neuro grossly intact, Motor Exam 5/5 strength throughout Psych/Mental Status: Alert and oriented to time, place, person, mood and affect Laboratory Results 04/06/20 04:15: WBC 7.7, RBC 4.25 L, Hgb 12.4 L, Hct 38.8 L, MCV 91.3, MCH 29.2, MCHC 32.0, RDW Std Deviation 45.5 H, RDW Coeff of Dontae 13.7, Plt Count 212, MPV 9.9, Immature Gran % (Auto) 4.000 H, Neut % (Auto) 76.0 H, Lymph % (Auto) 7.4 L, [place] % (Auto) 10.0, Eos % (Auto) 2.3, Baso % (Auto) 0.3, Absolute Neuts (auto) 5.9, Absolute Lymphs (auto) 0.57 L, Nucleated RBC % 0, Differential Comment SCANNED 04/06/20 04:15: Sodium 138, Potassium 3.4 L, Chloride 103, Carbon Dioxide 31.0, Anion Gap 4 L, BUN 8, Creatinine 0.67 L, Estim Creat Clear Calc 73.00, Est GFR (MDRD) Af Amer 151, Est GFR (MDRD) Non-Af 124, BUN/Creatinine Ratio 11.9, Glucose 105, Calcium 7.3 L Current Medications Acetaminophen (Tylenol) 650 mg PO Q6H PRN PRN PRN Reason: Pain Score 1-10/Temp > 100.7 F Albuterol/Ipratropium (Duoneb) 3 ml INHALATION Q4H.RT PRN PRN Reason: WHEEZING Aspirin (Aspirin, Baby) 81 mg PO DAILY [facility] Last Admin: 04/05/20 09:50 Dose: 81 mg Documented by: Diltiazem HCl (Cardizem Cd) 240 mg PO DAILY [facility] Last Admin: 04/05/20 09:50 Dose: 240 mg Documented by: Enoxaparin Sodium (Lovenox) 40 mg SC DAILY@0600 [facility] Last Admin: 04/06/20 06:04 Dose: 40 mg Documented by: Sodium Chloride () 250 mls @ 15 mls/hr IV .[id number] PRN PRN Reason: Saline Flush Last Infusion: 04/04/20 04:42 Dose: Infused Documented by: Sodium Chloride () 250 mls @ 15 mls/hr IV .[id number] PRN PRN Reason: Additional IVPB Infusion Dextrose/Sodium Chloride () 1,000 mls @ 100 mls/hr IV .Q10H [facility] Last Infusion: 04/06/20 05:56 Dose: Infused Documented by: Levetiracetam (Keppra Tablet) 1,000 mg PO BID [facility] Last Admin: 04/05/20 21:11 Dose: 1,000 mg Documented by: Metoprolol Succinate (Toprol Xl (Beta Bekah)) 50 mg PO DAILY [facility] Last Admin: 04/05/20 10:30 Dose: Not Given Documented by: Mirtazapine (Remeron) 7.5 mg PO QHS [facility] Last Admin: 04/05/20 21:11 Dose: 7.5 mg Documented by: Nystatin (Nystatin) 500,000 unit PO 4X/DAY [facility] Last Admin: 04/05/20 21:11 Dose: 500,000 unit Documented by: Ondansetron HCl (Zofran) 4 mg IV Q8H PRN PRN PRN Reason: NAUSEA/VOMITING Last Admin: 03/29/20 16:11 Dose: 4 mg Documented by: Polyethylene Glycol (Miralax) 17 gm PO DAILY [facility] Last Admin: 04/05/20 09:50 Dose: 17 gm Documented by: Senna/Docusate Sodium (Senokot-S, Stephany-Colace) 2 tablet PO BID PRN PRN Reason: Constipation Last Admin: 03/29/20 09:19 Dose: 2 tablet Documented by: Sodium Chloride () 10 - 40 ml IV UD PRN PRN Reason: SALINE FLUSH Last Admin: 04/04/20 05:36 Dose: 20 ml Documented by: Zolpidem Tartrate (Ambien (Generic)) 5 mg PO QHS PRN PRN PRN Reason: INSOMNIA Last Admin: 03/28/20 00:31 Dose: 5 mg Documented by: Medical Necessity - Tobacco Use Smoking Status: Never smoker Assessment/Plan All Active Problems Atrial fibrillation with rapid ventricular response (Acute) COVID-19 (Acute) Bilateral COVID-19 viral pneumonia (Acute) Acute kidney injury (Acute) Healthcare-associated pneumonia (Acute) Septic shock (Acute) Brain tumor (Acute) RECOMMENDATIONS: 1. Continue current supportive measures and wean supplemental oxygen to maintain saturations at or above 90%. 2. Continue DVT prophylaxis Lovenox and baseline antiepileptics. 3. Discontinue IV fluids secondary to volume concerns. Potassium supplementation. 4. Continue scheduled beta-bekah and cardizem. 5. Encourage incentive spirometer use and mobilize patient as tolerated. 6. Increase activity as tolerated. Potential trial of nasal cannula oxygen later today IMPRESSIONS: 1. Acute hypoxemic respiratory failure secondary to COVID-19 and possible healthcare associated pneumonia Oxygenation status appears to be slowly improving. Recommend continuing current supportive measures including noninvasive positive pressure ventilatory support and Airvo heated high flow as tolerated. Wean FiO2 to maintain oxygen saturations at or above 90%. The patient has completed treatment courses of decadron, antimicrobials and Remdesevir. Will discontinue IV fluids secondary to volume concerns. Encourage p.o. intake. 2. Atrial fibrillation with RVR The patient does have a history of chronic atrial fibrillation. Plan to continue baseline outpatient Cardizem and Toprol-XL. Rate is currently controlled. 3. Glioblastoma status post recent resection/unspecified seizure disorder Continue outpatient Keppra. Recent neurosurgical intervention would preclude the use of treatment strength Lovenox in this setting. 4. Acute kidney injury Resolved. Most likely prerenal in etiology. Continue current supportive measures. Continue to monitor urine output. No indication for renal replacement therapy at the current time. 5. History of non-Hodgkin's lymphoma Complicates care, management, recovery and prognosis. Physical therapy to work with the patient. Nutrition services is currently following. Inpatient E&M: [id number] Subs Hosp L2
[2020-04-06] MEDS: NYSTATIN 500,000 UNIT/5 ML UDC 500000 UNIT PO ×4 (08:51→21:20)
[2020-04-06] MEDS: dilTIAZem CD 240 MG Capsule PO (08:51)
[2020-04-06] MEDS: levETIRAcetam 1,000 MG Tablet 1000 MG PO ×2 (08:51→21:20)
[2020-04-06] MEDS: Aspirin 81 MG TAB.CHEW PO (08:51)
[2020-04-06] MEDS: Polyethylene Glycol 3350 17 GM PACKET PO (08:52)
--- NOTE | 2020-04-06 09:38 | PN_ITS ---
Patient Problems: Active and Suspected Problems Atrial fibrillation with rapid ventricular response (Acute) COVID-19 (Acute) Bilateral COVID-19 viral pneumonia (Acute) Acute kidney injury (Acute) Healthcare-associated pneumonia (Acute) Septic shock (Acute) Brain tumor (Acute) Subjective: Chief complaint: Follow-up after admission for septic shock secondary to bilateral COVID-19 viral pneumonia complicated by acute hypoxic respiratory failure status post extubation, found to have acute kidney injury and A. fib with RVR. Patient seen and examined. No acute events overnight. He was taken off CPAP this morning. Currently, he is on 6 L of oxygen. He reported that he is feeling okay, no significant shortness of breath at this time. Denied cough or sputum production. Denied fever or chills. He is afebrile, slightly tachycardic, blood pressure is borderline but asymptomatic, pulse ox is 90% on 6 L. - Physical Exam Vitals/I&O's: Vital Signs Temp Pulse Resp BP Pulse Ox 99.3 F H 105 H 28 H 84/60 L 90 04/06/20 08:55 04/06/20 08:55 04/06/20 08:55 04/06/20 08:55 04/06/20 09:02 Oxygen Flow Rate (L/min) 6 Oxygen Delivery Method Nasal Cannula Weight: 232 lb 5.875 oz Body Mass Index (BMI) 32.2 Intake and Output for Last 24 Hours 04/04/20 04/05/20 04/06/20 23:59 23:59 23:59 Intake Total 4176.67 / 4176.67 2610.00 / 2610.00 1013.33 / 1013.33 Output Total 1070 / 1220 1935 / 1935 650 / 650 Balance 3106.67 / 2956.67 675.00 / 675.00 363.33 / 363.33 General: Alert, Oriented x3, Cooperative, No apparent distress HEENT: Atraumatic, PERRLA, EOMI, Normocephalic Oral: Moist Mucosa, No Gingival or Mucosal Lesions/ Ulcerations Neck: Supple, No JVD, Negative Carotid Bruits Lungs: Clear to auscultation, No rhonchi, No wheeze, No rales, Diminished, - - Decreased breath sounds bilateral, otherwise clear. Cardiovascular: Normal S1, Normal S2, PMI Normal, Irregular Rate, Tachycardic Abdomen: Bowel Sounds Present, Soft, Non Tender, Non-Distended, No Hepato- splenomegaly Extremities: No clubbing, No cyanosis, Edema Skin: No rashes, No breakdown Neurological: Cranial nerves II-XII grossly intact, Neuro grossly intact Psych/Mental Status: Normal Affect, Appropriate, Alert and oriented to time, place, person, mood and affect Laboratory Results 04/06/20 04:15: WBC 7.7, RBC 4.25 L, Hgb 12.4 L, Hct 38.8 L, MCV 91.3, MCH 29.2, MCHC 32.0, RDW Std Deviation 45.5 H, RDW Coeff of Dontae 13.7, Plt Count 212, MPV 9.9, Immature Gran % (Auto) 4.000 H, Neut % (Auto) 76.0 H, Lymph % (Auto) 7.4 L, [place] % (Auto) 10.0, Eos % (Auto) 2.3, Baso % (Auto) 0.3, Absolute Neuts (auto) 5.9, Absolute Lymphs (auto) 0.57 L, Nucleated RBC % 0, Differential Comment SCANNED 04/06/20 04:15: Sodium 138, Potassium 3.4 L, Chloride 103, Carbon Dioxide 31.0, Anion Gap 4 L, BUN 8, Creatinine 0.67 L, Estim Creat Clear Calc 73.00, Est GFR (MDRD) Af Amer 151, Est GFR (MDRD) Non-Af 124, BUN/Creatinine Ratio 11.9, Glucose 105, Calcium 7.3 L Current Medications Acetaminophen (Tylenol) 650 mg PO Q6H PRN PRN PRN Reason: Pain Score 1-10/Temp > 100.7 F Albuterol/Ipratropium (Duoneb) 3 ml INHALATION Q4H.RT PRN PRN Reason: WHEEZING Aspirin (Aspirin, Baby) 81 mg PO DAILY [facility] Last Admin: 04/06/20 08:51 Dose: 81 mg Documented by: Diltiazem HCl (Cardizem Cd) 240 mg PO DAILY [facility] Last Admin: 04/06/20 08:51 Dose: 240 mg Documented by: Enoxaparin Sodium (Lovenox) 40 mg SC DAILY@0600 [facility] Last Admin: 04/06/20 06:04 Dose: 40 mg Documented by: Sodium Chloride () 250 mls @ 15 mls/hr IV .[id number] PRN PRN Reason: Saline Flush Last Infusion: 04/04/20 04:42 Dose: Infused Documented by: Sodium Chloride () 250 mls @ 15 mls/hr IV .[id number] PRN PRN Reason: Additional IVPB Infusion Dextrose/Sodium Chloride () 1,000 mls @ 100 mls/hr IV .Q10H BRYANT Last Infusion: 04/06/20 05:56 Dose: Infused Documented by: Levetiracetam (Keppra Tablet) 1,000 mg PO BID [facility] Last Admin: 04/06/20 08:51 Dose: 1,000 mg Documented by: Metoprolol Succinate (Toprol Xl (Beta Bekah)) 50 mg PO DAILY [facility] Last Admin: 04/05/20 10:30 Dose: Not Given Documented by: Mirtazapine (Remeron) 7.5 mg PO QHS [facility] Last Admin: 04/05/20 21:11 Dose: 7.5 mg Documented by: Nystatin (Nystatin) 500,000 unit PO 4X/DAY [facility] Last Admin: 04/06/20 08:51 Dose: 500,000 unit Documented by: Ondansetron HCl (Zofran) 4 mg IV Q8H PRN PRN PRN Reason: NAUSEA/VOMITING Last Admin: 03/29/20 16:11 Dose: 4 mg Documented by: Polyethylene Glycol (Miralax) 17 gm PO DAILY [facility] Last Admin: 04/06/20 08:52 Dose: 17 gm Documented by: Senna/Docusate Sodium (Senokot-S, Stephany-Colace) 2 tablet PO BID PRN PRN Reason: Constipation Last Admin: 03/29/20 09:19 Dose: 2 tablet Documented by: Sodium Chloride () 10 - 40 ml IV UD PRN PRN Reason: SALINE FLUSH Last Admin: 04/04/20 05:36 Dose: 20 ml Documented by: Zolpidem Tartrate (Ambien (Generic)) 5 mg PO QHS PRN PRN PRN Reason: INSOMNIA Last Admin: 03/28/20 00:31 Dose: 5 mg Documented by: Medical Necessity - Tobacco Use Smoking Status: Never smoker Assessment/Plan All Active Problems Atrial fibrillation with rapid ventricular response (Acute) COVID-19 (Acute) Bilateral COVID-19 viral pneumonia (Acute) Acute kidney injury (Acute) Healthcare-associated pneumonia (Acute) Septic shock (Acute) Brain tumor (Acute) This is a 69 years old male patient presented to the emergency room because of cough, weakness and shortness of breath, found to have bilateral basilar lung opacities consistent with pneumonia versus ARDS, found to have lactic acid of 6 consistent with septic shock and he is being admitted for healthcare associated pneumonia. #1 septic shock: Secondary to healthcare associated/COVID-19 pneumonia. He completed treatment with IV antibiotics, IV steroids and Remdesivir. Blood culture showed no growth in 5 days. Urine culture showed no growth. He has been afebrile, leukocytosis resolved. Critical care on the case. Plan to linette nue same treatment. #2 bilateral basilar Healthcare associated/COVID-19 pneumonia: As mentioned above, he completed treatment with IV antibiotics, IV steroids and remdesivir. COVID-19 PCR came back positive. Cultures were negative as mentioned above. Plan as above. #3 acute hypoxic respiratory failure: Patient has been on CPAP. Currently, he is on nasal cannula at 6 L. Pulse ox is 92%. He is slightly tachycardic, afebrile, blood pressure is borderline but asymptomatic. He is on bronchodilators. He does not seem to be dyspneic or tachypneic, comfortable. Plan to continue same treatment. #4 acute kidney injury: Secondary to #1. Resolved, both BUN and creatinine are back to normal. #5 A. fib with RVR: Heart rate has been around 110. Continue Cardizem and metoprolol for rate control. He is not on anticoagulation as he had a recent history of brain surgery. #6 recent history of brain tumor status post brain surgery: Surgery was done on March 10, 2020 at [facility]. On admission, CT scan brain done and showed no acute findings. #7 history of non-Hodgkin's lymphoma: This is back in 2007, status post treatment, stable, in remission. #8 seizure disorder: Continue Keppra. #9 CODE STATUS: DNR CCA, no intubation. #10 DVT prophylaxis: Subcu Lovenox. This note was generated with [email or web address] dictation software. It may contain incorrect words, spelling, and punctuation that were not noted in checking the note before signing. Inpatient E&M: 29094 Subs Hosp L2
--- NOTE | 2020-04-06 10:04 | CASEMGMT ---
RN CM Note: participated in interdisciplinary rounds. Patient was on high flow oxygen overnight, now on 6L NC. PT/OT to work with patient today to increase activity. Activity has been limited due to need for Bipap or Hi-Flow oxygen previously. Physician spoke with pt re: home vs snf and patient will need to be able to tolerate NC 6L with activity if he would like to return home. -Attempted call to daughter. No answer, and unable to leave message. Asked nurse if she speaks to daughter to give her CM phone #. RNCM plans to discuss home needs re: DME, Home oxygen and Home Health. Anticipate [facility] as they are able to take COVID + patients. -DME [facility] for home oxygen per [facility] PPO: Kelly Snyder, Jessica HAYES. Andres BLANCAN RN ACM
[2020-04-06] MEDS: Metoprolol(XL)Succ 50 MG Tablet PO (10:10)
--- NOTE | 2020-04-06 10:20 | CASEMGMT ---
LONI SCHULZ Note: participated in interdisciplinary rounds. Patient was on high flow oxygen overnight, now on 6L NC. PT/OT to work with patient today to increase activity. Activity has been limited due to need for Bipap or Hi-Flow oxygen previously. Physician spoke with pt re: home vs snf and patient will need to be able to tolerate NC 6L with activity if he would like to return home. [facility] for [place] is Lillian. [facility] for [place] is Amaris, Lazaro and Cristian. Call to daughter and discussed above. Daughter would like patient to return home. LONI SCHULZ let daughter know PT/OT would be working with patient more actively today as he is not limited by high flow oxygen tubing. LONI SCHULZ also discussed SNF if recommended and even though daughter is stating we told him we would never put him in a shelter, this post hospital stay would be a short term stay for medical management and PT/OT if needed, but RN JAZZ would work first to try and arrange DME for Home and HHC. Daughter would like a hospital bed also for him. LONI SCHULZ let her know insurance may cover, but if not, then RN JAZZ could get rental fees for her. Daughter also would like to know if pt would still need to be isolated @ home on discharge. This will need to be determined by physician. Pt's exwife (daughter's mother) may take pt home with her on dc, and she also lives in [place] near daughter. Daughter states they are friends and her home may be quieter. LONI SCHULZ asked daughter to discuss with her mom and patient and let CM know as soon as possible. Will need updated name, address, phone number for mother if pt decides to return home with her. -First choice for DME IS [facility] in [place]. This is not listed on [employer] site. Call to [facility] PH: , . Spoke with George to verify insurance. Demographic sheet and insurance card faxed to him with request to check insurance for oxygen and hospital bed and rental cost for bed if this would not be covered. -Call to [facility]. they are not sure if they can take COVID + patient at this time, but requested referral be faxed to them. This was completed. PH: FX: Chai BSN RN ACM
--- NOTE | 2020-04-06 14:47 | CASEMGMT ---
Addendum entered by Mickey Cortez 04/06/20 14:59: -Call received from George @ [employer] [employer] [facility] in [place]. Partial insurance review was completed and patient has same in and out network, however appears to pay on 50% of DME supplies. Per George, this is a certain, lower cost [employer] policy, however his insurance person will be in tomorrow and will verify benefits and give out of pocket costs for oxygen and hospital bed. -Discussed patient's homegoing situation. He will need 2 portable tanks on discharge as it is over an hour drive home. Recommend home oxygen be set up in home day prior to discharge and have family taught as patient may be on higher flow oxygen on dc. Will request daughter pickler helper portable tanks and bring to hospital on discharge. -Will await call back from DME provider prior to contacting daughter so as to finalize insurance coverage and out of pocket costs. Chai RENDON Original Note: LONI SCHULZ Note: Call received from [facility]- they cannot accept patients at this time. LONI SCHULZ asked for another recommendation as [place] is not in our immediate area. She recommended [facility]. -Call to [facility]. Spoke with Intake nurse re: referral. Referral faxed to them including patient was COVID + and has [employer] [facility] PPO. PH: FX: Chai RENDON
[2020-04-06] MEDS: Mirtazapine 15 MG Tablet 7.5 MG PO (21:20)
[2020-04-07] VITALS (18 sets, daily range): BP systolic 86–141; BP diastolic 64–109; PULSE 90–141; RESP 12–32; TEMP 36.2–37.2; O2SAT 77–98
[2020-04-07] MEDS: Enoxaparin 40 MG/0.4 ML Syringe SC (05:04)
[2020-04-07] MEDS: 0.9% Saline Lock 10 ML Syringe IV ×2 (05:05→06:29)
[2020-04-07 06:01] LABS: Absolute Lymphocyte Count 0.41 X10^3/uL (0.83-4.51); Basophil# 0.04 X10^3/uL; Basophil% 0.6 % (0-1); Eosinophil# 0.12 X10^3/uL; Eosinophils% 1.8 % (0-5); Hematocrit 42.5 % (40-54); Lymphocyte # 0.41 X10^3/ul (4.0); Lymphocyte % 6.1 % (19-41); Mean Corp Hgb Conc 30.6 g/dL (32-36); Mean Corpuscular Hgb 28.8 pg (27.0-32.0); Mean Corpuscular Volume 94.2 fL (80-94); Mean Platelet Vol. 9.7 fl (6.2-12.0); Monocyte# 0.83 X10^3/uL; Monocyte% 12.4 % (0-10); NRBC Flagged by Analyzer 0 % (0-5); Neutrophil # 4.98 X10^3/uL (2.7-7.7); Neutrophil % 74.5 % (47-70); POSITIVE DIFFERENTIAL YES; Platelet Count 222 K/mm3 (150-450); RBC Distribution Width CV 13.7 % (11.6-14.6); RBC Distribution Width SD 47.6 fl (35.1-43.9); Red Blood Count 4.51 M/mm3 (4.6-6.2); White Blood Count 6.7 K/mm3 (4.4-11.0)
[2020-04-07 06:17] LABS: Anion Gap 3 (5-15); BUN 8 mg/dL (7-18); Calcium,Total 7.8 mg/dL (8.5-10.1); Chloride 108 mmol/L (98-107); EST Glomerular Filtration Rate 227 mL/min (>60); Est Glom Filt Rate - Afr Amer 275 mL/min (>60); Glucose 98 mg/dL (74-106); Potassium 3.6 mmol/L (3.5-5.1); Sodium Level 138 mmol/L (136-145)
[2020-04-07 06:23] LABS: Differential Indicated SCAN CRITERIA MET
[2020-04-07] MEDS: Furosemide 20 MG/2 ML VIAL IV (06:29)
--- NOTE | 2020-04-07 06:55 | PCM.PN.PUL ---
Patient Problems: Active and Suspected Problems Atrial fibrillation with rapid ventricular response (Acute) COVID-19 (Acute) Bilateral COVID-19 viral pneumonia (Acute) Acute kidney injury (Acute) Healthcare-associated pneumonia (Acute) Septic shock (Acute) Brain tumor (Acute) Subjective: Patient did okay overnight. Patient has had several bouts of watery diarrhea, but denies any abdominal pain, nausea or vomiting. Patient did have his [place] removed and has had difficulty voiding. Patient was bladder scanned for 600 mL's earlier in the shift. Patient feels subjectively improved compared to previous. Patient did require 8 L nasal cannula overnight to maintain saturations while sleeping. - Physical Exam Vitals/I&O's: Vital Signs Temp Pulse Resp BP Pulse Ox 37.1 C 92 21 H 90/67 97 04/07/20 05:34 04/07/20 05:34 04/07/20 05:34 04/07/20 05:34 04/07/20 05:34 Oxygen Flow Rate (L/min) 8 Oxygen Delivery Method Nasal Cannula Weight: 106.2 kg Body Mass Index (BMI) 32.2 Intake and Output for Last 24 Hours 04/05/20 04/06/20 04/07/20 23:59 23:59 23:59 Intake Total 2610.00 / 2610.00 1233.33 / 1233.33 100 / 100 Output Total 1935 / 1935 1125 / 1125 600 / 600 Balance 675.00 / 675.00 108.33 / 108.33 -500 / -500 General: Alert, Oriented x3, Cooperative, No apparent distress, - - Obese. Speaking in full sentences. HEENT: Atraumatic, PERRLA, EOMI, Normocephalic, - - No scleral icterus or injection noted Oral: Moist Mucosa, No Gingival or Mucosal Lesions/ Ulcerations Neck: Supple, No JVD, No Nodes, Trachea Midline Lungs: No rhonchi, No wheeze, Diminished, Rales - Right base, - - Symmetric expansion. Cardiovascular: Normal S1, Normal S2, No murmurs, No rub noted, No Gallop, Tachycardic Abdomen: Bowel Sounds Present, Soft, Non Tender, Distended, Obese Extremities: No clubbing, No cyanosis, Edema - 1+ Skin: - - No change compared to previous Musculoskeletal: No Tenderness to Palpation of Joints or Extremities Lymphatic: No Cervical, Supraclavicular, or Inguinal Adenopathy Neurological: Cranial nerves II-XII grossly intact, Neuro grossly intact, Motor Exam 5/5 strength throughout Psych/Mental Status: Alert and oriented to time, place, person, mood and affect Microbiology Past 72 Hours 04/07/20 04:45 Stool C. difficile DNA Amplification - Final Laboratory Results 04/07/20 04:45: WBC Cancelled, Corrected WBC Cancelled, RBC Cancelled, Hgb Cancelled, Hct Cancelled, MCV Cancelled, MCH Cancelled, MCHC Cancelled, RDW Std Deviation Cancelled, RDW Coeff of Dontae Cancelled, Plt Count Cancelled, MPV Cancelled, Immature Gran % (Auto) Cancelled, Neut % (Auto) Cancelled, Lymph % (Auto) Cancelled, Callahan % (Auto) Cancelled, Eos % (Auto) Cancelled, Baso % (Auto) Cancelled, Absolute Neuts (auto) Cancelled, Absolute Lymphs (auto) Cancelled, Total Counted Cancelled, Neutrophils % (Manual) Cancelled, Band Neutrophils % Cancelled, Lymphocytes % (Manual) Cancelled, Monocytes % (Manual) Cancelled, Eosinophils % (Manual) Cancelled, Basophils % (Manual) Cancelled, Metamyelocytes % Cancelled, Myelocytes % Cancelled, Promyelocytes % Cancelled, Blast Cells % Cancelled, Plasma Cell % (Manual) Cancelled, Other Cells % Cancelled, Nucleated RBC % Cancelled, Nucleated RBCs/100 WBC Cancelled, Differential Comment Cancelled, Diff Path Review Cancelled, Hypersegmented Neuts Cancelled, Atypical Lymphocytes Cancelled, Reactive Lymphocytes Cancelled, Smudge Cells Cancelled, Toxic Granulation Cancelled, Toxic Vacuolation Cancelled, Dohle Bodies Cancelled, Sujatha Rods Cancelled, Platelet Estimate Cancelled, Plt Morphology Comment Cancelled, RBC Morphology Cancelled, Polychromasia Cancelled, Hypochromasia Cancelled, Poikilocytosis Cancelled, Basophilic Stippling Cancelled, Anisocytosis Cancelled, Microcytosis Cancelled, Macrocytosis Cancelled, Spherocytes Cancelled, Sickle Cells Cancelled, Target Cells Cancelled, Tear Drop Cells Cancelled, Ovalocytes Cancelled, Stomatocytes Cancelled, Michel-[place] Bodies Cancelled, Leverett Cells Cancelled, Bite Cells Cancelled, Crenated Cell Cancelled, Acanthocytes (Spur) Cancelled, Rouleaux Cancelled, Schistocytes Cancelled 04/07/20 04:45: Sodium Cancelled, Potassium Cancelled, Chloride Cancelled, Carbon Dioxide Cancelled, Anion Gap Cancelled, BUN Cancelled, Creatinine Cancelled, Estim Creat Clear Calc Cancelled, Est GFR (MDRD) Af Amer Cancelled, Est GFR (MDRD) Non-Af Cancelled, BUN/Creatinine Ratio Cancelled, Glucose Cancelled, Calcium Cancelled 04/07/20 05:50: Sodium 138, Potassium 3.6, Chloride 108 H, Carbon Dioxide 27.0, Anion Gap 3 L, BUN 8, Creatinine 0.40 L, Estim Creat Clear Calc 73.00, Est GFR (MDRD) Af Amer 275, Est GFR (MDRD) Non-Af 227, BUN/Creatinine Ratio 20.0, Glucose 98, Calcium 7.8 L 04/07/20 05:50: WBC 6.7, RBC 4.51 L, Hgb 13.0, Hct 42.5, MCV 94.2 H, MCH 28.8, MCHC 30.6 L, RDW Std Deviation 47.6 H, RDW Coeff of Dontae 13.7, Plt Count 222, MPV 9.7, Immature Gran % (Auto) 4.600 H, Neut % (Auto) 74.5 H, Lymph % (Auto) 6.1 L, Callahan % (Auto) 12.4 H, Eos % (Auto) 1.8, Baso % (Auto) 0.6, Absolute Neuts (auto) 5.0, Absolute Lymphs (auto) 0.41 L, Nucleated RBC % 0 Current Medications Acetaminophen (Tylenol) 650 mg PO Q6H PRN PRN PRN Reason: Pain Score 1-10/Temp > 100.7 F Albuterol/Ipratropium (Duoneb) 3 ml INHALATION Q4H.RT PRN PRN Reason: WHEEZING Aspirin (Aspirin, Baby) 81 mg PO DAILY [facility] Last Admin: 04/06/20 08:51 Dose: 81 mg Documented by: Diltiazem HCl (Cardizem Cd) 240 mg PO DAILY [facility] Last Admin: 04/06/20 08:51 Dose: 240 mg Documented by: Enoxaparin Sodium (Lovenox) 40 mg SC DAILY@0600 [facility] Last Admin: 04/07/20 05:04 Dose: 40 mg Documented by: Sodium Chloride () 250 mls @ 15 mls/hr IV .[id number] PRN PRN Reason: Saline Flush Last Infusion: 04/04/20 04:42 Dose: Infused Documented by: Sodium Chloride () 250 mls @ 15 mls/hr IV .[id number] PRN PRN Reason: Additional IVPB Infusion Levetiracetam (Keppra Tablet) 1,000 mg PO BID [facility] Last Admin: 04/06/20 21:20 Dose: 1,000 mg Documented by: Metoprolol Succinate (Toprol Xl (Beta Bekah)) 50 mg PO DAILY [facility] Last Admin: 04/06/20 10:10 Dose: 50 mg Documented by: Mirtazapine (Remeron) 7.5 mg PO QHS [facility] Last Admin: 04/06/20 21:20 Dose: 7.5 mg Documented by: Nystatin (Nystatin) 500,000 unit PO 4X/DAY [facility] Last Admin: 04/06/20 21:20 Dose: 500,000 unit Documented by: Ondansetron HCl (Zofran) 4 mg IV Q8H PRN PRN PRN Reason: NAUSEA/VOMITING Last Admin: 03/29/20 16:11 Dose: 4 mg Documented by: Polyethylene Glycol (Miralax) 17 gm PO DAILY [facility] Last Admin: 04/06/20 08:52 Dose: 17 gm Documented by: Senna/Docusate Sodium (Senokot-S, Stephany-Colace) 2 tablet PO BID PRN PRN Reason: Constipation Last Admin: 03/29/20 09:19 Dose: 2 tablet Documented by: Sodium Chloride () 10 - 40 ml IV UD PRN PRN Reason: SALINE FLUSH Last Admin: 04/07/20 06:29 Dose: 20 ml Documented by: Zolpidem Tartrate (Ambien (Generic)) 5 mg PO QHS PRN PRN PRN Reason: INSOMNIA Last Admin: 03/28/20 00:31 Dose: 5 mg Documented by: Medical Necessity - Tobacco Use Smoking Status: Never smoker Assessment/Plan All Active Problems Atrial fibrillation with rapid ventricular response (Acute) COVID-19 (Acute) Bilateral COVID-19 viral pneumonia (Acute) Acute kidney injury (Acute) Healthcare-associated pneumonia (Acute) Septic shock (Acute) Brain tumor (Acute) RECOMMENDATIONS: 1. Continue current supportive measures and wean supplemental oxygen to maintain saturations at or above 90%. 2. Continue DVT prophylaxis Lovenox and baseline antiepileptics. 3. Diuretic therapy intermittently. Potassium supplementation. 4. Continue scheduled beta-bekah and cardizem. 5. Encourage incentive spirometer use and mobilize patient as tolerated. 6. Increase activity as tolerated. Continue to wean nasal cannula as tolerated IMPRESSIONS: 1. Acute hypoxemic respiratory failure secondary to COVID-19 and possible healthcare associated pneumonia Oxygenation status appears to be slowly improving. Recommend continuing current supportive measures including noninvasive positive pressure ventilatory support and Airvo heated high flow as required. Wean FiO2 to maintain oxygen saturations at or above 90%. The patient has completed treatment courses of decadron, antimicrobials and Remdesevir. IV fluids were discontinued yesterday. Will add diuretic therapy today. Encourage p.o. intake. 2. Atrial fibrillation with RVR The patient does have a history of chronic atrial fibrillation. Plan to continue baseline outpatient Cardizem and Toprol-XL. Rate is currently marginally controlled. 3. Glioblastoma status post recent resection/unspecified seizure disorder Continue outpatient Keppra. Recent neurosurgical intervention would preclude the use of treatment strength Lovenox in this setting. 4. Acute kidney injury Resolved. Most likely prerenal in etiology. Continue current supportive measures. Continue to monitor urine output. No indication for renal replacement therapy at the current time. 5. History of non-Hodgkin's lymphoma Complicates care, management, recovery and prognosis. Physical therapy to work with the patient. Nutrition services is currently following. 6. Diarrhea C. difficile negative. No significant abdominal symptomatology. Defer to ID, but Imodium may be considered. Inpatient E&M: 06961 Subs Hosp L2
[2020-04-07 07:02] LABS: Differential Comment SCANNED
[2020-04-07] MEDS: levETIRAcetam 1,000 MG Tablet 1000 MG PO ×2 (08:28→21:08)
[2020-04-07] MEDS: NYSTATIN 500,000 UNIT/5 ML UDC 500000 UNIT PO ×4 (08:28→21:08)
[2020-04-07] MEDS: Metoprolol(XL)Succ 50 MG Tablet PO (08:28)
[2020-04-07] MEDS: Aspirin 81 MG TAB.CHEW PO (08:28)
[2020-04-07] MEDS: dilTIAZem CD 240 MG Capsule PO (08:29)
--- NOTE | 2020-04-07 08:43 | PN_ITS ---
Patient Problems: Active and Suspected Problems Atrial fibrillation with rapid ventricular response (Acute) COVID-19 (Acute) Bilateral COVID-19 viral pneumonia (Acute) Acute kidney injury (Acute) Healthcare-associated pneumonia (Acute) Septic shock (Acute) Brain tumor (Acute) Subjective: Chief complaint: Follow-up after admission for septic shock secondary to bilateral COVID-19 viral pneumonia complicated by acute hypoxic respiratory failure status post extubation, found to have acute kidney injury and A. fib with RVR. Patient seen and examined. No acute events overnight. Nursing staff reported that patient had diarrhea multiple times. Patient denied any abdominal pain, nausea or vomiting. Denied fever or chills. He mentioned that he is feeling better in terms of shortness of breath. He remains on 7 to 8 L of oxygen, afebrile, tachycardic, blood pressure stable. - Physical Exam Vitals/I&O's: Vital Signs Temp Pulse Resp BP Pulse Ox 97.2 F L 134 H 27 H 141/109 H 94 04/07/20 08:25 04/07/20 08:28 04/07/20 08:25 04/07/20 08:28 04/07/20 08:25 Oxygen Flow Rate (L/min) 8 Oxygen Delivery Method Nasal Cannula Weight: 234 lb 2.095 oz Body Mass Index (BMI) 32.2 Intake and Output for Last 24 Hours 04/05/20 04/06/20 04/07/20 23:59 23:59 23:59 Intake Total 2610.00 / 2610.00 1233.33 / 1233.33 100 / 100 Output Total 1935 / 1935 1125 / 1125 600 / 600 Balance 675.00 / 675.00 108.33 / 108.33 -500 / -500 General: Alert, Oriented x3, Cooperative, No apparent distress HEENT: Atraumatic, PERRLA, EOMI, Normocephalic Oral: Moist Mucosa, No Gingival or Mucosal Lesions/ Ulcerations Neck: Supple, No JVD, Negative Carotid Bruits, Trachea Midline, Thyroid Normal Size and Texture Lungs: No rhonchi, No wheeze, Diminished, Rales, - - Decreased breath sounds bilateral, crackles in the right base. Cardiovascular: Regular rate, Regular Rhythm, Normal S1, Normal S2, PMI Normal, Tachycardic Abdomen: Bowel Sounds Present, Soft, Non Tender, Non-Distended, No Hepato- splenomegaly Extremities: No clubbing, No cyanosis, Edema Skin: No rashes, No breakdown Lymphatic: No Cervical, Supraclavicular, or Inguinal Adenopathy Neurological: Cranial nerves II-XII grossly intact, Neuro grossly intact Psych/Mental Status: Normal Affect, Appropriate, Alert and oriented to time, place, person, mood and affect Microbiology Past 72 Hours 04/07/20 04:45 Stool C. difficile DNA Amplification - Final Laboratory Results 04/07/20 04:45: WBC Cancelled, Corrected WBC Cancelled, RBC Cancelled, Hgb Cancelled, Hct Cancelled, MCV Cancelled, MCH Cancelled, MCHC Cancelled, RDW Std Deviation Cancelled, RDW Coeff of Dontae Cancelled, Plt Count Cancelled, MPV Cancelled, Immature Gran % (Auto) Cancelled, Neut % (Auto) Cancelled, Lymph % (Auto) Cancelled, [place] % (Auto) Cancelled, Eos % (Auto) Cancelled, Baso % (Auto) Cancelled, Absolute Neuts (auto) Cancelled, Absolute Lymphs (auto) Cancelled, Total Counted Cancelled, Neutrophils % (Manual) Cancelled, Band Neutrophils % Cancelled, Lymphocytes % (Manual) Cancelled, Monocytes % (Manual) Cancelled, Eosinophils % (Manual) Cancelled, Basophils % (Manual) Cancelled, Metamyelocytes % Cancelled, Myelocytes % Cancelled, Promyelocytes % Cancelled, Blast Cells % Cancelled, Plasma Cell % (Manual) Cancelled, Other Cells % Cancelled, Nucleated RBC % Cancelled, Nucleated RBCs/100 WBC Cancelled, Differential Comment Cancelled, Diff Path Review Cancelled, Hypersegmented Neuts Cancelled, Atypical Lymphocytes Cancelled, Reactive Lymphocytes Cancelled, Smudge Cells Cancelled, Toxic Granulation Cancelled, Toxic Vacuolation Cancelled, Dohle Bodies Cancelled, Sujatha Rods Cancelled, Platelet Estimate Cancelled, Plt Morphology Comment Cancelled, RBC Morphology Cancelled, Polychromasia Cancelled, Hypochromasia Cancelled, Poikilocytosis Cancelled, Basophilic Stippling Cancelled, Anisocytosis Cancelled, Microcytosis Cancelled, Macrocytosis Cancelled, Spherocytes Cancelled, Sickle Cells Cancelled, Target Cells Cancelled, Tear Drop Cells Cancelled, Ovalocytes Cancelled, Stomatocytes Cancelled, Michel-[place] Bodies Cancelled, Camila Cells Cancelled, Bite Cells C ancelled, Crenated Cell Cancelled, Acanthocytes (Spur) Cancelled, Rouleaux Cancelled, Schistocytes Cancelled 04/07/20 04:45: Sodium Cancelled, Potassium Cancelled, Chloride Cancelled, Carbon Dioxide Cancelled, Anion Gap Cancelled, BUN Cancelled, Creatinine Cancelled, Estim Creat Clear Calc Cancelled, Est GFR (MDRD) Af Amer Cancelled, Est GFR (MDRD) Non-Af Cancelled, BUN/Creatinine Ratio Cancelled, Glucose Cancelled, Calcium Cancelled 04/07/20 05:50: Sodium 138, Potassium 3.6, Chloride 108 H, Carbon Dioxide 27.0, Anion Gap 3 L, BUN 8, Creatinine 0.40 L, Estim Creat Clear Calc 73.00, Est GFR (MDRD) Af Amer 275, Est GFR (MDRD) Non-Af 227, BUN/Creatinine Ratio 20.0, Gluc ose 98, Calcium 7.8 L 04/07/20 05:50: WBC 6.7, RBC 4.51 L, Hgb 13.0, Hct 42.5, MCV 94.2 H, MCH 28.8, MCHC 30.6 L, RDW Std Deviation 47.6 H, RDW Coeff of Dontae 13.7, Plt Count 222, MPV 9.7, Immature Gran % (Auto) 4.600 H, Neut % (Auto) 74.5 H, Lymph % (Auto) 6.1 L, [place] % (Auto) 12.4 H, Eos % (Auto) 1.8, Baso % (Auto) 0.6, Absolute Neuts (auto) 5.0, Absolute Lymphs (auto) 0.41 L, Nucleated RBC % 0, Differential Comment SCANNED Current Medications Acetaminophen (Tylenol) 650 mg PO Q6H PRN PRN PRN Reason: Pain Score 1-10/Temp > 100.7 F Albuterol/Ipratropium (Duoneb) 3 ml INHALATION Q4H.RT PRN PRN Reason: WHEEZING Aspirin (Aspirin, Baby) 81 mg PO DAILY [facility] Last Admin: 04/07/20 08:28 Dose: 81 mg Documented by: Diltiazem HCl (Cardizem Cd) 240 mg PO DAILY [facility] Last Admin: 04/07/20 08:29 Dose: 240 mg Documented by: Enoxaparin Sodium (Lovenox) 40 mg SC DAILY@0600 [facility] Last Admin: 04/07/20 05:04 Dose: 40 mg Documented by: Sodium Chloride () 250 mls @ 15 mls/hr IV .[id number] PRN PRN Reason: Saline Flush Last Infusion: 04/04/20 04:42 Dose: Infused Documented by: Sodium Chloride () 250 mls @ 15 mls/hr IV .[id number] PRN PRN Reason: Additional IVPB Infusion Levetiracetam (Keppra Tablet) 1,000 mg PO BID [facility] Last Admin: 04/07/20 08:28 Dose: 1,000 mg Documented by: Metoprolol Succinate (Toprol Xl (Beta Bekah)) 50 mg PO DAILY [facility] Last Admin: 04/07/20 08:28 Dose: 50 mg Documented by: Mirtazapine (Remeron) 7.5 mg PO QHS [facility] Last Admin: 04/06/20 21:20 Dose: 7.5 mg Documented by: Nystatin (Nystatin) 500,000 unit PO 4X/DAY [facility] Last Admin: 04/07/20 08:28 Dose: 500,000 unit Documented by: Ondansetron HCl (Zofran) 4 mg IV Q8H PRN PRN PRN Reason: NAUSEA/VOMITING Last Admin: 03/29/20 16:11 Dose: 4 mg Documented by: Polyethylene Glycol (Miralax) 17 gm PO DAILY [facility] Last Admin: 04/07/20 07:41 Dose: Not Given Documented by: Potassium [facility] ([facility]) [facility] Stop: 04/08/20 08:01 Last Admin: 04/07/20 08:29 Dose: 20 meq Documented by: Senna/Docusate Sodium (Senokot-S, Stephany-Colace) 2 tablet PO BID PRN PRN Reason: Constipation Last Admin: 03/29/20 09:19 Dose: 2 tablet Documented by: Sodium Chloride () 10 - 40 ml IV UD PRN PRN Reason: SALINE FLUSH Last Admin: 04/07/20 06:29 Dose: 20 ml Documented by: Zolpidem Tartrate (Ambien (Generic)) 5 mg PO QHS PRN PRN PRN Reason: INSOMNIA Last Admin: 03/28/20 00:31 Dose: 5 mg Documented by: Medical Necessity - Tobacco Use Smoking Status: Never smoker Assessment/Plan All Active Problems Atrial fibrillation with rapid ventricular response (Acute) COVID-19 (Acute) Bilateral COVID-19 viral pneumonia (Acute) Acute kidney injury (Acute) Healthcare-associated pneumonia (Acute) Septic shock (Acute) Brain tumor (Acute) This is a 69 years old male patient presented to the emergency room because of cough, weakness and shortness of breath, found to have bilateral basilar lung opacities consistent with pneumonia found to have lactic acid of 6 consistent with septic shock secondary to bilateral COVID-19 pneumonia with probably secondary bacterial pneumonia as well. #1 septic shock: Secondary to healthcare associated/COVID-19 pneumonia. He completed treatment with IV antibiotics, IV steroids and Remdesivir. Blood culture showed no growth in 5 days. Urine culture showed no growth. He has been afebrile, leukocytosis resolved, hemodynamically stable. Patient developed diarrhea and stool was negative for C. difficile. Critical care on the case. Plan to continue same treatment, wean off oxygen as tolerated. #2 bilateral basilar Healthcare associated/COVID-19 pneumonia: As mentioned above, he completed treatment with IV antibiotics, IV steroids and remdesivir. COVID-19 PCR came back positive. Hemodynamically stable, requiring high flow oxygen. Cultures were negative as mentioned above. Plan as above. #3 acute hypoxic respiratory failure: Patient has been on CPAP. Currently, he is on nasal cannula at 8 L. Pulse ox is 94%. He became tachycardic after he got out of bed, afebrile, blood pressure is borderline but asymptomatic. He is on bronchodilators. He does not seem to be dyspneic or tachypneic, comfortable. Plan to continue same treatment. #4 acute kidney injury: Secondary to #1. Resolved, both BUN and creatinine are back to normal. #5 A. fib with RVR: Heart rate has been around 110. Continue Cardizem and metoprolol for rate control. He is not on anticoagulation as he had a recent history of brain surgery. #6 recent history of brain tumor status post brain surgery: Surgery was done on March 10, 2020 at [facility]. On admission, CT scan brain done and showed no acute findings. #7 history of non-Hodgkin's lymphoma: This is back in 2007, status post treatment, stable, in remission. #8 seizure disorder: Continue Keppra. #9 CODE STATUS: DNR CCA, no intubation. #10 DVT prophylaxis: Subcu Lovenox. This note was generated with [employer] dictation software. It may contain incorrect words, spelling, and punctuation that were not noted in checking the note before signing. Inpatient E&M: 46215 Subs Hosp L2
--- NOTE | 2020-04-07 09:29 | CASEMGMT ---
LONI SCHULZ Note: reviewed dc plans of home with HHS and home oxygen and as patient lives in [place], it would be safer dc to have home oxygen set up in home day prior to discharge. Patient will need 2 portable tanks to return home, and it would benefit to have his home oxygen set up. OLNI SCHULZ is working on set up with DME in [place]. -DC Plan: anticipate home with home health. Not medically ready for dc today. Patient remains on 8L NC, and needed 10L NC yesterday with activity. Chai BLANCAN RN ACM
--- NOTE | 2020-04-07 10:05 | PCM.PN.ID ---
Patient Problems: Active and Suspected Problems Atrial fibrillation with rapid ventricular response (Acute) COVID-19 (Acute) Bilateral COVID-19 viral pneumonia (Acute) Acute kidney injury (Acute) Healthcare-associated pneumonia (Acute) Septic shock (Acute) Brain tumor (Acute) Subjective: Feeling better, breathing ok, no fever, no cough. - Physical Exam Vitals/I&O's: Vital Signs Temp Pulse Resp BP Pulse Ox 97.2 F L 134 H 27 H 141/109 H 94 04/07/20 08:25 04/07/20 08:28 04/07/20 08:25 04/07/20 08:28 04/07/20 08:25 Oxygen Flow Rate (L/min) 8 Oxygen Delivery Method Nasal Cannula Weight: 106.2 kg Body Mass Index (BMI) 32.2 Intake and Output for Last 24 Hours 04/05/20 04/06/20 04/07/20 23:59 23:59 23:59 Intake Total 2610.00 / 2610.00 1233.33 / 1233.33 100 / 100 Output Total 1935 / 1935 1125 / 1125 600 / 600 Balance 675.00 / 675.00 108.33 / 108.33 -500 / -500 General: Alert, Cooperative, No apparent distress Lungs: Clear to auscultation, Normal air movement Cardiovascular: Tachycardic Abdomen: Soft, Non Tender, Non-Distended Skin: No rashes Microbiology Past 72 Hours 04/07/20 04:45 Stool C. difficile DNA Amplification - Final Laboratory Results 04/07/20 04:45: WBC Cancelled, Corrected WBC Cancelled, RBC Cancelled, Hgb Cancelled, Hct Cancelled, MCV Cancelled, MCH Cancelled, MCHC Cancelled, RDW Std Deviation Cancelled, RDW Coeff of Dontae Cancelled, Plt Count Cancelled, MPV Cancelled, Immature Gran % (Auto) Cancelled, Neut % (Auto) Cancelled, Lymph % (Auto) Cancelled, [place] % (Auto) Cancelled, Eos % (Auto) Cancelled, Baso % (Auto) Cancelled, Absolute Neuts (auto) Cancelled, Absolute Lymphs (auto) Cancelled, Total Counted Cancelled, Neutrophils % (Manual) Cancelled, Band Neutrophils % Cancelled, Lymphocytes % (Manual) Cancelled, Monocytes % (Manual) Cancelled, Eosinophils % (Manual) Cancelled, Basophils % (Manual) Cancelled, Metamyelocytes % Cancelled, Myelocytes % Cancelled, Promyelocytes % Cancelled, Blast Cells % Cancelled, Plasma Cell % (Manual) Cancelled, Other Cells % Cancelled, Nucleated RBC % Cancelled, Nucleated RBCs/100 WBC Cancelled, Differential Comment Cancelled, Diff Path Review Cancelled, Hypersegmented Neuts Cancelled, Atypical Lymphocytes Cancelled, Reactive Lymphocytes Cancelled, Smudge Cells Cancelled, Toxic Granulation Cancelled, Toxic Vacuolation Cancelled, Dohle Bodies Cancelled, Sujatha Rods Cancelled, Platelet Estimate Cancelled, Plt Morphology Comment Cancelled, RBC Morphology Cancelled, Polychromasia Cancelled, Hypochromasia Cancelled, Poikilocytosis Cancelled, Basophilic Stippling Cancelled, Anisocytosis Cancelled, Microcytosis Cancelled, Macrocytosis Cancelled, Spherocytes Cancelled, Sickle Cells Cancelled, Target Cells Cancelled, Tear Drop Cells Cancelled, Ovalocytes Cancelled, Stomatocytes Cancelled, Michel-[place] Bodies Cancelled, [place] Cells Cancelled, Bite Cells Cancelled, Crenated Cell Cancelled, Acanthocytes (Spur) Cancelled, Rouleaux Cancelled, Schistocytes Cancelled 04/07/20 04:45: Sodium Cancelled, Potassium Cancelled, Chloride Cancelled, Carbon Dioxide Cancelled, Anion Gap Cancelled, BUN Cancelled, Creatinine Cancelled, Estim Creat Clear Calc Cancelled, Est GFR (MDRD) Af Amer Cancelled, Est GFR (MDRD) Non-Af Cancelled, BUN/Creatinine Ratio Cancelled, Glucose Cancelled, Calcium Cancelled 04/07/20 05:50: Sodium 138, Potassium 3.6, Chloride 108 H, Carbon Dioxide 27.0, Anion Gap 3 L, BUN 8, Creatinine 0.40 L, Estim Creat Clear Calc 73.00, Est GFR (MDRD) Af Amer 275, Est GFR (MDRD) Non-Af 227, BUN/Creatinine Ratio 20.0, Glucose 98, Calcium 7.8 L 04/07/20 05:50: WBC 6.7, RBC 4.51 L, Hgb 13.0, Hct 42.5, MCV 94.2 H, MCH 28.8, MCHC 30.6 L, RDW Std Deviation 47.6 H, RDW Coeff of Dontae 13.7, Plt Count 222, MPV 9.7, Immature Gran % (Auto) 4.600 H, Neut % (Auto) 74.5 H, Lymph % (Auto) 6.1 L, [place] % (Auto) 12.4 H, Eos % (Auto) 1.8, Baso % (Auto) 0.6, Absolute Neuts (auto) 5.0, Absolute Lymphs (auto) 0.41 L, Nucleated RBC % 0, Differential Comment SCANNED Current Medications Acetaminophen (Tylenol) 650 mg PO Q6H PRN PRN PRN Reason: Pain Score 1-10/Temp > 100.7 F Albuterol/Ipratropium (Duoneb) 3 ml INHALATION Q4H.RT PRN PRN Reason: WHEEZING Aspirin (Aspirin, Baby) 81 mg PO DAILY [facility] Last Admin: 04/07/20 08:28 Dose: 81 mg Documented by: Diltiazem HCl (Cardizem Cd) 240 mg PO DAILY [facility] Last Admin: 04/07/20 08:29 Dose: 240 mg Documented by: Enoxaparin Sodium (Lovenox) 40 mg SC DAILY@0600 [facility] Last Admin: 04/07/20 05:04 Dose: 40 mg Documented by: Sodium Chloride () 250 mls @ 15 mls/hr IV .[id number] PRN PRN Reason: Saline Flush Last Infusion: 04/04/20 04:42 Dose: Infused Documented by: Sodium Chloride () 250 mls @ 15 mls/hr IV .[id number] PRN PRN Reason: Additional IVPB Infusion Levetiracetam (Keppra Tablet) 1,000 mg PO BID [facility] Last Admin: 04/07/20 08:28 Dose: 1,000 mg Documented by: Metoprolol Succinate (Toprol Xl (Beta Bekah)) 50 mg PO DAILY [facility] Last Admin: 04/07/20 08:28 Dose: 50 mg Documented by: Mirtazapine (Remeron) 7.5 mg PO QHS [facility] Last Admin: 04/06/20 21:20 Dose: 7.5 mg Documented by: Nystatin (Nystatin) 500,000 unit PO 4X/DAY [facility] Last Admin: 04/07/20 08:28 Dose: 500,000 unit Documented by: Ondansetron HCl (Zofran) 4 mg IV Q8H PRN PRN PRN Reason: NAUSEA/VOMITING Last Admin: 03/29/20 16:11 Dose: 4 mg Documented by: Polyethylene Glycol (Miralax) 17 gm PO DAILY [facility] Last Admin: 04/07/20 07:41 Dose: Not Given Documented by: Potassium Chloride (K-Dur) 20 meq PO DAILYCM [facility] Stop: 04/08/20 08:01 Last Admin: 04/07/20 08:29 Dose: 20 meq Documented by: Senna/Docusate Sodium (Senokot-S, Stephany-Colace) 2 tablet PO BID PRN PRN Reason: Constipation Last Admin: 03/29/20 09:19 Dose: 2 tablet Documented by: Sodium Chloride () 10 - 40 ml IV UD PRN PRN Reason: SALINE FLUSH Last Admin: 04/07/20 06:29 Dose: 20 ml Documented by: Zolpidem Tartrate (Ambien (Generic)) 5 mg PO QHS PRN PRN PRN Reason: INSOMNIA Last Admin: 03/28/20 00:31 Dose: 5 mg Documented by: Medical Necessity - Tobacco Use Smoking Status: Never smoker Route of nutrition/ use of supplements: [] Nutritional Intake: [] IV Site: [] [place] Catheter: [] - Assessment/Plan Antibiotics: [] Assessment/Plan: [] Active and Suspected Problems Atrial fibrillation with rapid ventricular response (Acute) COVID-19 (Acute) Bilateral COVID-19 viral pneumonia (Acute) Acute kidney injury (Acute) Healthcare-associated pneumonia (Acute) Septic shock (Acute) Brain tumor (Acute) septic shock and hypoxic resp failure due to covid - Given convalescent plasma. PCT was 6 on admit, cxs neg. Completed decadron. RIYA resolved. 03/26 started 5 day course of remdesivir. Overall improved, on 8L this AM. Sx started 03/23/20, CDC says with severe illness to quarantine at most for 20 days from start of symptoms (04/12/20). Will follow
--- NOTE | 2020-04-07 11:57 | CASEMGMT ---
-LONI SCHULZ Note: call received from George @ [employer] in [place]. Insurance review for Oxygen and Hospital Bed was completed. Per George, patient has 80% coverage through [facility] and copay would be approximately $35 for hospital bed, and $15 for oxygen/month. Discussed request to set up oxygen day prior to discharge or in am prior to patient returning home due to patient's respiratory needs and this can be arranged. Script for home oxygen started, ex- address listed as this is where pt plans to go on dc. -Call to [facility] to update and they are able to accept patient with ongoing COVID precautions. Will need order, DC instructions faxed on dc. Daughter is considering whether patient needs HHC or not- will continue to follow up with her and discuss. -Lengthy call to daughterSally. Updated on all of above. Daughter states she spoke with her father and mother (pt's ex-) re: patient going to mother's home on discharge to quarantine for the additional days until 04/12/[address] Frankel. Discussed having Sally merchandise pickup/receiving associate the 2 portable tanks from [employer] (on their recommendation for the 1.25 hr ride home) prior to coming to [place], and being sure to be taught on how to adjust oxygen, change portable tank if needed, and identify when tank is running low. She states she will do this. Her mother will be driving patient home, however Sally will follow in her own car so she does not have to quarantine again. LONI SCHULZ recommended patient have pulse oximetry on discharge and this can be bought through [employer] or [employer]. No futher questions at this time. -LONI SCHULZ called and left message for Julisa Benton requesting call back to verify patient can go to her home on discharge and to discuss dc plan. Julisa Benton (ex ) [address] [place] [address] DC PLAN: Home to ex-'s house. Oxygen through [employer] to be set up in home prior to discharge, daughter and pt are considering home health care if needed. Chai BLANCAN RN ACM
[2020-04-07] MEDS: Metoprolol Tartrate 5 MG/5 ML Vial IV (13:06)
[2020-04-07] MEDS: Mirtazapine 15 MG Tablet 7.5 MG PO (21:08)
[2020-04-07] MEDS: Furosemide 40 MG/4 ML Vial IV (22:41)
[2020-04-08] VITALS (21 sets, daily range): BP systolic 91–105; BP diastolic 59–75; PULSE 78–134; RESP 20–28; TEMP 35.9–37.2; O2SAT 91–99
--- NOTE | 2020-04-08 04:00 | RAD_ITS ---
STUDY: X-RAY CHEST REASON FOR EXAM: Male, 69 years old. Covid pneumonia. Shortness of breath. TECHNIQUE: Single AP portable view of the chest. COMPARISON: 04/02/2020 FINDINGS: Nodular groundglass opacities scattered throughout both lungs, worsened from prior imaging. No pleural effusion or pneumothorax. Borderline cardiomegaly, unchanged. Normal mediastinum and monica. Normal visualized pulmonary arteries. Normal visualized aortic arch and descending thoracic aorta. There are diffuse degenerative changes of the visualized thoracic spine. Normal visualized ribs, clavicles, and shoulders. There is no demonstrated abnormality of the visualized soft tissue structures of the upper abdomen. RAD/Chest 1 View (Portable) IMPRESSION: Worsening bilateral airspace infiltrates. Electronically Signed: Ford Mendoza MD at 4:49 EDT Tel , Service support ,
[2020-04-08] MEDS: Enoxaparin 40 MG/0.4 ML Syringe SC (05:36)
[2020-04-08 05:50] LABS: Absolute Lymphocyte Count 0.51 X10^3/uL (0.83-4.51); Absolute Neutrophil Count 6.1 X10^3/uL (2.0-7.7); Basophil# 0.06 X10^3/uL; Basophil% 0.7 % (0-1); Eosinophil# 0.13 X10^3/uL; Eosinophils% 1.6 % (0-5); Hematocrit 40.6 % (40-54); Hemoglobin 13.2 g/dL (13.0-16.5); Lymphocyte # 0.51 X10^3/ul (4.0); Lymphocyte % 6.2 % (19-41); Mean Corp Hgb Conc 32.5 g/dL (32-36); Mean Corpuscular Hgb 29.9 pg (27.0-32.0); Mean Corpuscular Volume 91.9 fL (80-94); Monocyte# 1.03 X10^3/uL; Monocyte% 12.5 % (0-10); NRBC Flagged by Analyzer 0 % (0-5); Neutrophil # 6.08 X10^3/uL (2.7-7.7); Neutrophil % 74.1 % (47-70); POSITIVE DIFFERENTIAL YES; Platelet Count 322 K/mm3 (150-450); RBC Distribution Width CV 13.5 % (11.6-14.6); RBC Distribution Width SD 45.2 fl (35.1-43.9); Red Blood Count 4.42 M/mm3 (4.6-6.2); White Blood Count 8.2 K/mm3 (4.4-11.0)
[2020-04-08 05:56] LABS: Differential Indicated SCAN CRITERIA MET
[2020-04-08 06:14] LABS: Differential Comment SCANNED
[2020-04-08 06:18] LABS: Anion Gap 5 (5-15); BUN 10 mg/dL (7-18); BUN/Creat Ratio 16.9 RATIO (10-20); Calcium,Total 7.9 mg/dL (8.5-10.1); Chloride 100 mmol/L (98-107); Creatinine, Serum 0.59 mg/dL (0.70-1.30); EST Glomerular Filtration Rate 145 mL/min (>60); Est Glom Filt Rate - Afr Amer 175 mL/min (>60); Glucose 91 mg/dL (74-106); Magnesium 2.2 mg/dL (1.6-2.6); Phosphorus 2.9 mg/dL (2.5-4.9); Potassium 3.4 mmol/L (3.5-5.1); Sodium Level 139 mmol/L (136-145)
--- NOTE | 2020-04-08 07:52 | PN_ITS ---
Patient Problems: Active and Suspected Problems Atrial fibrillation with rapid ventricular response (Acute) COVID-19 (Acute) Bilateral COVID-19 viral pneumonia (Acute) Acute kidney injury (Acute) Healthcare-associated pneumonia (Acute) Septic shock (Acute) Brain tumor (Acute) Subjective: Patient did okay through most of the day yesterday. However, overnight patient had an issue where he desaturated into the 50s. Patient was given an extra dose of Lasix and had to be placed back on high flow nasal cannula at 65% to maintain saturations. Patient is also had intermittent episodes of tachycardia. Patient this morning feels that he is relatively unchanged, but is slightly frustrated that he is requiring his high flow nasal cannula again. - Physical Exam Vitals/I&O's: Vital Signs Temp Pulse Resp BP Pulse Ox 36.6 C 123 H 24 H 93/66 95 04/08/20 05:36 04/08/20 07:03 04/08/20 07:03 04/08/20 05:36 04/08/20 07:03 Oxygen Flow Rate (L/min) 6 Oxygen Delivery Method CPAP Weight: 104.4 kg Body Mass Index (BMI) 32.2 Intake and Output for Last 24 Hours 04/06/20 04/07/20 04/08/20 23:59 23:59 23:59 Intake Total 1233.33 / 1233.33 440 / 440 Output Total 1125 / 1125 600 / 600 900 / 900 Balance 108.33 / 108.33 -160 / -160 -900 / -900 General: Alert, Oriented x3, Cooperative, No apparent distress, - - No conversational dyspnea. HEENT: Atraumatic, PERRLA, EOMI, Normocephalic, - - No scleral icterus or injection noted Oral: Moist Mucosa, No Gingival or Mucosal Lesions/ Ulcerations Neck: Supple, No Nodes, Trachea Midline, JVD, Right Lungs: No rhonchi, No wheeze, Diminished, Rales, - - Symmetric expansion. No dullness to percussion Cardiovascular: Normal S1, Normal S2, No murmurs, No rub noted, No Gallop, Tachycardic Abdomen: Bowel Sounds Present, Soft, Non Tender, Distended, Obese Extremities: No clubbing, No cyanosis, Edema - 2+ lower extremities Skin: - - No change from previous Musculoskeletal: No Tenderness to Palpation of Joints or Extremities Lymphatic: No Cervical, Supraclavicular, or Inguinal Adenopathy Neurological: Cranial nerves II-XII grossly intact, Neuro grossly intact, Motor Exam 5/5 strength throughout Psych/Mental Status: Alert and oriented to time, place, person, mood and affect Microbiology Past 72 Hours 04/07/20 04:45 Stool C. difficile DNA Amplification - Final Laboratory Results 04/08/20 05:40: WBC 8.2, RBC 4.42 L, Hgb 13.2, Hct 40.6, MCV 91.9, MCH 29.9, MCHC 32.5 D, RDW Std Deviation 45.2 H, RDW Coeff of Dontae 13.5, Plt Count 322, MPV 10.0, Immature Gran % (Auto) 4.900 H, Neut % (Auto) 74.1 H, Lymph % (Auto) 6.2 L, [place] % (Auto) 12.5 H, Eos % (Auto) 1.6, Baso % (Auto) 0.7, Absolute Neuts (auto) 6.1, Absolute Lymphs (auto) 0.51 L, Nucleated RBC % 0, Differential Comment SCANNED 04/08/20 05:40: Sodium 139, Potassium 3.4 L, Chloride 100, Carbon Dioxide 34.0 H , Anion Gap 5, BUN 10, Creatinine 0.59 L, Estim Creat Clear Calc 73.00, Est GFR (MDRD) Af Amer 175, Est GFR (MDRD) Non-Af 145, BUN/Creatinine Ratio 16.9, Glucose 91, Calcium 7.9 L, Phosphorus 2.9, Magnesium 2.2 Current Medications Acetaminophen (Tylenol) 650 mg PO Q6H PRN PRN PRN Reason: Pain Score 1-10/Temp > 100.7 F Albuterol/Ipratropium (Duoneb) 3 ml INHALATION Q4H.RT PRN PRN Reason: WHEEZING Aspirin (Aspirin, Baby) 81 mg PO DAILY [facility] Last Admin: 04/07/20 08:28 Dose: 81 mg Documented by: Diltiazem HCl (Cardizem Cd) 240 mg PO DAILY [facility] Last Admin: 04/07/20 08:29 Dose: 240 mg Documented by: Enoxaparin Sodium (Lovenox) 40 mg SC DAILY@0600 [facility] Last Admin: 04/08/20 05:36 Dose: 40 mg Documented by: Furosemide (Lasix) 40 mg IV BID@1000,1800 [facility] Sodium Chloride () 250 mls @ 15 mls/hr IV .[id number] PRN PRN Reason: Saline Flush Last Infusion: 04/04/20 04:42 Dose: Infused Documented by: Sodium Chloride () 250 mls @ 15 mls/hr IV .[id number] PRN PRN Reason: Additional IVPB Infusion Levetiracetam (Keppra Tablet) 1,000 mg PO BID [facility] Last Admin: 04/07/20 21:08 Dose: 1,000 mg Documented by: Metoprolol Succinate (Toprol Xl (Beta Bekah)) 50 mg PO DAILY [facility] Last Admin: 04/07/20 08:28 Dose: 50 mg Documented by: Mirtazapine (Remeron) 7.5 mg PO QHS [facility] Last Admin: 04/07/20 21:08 Dose: 7.5 mg Documented by: Nystatin (Nystatin) 500,000 unit PO 4X/DAY [facility] Last Admin: 04/07/20 21:08 Dose: 500,000 unit Documented by: Ondansetron HCl (Zofran) 4 mg IV Q8H PRN PRN PRN Reason: NAUSEA/VOMITING Last Admin: 03/29/20 16:11 Dose: 4 mg Documented by: Polyethylene Glycol (Miralax) 17 gm PO DAILY [facility] Last Admin: 04/07/20 07:41 Dose: Not Given Documented by: Potassium Chlor[facility] ([facility]Dur) [facility] Stop: 04/08/20 08:01 Last Admin: 04/07/20 08:29 Dose: 20 meq Documented by: Senna/Docusate Sodium (Senokot-S, Stephany-Colace) 2 tablet PO BID PRN PRN Reason: Constipation Last Admin: 03/29/20 09:19 Dose: 2 tablet Documented by: Sodium Chloride () 10 - 40 ml IV UD PRN PRN Reason: SALINE FLUSH Last Admin: 04/07/20 06:29 Dose: 20 ml Documented by: Zolpidem Tartrate (Ambien (Generic)) 5 mg PO QHS PRN PRN PRN Reason: INSOMNIA Last Admin: 03/28/20 00:31 Dose: 5 mg Documented by: Clinical Impression(s) from Imaging Studies Chest X-Ray 04/08/20 04:00 IMPRESSION: Worsening bilateral airspace infiltrates. Electronically Signed: Ford Mendoza MD at 4:49 EDT Tel , Service support , Medical Necessity - Tobacco Use Smoking Status: Never smoker Assessment/Plan All Active Problems Atrial fibrillation with rapid ventricular response (Acute) COVID-19 (Acute) Bilateral COVID-19 viral pneumonia (Acute) Acute kidney injury (Acute) Healthcare-associated pneumonia (Acute) Septic shock (Acute) Brain tumor (Acute) RECOMMENDATIONS: 1. Continue current supportive measures and wean supplemental oxygen to maintain saturations at or above 90%. 2. Continue DVT prophylaxis Lovenox and baseline antiepileptics. 3. Schedule diuretic therapy with potassium supplementation. 4. Continue scheduled beta-bekah and cardizem. Possibly titrate up beta- bekah if tachycardia persists 5. Encourage incentive spirometer use and mobilize patient as tolerated. 6. Increase activity as tolerated. Continue to wean nasal cannula as tolerated IMPRESSIONS: 1. Acute hypoxemic respiratory failure secondary to COVID-19 and possible healthcare associated pneumonia Oxygenation status appears to be slowly improving. Recommend continuing current supportive measures including noninvasive positive pressure ventilatory support and Airvo heated high flow as required. Wean FiO2 to maintain oxygen saturations at or above 90%. The patient has completed treatment courses of decadron, antimicrobials and Remdesevir. Patient's x-ray shows significant increase in infiltrates bilaterally. This is likely secondary to fluid as patient does have a positive fluid balance. Will initiate patient on Lasix therapy along with potassium supplementation. 2. Atrial fibrillation with RVR The patient does have a history of chronic atrial fibrillation. Plan to continue baseline outpatient Cardizem and Toprol-XL. Rate is currently marginally controlled. May need to increase Toprol dosing if persists. Blood pressures are marginal at this time, but acceptable 3. Glioblastoma status post recent resection/unspecified seizure disorder Continue outpatient Keppra. Recent neurosurgical intervention would preclude the use of treatment strength Lovenox in this setting. 4. Acute kidney injury Resolved. Most likely prerenal in etiology. Continue current supportive measures. Continue to monitor urine output. No indication for renal replacement therapy at the current time. 5. History of non-Hodgkin's lymphoma Complicates care, management, recovery and prognosis. Physical therapy to work with the patient. Nutrition services is currently following. 6. Diarrhea Resolved. C. difficile negative. No significant abdominal symptomatology. Defer to ID, but Imodium may be considered. Inpatient E&M: [id number] Subs Hosp L3
[2020-04-08] MEDS: dilTIAZem CD 240 MG Capsule PO (08:43)
[2020-04-08] MEDS: Aspirin 81 MG TAB.CHEW PO (08:43)
[2020-04-08] MEDS: Metoprolol(XL)Succ 50 MG Tablet PO (08:43)
[2020-04-08] MEDS: Furosemide 40 MG/4 ML Vial IV ×2 (08:43→17:31)
[2020-04-08] MEDS: 0.9% Saline Lock 10 ML Syringe IV ×2 (08:44→17:31)
[2020-04-08] MEDS: levETIRAcetam 1,000 MG Tablet 1000 MG PO ×2 (08:44→21:27)
[2020-04-08] MEDS: NYSTATIN 500,000 UNIT/5 ML UDC 500000 UNIT PO ×4 (08:44→21:27)
--- NOTE | 2020-04-08 09:07 | CASEMGMT ---
LONI SCHULZ Note: Call back received from patient's ex Julisa who will be caring for patient on discharge. discussed plan for Home oxygen through [facility]- need to set up in home prior to picking patient up, HHC through [facility], though daughter is not sure this will be needed. CM will discuss with her closer to dc. Julisa also asked if she would need to re-quarantine if patient comes to home prior to the Apr 12 date given by ID . She stated the health department said she did not need to re-quarantine, LONI SCHULZ let her know ELISHA Garay can be asked re: this. Julisa also aware that Hospitalist said pt would not be ready for discharge today or tomorrow. -discussed possible need for SNF if patient continues to require higher flow oxygen and slow recovery as short term stay. Julisa stated that daughter spoke with pt last night re: this, but patient said I'm not going anywhere but home. LONI SCHULZ let Julisa know, if this would be needed, physician can discuss with patient. -[facility] also said they have a bed for patient and will not need a hospital bed. -DC Plan: deferred for now, but Home Oxygen and HHC preliminarily are set up. Chai JO RN ACM
--- NOTE | 2020-04-08 09:55 | PN_ITS ---
Patient Problems: Active and Suspected Problems Atrial fibrillation with rapid ventricular response (Acute) COVID-19 (Acute) Bilateral COVID-19 viral pneumonia (Acute) Acute kidney injury (Acute) Healthcare-associated pneumonia (Acute) Septic shock (Acute) Brain tumor (Acute) Subjective: Chief complaint: Follow-up after admission for septic shock secondary to bilateral COVID-19 viral pneumonia complicated by acute hypoxic respiratory failure status post extubation, found to have acute kidney injury and A. fib with RVR. Patient seen and examined. Overnight, patient started to desaturate down to the 50s. He was given IV Lasix. He was started back on CPAP. He is requiring more oxygen, has been tachycardic. He is afebrile, blood pressure borderline, pulse ox is maintained on Airvo. - Physical Exam Vitals/I&O's: Vital Signs Temp Pulse Resp BP Pulse Ox 97.1 F L 109 H 22 H 102/72 95 04/08/20 09:16 04/08/20 09:16 04/08/20 09:16 04/08/20 09:16 04/08/20 09:16 Oxygen Flow Rate (L/min) 6 Oxygen Delivery Method CPAP Weight: 230 lb 2.601 oz Body Mass Index (BMI) 32.2 Intake and Output for Last 24 Hours 04/06/20 04/07/20 04/08/20 23:59 23:59 23:59 Intake Total 1233.33 / 1233.33 440 / 440 Output Total 1125 / 1125 600 / 600 1000 / 1000 Balance 108.33 / 108.33 -160 / -160 -1000 / -1000 General: Alert, Oriented x3, Cooperative HEENT: Atraumatic, PERRLA, EOMI, Normocephalic Oral: Moist Mucosa, No Gingival or Mucosal Lesions/ Ulcerations Neck: Supple, No JVD, Negative Carotid Bruits, Trachea Midline, Thyroid Normal Size and Texture Lungs: No rhonchi, No wheeze, Diminished, - - Decreased breath sounds bilateral, occasional faint crackles. Cardiovascular: Regular rate, Regular Rhythm, Normal S1, Normal S2, PMI Normal, Tachycardic Abdomen: Bowel Sounds Present, Soft, Non Tender, Non-Distended, No Hepato- splenomegaly Extremities: No clubbing, No cyanosis, Edema Skin: No rashes, No breakdown Lymphatic: No Cervical, Supraclavicular, or Inguinal Adenopathy Neurological: Cranial nerves II-XII grossly intact, Neuro grossly intact Psych/Mental Status: Normal Affect, Appropriate, Alert and oriented to time, place, person, mood and affect Microbiology Past 72 Hours 04/07/20 04:45 Stool C. difficile DNA Amplification - Final Laboratory Results 04/08/20 05:40: WBC 8.2, RBC 4.42 L, Hgb 13.2, Hct 40.6, MCV 91.9, MCH 29.9, MCHC 32.5 D, RDW Std Deviation 45.2 H, RDW Coeff of Dontae 13.5, Plt Count 322, MPV 10.0, Immature Gran % (Auto) 4.900 H, Neut % (Auto) 74.1 H, Lymph % (Auto) 6.2 L, Bee % (Auto) 12.5 H, Eos % (Auto) 1.6, Baso % (Auto) 0.7, Absolute Neuts (auto) 6.1, Absolute Lymphs (auto) 0.51 L, Nucleated RBC % 0, Differential Comment SCANNED 04/08/20 05:40: Sodium 139, Potassium 3.4 L, Chloride 100, Carbon Dioxide 34.0 H , Anion Gap 5, BUN 10, Creatinine 0.59 L, Estim Creat Clear Calc 73.00, Est GFR (MDRD) Af Amer 175, Est GFR (MDRD) Non-Af 145, BUN/Creatinine Ratio 16.9, Glucose 91, Calcium 7.9 L, Phosphorus 2.9, Magnesium 2.2 Clinical Impression(s) from Imaging Studies Chest X-Ray 04/08/20 04:00 IMPRESSION: Worsening bilateral airspace infiltrates. Electronically Signed: Ford Mendoza MD at 4:49 EDT Tel , Service support , Current Medications Acetaminophen (Tylenol) 650 mg PO Q6H PRN PRN PRN Reason: Pain Score 1-10/Temp > 100.7 F Albuterol/Ipratropium (Duoneb) 3 ml INHALATION Q4H.RT PRN PRN Reason: WHEEZING Aspirin (Aspirin, Baby) 81 mg PO DAILY [facility] Last Admin: 04/08/20 08:43 Dose: 81 mg Documented by: Diltiazem HCl (Cardizem Cd) 240 mg PO DAILY [facility] Last Admin: 04/08/20 08:43 Dose: 240 mg Documented by: Enoxaparin Sodium (Lovenox) 40 mg SC DAILY@0600 [facility] Last Admin: 04/08/20 05:36 Dose: 40 mg Documented by: Furosemide (Lasix) 40 mg IV BID@1000,1800 [facility] Last Admin: 04/08/20 08:43 Dose: 40 mg Documented by: Sodium Chloride () 250 mls @ 15 mls/hr IV .[id number] PRN PRN Reason: Saline Flush Last Infusion: 04/04/20 04:42 Dose: Infused Documented by: Sodium Chloride () 250 mls @ 15 mls/hr IV .[id number] PRN PRN Reason: Additional IVPB Infusion Levetiracetam (Keppra Tablet) 1,000 mg PO BID [facility] Last Admin: 04/08/20 08:44 Dose: 1,000 mg Documented by: Metoprolol Succinate (Toprol Xl (Beta Bekah)) 50 mg PO DAILY [facility] Last Admin: 04/08/20 08:43 Dose: 50 mg Documented by: Mirtazapine (Remeron) 7.5 mg PO QHS [facility] Last Admin: 04/07/20 21:08 Dose: 7.5 mg Documented by: Nystatin (Nystatin) 500,000 unit PO 4X/DAY [facility] Last Admin: 04/08/20 08:44 Dose: 500,000 unit Documented by: Ondansetron HCl (Zofran) 4 mg IV Q8H PRN PRN PRN Reason: NAUSEA/VOMITING Last Admin: 03/29/20 16:11 Dose: 4 mg Documented by: Polyethylene Glycol (Miralax) 17 gm PO DAILY [facility] Last Admin: 04/08/20 08:34 Dose: Not Given Documented by: Potassium Chloride (K-Dur) 40 meq PO BIDCM [facility] Last Admin: 04/08/20 08:43 Dose: 40 meq Documented by: Senna/Docusate Sodium (Senokot-S, Stephany-Colace) 2 tablet PO BID PRN PRN Reason: Constipation Last Admin: 03/29/20 09:19 Dose: 2 tablet Documented by: Sodium Chloride () 10 - 40 ml IV UD PRN PRN Reason: SALINE FLUSH Last Admin: 04/08/20 08:44 Dose: 20 ml Documented by: Zolpidem Tartrate (Ambien (Generic)) 5 mg PO QHS PRN PRN PRN Reason: INSOMNIA Last Admin: 03/28/20 00:31 Dose: 5 mg Documented by: Medical Necessity - Tobacco Use Smoking Status: Never smoker Assessment/Plan All Active Problems Atrial fibrillation with rapid ventricular response (Acute) COVID-19 (Acute) Bilateral COVID-19 viral pneumonia (Acute) Acute kidney injury (Acute) Healthcare-associated pneumonia (Acute) Septic shock (Acute) Brain tumor (Acute) This is a 69 years old male patient presented to the emergency room because of cough, weakness and shortness of breath, found to have bilateral basilar lung opacities consistent with pneumonia found to have lactic acid of 6 consistent with septic shock secondary to bilateral COVID-19 pneumonia with probably secondary bacterial pneumonia as well. #1 septic shock: Secondary acute bilateral COVID-19 pneumonia as well as possible secondary bacterial pneumonia, healthcare associated. He completed treatment with IV antibiotics, IV steroids and Remdesivir. Blood culture showed no growth in 5 days. Urine culture showed no growth. He has been afebrile, leukocytosis resolved, hemodynamically stable. Overnight, patient is requiring more oxygen, has been on CPAP and currently on airVo. Critical care on the case. Plan to continue noninvasive support ventilation with Airvo, wean off oxygen as tolerated. #2 bilateral basilar Healthcare associated/COVID-19 pneumonia: As mentioned above, he completed treatment with IV antibiotics, IV steroids and remdesivir. COVID-19 PCR came back positive. He is requiring more oxygen as mentioned above. Chest x-ray reveals worsening bilateral infiltrate which could be due to volume overload. Patient has been getting intermittent IV Lasix. Cultures were negative as mentioned above. Plan as above. #3 acute hypoxic respiratory failure: Overnight, patient desaturated and he did require CPAP. Currently, he is on airvo. He is still tachycardic, but pressure stable, afebrile. He is on bronchodilators. He does not seem to be dyspneic or tachypneic, comfortable. Plan to continue same treatment. #4 acute kidney injury: Secondary to #1. Resolved, both BUN and creatinine are back to normal. #5 A. fib with RVR: Heart rate remained around 110. Continue Cardizem and metoprolol for rate control. He is not on anticoagulation as he had a recent history of brain surgery. #6 recent history of brain tumor status post brain surgery: Surgery was done on March 10, 2020 at [facility]. On admission, CT scan brain done and showed no acute findings. #7 history of non-Hodgkin's lymphoma: This is back in 2007, status post treatment, stable, in remission. #8 seizure disorder: Continue Keppra. #9 CODE STATUS: DNR CCA, no intubation. #10 DVT prophylaxis: Subcu Lovenox. This note was generated with [employer] dictation software. It may contain incorrect words, spelling, and punctuation that were not noted in checking the note before signing. Inpatient E&M: [id number] [facility] Hosp L3
[2020-04-08] MEDS: Metoprolol Tartrate 25 MG Tablet PO (12:15)
[2020-04-08] MEDS: Mirtazapine 15 MG Tablet 7.5 MG PO (21:27)
--- NOTE | 2020-04-08 22:03 | NURSING ---
Pt. having a coughing fit. Sats down to 81%. Pt. boosted in the bed and sat head up higher. O2 increased to 10L NC. Pt. requesting something for cough. paged.
[2020-04-08] MEDS: guaiFENesin 1,200 MG Tablet 1200 MG PO (22:36)
[2020-04-09] VITALS (13 sets, daily range): BP systolic 86–114; BP diastolic 66–77; PULSE 97–141; RESP 25–30; TEMP 36.2–36.8; O2SAT 91–96
[2020-04-09 05:31] LABS: Absolute Neutrophil Count 5.5 X10^3/uL (2.0-7.7); Basophil# 0.04 X10^3/uL; Basophil% 0.5 % (0-1); Eosinophil# 0.16 X10^3/uL; Hematocrit 38.1 % (40-54); Hemoglobin 12.3 g/dL (13.0-16.5); Lymphocyte % 8.7 % (19-41); Mean Corp Hgb Conc 32.3 g/dL (32-36); Mean Corpuscular Hgb 29.7 pg (27.0-32.0); Mean Platelet Vol. 9.4 fl (6.2-12.0); Monocyte% 16.1 % (0-10); NRBC Flagged by Analyzer 0 % (0-5); Platelet Count 282 K/mm3 (150-450); RBC Distribution Width CV 13.3 % (11.6-14.6); RBC Distribution Width SD 45.1 fl (35.1-43.9); Red Blood Count 4.14 M/mm3 (4.6-6.2); White Blood Count 8.1 K/mm3 (4.4-11.0)
[2020-04-09 05:42] LABS: Anion Gap 2 (5-15); BUN 12 mg/dL (7-18); BUN/Creat Ratio 20.3 RATIO (10-20); Calcium,Total 8.1 mg/dL (8.5-10.1); Chloride 100 mmol/L (98-107); Creatinine, Serum 0.59 mg/dL (0.70-1.30); EST Glomerular Filtration Rate 145 mL/min (>60); Est Glom Filt Rate - Afr Amer 175 mL/min (>60); Glucose 98 mg/dL (74-106); Potassium 3.6 mmol/L (3.5-5.1); Sodium Level 138 mmol/L (136-145)
[2020-04-09] MEDS: Enoxaparin 40 MG/0.4 ML Syringe SC (06:12)
--- NOTE | 2020-04-09 06:39 | PCM.PN.PUL ---
Patient Problems: Active and Suspected Problems Atrial fibrillation with rapid ventricular response (Acute) COVID-19 (Acute) Bilateral COVID-19 viral pneumonia (Acute) Acute kidney injury (Acute) Healthcare-associated pneumonia (Acute) Septic shock (Acute) Brain tumor (Acute) Subjective: Patient did well overnight. No acute issues were reported. Patient did have a coughing episode and had to go up slightly on his oxygen, but was able to be weaned to nasal cannula over the course the last 24 hours. Patient with no complaints this morning. - Physical Exam Vitals/I&O's: Vital Signs Temp Pulse Resp BP Pulse Ox 36.4 C L 104 H 26 H 104/66 94 04/09/20 06:15 04/09/20 06:15 04/09/20 06:15 04/09/20 06:15 04/09/20 06:15 Oxygen Flow Rate (L/min) 8 Oxygen Delivery Method Nasal Cannula Weight: 104.3 kg Body Mass Index (BMI) 32.2 Intake and Output for Last 24 Hours 04/07/20 04/08/20 04/09/20 23:59 23:59 23:59 Intake Total 440 / 440 1090 / 1090 Output Total 600 / 600 1150 / 1150 Balance -160 / -160 -60 / -60 General: Alert, Oriented x3, Cooperative, No apparent distress, Well developed, Well nourished, - - Obese. Speaking in full sentences. HEENT: Atraumatic, PERRLA, EOMI, Normocephalic, - - No scleral icterus or injection noted Oral: Moist Mucosa, No Gingival or Mucosal Lesions/ Ulcerations Neck: Supple, No JVD, No Nodes, Trachea Midline Lungs: No rhonchi, No wheeze, No rales, Diminished, - - Symmetric expansion. No dullness to percussion Cardiovascular: Regular rate, Regular Rhythm, Normal S1, Normal S2, No murmurs, No rub noted, No Gallop Abdomen: Bowel Sounds Present, Soft, Non Tender, Non-Distended, Obese Extremities: No clubbing, No cyanosis, Capillary Refill Less than 3 Seconds, Edema Skin: - - No change compared to previous Musculoskeletal: No Tenderness to Palpation of Joints or Extremities Lymphatic: No Cervical, Supraclavicular, or Inguinal Adenopathy Neurological: Cranial nerves II-XII grossly intact, Neuro grossly intact, Motor Exam 5/5 strength throughout Psych/Mental Status: Alert and oriented to time, place, person, mood and affect Microbiology Past 72 Hours 04/07/20 04:45 Stool C. difficile DNA Amplification - Final Laboratory Results 04/09/20 05:15: WBC 8.1, RBC 4.14 L, Hgb 12.3 L, Hct 38.1 L, MCV 92.0, MCH 29.7, MCHC 32.3, RDW Std Deviation 45.1 H, RDW Coeff of Dontae 13.3, Plt Count 282, MPV 9.4, Immature Gran % (Auto) 4.700 H, Neut % (Auto) 68.0, Lymph % (Auto) 8.7 L, [place] % (Auto) 16.1 H, Eos % (Auto) 2.0, Baso % (Auto) 0.5, Absolute Neuts (auto) 5.5, Absolute Lymphs (auto) 0.70 L, Nucleated RBC % 0 04/09/20 05:15: Sodium 138, Potassium 3.6, Chloride 100, Carbon Dioxide 36.0 H, Anion Gap 2 L, BUN 12, Creatinine 0.59 L, Estim Creat Clear Calc 73.00, Est GFR (MDRD) Af Amer 175, Est GFR (MDRD) Non-Af 145, BUN/Creatinine Ratio 20.3 H, Glucose 98, Calcium 8.1 L Current Medications Acetaminophen (Tylenol) 650 mg PO Q6H PRN PRN PRN Reason: Pain Score 1-10/Temp > 100.7 F Albuterol/Ipratropium (Duoneb) 3 ml INHALATION Q4H.RT PRN PRN Reason: WHEEZING Aspirin (Aspirin, Baby) 81 mg PO DAILY [facility] Last Admin: 04/08/20 08:43 Dose: 81 mg Documented by: Diltiazem HCl (Cardizem Cd) 240 mg PO DAILY [facility] Last Admin: 04/08/20 08:43 Dose: 240 mg Documented by: Enoxaparin Sodium (Lovenox) 40 mg SC DAILY@0600 [facility] Last Admin: 04/09/20 06:12 Dose: 40 mg Documented by: Furosemide (Lasix) 40 mg IV BID@1000,1800 [facility] Last Admin: 04/08/20 17:31 Dose: 40 mg Documented by: Guaifenesin (Mucinex) 1,200 mg PO BID [facility] Last Admin: 04/08/20 22:36 Dose: 1,200 mg Documented by: Sodium Chloride () 250 mls @ 15 mls/hr IV .[id number] PRN PRN Reason: Saline Flush Last Infusion: 04/04/20 04:42 Dose: Infused Documented by: Sodium Chloride () 250 mls @ 15 mls/hr IV .[id number] PRN PRN Reason: Additional IVPB Infusion Levetiracetam (Keppra Tablet) 1,000 mg PO BID [facility] Last Admin: 04/08/20 21:27 Dose: 1,000 mg Documented by: Metoprolol Succinate (Toprol Xl (Beta Bekah)) 50 mg PO DAILY [facility] Last Admin: 04/08/20 08:43 Dose: 50 mg Documented by: Mirtazapine (Remeron) 7.5 mg PO QHS [facility] Last Admin: 04/08/20 21:27 Dose: 7.5 mg Documented by: Nystatin (Nystatin) 500,000 unit PO 4X/DAY [facility] Last Admin: 04/08/20 21:27 Dose: 500,000 unit Documented by: Ondansetron HCl (Zofran) 4 mg IV Q8H PRN PRN PRN Reason: NAUSEA/VOMITING Last Admin: 03/29/20 16:11 Dose: 4 mg Documented by: Polyethylene Glycol (Miralax) 17 gm PO DAILY [facility] Last Admin: 04/08/20 08:34 Dose: Not Given Documented by: [facility] Last Admin: 04/08/20 17:31 Dose: 40 meq Documented by: Senna/Docusate Sodium (Senokot-S, Stephany-Colace) 2 tablet PO BID PRN PRN Reason: Constipation Last Admin: 03/29/20 09:19 Dose: 2 tablet Documented by: Sodium Chloride () 10 - 40 ml IV UD PRN PRN Reason: SALINE FLUSH Last Admin: 04/08/20 17:31 Dose: 10 ml Documented by: Zolpidem Tartrate (Ambien (Generic)) 5 mg PO QHS PRN PRN PRN Reason: INSOMNIA Last Admin: 03/28/20 00:31 Dose: 5 mg Documented by: Medical Necessity - Tobacco Use Smoking Status: Never smoker Assessment/Plan All Active Problems Atrial fibrillation with rapid ventricular response (Acute) COVID-19 (Acute) Bilateral COVID-19 viral pneumonia (Acute) Acute kidney injury (Acute) Healthcare-associated pneumonia (Acute) Septic shock (Acute) Brain tumor (Acute) RECOMMENDATIONS: 1. Continue current supportive measures and wean supplemental oxygen to maintain saturations at or above 90%. 2. Continue DVT prophylaxis Lovenox and baseline antiepileptics. 3. Continue scheduled diuretic therapy with potassium supplementation. 4. Continue scheduled beta-bekah and cardizem. Possibly titrate up beta-bekah if tachycardia persists 5. Encourage incentive spirometer use and mobilize patient as tolerated. 6. Increase activity as tolerated. Continue to wean nasal cannula as tolerated IMPRESSIONS: 1. Acute hypoxemic respiratory failure secondary to COVID-19 and possible healthcare associated pneumonia Oxygenation status appears to be slowly improving. Recommend continuing current supportive measures including noninvasive positive pressure ventilatory support and Airvo heated high flow as required. Wean FiO2 to maintain oxygen saturations at or above 90%. The patient has completed treatment courses of decadron, antimicrobials and Remdesevir. Patient's x-ray shows significant increase in infiltrates bilaterally previously. This is likely secondary to fluid as patient does have a positive fluid balance. Patient has responded well to diuretic therapy. We will continue 2. Atrial fibrillation with RVR The patient does have a history of chronic atrial fibrillation. Plan to continue baseline outpatient Cardizem and Toprol-XL. Rate is currently marginally controlled. May need to increase Toprol dosing if persists. Blood pressures are improving at this time. 3. Glioblastoma status post recent resection/unspecified seizure disorder Continue outpatient Keppra. Recent neurosurgical intervention would preclude the use of treatment strength Lovenox in this setting. 4. Acute kidney injury Resolved. Most likely prerenal in etiology. Continue current supportive measures. Continue to monitor urine output. No indication for renal replacement therapy at the current time. 5. History of non-Hodgkin's lymphoma Complicates care, management, recovery and prognosis. Physical therapy to work with the patient. Nutrition services is currently following. 6. Diarrhea Resolved. C. difficile negative. No significant abdominal symptomatology. Defer to ID, but Imodium may be considered. Inpatient E&M: 22991 Subs Hosp L2
--- NOTE | 2020-04-09 08:31 | PN_ITS ---
Patient Problems: Active and Suspected Problems Atrial fibrillation with rapid ventricular response (Acute) COVID-19 (Acute) Bilateral COVID-19 viral pneumonia (Acute) Acute kidney injury (Acute) Healthcare-associated pneumonia (Acute) Septic shock (Acute) Brain tumor (Acute) Subjective: Chief complaint: Follow-up after admission for septic shock secondary to bilateral COVID-19 viral pneumonia complicated by acute hypoxic respiratory failure status post extubation, found to have acute kidney injury and A. fib with RVR. Patient seen and examined. No acute events overnight. This morning, he is on nasal cannula at 7 L. Patient has no specific complaints. Breathing has been okay. Having some intermittent cough, mild. He has been afebrile, heart rate has been around 100 210, blood pressure stable, pulse ox is 94% on 7 L. - Physical Exam Vitals/I&O's: Vital Signs Temp Pulse Resp BP Pulse Ox 97.6 F L 99 26 H 104/66 94 04/09/20 06:15 04/09/20 07:39 04/09/20 06:15 04/09/20 06:15 04/09/20 06:15 Oxygen Flow Rate (L/min) 8 Oxygen Delivery Method Nasal Cannula Weight: 229 lb 15.074 oz Body Mass Index (BMI) 32.2 Intake and Output for Last 24 Hours 04/07/20 04/08/20 04/09/20 23:59 23:59 23:59 Intake Total 440 / 440 1090 / 1090 Output Total 600 / 600 1150 / 1150 Balance -160 / -160 -60 / -60 General: Alert, Oriented x3, Cooperative, No apparent distress HEENT: Atraumatic, PERRLA, EOMI, Normocephalic Oral: Moist Mucosa, No Gingival or Mucosal Lesions/ Ulcerations Neck: Supple, No JVD, Negative Carotid Bruits, Trachea Midline, Thyroid Normal Size and Texture Lungs: No rhonchi, No wheeze, No rales, Diminished, - - Decreased breath sounds bilateral, otherwise clear. Cardiovascular: Regular rate, Regular Rhythm, Normal S1, Normal S2, PMI Normal, Tachycardic Abdomen: Bowel Sounds Present, Soft, Non Tender, Non-Distended, No Hepato-splenomegaly Extremities: No clubbing, No cyanosis, Edema Skin: No rashes, No breakdown Lymphatic: No Cervical, Supraclavicular, or Inguinal Adenopathy Neurological: Cranial nerves II-XII grossly intact, Neuro grossly intact Psych/Mental Status: Normal Affect, Appropriate Microbiology Past 72 Hours 04/07/20 04:45 Stool C. difficile DNA Amplification - Final Laboratory Results 04/09/20 05:15: WBC 8.1, RBC 4.14 L, Hgb 12.3 L, Hct 38.1 L, MCV 92.0, MCH 29.7, MCHC 32.3, RDW Std Deviation 45.1 H, RDW Coeff of Dontae 13.3, Plt Count 282, MPV 9.4, Immature Gran % (Auto) 4.700 H, Neut % (Auto) 68.0, Lymph % (Auto) 8.7 L, [place] % (Auto) 16.1 H, Eos % (Auto) 2.0, Baso % (Auto) 0.5, Absolute Neuts (auto) 5.5, Absolute Lymphs (auto) 0.70 L, Nucleated RBC % 0 04/09/20 05:15: Sodium 138, Potassium 3.6, Chloride 100, Carbon Dioxide 36.0 H, Anion Gap 2 L, BUN 12, Creatinine 0.59 L, Estim Creat Clear Calc 73.00, Est GFR (MDRD) Af Amer 175, Est GFR (MDRD) Non-Af 145, BUN/Creatinine Ratio 20.3 H, Glucose 98, Calcium 8.1 L Current Medications Acetaminophen (Tylenol) 650 mg PO Q6H PRN PRN PRN Reason: Pain Score 1-10/Temp > 100.7 F Albuterol/Ipratropium (Duoneb) 3 ml INHALATION Q4H.RT PRN PRN Reason: WHEEZING Aspirin (Aspirin, Baby) 81 mg PO DAILY [facility] Last Admin: 04/08/20 08:43 Dose: 81 mg Documented by: Diltiazem HCl (Cardizem Cd) 240 mg PO DAILY [facility] Last Admin: 04/08/20 08:43 Dose: 240 mg Documented by: Enoxaparin Sodium (Lovenox) 40 mg SC DAILY@0600 [facility] Last Admin: 04/09/20 06:12 Dose: 40 mg Documented by: Furosemide (Lasix) 40 mg IV BID@1000,1800 [facility] Last Admin: 04/08/20 17:31 Dose: 40 mg Documented by: Guaifenesin (Mucinex) 1,200 mg PO BID [facility] Last Admin: 04/08/20 22:36 Dose: 1,200 mg Documented by: Sodium Chloride () 250 mls @ 15 mls/hr IV .[id number] PRN PRN Reason: Saline Flush Last Infusion: 04/04/20 04:42 Dose: Infused Documented by: Sodium Chloride () 250 mls @ 15 mls/hr IV .[id number] PRN PRN Reason: Additional IVPB Infusion Levetiracetam (Keppra Tablet) 1,000 mg PO BID [facility] Last Admin: 04/08/20 21:27 Dose: 1,000 mg Documented by: Metoprolol Succinate (Toprol Xl (Beta Bekah)) 50 mg PO DAILY [facility] Last Admin: 04/08/20 08:43 Dose: 50 mg Documented by: Mirtazapine (Remeron) 7.5 mg PO QHS [facility] Last Admin: 04/08/20 21:27 Dose: 7.5 mg Documented by: Nystatin (Nystatin) 500,000 unit PO 4X/DAY [facility] Last Admin: 04/08/20 21:27 Dose: 500,000 unit Documented by: Ondansetron HCl (Zofran) 4 mg IV Q8H PRN PRN PRN Reason: NAUSEA/VOMITING Last Admin: 03/29/20 16:11 Dose: 4 mg Documented by: Polyethylene Glycol (Miralax) 17 gm PO DAILY [facility] Last Admin: 04/08/20 08:34 Dose: Not Given Documented by: Potassium Chloride (K-Dur) 40 meq PO BIDCM [facility] Last Admin: 04/08/20 17:31 Dose: 40 meq Documented by: Senna/Docusate Sodium (Senokot-S, Stephany-Colace) 2 tablet PO BID PRN PRN Reason: Constipation Last Admin: 03/29/20 09:19 Dose: 2 tablet Documented by: Sodium Chloride () 10 - 40 ml IV UD PRN PRN Reason: SALINE FLUSH Last Admin: 04/08/20 17:31 Dose: 10 ml Documented by: Zolpidem Tartrate (Ambien (Generic)) 5 mg PO QHS PRN PRN PRN Reason: INSOMNIA Last Admin: 03/28/20 00:31 Dose: 5 mg Documented by: Medical Necessity - Tobacco Use Smoking Status: Never smoker Assessment/Plan All Active Problems Atrial fibrillation with rapid ventricular response (Acute) COVID-19 (Acute) Bilateral COVID-19 viral pneumonia (Acute) Acute kidney injury (Acute) Healthcare-associated pneumonia (Acute) Septic shock (Acute) Brain tumor (Acute) This is a 69 years old male patient presented to the emergency room because of cough, weakness and shortness of breath, found to have bilateral basilar lung opacities consistent with pneumonia found to have lactic acid of 6 consistent with septic shock secondary to bilateral COVID-19 pneumonia with probably secondary bacterial pneumonia as well. #1 septic shock: It is resolved. He has been afebrile, heart rate has been mildly tacky, blood pressure is maintained. It is secondary acute bilateral COVID-19 pneumonia as well as possible secondary bacterial pneumonia, healthcare associated. He completed treatment with IV antibiotics, IV steroids and Remdesivir. Blood culture showed no growth in 5 days. Urine culture showed no growth. He has been afebrile, leukocytosis resolved, hemodynamically stable. Critical care on the case. Plan to continue same treatment, wean off oxygen as tolerated. #2 bilateral basilar Healthcare associated/COVID-19 pneumonia: As mentioned above, he completed treatment with IV antibiotics, IV steroids and remdesivir. COVID-19 PCR came back positive. This morning, he is back to nasal cannula with several liters of oxygen. Patient denied any worsening shortness of breath. Currently, he is on IV Lasix twice daily. Repeat chest x-ray from yesterday reviewed. Plan as above. #3 acute hypoxic respiratory failure: This morning, he is on nasal cannula at 7 L of oxygen. Denied any worsening shortness of breath. He is on IV Lasix for volume overload. He is on bronchodilators. He does not seem to be dyspneic or tachypneic, comfortable. Plan to continue same treatment. #4 acute kidney injury: Secondary to #1. Resolved, both BUN and creatinine are back to normal. #5 A. fib with RVR: Heart rate remained around 100-110. Continue Cardizem and metoprolol for rate control. Yesterday, he was given extra dose of p.o. metoprolol 25 mg. He is not on anticoagulation as he had a recent history of brain surgery. #6 recent history of brain tumor status post brain surgery: Surgery was done on March 10, 2020 at [facility]. On admission, CT scan brain done and showed no acute findings. #7 history of non-Hodgkin's lymphoma: This is back in 2007, status post treatment, stable, in remission. #8 seizure disorder: Continue Keppra. #9 CODE STATUS: DNR CCA, no intubation. #10 DVT prophylaxis: Subcu Lovenox. This note was generated with [employer] dictation software. It may contain incorrect words, spelling, and punctuation that were not noted in checking the note before signing. Inpatient E&M: 88555 Subs Hosp L2
[2020-04-09] MEDS: Aspirin 81 MG TAB.CHEW PO (10:06)
[2020-04-09] MEDS: dilTIAZem CD 240 MG Capsule PO (10:06)
[2020-04-09] MEDS: Metoprolol(XL)Succ 50 MG Tablet PO (10:06)
[2020-04-09] MEDS: levETIRAcetam 1,000 MG Tablet 1000 MG PO ×2 (10:06→20:40)
[2020-04-09] MEDS: guaiFENesin 1,200 MG Tablet 1200 MG PO ×2 (10:07→20:40)
[2020-04-09] MEDS: NYSTATIN 500,000 UNIT/5 ML UDC 500000 UNIT PO (10:07)
[2020-04-09] MEDS: 0.9% Saline Lock 10 ML Syringe IV ×2 (10:08→17:01)
[2020-04-09] MEDS: Furosemide 40 MG/4 ML Vial IV ×2 (10:08→17:01)
[2020-04-09] MEDS: Mirtazapine 15 MG Tablet 7.5 MG PO (20:39)
[2020-04-10] VITALS (18 sets, daily range): BP systolic 80–124; BP diastolic 52–77; PULSE 83–120; RESP 16–27; TEMP 36.6–36.9; O2SAT 79–95
[2020-04-10] MEDS: Enoxaparin 40 MG/0.4 ML Syringe SC (05:15)
[2020-04-10 07:00] LABS: Anion Gap 1 (5-15); BUN 14 mg/dL (7-18); BUN/Creat Ratio 22.2 RATIO (10-20); Calcium,Total 8.2 mg/dL (8.5-10.1); Chloride 101 mmol/L (98-107); Creatinine, Serum 0.63 mg/dL (0.70-1.30); EST Glomerular Filtration Rate 135 mL/min (>60); Est Glom Filt Rate - Afr Amer 163 mL/min (>60); Glucose 98 mg/dL (74-106); Magnesium 2.1 mg/dL (1.6-2.6); Phosphorus 3.3 mg/dL (2.5-4.9); Potassium 3.7 mmol/L (3.5-5.1); Sodium Level 139 mmol/L (136-145)
--- NOTE | 2020-04-10 07:02 | PCM.PN.PUL ---
Patient Problems: Active and Suspected Problems Atrial fibrillation with rapid ventricular response (Acute) COVID-19 (Acute) Bilateral COVID-19 viral pneumonia (Acute) Acute kidney injury (Acute) Healthcare-associated pneumonia (Acute) Septic shock (Acute) Brain tumor (Acute) Subjective: Patient did well overnight. Patient states he slept well and has no complaints this morning. Patient's oxygenation continues to improve and he is on minimal nasal cannula at this morning. Patient is not reporting any chest pain or productive cough. - Physical Exam Vitals/I&O's: Vital Signs Temp Pulse Resp BP Pulse Ox 36.6 C 120 H 27 H 124/77 H 95 04/10/20 05:07 04/10/20 05:07 04/10/20 05:07 04/10/20 05:07 04/10/20 05:07 Oxygen Flow Rate (L/min) 3 Oxygen Delivery Method Nasal Cannula Weight: 102.8 kg Body Mass Index (BMI) 32.2 Intake and Output for Last 24 Hours 04/08/20 04/09/20 04/10/20 23:59 23:59 23:59 Intake Total 1090 / 1090 960 / 1160 200 / 200 Output Total 1150 / 1150 700 / 700 300 / 300 Balance -60 / -60 260 / 460 -100 / -100 General: Alert, Oriented x3, Cooperative, No apparent distress, Well developed, Well nourished, - - Speaking in full sentences HEENT: Atraumatic, PERRLA, EOMI, Normocephalic, - - No scleral icterus or injection noted Oral: Moist Mucosa, No Gingival or Mucosal Lesions/ Ulcerations Neck: Supple, No JVD, No Nodes, Trachea Midline Lungs: No rhonchi, No wheeze, No rales, Diminished, - - Symmetric expansion. No dullness to percussion Cardiovascular: Normal S1, Normal S2, No murmurs, No rub noted, No Gallop, Tachycardic Abdomen: Bowel Sounds Present, Soft, Non Tender, Non-Distended, Obese Extremities: No clubbing, No cyanosis, Edema - Improving Skin: - - No change from previous Musculoskeletal: No Tenderness to Palpation of Joints or Extremities Lymphatic: No Cervical, Supraclavicular, or Inguinal Adenopathy Neurological: Cranial nerves II-XII grossly intact, Neuro grossly intact, Motor Exam 5/5 strength throughout Psych/Mental Status: Alert and oriented to time, place, person, mood and affect Microbiology Past 72 Hours 04/07/20 04:45 Stool C. difficile DNA Amplification - Final Laboratory Results 04/10/20 06:40: Sodium 139, Potassium 3.7, Chloride 101, Carbon Dioxide 37.0 H, Anion Gap 1 L, BUN 14, Creatinine 0.63 L, Estim Creat Clear Calc 73.00, Est GFR (MDRD) Af Amer 163, Est GFR (MDRD) Non-Af 135, BUN/Creatinine Ratio 22.2 H, Glucose 98, Calcium 8.2 L, Phosphorus 3.3, Magnesium 2.1 Current Medications Acetaminophen (Tylenol) 650 mg PO Q6H PRN PRN PRN Reason: Pain Score 1-10/Temp > 100.7 F Albuterol/Ipratropium (Duoneb) 3 ml INHALATION Q4H.RT PRN PRN Reason: WHEEZING Aspirin (Aspirin, Baby) 81 mg PO DAILY [facility] Last Admin: 04/09/20 10:06 Dose: 81 mg Documented by: Diltiazem HCl (Cardizem Cd) 240 mg PO DAILY [facility] Last Admin: 04/09/20 10:06 Dose: 240 mg Documented by: Enoxaparin Sodium (Lovenox) 40 mg SC DAILY@0600 [facility] Last Admin: 04/10/20 05:15 Dose: 40 mg Documented by: Furosemide (Lasix) 40 mg IV BID@1000,1800 [facility] Last Admin: 04/09/20 17:01 Dose: 40 mg Documented by: Guaifenesin (Mucinex) 1,200 mg PO BID [facility] Last Admin: 04/09/20 20:40 Dose: 1,200 mg Documented by: Sodium Chloride () 250 mls @ 15 mls/hr IV .[id number] PRN PRN Reason: Saline Flush Last Infusion: 04/04/20 04:42 Dose: Infused Documented by: Sodium Chloride () 250 mls @ 15 mls/hr IV .[id number] PRN PRN Reason: Additional IVPB Infusion Levetiracetam (Keppra Tablet) 1,000 mg PO BID [facility] Last Admin: 04/09/20 20:40 Dose: 1,000 mg Documented by: Metoprolol Succinate (Toprol Xl (Beta Bekah)) 50 mg PO DAILY [facility] Last Admin: 04/09/20 10:06 Dose: 50 mg Documented by: Mirtazapine (Remeron) 7.5 mg PO QHS [facility] Last Admin: 04/09/20 20:39 Dose: 7.5 mg Documented by: Ondansetron HCl (Zofran) 4 mg IV Q8H PRN PRN PRN Reason: NAUSEA/VOMITING Last Admin: 03/29/20 16:11 Dose: 4 mg Documented by: Polyethylene Glycol (Miralax) 17 gm PO DAILY [facility] Last Admin: 04/09/20 10:08 Dose: Not Given Documented by: Potassium Chloride (K-Dur) 40 meq PO BIDCM [facility] Last Admin: 04/09/20 16:59 Dose: 40 meq Documented by: Senna/Docusate Sodium (Senokot-S, Stephany-Colace) 2 tablet PO BID PRN PRN Reason: Constipation Last Admin: 03/29/20 09:19 Dose: 2 tablet Documented by: Sodium Chloride () 10 - 40 ml IV UD PRN PRN Reason: SALINE FLUSH Last Admin: 04/09/20 17:01 Dose: 10 ml Documented by: Zolpidem Tartrate (Ambien (Generic)) 5 mg PO QHS PRN PRN PRN Reason: INSOMNIA Last Admin: 03/28/20 00:31 Dose: 5 mg Documented by: Medical Necessity - Tobacco Use Smoking Status: Never smoker Assessment/Plan All Active Problems Atrial fibrillation with rapid ventricular response (Acute) COVID-19 (Acute) Bilateral COVID-19 viral pneumonia (Acute) Acute kidney injury (Acute) Healthcare-associated pneumonia (Acute) Septic shock (Acute) Brain tumor (Acute) RECOMMENDATIONS: 1. Continue current supportive measures and wean supplemental oxygen to maintain saturations at or above 90%. 2. Continue DVT prophylaxis Lovenox and baseline antiepileptics. 3. Decrease scheduled diuretic therapy 4. Continue scheduled beta-bekah and cardizem. 5. Encourage incentive spirometer use and mobilize patient as tolerated. 6. Increase activity as tolerated. Continue to wean nasal cannula as tolerated 7. Okay to discharge from a pulmonary perspective. Consider BMP in 3 to 4 days for hypokalemia IMPRESSIONS: 1. Acute hypoxemic respiratory failure secondary to COVID-19 and possible healthcare associated pneumonia Oxygenation status appears to be slowly improving. Recommend continuing current supportive measures including noninvasive positive pressure ventilatory support and Airvo heated high flow as required. Wean FiO2 to maintain oxygen saturations at or above 90%. The patient has completed treatment courses of decadron, antimicrobials and Remdesevir. Patient's x-ray shows significant increase in infiltrates bilaterally previously, but has responded well to diuresis. We will transition to p.o. Lasix. Could consider BMP in 3 to 4 days to evaluate for hypokalemia given new Lasix therapy. 2. Atrial fibrillation with RVR The patient does have a history of chronic atrial fibrillation. Plan to continue baseline outpatient Cardizem and Toprol-XL. Rate is currently marginally controlled. May need to increase Toprol dosing if persists. Blood pressures are improving at this time. 3. Glioblastoma status post recent resection/unspecified seizure disorder Continue outpatient Keppra. Recent neurosurgical intervention would preclude the use of treatment strength Lovenox in this setting. 4. Acute kidney injury Resolved. Most likely prerenal in etiology. Continue current supportive measures. Continue to monitor urine output. No indication for renal replacement therapy at the current time. 5. History of non-Hodgkin's lymphoma Complicates care, management, recovery and prognosis. Physical therapy to work with the patient. Nutrition services is currently following. 6. Diarrhea Resolved. C. difficile negative. No significant abdominal symptomatology. Defer to ID, but Imodium may be considered. Inpatient E&M: 45958 Subs Hosp L2
[2020-04-10] MEDS: levETIRAcetam 1,000 MG Tablet 1000 MG PO (08:38)
[2020-04-10] MEDS: guaiFENesin 1,200 MG Tablet 1200 MG PO (08:38)
[2020-04-10] MEDS: dilTIAZem CD 240 MG Capsule PO (08:38)
[2020-04-10] MEDS: Metoprolol(XL)Succ 50 MG Tablet PO (08:38)
[2020-04-10] MEDS: Aspirin 81 MG TAB.CHEW PO (08:39)
[2020-04-10] MEDS: Furosemide 20 MG Tablet PO (08:40)
--- NOTE | 2020-04-10 09:52 | PN_ITS ---
Patient Problems: Active and Suspected Problems Atrial fibrillation with rapid ventricular response (Acute) COVID-19 (Acute) Bilateral COVID-19 viral pneumonia (Acute) Acute kidney injury (Acute) Healthcare-associated pneumonia (Acute) Septic shock (Acute) Brain tumor (Acute) Subjective: Chief complaint: Follow-up after admission for septic shock secondary to bilateral COVID-19 viral pneumonia complicated by acute hypoxic respiratory failure status post extubation, found to have acute kidney injury and A. fib with RVR. Seen and examined. No acute events overnight. Today, is feeling better, oxygen is down to 3 L. No other complaints. He is afebrile, heart rate has been around 100, blood pressure stable, pulse ox is 92% on 3 L. - Physical Exam Vitals/I&O's: Vital Signs Temp Pulse Resp BP Pulse Ox 97.9 F 90 27 H 124/77 H 92 04/10/20 05:07 04/10/20 08:38 04/10/20 05:07 04/10/20 05:07 04/10/20 07:05 Oxygen Flow Rate (L/min) 3 Oxygen Delivery Method Nasal Cannula Weight: 226 lb 10.163 oz Body Mass Index (BMI) 32.2 Intake and Output for Last 24 Hours 04/08/20 04/09/20 04/10/20 23:59 23:59 23:59 Intake Total 1090 / 1090 960 / 1160 200 / 200 Output Total 1150 / 1150 700 / 700 300 / 300 Balance -60 / -60 260 / 460 -100 / -100 General: Alert, Oriented x3, Cooperative, No apparent distress HEENT: Atraumatic, PERRLA, EOMI, Normocephalic Oral: Moist Mucosa, No Gingival or Mucosal Lesions/ Ulcerations Neck: Supple, No JVD, Negative Carotid Bruits, Trachea Midline, Thyroid Normal Size and Texture Lungs: Clear to auscultation, Normal air movement, No rhonchi, No wheeze, No rales, Diminished Cardiovascular: Regular rate, Regular Rhythm, Normal S1, Normal S2, PMI Normal, Tachycardic Abdomen: Bowel Sounds Present, Soft, Non Tender, Non-Distended, No Hepato- splenomegaly Extremities: No clubbing, No cyanosis, Edema Skin: No rashes, No breakdown Lymphatic: No Cervical, Supraclavicular, or Inguinal Adenopathy Neurological: Cranial nerves II-XII grossly intact, Neuro grossly intact Psych/Mental Status: Normal Affect, Appropriate, Alert and oriented to time, place, person, mood and affect Microbiology Past 72 Hours 04/07/20 04:45 Stool C. difficile DNA Amplification - Final Laboratory Results 04/10/20 06:40: Sodium 139, Potassium 3.7, Chloride 101, Carbon Dioxide 37.0 H, Anion Gap 1 L, BUN 14, Creatinine 0.63 L, Estim Creat Clear Calc 73.00, Est GFR (MDRD) Af Amer 163, Est GFR (MDRD) Non-Af 135, BUN/Creatinine Ratio 22.2 H, Glucose 98, Calcium 8.2 L, Phosphorus 3.3, Magnesium 2.1 Current Medications Acetaminophen (Tylenol) 650 mg PO Q6H PRN PRN PRN Reason: Pain Score 1-10/Temp > 100.7 F Albuterol/Ipratropium (Duoneb) 3 ml INHALATION Q4H.RT PRN PRN Reason: WHEEZING Aspirin (Aspirin, Baby) 81 mg PO DAILY [facility] Last Admin: 04/10/20 08:39 Dose: 81 mg Documented by: Diltiazem HCl (Cardizem Cd) 240 mg PO DAILY [facility] Last Admin: 04/10/20 08:38 Dose: 240 mg Documented by: Enoxaparin Sodium (Lovenox) 40 mg SC DAILY@0600 [facility] Last Admin: 04/10/20 05:15 Dose: 40 mg Documented by: Furosemide (Lasix) 20 mg PO DAILY [facility] Last Admin: 04/10/20 08:40 Dose: 20 mg Documented by: Guaifenesin (Mucinex) 1,200 mg PO BID [facility] Last Admin: 04/10/20 08:38 Dose: 1,200 mg Documented by: Sodium Chloride () 250 mls @ 15 mls/hr IV .[id number] PRN PRN Reason: Saline Flush Last Infusion: 04/04/20 04:42 Dose: Infused Documented by: Sodium Chloride () 250 mls @ 15 mls/hr IV .[id number] PRN PRN Reason: Additional IVPB Infusion Levetiracetam (Keppra Tablet) 1,000 mg PO BID [facility] Last Admin: 04/10/20 08:38 Dose: 1,000 mg Documented by: Metoprolol Succinate (Toprol Xl (Beta Bekah)) 25 mg PO X1 [facility] Metoprolol Succinate (Toprol Xl (Beta Bekah)) 75 mg PO DAILY [facility] Mirtazapine (Remeron) 7.5 mg PO QHS [facility] Last Admin: 04/09/20 20:39 Dose: 7.5 mg Documented by: Ondansetron HCl (Zofran) 4 mg IV Q8H PRN PRN PRN Reason: NAUSEA/VOMITING Last Admin: 03/29/20 16:11 Dose: 4 mg Documented by: Polyethylene Glycol (Miralax) 17 gm PO DAILY [facility] Last Admin: 04/10/20 09:20 Dose: Not Given Documented by: Senna/Docusate Sodium (Senokot-S, Stephany-Colace) 2 tablet PO BID PRN PRN Reason: Constipation Last Admin: 03/29/20 09:19 Dose: 2 tablet Documented by: Sodium Chloride () 10 - 40 ml IV UD PRN PRN Reason: SALINE FLUSH Last Admin: 04/09/20 17:01 Dose: 10 ml Documented by: Zolpidem Tartrate (Ambien (Generic)) 5 mg PO QHS PRN PRN PRN Reason: INSOMNIA Last Admin: 03/28/20 00:31 Dose: 5 mg Documented by: Medical Necessity - Tobacco Use Smoking Status: Never smoker Assessment/Plan All Active Problems Atrial fibrillation with rapid ventricular response (Acute) COVID-19 (Acute) Bilateral COVID-19 viral pneumonia (Acute) Acute kidney injury (Acute) Healthcare-associated pneumonia (Acute) Septic shock (Acute) Brain tumor (Acute) This is a 69 years old male patient presented to the emergency room because of cough, weakness and shortness of breath, found to have bilateral basilar lung opacities consistent with pneumonia found to have lactic acid of 6 consistent with septic shock secondary to bilateral COVID-19 pneumonia with probably secondary bacterial pneumonia as well. #1 septic shock: It is resolved. Patient remained afebrile, heart rate has been mildly tacky, blood pressure is maintained. It is secondary acute bilateral COVID-19 pneumonia as well as possible secondary bacterial pneumonia, healthcare associated. He completed treatment with IV antibiotics, IV steroids and Remdesivir. Blood culture showed no growth in 5 days. Urine culture showed no growth. Plan: Possible DC home today or tomorrow morning. #2 bilateral basilar Healthcare associated/COVID-19 pneumonia: As mentioned above, he completed treatment with IV antibiotics, IV steroids and remdesivir. COVID-19 PCR came back positive. His oxygenation has been improving, he is down to 3 L. Patient denied any worsening shortness of breath. Currently, he is on IV Lasix twice daily. Plan as above. #3 acute hypoxic respiratory failure: This morning, he is on nasal cannula at 3 L of oxygen, pulse ox is 92%. Denied any worsening shortness of breath. He is on p.o. Lasix for volume overload. He is on bronchodilators. He does not seem to be dyspneic or tachypneic, comfortable. Plan as above. #4 acute kidney injury: Secondary to #1. Resolved, both BUN and creatinine are back to normal. #5 A. fib with RVR: Heart rate remained around 100-110. Continue Cardizem and metoprolol for rate control. Blood pressure has been borderline to stable and we did increase his dose of metoprolol. #6 recent history of brain tumor status post brain surgery: Surgery was done on March 10, 2020 at [facility]. On admission, CT scan brain done and showed no acute findings. #7 history of non-Hodgkin's lymphoma: This is back in 2007, status post treatment, stable, in remission. #8 seizure disorder: Continue Keppra. #9 CODE STATUS: DNR CCA, no intubation. #10 DVT prophylaxis: Subcu Lovenox. This note was generated with [employer] dictation software. It may contain incorrect words, spelling, and punctuation that were not noted in checking the note before signing. Inpatient E&M: 26556 Subs Hosp L2
--- NOTE | 2020-04-10 09:57 | DCINST_ITS ---
- Discharge Diagnoses Current Active Problems: Current Active and Chronic Problems Atrial fibrillation with rapid ventricular response (Acute) COVID-19 (Acute) Bilateral COVID-19 viral pneumonia (Acute) Acute kidney injury (Acute) Healthcare-associated pneumonia (Acute) Septic shock (Acute) Seizure disorder (Chronic) Brain tumor (Acute) Chronic atrial fibrillation (Chronic) Non Hodgkin's lymphoma (Chronic) You will use the following diet at home:: Regular Your food should be the consistency of: Regular Discharge Activity: Return to Normal Activity Weight Bearing Status: Weight bearing as tolerated Instructions: Using Oxygen at Home Additional Instructions: Use oxygen at 3 to 6 L to maintain pulse oximeter around 92%. Allergies/Adverse Reactions: Allergies No Known Allergies Allergy (Verified 03/25/20 15:04) Medications to take at Discharge Acetaminophen [Tylenol] 650 mg PO Q4H PRN 03/25/20 Aspirin [Aspirin, Baby] 81 mg PO DAILY 03/25/20 Diltiazem CD [Cardizem CD] 240 mg PO DAILY 03/25/20 Levetiracetam [Keppra] 1,000 mg PO BID 03/25/20 Metoprolol Succinate [Toprol Xl] 50 mg PO DAILY 03/25/20 Ondansetron HCl [Zofran] 4 mg PO Q6H PRN 03/25/20 Sennosides/Docusate Sodium [Senna-S 8.6-50 mg Tablet] 1 ea PO BID 03/25/20 Furosemide [Lasix] 20 mg PO DAILY #30 tab 04/10/20 The following prescriptions were given: Furosemide [Lasix] 20 mg PO DAILY #30 tab Transmission Status: Pending to [address] Primary Care Physician: NADYA BAIG [Other] Please follow up with your Primary Care Physician in: 1 week. Test Results: Test results from this visit will be discussed in further detail at your follow- up appointment, if applicable.
--- NOTE | 2020-04-10 10:38 | CASEMGMT ---
Call to Sally pt's daughter, at this time to notify of possible discharge today, voices understanding and multiple questions at this time. All questions answered at this time and daughter is agreeable to [facility] SN, PT/OT at this time. Daughter does inquire about picking up tanks to bring to [facility] and this LONI SCHULZ states will call her once speaks with [facility] and [facility] companies, voices understanding. Call to George at [facility] [phone] fax: [phone] and he is updated that pt will most likely be discharged today per Dr. Magaña and Dr. Gonzalez. Fany IVEY to obtain ambulatory pulse ox and pt is currently on 3liters at rest at this time. George is aware that pt will be going to ex-'s home and address provided to him at this time, voices understanding. Referral to be faxed once oxygen testing completed and script signed. George aware that family would like to get concentrator set up in home and get tanks to bring to hospital, voices understanding. George states as soon as he gets order, he will get set up arranged. Call to Tony at [facility] to verify that they can take pt and to notify that pt will most likely discharge today, Tony voices understanding and acceptance at this time. Tony is aware that pt will be staying with ex- and ex-'s address/phone number provided to her at this time, voices understanding. D/C instructions/order for SN, PT/OT faxed to [facility] at this time and summary to be faxed once obtained. Calixto IVEY CM
--- NOTE | 2020-04-10 11:54 | PCM.DC.SUM ---
Discharge Date and Diagnosis Date of Admission: 03/25/20 Date of Discharge: 04/10/20 - Primary Discharge Diagnosis Acute Problems: Active Problems #1 septic shock. #2 acute bilateral basilar COVID-19 pneumonia with probable secondary bacterial healthcare associated pneumonia. #3 acute hypoxic respiratory failure. #4 acute kidney injury. #5 A. fib with RVR. #6 recent history of brain tumor/glioblastoma, status post brain surgery. Stable. - Secondary Discharge Diagnosis Chronic Problems: Chronic Problems Seizure disorder (Chronic) Chronic atrial fibrillation (Chronic) Non Hodgkin's lymphoma (Chronic) Hospital Course and Treatment Imaging Results: Clinical Impression(s) from Imaging Studies Chest X-Ray 03/25/20 15:23 IMPRESSION: Bilateral basilar predominant pneumonia, pulmonary edema, or ARDS. Electronically Signed: Simón Pham MD at 15:54 EDT Tel , Service support , Brain CT 03/25/20 17:08 IMPRESSION: 1. Evidence of recent surgery involving the left occipitoparietal region. There is encephalomalacia and a small subdural fluid collection underlying the craniotomy site. 2. Otherwise normal CT of the brain. Electronically Signed: Jordy Gonzalez DO at 17:52 EDT Tel [phone], Service support , Chest X-Ray 03/28/20 06:20 IMPRESSION: Improved bilateral pneumonia, pulmonary edema, or ARDS. Electronically Signed: Simón Pham MD at 6:40 EDT Tel , Service support , Chest X-Ray 04/02/20 09:31 IMPRESSION: Bilateral pulmonary infiltrates worse in the right hemithorax with mild improved aeration at the left lung base. Electronically Signed: Jona Gonzalez, at 11:21 EDT , Service support , Chest X-Ray 04/08/20 04:00 IMPRESSION: Worsening bilateral airspace infiltrates. Electronically Signed: Ford Mendoza MD at 4:49 EDT Tel , Service support , Dr. Blackman/Dr. Gonzalez, critical care/pulmonology. Dr. Frankel, infectious disease. Operations: None Procedures: EKG Summary of Care Provided: Patient seen and examined on day of discharge and appeared to be stable to be discharged home. He remained stable although he has been requiring high flow oxygen. His oxygen requirement has been fluctuating between 3 to 8 L with ambulation. Heart rate has been around 100-110, other vital signs are stable. This is a 69 years old male patient presented to the emergency room because of cough, weakness and shortness of breath, found to have bilateral basilar lung opacities consistent with pneumonia found to have lactic acid of 6 consistent with septic shock secondary to bilateral COVID-19 pneumonia with probably secondary bacterial pneumonia as well. He has a very prolonged hospital stay. #1 septic shock: secondary acute bilateral COVID-19 pneumonia as well as possible secondary bacterial pneumonia, healthcare associated. He completed treatment with IV antibiotics, IV Decadron and Remdesivir. Blood culture showed no growth in 5 days. Urine culture showed no growth. Patient completed treatment during this hospital stay, no antibiotic given upon discharge. #2 bilateral basilar Healthcare associated/COVID-19 pneumonia: As mentioned above, he completed treatment with IV antibiotics, IV steroids and remdesivir. COVID-19 PCR came back positive. He had very prolonged hospital stay. Initially patient required use of BiPAP and AirVo as well as CPAP at night. His condition improved very slowly and he was able to stay on nasal cannula for oxygen. His oxygen requirement has been fluctuating anywhere from 3 to 8 L/min. Patient did not look very dyspneic or tachypneic upon walking and ambulating. Patient discharged home on oxygen at 3 to 8 L with ambulation. #3 acute hypoxic respiratory failure: Secondary to #2. As mentioned above, this was treated with BiPAP, CPAP as well as Airvo and oxygen by nasal cannula. Also, he received intermittent IV Lasix for volume overload. His respiratory condition improved very slowly and his oxygen requirement has been fluctuating as well as his need of oxygen. He was discharged on oxygen at 3 to 8 L as mentioned above. #4 acute kidney injury: Secondary to #1. Resolved, both BUN and creatinine are back to normal. #5 A. fib with RVR: Heart rate remained around 100-110. Continued on Cardizem and metoprolol for rate control upon discharge. I was not able to increase his dose of metoprolol because of borderline blood pressure. He was discharged on metoprolol XL 50 mg p.o. daily as well as Cardizem CD 240 mg daily. He was not on anticoagulation because of recent brain surgery. #6 recent history of brain tumor status post brain surgery: Surgery was done on March 10, 2020 at [facility]. On admission, CT scan brain done and showed no acute findings. #7 history of non-Hodgkin's lymphoma: This is back in 2007, status post treatment, stable, in remission. #8 seizure disorder: Continued on Keppra. Patient discharged home in a stable medical condition, discharged on oxygen at 3 to 8 L with activity, no antibiotic given upon discharge, discharged on his previous home medications including aspirin, Cardizem CD, metoprolol XL, Keppra, started on Lasix 20 mg p.o. daily and recommended follow-up with PCP in 1 week. This note was generated with [employer] dictation software. It may contain incorrect words, spelling, and punctuation that were not noted in checking the note before signing. - Physical Exam Vitals/I&O's: Vital Signs Temp Pulse Resp BP Pulse Ox 98.5 F 89 22 H 83/57 L 91 04/10/20 09:43 04/10/20 11:00 04/10/20 11:00 04/10/20 11:00 04/10/20 11:00 Oxygen Flow Rate (L/min) 3 Oxygen Delivery Method Nasal Cannula Weight: 226 lb 10.163 oz Body Mass Index (BMI) 32.2 Intake and Output for Last 24 Hours 04/08/20 04/09/20 04/10/20 23:59 23:59 23:59 Intake Total 1090 / 1090 960 / 1160 200 / 200 Output Total 1150 / 1150 700 / 700 300 / 300 Balance -60 / -60 260 / 460 -100 / -100 General: Alert, Oriented x3, Cooperative, No apparent distress HEENT: Atraumatic, PERRLA, EOMI, Normocephalic Oral: Moist Mucosa, No Gingival or Mucosal Lesions/ Ulcerations Neck: Supple, No JVD, Negative Carotid Bruits, Trachea Midline, Thyroid Normal Size and Texture Lungs: Clear to auscultation, No rhonchi, No wheeze, No rales, Diminished Cardiovascular: Normal S1, Normal S2, No murmurs, Irregular Rate, Tachycardic Abdomen: Bowel Sounds Present, Soft, Non Tender, Non-Distended, No Hepato-splenomegaly Extremities: No clubbing, No cyanosis, Edema Skin: No rashes, No breakdown Lymphatic: No Cervical, Supraclavicular, or Inguinal Adenopathy Neurological: Cranial nerves II-XII grossly intact, Neuro grossly intact Psych/Mental Status: Normal Affect, Appropriate Laboratory Results 04/10/20 06:40: Sodium 139, Potassium 3.7, Chloride 101, Carbon Dioxide 37.0 H, Anion Gap 1 L, BUN 14, Creatinine 0.63 L, Estim Creat Clear Calc 73.00, Est GFR (MDRD) Af Amer 163, Est GFR (MDRD) Non-Af 135, BUN/Creatinine Ratio 22.2 H, Glucose 98, Calcium 8.2 L, Phosphorus 3.3, Magnesium 2.1 Current Medications Acetaminophen (Tylenol) 650 mg PO Q6H PRN PRN PRN Reason: Pain Score 1-10/Temp > 100.7 F Albuterol/Ipratropium (Duoneb) 3 ml INHALATION Q4H.RT PRN PRN Reason: WHEEZING Aspirin (Aspirin, Baby) 81 mg PO DAILY [facility] Last Admin: 04/10/20 08:39 Dose: 81 mg Documented by: Diltiazem HCl (Cardizem Cd) 240 mg PO DAILY [facility] Last Admin: 04/10/20 08:38 Dose: 240 mg Documented by: Enoxaparin Sodium (Lovenox) 40 mg SC DAILY@0600 [facility] Last Admin: 04/10/20 05:15 Dose: 40 mg Documented by: Furosemide (Lasix) 20 mg PO DAILY [facility] Last Admin: 04/10/20 08:40 Dose: 20 mg Documented by: Guaifenesin (Mucinex) 1,200 mg PO BID [facility] Last Admin: 04/10/20 08:38 Dose: 1,200 mg Documented by: Sodium Chloride () 250 mls @ 15 mls/hr IV .[id number] PRN PRN Reason: Saline Flush Last Infusion: 04/04/20 04:42 Dose: Infused Documented by: Sodium Chloride () 250 mls @ 15 mls/hr IV .[id number] PRN PRN Reason: Additional IVPB Infusion Levetiracetam (Keppra Tablet) 1,000 mg PO BID [facility] Last Admin: 04/10/20 08:38 Dose: 1,000 mg Documented by: Metoprolol Succinate (Toprol Xl (Beta Bekah)) 50 mg PO DAILY [facility] Mirtazapine (Remeron) 7.5 mg PO QHS [facility] Last Admin: 04/09/20 20:39 Dose: 7.5 mg Documented by: Ondansetron HCl (Zofran) 4 mg IV Q8H PRN PRN PRN Reason: NAUSEA/VOMITING Last Admin: 03/29/20 16:11 Dose: 4 mg Documented by: Polyethylene Glycol (Miralax) 17 gm PO DAILY [facility] Last Admin: 04/10/20 09:20 Dose: Not Given Documented by: Senna/Docusate Sodium (Senokot-S, Stephany-Colace) 2 tablet PO BID PRN PRN Reason: Constipation Last Admin: 03/29/20 09:19 Dose: 2 tablet Documented by: Sodium Chloride () 10 - 40 ml IV UD PRN PRN Reason: SALINE FLUSH Last Admin: 04/09/20 17:01 Dose: 10 ml Documented by: Zolpidem Tartrate (Ambien (Generic)) 5 mg PO QHS PRN PRN PRN Reason: INSOMNIA Last Admin: 03/28/20 00:31 Dose: 5 mg Documented by: Discharge Activity: Return to Normal Activity Weight Bearing Status: Weight bearing as tolerated Home Medications: Medications to take at Discharge Acetaminophen [Tylenol] 650 mg PO Q4H PRN 03/25/20 Aspirin [Aspirin, Baby] 81 mg PO DAILY 03/25/20 Diltiazem CD [Cardizem CD] 240 mg PO DAILY 03/25/20 Levetiracetam [Keppra] 1,000 mg PO BID 03/25/20 Metoprolol Succinate [Toprol Xl] 50 mg PO DAILY 03/25/20 Ondansetron HCl [Zofran] 4 mg PO Q6H PRN 03/25/20 Sennosides/Docusate Sodium [Senna-S 8.6-50 mg Tablet] 1 ea PO BID 03/25/20 Furosemide [Lasix] 20 mg PO DAILY #30 tab 04/10/20 Following Prescriptions Were Given to Patient: Furosemide [Lasix] 20 mg PO DAILY #30 tab Transmission Status: Received by TYRESE ARAM[facility]ULA[address] Primary Care Physician: NADYA BAIG [Other] Please follow up with your Primary Care Physician in: 1 week. Patient Instructions: Using Oxygen at Home Disposition: Home Minutes spent on discharge:: 35 Patient Condition:: Stable Medical Necessity - Tobacco Use Smoking Status: Never smoker Meaningful Use Info Meaningful Use Diagnoses (Choose all that apply): None applicable Inpatient E&M: 75661 Disch Hosp
--- NOTE | 2020-04-10 13:53 | CASEMGMT ---
Addendum entered by Alize Haynes 04/10/20 15:00: DaughterSally, will call ICU to notify that they are on their way to pick pt up after oxygen is set up and would like RN to go over d/c instructions with her as well. Sally voices no further questions/concerns/needs at this time. Fany IVEY updated on all, voices understanding. D/C summ to be faxed to [facility] once complete. Attempted to call pt(d/t COVID precautions) to update on all at this time but unable to reach pt at this time. Calixto IVEY CM Addendum entered by Alize Haynes 04/10/20 14:00: DaughterSally, did speak with [facility] and she will meet them at the house to get it set up and get the tanks to bring with her to pick pt up. Calixto IVEY CM Original Note: Script/referral faxed to [facility] at this time. Pt needs 3liters at rest and 8liters w/ ambulation. Call to George at [facility] to notify of fax at this time, voices understanding. George to call this RN CM if needs anything further for pt. Call to pt's daughter, Sally, and she is updated on all at this time, voices understanding. Sally voices no further questions/concerns/needs at this time. Fany IVEY updated on all at this time, voices understanding. Calixto IVEY CM
--- NOTE | 2020-04-14 14:31 | CASEMGMT ---
LONI SCHULZ Discharge F/U Phone Call LACJohnathan: William Strata: 3 Discharge date: 04/10/2020 Call date: 04/14/2020 Call time: [phone] Admission dx: Septic shock, HCAP, RIYA, acute COVID-19 Call to pt's daughter, Sally, as she had been the inside sales person throughout the visit. Sally states that pt is doing 'pretty good' since discharge. Sally states no questions regarding discharge instructions/medications at this time. Sally states [facility] is doing start of care today as family deferred them until today due to holiday and pt doing 'so well.' Sally states pt has been eating good but is tired at times. She states pt's oxygen has been good at home as they have a pulse ox to keep track. She states she will get ahold of radiation physician later this week to see what plan is and pt has f/u with Dr. Mansfield ([place]), his PCP already scheduled. Daughter states no suggestions for [facility] at this time and states 'You all were wonderful and took great care of my dad.' Daughter voices no further questions/concerns/needs at this time and thanks this LONI SCHULZ for the call. Calixto IVEY CM
== END 2020-04-10 19:35 | disposition home or self-care (01) | DRG 871 ==
LOC: ED 15:42 → ICU 17:26
PROVIDERS: Internal Medicine; Internal Medicine Critical Care Medicine; Internal Medicine Infectious Disease; Student in an Organized Health Care Education/Training Program; Admitting Provider Hospitalist; Emergency Provider Emergency Medicine; Visit Provider Hospitalist
DX: A41.89 Other specified sepsis (principal); U07.1 COVID-19; R65.21 Severe sepsis with septic shock; J12.89 Other viral pneumonia; J15.9 Unspecified bacterial pneumonia; J96.01 Acute respiratory failure with hypoxia; I48.20 Chronic atrial fibrillation, unspecified; N17.9 Acute kidney failure, unspecified; C71.9 Malignant neoplasm of brain, unspecified; G40.909 Epilepsy, unspecified, not intractable, without status epilepticus; Y95 Nosocomial condition; Z66 Do not resuscitate; Z85.72 Personal history of non-Hodgkin lymphomas; F32.9 Major depressive disorder, single episode, unspecified
CPT/HCPCS: 36600; 70450; 71045; 80048; 80053; 81001; 82550; 82728; 82803; 83605; 83735; 83880; 84100; 84132; 84145; 84484; 85025; 85027; 85045; 85379; 85384; 85610; 85652; 85730; 86140; 86850; 86900; 86901; 87040; 87086; 87449; 87493; 87635; 93005; 94002; 94003; 94660; 94762; 97110; 97116; 97162; 97165; 97530; 97535; 99285; J7030; J7040; J7050; A4216; J0696; J1940; J2405; J7799; U0003

== ENCOUNTER 2020-12-04 17:12 | Emergency (ER) | payer MEDICARE, SELFPAY ==
[2020-04-02 10:48] VITALS: BMI 32.2
[2020-12-04 17:14] VITALS: BP 121/82; PULSE 80; RESP 16; TEMP 36.7; O2SAT 98; BMI 30.4
--- NOTE | 2020-12-04 18:03 | EDS_ITS ---
HPI History of Present Illness Chief Complaint: Edema Informant: patient and spouse/S.O. (Ex-) Narrative Narrative: 70-year-old male presents to the emergency department after being referred by oncology. He is currently being treated for glioblastoma multiform a. He states that since receiving injections his blood sugars have been little higher than normal. He tells me that he recalls being told he was around 140. He has appointment on Monday with his primary care physician in [place] to start closely following the sugars to find out if they need to place him on any medications. He reports that today he mentioned that he had some leg swelling and they did a duplex ultrasound that was negative for DVT. He states that since a prior bout of cancer in which they removed the lymph nodes his right leg has always been swollen but he states that now both legs are slightly more swollen than normal. He had a urinalysis done today which showed glucose and was advised to come to emergency. [facility] Medical History Atrial fibrillation Brain cancer Home Medications acetaminophen 650 mg PO Q4H PRN 03/25/20 [History Last Taken Unknown] aspirin 81 mg PO DAILY 03/25/20 [History Last Taken Unknown] diltiazem HCl 240 mg PO DAILY 03/25/20 [History Last Taken Unknown] levetiracetam 1,000 mg PO BID 03/25/20 [History Last Taken Unknown] metoprolol succinate 50 mg PO DAILY 03/25/20 [History Last Taken Unknown] ondansetron HCl 4 mg PO Q6H PRN 03/25/20 [History Last Taken Unknown] sennosides-docusate sodium 1 ea PO BID 03/25/20 [History Last Taken Unknown] acyclovir 400 mg PO BID 12/04/20 [History Last Taken Unknown] dexamethasone 4 mg PO BID 12/04/20 [History Last Taken Unknown] Allergy/AdvReac Type Severity Reaction Status Date / Time No Known Allergies Allergy Verified 12/04/20 17:14 no surgical history (Lymph node removal legs) Social History Smoking Status: Never smoker ROS ROS ED Constitutional Constitutional ED: Denies chills or weight loss Eyes Eyes: Denies change in vision or diplopia ENT ENT ED: Denies ear pain, rhinorrhea or sore throat Cardiovascular Cardiovascular: Reports leg edema and other Details: Bilateral lower extremity edema. ; Denies chest pain, orthopnea, palpitations or racing heartbeat Respiratory/Chest Respiratory/Chest: Denies cough, dyspnea or orthopnea Gastrointestinal Gastrointestinal: Denies abdominal pain, diarrhea, nausea or vomiting Genitourinary Genitourinary ED: Denies dysuria, hematuria or urinary frequency Musculoskeletal Musculoskeletal: Denies arthralgias or myalgias Integumentary Reports rash; Denies abscess Neurologic Neurologic: Denies headache(s) or weakness Psychiatric Psychiatric: Denies anxiety, depression, suicidal ideation or suicidal thoughts Endocrine Endocrinology: Denies polydipsia, polyphagia or polyuria Allergic/Immunologic Allergic/Immunologic ED: Denies mouth swelling, tongue swelling or urticaria EXAM Physical Exam Const Vital Signs: 12/04/20 17:14 12/04/20 17:21 12/04/20 20:29 Temperature 98.1 F Temperature Source Temporal Pulse Rate 80 73 Respiratory Rate 16 16 Respiratory Effort Normal Non-Labored Respiratory Pattern Normal Blood Pressure 121/82 H 116/91 H Blood Pressure Mean 95 Pulse Ox 98 96 Oxygen Delivery Method Room Air Positive well nourished and well developed General Appearance ED: well developed HEENT Reports normocephalic, head/scalp atraumatic and moist mucous membranes Eyes PERRL and EOMs intact bilaterally Neck no lymphadenopathy, supple and no JVD Resp normal respiratory effort and clear to auscultation bilaterally Cardio regular rate, regular rhythm and no murmurs GI normal to inspection, nondistended, normoactive bowel sounds and non-tender Palpation: soft Back/Spine no CVA tenderness and normal ROM Extremity Extremity Narrative: Bilateral lower extremity edema equal General Extremety ED: Yes edema General Extremity: edema Neuro oriented x3 and CN's II-XII intact bilaterally Sensorium / Orientation: alert Motor Exam: strength 5/5 throughout Psych mental status grossly normal Mood & Affect: Negative for depressed or tearful Skin no wounds Skin Narrative: There is a excoriated-like rash to the lower leg. MDM MDM MDM Narrative Medical decision making narrative: Patient's white count is 8 with a hemoglobin of 16.5. Hemoglobin A1c is only 5.8. His glucose is 125. At this point I do not see a need for the patient to be admitted to the hospital. He has follow-up on Monday with his PCP. Lab Data Attestation: I reviewed the patient's lab results. Labs: Laboratory Results - last 24 hr 12/04/20 12/04/20 12/04/20 18:15 18:15 18:15 WBC 8.9 RBC 5.02 Hgb 16.5 Hct 47.3 MCV 94.2 H MCH 32.9 H MCHC 34.9 RDW Std Deviation 44.8 H RDW Coeff of Dontae 13.0 Plt Count 114 L MPV 9.6 Neut % (Auto) Not Reportable Absolute Neuts (auto) 8.0 H Absolute Lymphs (auto) 0.18 L Total Counted 100 Neutrophils % (Manual) 83 H Band Neutrophils % 7 H Lymphocytes % (Manual) 2 L Monocytes % (Manual) 8 Differential Comment SCANNED Diff Path Review May foll Platelet Estimate MOD DEC RBC Morphology NORM C+C Sodium 133 L Potassium 4.8 Chloride 99 Carbon Dioxide 30.0 Anion Gap 4 L BUN 27 H Creatinine 0.81 Estim Creat Clear Calc 88.87 Est GFR (MDRD) Af Amer 121 Est GFR (MDRD) Non-Af 100 BUN/Creatinine Ratio 33.2 H Glucose 125 H Hemoglobin A1c 5.8 H Calcium 7.8 L Total Bilirubin 1.50 H AST 11 L ALT 35 Alkaline Phosphatase 67 Total Protein 5.4 L Albumin 2.5 L Globulin 2.9 Albumin/Globulin Ratio 0.9 Discharge Plan Triage Chief Complaint: Edema ED Provider: Jonah Escalante Dx/Rx/DC Orders Clinical Impression: Acute hyperglycemia, Lymphedema Instructions: ED Peripheral Edema, Bilateral Prescriptions: No Action acetaminophen 325 MG tablet 650 mg PO Q4H PRN (Reason: Pain Or Fever) RF: 0 metoprolol succinate 50 MG tablet extended release 24 hr 50 mg PO DAILY RF: 0 diltiazem HCl 240 MG capsule 240 mg PO DAILY RF: 0 ondansetron HCl 4 MG tablet 4 mg PO Q6H PRN (Reason: Nausea) RF: 0 sennosides-docusate sodium 1 EACH tablet 1 ea PO BID RF: 0 aspirin 81 MG tablet,chewable 81 mg PO DAILY RF: 0 levetiracetam 1,000 MG tablet 1,000 mg PO BID RF: 0 acyclovir 400 mg tablet 400 mg PO BID RF: 0 dexamethasone 2 mg tablet 4 mg PO BID RF: 0 Referrals: NADYA BAIG [Other] - Keep Kailyn appointment Activity Restrictions/Additional Instructions: Please inform Dr. Baig that your glucose today was 125. Your hemoglobin A1c is 5.8. Disposition Disposition: Home, self care Discharge Date/Time: 12/04/20 20:30
[2020-12-04 18:30] LABS: Hematocrit 47.3 % (40-54); Hemoglobin 16.5 g/dL (13.0-16.5); Mean Corp Hgb Conc 34.9 g/dL (32-36); Mean Corpuscular Hgb 32.9 pg (27.0-32.0); Mean Corpuscular Volume 94.2 fL (80-94); Mean Platelet Vol. 9.6 fl (6.2-12.0); POSITIVE COUNT YES; POSITIVE DIFFERENTIAL YES; POSITIVE MORPHOLOGY YES; Platelet Count 114 K/mm3 (150-450); RBC Distribution Width SD 44.8 fl (35.1-43.9); Red Blood Count 5.02 M/mm3 (4.6-6.2); White Blood Count 8.9 K/mm3 (4.4-11.0)
[2020-12-04 18:33] LABS: Differential Indicated MANUAL DIFF
[2020-12-04 18:49] LABS: ALB/GLOB Ratio 0.9 RATIO (0.9-2.4); AST(SGOT) 11 U/L (15-37); Alanine Aminotransfer ALT/SGPT 35 U/L (16-61); Albumin, Serum 2.5 g/dL (3.2-5.0); Alkaline Phosphatase 67 U/L (45-117); Anion Gap 4 (5-15); BUN 27 mg/dL (7-18); BUN/Creat Ratio 33.2 RATIO (10-20); Calcium,Total 7.8 mg/dL (8.5-10.1); Chloride 99 mmol/L (98-107); Creatinine, Serum 0.81 mg/dL (0.70-1.30); EST Glomerular Filtration Rate 100 mL/min (>60); Est Glom Filt Rate - Afr Amer 121 mL/min (>60); Estimated Creatinine Clearance 88.87 ml/min; Globulin 2.9 g/dL (2.2-4.2); Glucose 125 mg/dL (74-106); Potassium 4.8 mmol/L (3.5-5.1); Protein, Total 5.4 g/dL (6.4-8.2); Sodium Level 133 mmol/L (136-145)
[2020-12-04 20:17] LABS: Hemoglobin A1c 5.8 % (3.8-5.6)
[2020-12-04 20:25] LABS: Lymphocyte 2 % (19-41); Monocyte 8 % (0-10); Neutrophil-Band 7 % (0-5); Neutrophil-Segmented 83 % (47-70); Total Cells Counted 100 (MANUAL DIFF)
[2020-12-04 20:26] LABS: Differential Comment SCANNED; Platelet Estimate MOD DEC (ADEQ); Red Cell Morphology NORM C+C NORMAL (NORM C&C)
[2020-12-04 20:28] LABS: Absolute Lymphocyte Count 0.18 X10^3/uL (0.83-4.51); Lymphocyte # 0.18 X10^3/ul (0.83-4.51); Neutrophil # 8.01 X10^3/uL (2.7-7.7)
[2020-12-04 20:29] VITALS: BP 116/91; PULSE 73; RESP 16; O2SAT 96
[2020-12-07 13:38] LABS: Pathologist Review Reviewed
== END 2020-12-04 20:30 | disposition home or self-care (01) ==
PROVIDERS: Emergency Provider Emergency Medicine
DX: I89.0 Lymphedema, not elsewhere classified (principal); R73.9 Hyperglycemia, unspecified; C71.9 Malignant neoplasm of brain, unspecified; I48.91 Unspecified atrial fibrillation; Z79.82 Long term (current) use of aspirin; Z79.52 Long term (current) use of systemic steroids; Z79.899 Other long term (current) drug therapy
CPT/HCPCS: 80053; 83036; 85025; 99283

== ENCOUNTER 2021-01-14 09:36 | Inpatient (IN) | payer MEDICARE, SELFPAY ==
[2021-01-14] VITALS (33 sets, daily range): BP systolic 85–131; BP diastolic 54–106; PULSE 42–180; RESP 15–28; TEMP 36.2–36.8; O2SAT 95–99; BMI 27.0
--- NOTE | 2021-01-14 10:00 | EKG12_ITS ---
Test Reason : HYPOTENSION Blood Pressure : / mmHG Vent. Rate : 139 BPM Atrial Rate : 089 BPM P-R Int : 000 ms QRS Dur : 092 ms QT Int : 320 ms P-R-T Axes : 000 007 016 degrees QTc Int : 486 ms Atrial fibrillation with rapid ventricular response Abnormal ECG Confirmed by JUNIOR NANCE, JOEL ([id number]), video effects editor ISHAN MURRY ([id number]) on 01/18/2021 1:49:26 PM Referred By: JAZZ Confirmed By:JOEL PACHECO MD
[2021-01-14 10:24] LABS: Bacteria 0 SEEN /hpf (None Seen); Mucous, Urine 0 SEEN /hpf (<or=2+); Red Blood Cells-Urine 0 SEEN /hpf (0-5); Squamous Epithelial Cells - UA 0 SEEN /hpf (0-5); White Blood Cells 0 SEEN /hpf (0-5)
[2021-01-14 10:27] LABS: Color, Urine Yellow (Yellow); Glucose, Dipstick Normal (Normal); Ketone-Dipstick 15 mg/dl (Negative); Leukocyte Esterase-Dipstick 25 /ul (Negative); Nitrite-Dipstick Negative (Negative); Occult Blood-Urine Negative /ul (Negative); Protein-Dipstick 15 mg/dl (Negative); Urine Clarity Clear (Clear); Urine Urobilinogen 8 mg/dl (Normal)
[2021-01-14] MEDS: 0.9% Normal Saline 1,000 ML 1000 ML IV (10:27)
[2021-01-14] MEDS: dilTIAZem 25 MG/5 ML Vial 15 MG IV BOLUS (10:27)
[2021-01-14 10:28] LABS: Urine Bilirubin Dipstick 1 mg/dL (Negative)
--- NOTE | 2021-01-14 10:35 | RAD_ITS ---
STUDY: X-RAY CHEST REASON FOR EXAM: Male, 70 years old. a fib rvr, weakness TECHNIQUE: Single AP portable view of the chest. COMPARISON: Comparison is made with prior study of 04/08/2020. FINDINGS: EKG electrodes are seen. Mild increased markings are now seen at the left lung base suggestive of either linear atelectasis and/or scarring. There is no demonstrated pleural abnormality. Normal size heart. Normal mediastinum and monica. Normal visualized pulmonary arteries. There is atherosclerotic calcification of the aortic arch with tortuosity. There are diffuse degenerative changes of the visualized thoracic spine. Normal visualized ribs, clavicles, and shoulders. There is no demonstrated abnormality of the visualized soft tissue structures of the upper abdomen. RAD/Chest 1 View (Portable) IMPRESSION: Mild increased markings at the left lung base suggestive of either linear atelectasis and/or scarring. Electronically Signed: Jona Gonzalez MD at 10:47 EDT , Service support ,
[2021-01-14 10:40] LABS: Hematocrit 41.6 % (40-54); Hemoglobin 13.7 g/dL (13.0-16.5); Mean Corp Hgb Conc 32.9 g/dL (32-36); Mean Corpuscular Hgb 31.9 pg (27.0-32.0); Mean Platelet Vol. 9.4 fl (6.2-12.0); POSITIVE COUNT YES; POSITIVE DIFFERENTIAL YES; POSITIVE MORPHOLOGY YES; Platelet Count 263 K/mm3 (150-450); RBC Distribution Width CV 14.4 % (11.6-14.6); RBC Distribution Width SD 49.3 fl (35.1-43.9); Red Blood Count 4.29 M/mm3 (4.6-6.2)
[2021-01-14 10:41] LABS: Differential Indicated MANUAL DIFF
[2021-01-14 10:58] LABS: Anion Gap 6 (5-15); BUN 16 mg/dL (7-18); Calcium,Total 9.1 mg/dL (8.5-10.1); Chloride 105 mmol/L (98-107); Creatinine, Serum 0.94 mg/dL (0.70-1.30); EST Glomerular Filtration Rate 84 mL/min (>60); Est Glom Filt Rate - Afr Amer 102 mL/min (>60); Estimated Creatinine Clearance 76.58 ml/min; Glucose 114 mg/dL (74-106); Potassium 3.7 mmol/L (3.5-5.1); Sodium Level 141 mmol/L (136-145)
[2021-01-14 10:59] LABS: BNP,B-Type NATRIURETIC PEPTIDE 342.1 pg/mL (0-100)
[2021-01-14 11:01] LABS: Lymphocyte 9 % (19-41); Metamyelocyte 3 % (0-1); Monocyte 15 % (0-10); Neutrophil-Band 2 % (0-5); Neutrophil-Segmented 71 % (47-70); Total Cells Counted 100 (MANUAL DIFF)
--- NOTE | 2021-01-14 11:02 | EDS_ITS ---
HPI History of Present Illness Chief Complaint: Hypotension Narrative Narrative: Patient is a 70-year-old male with complex medical history including GBM as well as atrial fibrillation presenting from his oncologist office for atrial fibrillation with RVR as well as hypotension. Patient notes that for the past while he has been feeling good, is had fatigue has had decreased oral intake. He denies any associated chest pain, shortness of breath or palpitations. He has had some intermittent swelling of his legs, more so on the right. Patient is currently on a second line chemotherapy agent, Avastin which he appears to be responding to. Patient is currently off all of his A. fib medications including metoprolol, Cardizem and anticoagulation. Patient states his oncologist has been taking him off of it but does not seem to know further. Patient has any fever or chills. No other complaints at this time. He was recently started on mirtazapine by palliative medicine for depression and appetite stimulation. [facility] Medical History Atrial fibrillation Brain cancer Home Medications acetaminophen 650 mg PO Q4H PRN 03/25/20 [History Last Taken Unknown] levetiracetam 1,000 mg PO BID 03/25/20 [History Last Taken Unknown] ondansetron HCl 4 mg PO Q6H PRN 03/25/20 [History Last Taken Unknown] sennosides-docusate sodium 1 ea PO BID 03/25/20 [History Last Taken Unknown] acyclovir 400 mg PO BID 12/04/20 [History Last Taken Unknown] dexamethasone 2 mg PO Q6H 12/04/20 [History Last Taken Unknown] mirtazapine 15 mg PO QHS 01/14/21 [History Last Taken Unknown] nystatin 5 ml PO Q6H 01/14/21 [History Last Taken Unknown] Allergy/AdvReac Type Severity Reaction Status Date / Time No Known Allergies Allergy Verified 01/14/21 10:25 Social History Smoking Status: Never smoker ROS ROS ED Constitutional Constitutional ED: Reports other Details: fatigue ; Denies chills or fever(s) Eyes Eyes: Denies blurry vision or loss of vision ENT ENT ED: Denies rhinorrhea or sore throat Cardiovascular Cardiovascular: Denies chest pain, dizziness, palpitations or racing heartbeat Respiratory/Chest Respiratory/Chest: Denies cough or dyspnea Gastrointestinal Gastrointestinal: Denies nausea or vomiting Genitourinary Genitourinary ED: Denies dysuria or hematuria Musculoskeletal Musculoskeletal: Denies arthralgias or myalgias Integumentary Denies rash or wounds Neurologic Neurologic: Denies focal weakness or headache(s) Psychiatric Psychiatric: Denies anxiety or behavioral changes EXAM Physical Exam Const Vital Signs: 01/14/21 09:37 01/14/21 09:39 01/14/21 10:21 Temperature 98.2 F 98.2 F Temperature Source Temporal Temporal Pulse Rate 42 L 140 H 180 H Respiratory Rate 24 H 19 H 28 H Respiratory Effort Respiratory Pattern Blood Pressure 102/54 L 108/90 H 108/90 H Blood Pressure Mean 70 96 96 Blood Pressure Source Pulse Ox 96 96 96 Oxygen Delivery Method Room Air Room Air Room Air 01/14/21 10:26 01/14/21 10:33 01/14/21 10:39 Temperature 98 F Temperature Source Temporal Pulse Rate 95 115 H Respiratory Rate 16 Respiratory Effort Normal Non-Labored Respiratory Pattern Normal Blood Pressure 85/59 L 99/75 Blood Pressure Mean 67 83 Blood Pressure Source Pulse Ox 98 Oxygen Delivery Method Room Air 01/14/21 11:00 01/14/21 11:55 01/14/21 12:00 Temperature 98 F 98.1 F Temperature Source Temporal Temporal Pulse Rate 112 H 122 H 119 H Respiratory Rate 16 15 Respiratory Effort Respiratory Pattern Blood Pressure 112/83 H 108/93 H 109/77 Blood Pressure Mean 92 98 87 Blood Pressure Source Monitor Pulse Ox 99 99 Oxygen Delivery Method Room Air Room Air Positive well nourished, well developed and no apparent distress General Appearance ED: well developed HEENT Reports normocephalic and dry mucous membranes atraumatic Nose: no nasal discharge General Ear: hearing grossly impaired External Ear: external ears normal Mouth ED: Yes dry mucous membranes Mouth: dry mucous membranes Eyes PERRL and EOMs intact bilaterally Neck full ROM, no meningeal signs and no JVD Chest Wall inspection of chest normal Resp normal respiratory effort, normal air movement and clear to auscultation bilaterally Cardio Rate: tachycardic Rhythm: abnormal rhythm irregularly irregular GI normal to inspection, nondistended, normoactive bowel sounds Extremity normal to inspection and full ROM General Extremety ED: Negative for edema General Extremity: Negative for edema Neuro oriented x3 and no focal motor deficits Sensorium / Orientation: alert Psych mental status grossly normal and thought process normal Skin no rashes or lesions noted and no wounds MDM MDM MDM Narrative Medical decision making narrative: . For hypotension and atrial fibrillation at his oncologist office. He is currently under treatment for a glioblastoma. Patient does have a history of atrial fibrillation but is no longer on any rate control medications or anticoagulation. The anticoagulation ending seems to be secondary to increased risk of bleeding associated with his chemotherapy. Is not entirely clear why he is no longer on rate medication. Patient has a soft blood pressure but is normotensive however he is in atrial fibrillation with RVR. Given the fact that he is not anticoagulated and he is mentating well I did not want to cardiovert him and risk him having a stroke. Patient is given 10 mg dose of IV Cardizem which does improve his rate. He does require drip of 5 mg an hour. Patient does have a mild elevation of his BNP but I suspect this is secondary to strain from his atrial fibrillation and not actual heart failure. He does not clinically appear fluid overloaded and actually appears more dehydrated. He is given IV fluids in the ER. Troponin is normal. He does have a mild leukocytosis of 11.4 but no obvious dorsal infection. I suspect this is more reactive from his chronic steroid use (Decadron). Patient will be admitted for further management of his blood pressure as well as atrial fibrillation. Patient and family are agreeable to splenic care. Lab Data Labs: Laboratory Results - last 24 hr 01/14/21 01/14/21 01/14/21 10:18 10:33 10:33 WBC 11.4 H RBC 4.29 L Hgb 13.7 Hct 41.6 MCV 97.0 H MCH 31.9 MCHC 32.9 RDW Std Deviation 49.3 H RDW Coeff of Dontae 14.4 Plt Count 263 MPV 9.4 Neut % (Auto) Not Reportable Absolute Neuts (auto) 8.3 H Absolute Lymphs (auto) 1.02 Total Counted 100 Neutrophils % (Manual) 71 H Band Neutrophils % 2 Lymphocytes % (Manual) 9 L Monocytes % (Manual) 15 H Metamyelocytes % 3 H Diff Path Review May foll Platelet Estimate ADEQUATE RBC Morphology NORM C+C Sodium 141 Potassium 3.7 Chloride 105 Carbon Dioxide 30.0 Anion Gap 6 BUN 16 Creatinine 0.94 Estim Creat Clear Calc 76.58 Est GFR (MDRD) Af Amer 102 Est GFR (MDRD) Non-Af 84 BUN/Creatinine Ratio 17.0 Glucose 114 H Calcium 9.1 Troponin I < 0.015 B-Natriuretic Peptide Urine Color Yellow Urine Clarity Clear Urine pH 7.0 Ur Specific [place] 1.010 Urine Protein 15 H Urine Glucose (UA) Normal Urine Ketones 15 H Urine Occult Blood Negative Urine Nitrite Negative Urine Bilirubin 1 H Urine Urobilinogen 8 H Ur Leukocyte Esterase 25 H Urine RBC 0 SEEN Urine WBC 0 SEEN Ur Squamous Epith Cells 0 SEEN Urine Bacteria 0 SEEN Urine Mucus 0 SEEN 01/14/21 10:33 WBC RBC Hgb Hct MCV MCH MCHC RDW Std Deviation RDW Coeff of Dontae Plt Count MPV Neut % (Auto) Absolute Neuts (auto) Absolute Lymphs (auto) Total Counted Neutrophils % (Manual) Band Neutrophils % Lymphocytes % (Manual) Monocytes % (Manual) Metamyelocytes % Diff Path Review Platelet Estimate RBC Morphology Sodium Potassium Chloride Carbon Dioxide Anion Gap BUN Creatinine Estim Creat Clear Calc Est GFR (MDRD) Af Amer Est GFR (MDRD) Non-Af BUN/Creatinine Ratio Glucose Calcium Troponin I B-Natriuretic Peptide 342.1 H Urine Color Urine Clarity Urine pH Ur Specific [place] Urine Protein Urine Glucose (UA) Urine Ketones Urine Occult Blood Urine Nitrite Urine Bilirubin Urine Urobilinogen Ur Leukocyte Esterase Urine RBC Urine WBC Ur Squamous Epith Cells Urine Bacteria Urine Mucus Radiography Chest X-Ray - ED: 1 View, Read by ED Physician, Read by Radiologist and No Acute Disease Diagnostic Testing: Radiology Impression Chest X-Ray 01/14/21 10:35 IMPRESSION: Mild increased markings at the left lung base suggestive of either linear atelectasis and/or scarring. Electronically Signed: Jona Gonzalez MD at 10:47 EDT , Service support , Venous Doppler Study 01/14/21 11:03 Interpretation Summary No evidence for acute deep venous thrombosis bilateral lower extremities with patent and compressible bilateral great saphenous veins. Ordering Physician: Dotty Burgos Referring Physician: Tyler Reyes Performed By: Alize Adhikari RVT Rhythm Strip Rhythm Strip: A-fib Rate: 139 Ectopy: None EKG Initial EKG: Attestation: I personally reviewed and interpreted this EKG as follows: Interpretation: Atrial Fibrillation Comments: Atrial fibrillation with RVR at a rate of 139 Borderline left axis Normal QTC and QRS Normal ST segments No change clear to prior EKG on 03/25/2020 Discharge Plan Triage Chief Complaint: Hypotension ED Provider: Dotty Burgos Dx/Rx/DC Orders Clinical Impression: Atrial fibrillation with rapid ventricular response, Dehydration Prescriptions: No Action acetaminophen 325 MG tablet 650 mg PO Q4H PRN (Reason: Pain Or Fever) RF: 0 ondansetron HCl 4 MG tablet 4 mg PO Q6H PRN (Reason: Nausea) RF: 0 sennosides-docusate sodium 1 EACH tablet 1 ea PO BID RF: 0 levetiracetam 1,000 MG tablet 1,000 mg PO BID RF: 0 acyclovir 400 mg tablet 400 mg PO BID RF: 0 dexamethasone 2 mg tablet 2 mg PO Q6H RF: 0 nystatin 100,000 unit/mL suspension 5 ml PO Q6H RF: 0 mirtazapine 15 mg tablet 15 mg PO QHS RF: 0 Primary Care Provider: Tyler Reyes Referrals: Tyler Reyes DO [Primary Care Provider] - Disposition Disposition: Acute Care Hospital [facility]
--- NOTE | 2021-01-14 11:03 | VDLE_ITS ---
Reason For Study: Edema RIGHT LEFT GSV is normal. GSV is normal. CFV is compressible, spontaneous, phasic, CFV is compressible, spontaneous, phasic, competent and demonstrates normal competent, and demonstrates normal augmentation. augmentation. FV is compressible, spontaneous, phasic, FV is compressible, spontaneous, phasic, competent and demonstrates normal competent and demonstrates normal augmentation. augmentation. POP V is compressible, spontaneous, phasic, POP V is compressible, spontaneous, phasic, competent and demonstrates normal competent and demonstrates normal augmentation. augmentation. T/P Trunk is compressible. T/P Trunk is compressible. PTV is compressible. PTV is compressible. RT PerV is compressible. LT PerV is compressible. Procedure This is a venous duplex using B-mode, color flow and spectral Doppler. Exam performed in department. A preliminary report was called and/or faxed to ED. VL/Venous Duplex US - Fab Extrem Interpretation Summary No evidence for acute deep venous thrombosis bilateral lower extremities with p atent and compressible bilateral great saphenous veins. Ordering Physician: Dotty Burgos Referring Physician: Tyler Reyes Performed By: Alize Adhikari RVT
[2021-01-14 11:04] LABS: White Blood Count 11.4 K/mm3 (4.4-11.0)
[2021-01-14 11:05] LABS: Absolute Lymphocyte Count 1.02 X10^3/uL (0.83-4.51); Absolute Neutrophil Count 8.3 X10^3/uL (2.0-7.7)
[2021-01-14 11:06] LABS: Platelet Estimate ADEQUATE (ADEQ)
[2021-01-14 11:07] LABS: Red Cell Morphology NORM C+C NORMAL (NORM C&C)
--- NOTE | 2021-01-14 13:08 | HP.PCM.HOS_ITS ---
[facility] - General General Date of Admission: 01/14/21 Date of Service: 01/14/21 Chief Complaint: Hypotension. [facility] Narrative MINA HOUSTON, is a 70 M with past medical history as mentioned above was referred to the emergency department from his oncologist office for A. fib with RVR as well as hypotension. Patient complained of generalized weakness that has been going on for several weeks but no other specific symptoms. He reported poor appetite and poor oral intake. He denied chest pain, shortness of breath, dizziness or lightheadedness. He denied syncope or presyncope. He denied fever or chills. He had a history of glioblastoma multiforme he status post resection on March, and he was started on chemotherapy with Avastin, last cycle was around 2 weeks ago. He had a history of seizure and he has been on Keppra and he has been stable. He had a history of chronic atrial fibrillation, was on Cardizem and metoprolol for rate control and he was on anticoagulation. Patient stated that one of his doctors took him off Cardizem and metoprolol and he is not sure when. Reportedly, he was taken off anticoagulation because he was started on Avastin and because he had brain surgery on March,. In the ED, blood pressure was as low as 85/59. Initial heart rate was up to 180s. Patient was in A. fib with RVR. Received IV Cardizem bolus and the slowed down to around 120s, blood pressure slightly improved. He has been afebrile, pulse ox is maintained on room air. Routine blood work was unremarkable except for mild leukocytosis. EKG revealed A. fib with RVR, heart rate was 139, no acute changes. Troponin was negative. BNP was 342. Chest x-ray showed no acute findings. Venous Doppler of both legs showed no evidence of DVT. He is being admitted for A. fib with RVR as well as hypotension. [facility] Medical History (Updated 01/14/21 @ 13:[address] Nolan Magaña MD) Atrial fibrillation Brain cancer Home Medications acetaminophen 650 mg PO Q4H PRN 03/25/20 [History Last Taken Unknown] levetiracetam 1,000 mg PO BID 03/25/20 [History Last Taken Unknown] ondansetron HCl 4 mg PO Q6H PRN 03/25/20 [History Last Taken Unknown] nystatin 5 ml PO Q6H 01/14/21 [History Last Taken Unknown] Allergy/AdvReac Type Severity Reaction Status Date / Time No Known Allergies Allergy Verified 01/14/21 10:25 no significant family history Surgical History (Updated 01/14/21 @ 13:[address] Nolan Magaña MD) H/O brain surgery Social History Smoking Status: Never smoker ROS Constitutional Constitutional: Reports anorexia, malaise and weakness; Denies chills, fatigue or fever(s) Eyes Eyes: Denies blurry vision, change in eye color, change in vision, double vision or eye pain ENT HEENT: Denies ear discharge, ear pain, epistaxis, headache(s), nasal congestion, post nasal drip or sore throat Cardiovascular Cardiovascular: Denies chest pain, dyspnea on exertion, edema, lightheadedness, orthopnea, palpitations, paroxysmal nocturnal dyspnea or syncope Respiratory/Chest Respiratory/Chest: Denies cough, dyspnea, hemoptysis, productive cough, shortness of breath with exertion or wheezing Gastrointestinal Gastrointestinal: Denies abdominal pain, constipation, diarrhea, hematemesis, hematochezia, melena, nausea or vomiting Genitourinary Genitourinary: Denies burning urination, dysuria, hematuria, urinary hesitancy or urinary urgency Musculoskeletal Musculoskeletal: Denies arthralgias, back pain, joint pain, joint swelling, myalgias or neck pain Neurologic Neurologic: Denies confusion, dizziness, focal weakness, headache(s), numbness, paresthesias, seizures, tingling, tremor(s) or vertigo Psychiatric Psychiatric: Denies anxiety, depression, hallucinations, homicidal ideation or suicidal ideation Endocrine Endocrinology: Denies change in body appearance, cold intolerance, heat intolerance, polydipsia or polyuria Hematologic/Lymphatic Hematologic/Lymphatic: Denies easy bleeding, easy bruising or lymphadenopathy Allergic/Immunologic Allergic/Immunologic: Denies itchy eyes, rhinitis, throat swelling, tongue swelling, hives, urticaria or wheezing Vital Signs Vital Signs Vital Signs: 01/14/21 09:37 01/14/21 09:39 01/14/21 10:21 Temperature 98.2 F 98.2 F Temperature Source Temporal Temporal Pulse Rate 42 L 140 H 180 H Respiratory Rate 24 H 19 H 28 H Respiratory Effort Respiratory Pattern Blood Pressure 102/54 L 108/90 H 108/90 H Blood Pressure Mean 70 96 96 Blood Pressure Source Blood Pressure Position Blood Pressure Location Pulse Ox 96 96 96 Oxygen Delivery Method Room Air Room Air Room Air 01/14/21 10:26 01/14/21 10:33 01/14/21 10:39 Temperature 98 F Temperature Source Temporal Pulse Rate 95 115 H Respiratory Rate 16 Respiratory Effort Normal Non-Labored Respiratory Pattern Normal Blood Pressure 85/59 L 99/75 Blood Pressure Mean 67 83 Blood Pressure Source Blood Pressure Position Blood Pressure Location Pulse Ox 98 Oxygen Delivery Method Room Air 01/14/21 11:00 01/14/21 11:55 01/14/21 12:00 Temperature 98 F 98.1 F Temperature Source Temporal Temporal Pulse Rate 112 H 122 H 119 H Respiratory Rate 16 15 Respiratory Effort Respiratory Pattern Blood Pressure 112/83 H 108/93 H 109/77 Blood Pressure Mean 92 98 87 Blood Pressure Source Monitor Blood Pressure Position Blood Pressure Location Pulse Ox 99 99 Oxygen Delivery Method Room Air Room Air 01/14/21 12:20 01/14/21 12:58 Temperature 98.1 F Temperature Source Temporal Pulse Rate 117 H 131 H Respiratory Rate 15 22 H Respiratory Effort Respiratory Pattern Blood Pressure 108/82 H 127/106 H Blood Pressure Mean 90 113 Blood Pressure Source Monitor Blood Pressure Position Semi-Fowlers Blood Pressure Location Left Arm Pulse Ox 99 99 Oxygen Delivery Method Room Air Room Air Weight Weight: 188 lb 7.924 oz Body Mass Index (BMI) 27.0 Physical Exam Const alert, oriented x3, no apparent distress and no limitations General Appearance: cooperative HEENT normocephalic, head/scalp atraumatic, external ears normal, external nose normal and moist oral mucous membranes Eyes PERRL, EOMs intact bilaterally, conjunctivae normal and no scleral icterus General Eye: normal appearance of both eyes Neck no lymphadenopathy, supple, no meningeal signs, no JVD and no carotid bruits Lymph Lymphatic: no lymphadenopathy noted Resp normal respiratory effort and normal air movement Resp Narrative: Diminished breath sounds bilateral, otherwise clear. Auscultation: Negative for crackles, rales, rhonchi or wheezes Cardio S1 normal heart sound, S2 normal heart sound, no murmurs and no JVD Cardio Narrative: Irregular rate and rhythm, tachycardia. GI normal to inspection, nondistended, normoactive bowel sounds, soft to palpation, non-tender and non-distended; Negative for hepatosplenomegaly Extremity normal to inspection, full ROM and no clubbing, cyanosis or edema Skin no rashes or lesions noted, no wounds and no petechiae Neuro oriented x3, CN's II-XII intact bilaterally and moves all extremities Sensorium / Orientation: alert Speech: speech normal Motor Exam: strength 5/5 throughout Psych mental status grossly normal, affect normal and denies hallucinations Results Lab / Micro Data Result Diagrams: 01/14/21 10:33 01/14/21 10:33 Labs: Laboratory Results - last 24 hr 01/14/21 01/14/21 01/14/21 10:18 10:33 10:33 WBC 11.4 H RBC 4.29 L Hgb 13.7 Hct 41.6 MCV 97.0 H MCH 31.9 MCHC 32.9 RDW Std Deviation 49.3 H RDW Coeff of Dontae 14.4 Plt Count 263 MPV 9.4 Neut % (Auto) Not Reportable Absolute Neuts (auto) 8.3 H Absolute Lymphs (auto) 1.02 Total Counted 100 Neutrophils % (Manual) 71 H Band Neutrophils % 2 Lymphocytes % (Manual) 9 L Monocytes % (Manual) 15 H Metamyelocytes % 3 H Diff Path Review May foll Platelet Estimate ADEQUATE RBC Morphology NORM C+C Sodium 141 Potassium 3.7 Chloride 105 Carbon Dioxide 30.0 Anion Gap 6 BUN 16 Creatinine 0.94 Estim Creat Clear Calc 76.58 Est GFR (MDRD) Af Amer 102 Est GFR (MDRD) Non-Af 84 BUN/Creatinine Ratio 17.0 Glucose 114 H Calcium 9.1 Troponin I < 0.015 B-Natriuretic Peptide Urine Color Yellow Urine Clarity Clear Urine pH 7.0 Ur Specific Mayflower 1.010 Urine Protein 15 H Urine Glucose (UA) Normal Urine Ketones 15 H Urine Occult Blood Negative Urine Nitrite Negative Urine Bilirubin 1 H Urine Urobilinogen 8 H Ur Leukocyte Esterase 25 H Urine RBC 0 SEEN Urine WBC 0 SEEN Ur Squamous Epith Cells 0 SEEN Urine Bacteria 0 SEEN Urine Mucus 0 SEEN 01/14/21 10:33 WBC RBC Hgb Hct MCV MCH MCHC RDW Std Deviation RDW Coeff of Dontae Plt Count MPV Neut % (Auto) Absolute Neuts (auto) Absolute Lymphs (auto) Total Counted Neutrophils % (Manual) Band Neutrophils % Lymphocytes % (Manual) Monocytes % (Manual) Metamyelocytes % Diff Path Review Platelet Estimate RBC Morphology Sodium Potassium Chloride Carbon Dioxide Anion Gap BUN Creatinine Estim Creat Clear Calc Est GFR (MDRD) Af Amer Est GFR (MDRD) Non-Af BUN/Creatinine Ratio Glucose Calcium Troponin I B-Natriuretic Peptide 342.1 H Urine Color Urine Clarity Urine pH Ur Specific Mayflower Urine Protein Urine Glucose (UA) Urine Ketones Urine Occult Blood Urine Nitrite Urine Bilirubin Urine Urobilinogen Ur Leukocyte Esterase Urine RBC Urine WBC Ur Squamous Epith Cells Urine Bacteria Urine Mucus Rhythm Strip Rhythm Strip: A-fib Rate: 139 Ectopy: None Radiology Impression Chest X-Ray 01/14/21 10:35 IMPRESSION: Mild increased markings at the left lung base suggestive of either linear atelectasis and/or scarring. Electronically Signed: Jona Gonzalez MD at 10:47 EDT , Service support , Venous Doppler Study 01/14/21 11:03 Interpretation Summary No evidence for acute deep venous thrombosis bilateral lower extremities with patent and compressible bilateral great saphenous veins. Ordering Physician: Dotty Burgos Referring Physician: Tyler Reyes Performed By: Alize Adhikari RVT Assessment & Plan Assessment/Plan (1) Hypotension: (2) Atrial fibrillation with rapid ventricular response: (3) Glioblastoma multiforme: (4) Non Hodgkin's lymphoma: (5) Chronic atrial fibrillation: (6) Brain tumor: (7) Seizure disorder: PLAN: This is a 70 years old male patient was sent from his oncologist office for A. fib with RVR and hypotension. #1 A. fib with RVR: In the setting of chronic A. fib. Patient was taken off Cardizem and metoprolol, he is not sure when and who took him off. Apparently, he was taken off anticoagulation because he was started on Avastin chemotherapy as well as brain surgery on March,. Received IV Cardizem bolus in the ED, and then started on IV Cardizem drip. Currently, heart rate is around 130s, blood pressure slightly improved compared to ED. EKG reviewed, A. fib with RVR, no acute acute changes. Troponin is negative. Plan: Admit to PCU, cardiac monitoring, continue Cardizem drip, start metoprolol 12.5 mg p.o. twice daily, check TSH, serum magnesium, check pro time and INR, Tylenol as needed, Zofran as needed, repeat CBC and BMP tomorrow morning, PT OT evaluation and treatment. #2 hypotension: Transient, improved with IV fluids in the ED. Patient reported poor appetite and poor oral intake. Plan: IV fluids if needed, monitor blood pressure, controlled A. fib. #3 history of brain tumor/glioblastoma multiforme: Status post brain surgery back in March,. Currently, he is on Avastin, last cycle was 2 weeks ago. He follows up with Dr. Reyes outpatient. #4 seizure disorder: Stable, continue Keppra twice daily. #5 DVT prophylaxis: Subcu Lovenox. This note was generated with [employer] dictation software. It may contain incorrect words, spelling, and punctuation that were not noted in checking the note before signing. Charges/Coding Visit Charges Inpatient E&M: 90392 Init Hosp L3
--- NOTE | 2021-01-14 14:17 | NURSING ---
Addendum entered by Maya Ramirez 01/14/21 14:30: Irene returned call to this RN. Confirmed that Dr Reyes decreased dose d/t Keppra level. Original Note: This RN called and spoke with Irene from Dr Reyes office. Clarified that pt is taking Keppra 500 mg BID but was previously prescribed 1000 mg BID. Nurse to speak with Dr Reyes for reasoning and return call to this RN. ALso clarified that patient is taking dexamethasone 2 mg daily.
[2021-01-14 14:26] LABS: Magnesium 2.2 mg/dL (1.6-2.6); Thyroid Stim Hormone (TSH) 2.54 uIU/mL (0.358-3.74)
[2021-01-14 14:53] LABS: International Normalized Ratio 1.2; Prothrombin Time (Protime)PT. 14.5 SECONDS (11.7-14.9)
--- NOTE | 2021-01-14 16:18 | CASEMGMT ---
Addendum entered by Macrina Cason 01/15/21 09:24: Earnestine Barrera [facility]: PH: FX: Original Note: RN JAZZ PIANO REGULATOR CM to room to meet with patient for initial transition planning/care coordination assessment. LONI SCHULZ introduced self and role at [facility].? Pt voices understanding and consents to assessment at this time.? Pt resting in bed in no distress at this time.? Pt is A/O at this time and answers all questions appropriately.?? Care providers, pharmacy, and demographics verified/updated at this time. PCP: Dr Donal Juarez Specialists: Dr Reyes- oncology, Dr Truman Lepe--neurosurgeon @ [facility]. Pt states he was seeing a ex chef in [place] but it has been about a year since his last appt and he does not remember the cardiologists name. Pt states he would like to get established w/a new ex chef. He was made aware of [facility] @ [facility] and he states he is interested in getting established w/them. ER note mentions t states he does not recall being active w/Palliative Care. Call placed to both [facility] in [place] and [facility] in [place]. Pt is not active w/either of them. Preferred Pharmacy: [facility] Retail Insurance: [employer] [facility] Prescription Benefit:? Yes Living Will/HPOA:? States he has both LW and Healthcare POA, who is his son, Stan Benton LNOK: Son/POA, Stan Benton. Daughter, Sally Lang. Living Arrangements: Pt states he goes back and forth staying at his home or at his ex-, Julisa's home, in [place]. Pt had surgery Mar, 2020 for glioblastoma @ [facility] and he needs assistance w/care/med mgtm/IADL's. Pt states he has a good support system. Pt states he can usually bath/dress himself but ex-, Julisa, assists as needed. Pt's son, Stan, and ROOSEVELT Brunner help manage pt's finances, med mgmt, and appts. Family does shopping for pt and Egan prepares meals and does most home mgmt tasks. Pt states he gives permission for medical information to be discussed with/given to his son, daughter, ROOSEVELT/Myesha, and ex-, Egan. Transportation: Family DME: ?States has the following DME:? shower chair, WW, glucometer. Pt states a W/C was scheduled to be delivered yesterday or today. ?Pt states no need for further DME at this time.? HHC/SNF: No hx of SNF. Is active w/[facility]. Call placed to [facility] and spoke w/Declan. She was made aware pt has been admitted to [facility]. She confirms [facility] and states pt has PT only but they can add SN if needed. Pt wishes to return home w/[facility] and states has no concerns with going home at time of discharge.? CM to follow for any discharge planning/needs.? Pt voices no further concerns/needs at this time.? Advised pt to ask for CM if any further questions/concerns/needs arise.? Voices understanding. Plan: Home w/Resumption of HHC: PT. May need to add SN. PT/OT rhys pending Katrina BLANCAN RN CM
[2021-01-14] MEDS: Metoprolol Tartrate 25 MG Tablet 12.5 MG PO (20:50)
[2021-01-14] MEDS: levETIRAcetam 500 MG Tablet PO (20:50)
[2021-01-15] VITALS (40 sets, daily range): BP systolic 83–170; BP diastolic 65–99; PULSE 70–113; RESP 14–24; TEMP 36–36.4; O2SAT 96–99
[2021-01-15 06:02] LABS: Hematocrit 38.1 % (40-54); Hemoglobin 12.5 g/dL (13.0-16.5); Mean Corp Hgb Conc 32.8 g/dL (32-36); Mean Corpuscular Hgb 31.8 pg (27.0-32.0); Mean Corpuscular Volume 96.9 fL (80-94); Mean Platelet Vol. 9.5 fl (6.2-12.0); POSITIVE COUNT YES; POSITIVE MORPHOLOGY YES; Platelet Count 207 K/mm3 (150-450); RBC Distribution Width CV 14.1 % (11.6-14.6); RBC Distribution Width SD 49.3 fl (35.1-43.9); Red Blood Count 3.93 M/mm3 (4.6-6.2); White Blood Count 9.7 K/mm3 (4.4-11.0)
[2021-01-15 06:04] LABS: Differential Indicated MANUAL DIFF
[2021-01-15 06:30] LABS: Anion Gap 6 (5-15); BUN 10 mg/dL (7-18); BUN/Creat Ratio 25.9 RATIO (10-20); Calcium,Total 8.2 mg/dL (8.5-10.1); Chloride 106 mmol/L (98-107); Creatinine, Serum 0.39 mg/dL (0.70-1.30); EST Glomerular Filtration Rate 236 mL/min (>60); Est Glom Filt Rate - Afr Amer 286 mL/min (>60); Estimated Creatinine Clearance 71.99 ml/min; Glucose 72 mg/dL (74-106); Potassium 3.4 mmol/L (3.5-5.1); Sodium Level 142 mmol/L (136-145)
[2021-01-15 06:44] LABS: Lymphocyte 6 % (19-41); Metamyelocyte 2 % (0-1); Monocyte 11 % (0-10); Neutrophil-Band 2 % (0-5); Neutrophil-Segmented 79 % (47-70); Total Cells Counted 100 (MANUAL DIFF)
[2021-01-15 06:45] LABS: Absolute Lymphocyte Count 0.58 X10^3/uL (0.83-4.51); Absolute Neutrophil Count 7.9 X10^3/uL (2.0-7.7); Lymphocyte # 0.58 X10^3/ul (0.83-4.51); Neutrophil # 7.87 X10^3/uL (2.7-7.7)
[2021-01-15 06:46] LABS: Platelet Estimate ADEQUATE (ADEQ); Red Cell Morphology NORM C+C NORMAL (NORM C&C)
[2021-01-15] MEDS: Potassium Chloride Oral Tablet 20 MEQ 40 MEQ PO (08:47)
[2021-01-15] MEDS: Enoxaparin 40 MG/0.4 ML Syringe SC (08:48)
[2021-01-15] MEDS: Metoprolol Tartrate 25 MG Tablet 12.5 MG PO (08:48)
[2021-01-15] MEDS: dilTIAZem CD 180 MG Capsule PO (08:48)
[2021-01-15] MEDS: dexAMETHasone 4 MG Tablet 2 MG PO (08:48)
[2021-01-15] MEDS: levETIRAcetam 500 MG Tablet PO ×2 (08:48→21:04)
--- NOTE | 2021-01-15 11:09 | PN.HOSP_ITS ---
Subjective Subjective Chief complaint: Follow-up after admission for A. fib with RVR and hypotension. Patient seen and examined. No acute events overnight. He denies any complaints. No chest pain or shortness of breath. Denied being dizzy or lightheaded. Remains in A. fib, heart rate has been around 80s, blood pressure improving. He has been afebrile, pulse ox is maintained on room air. Objective Data Objective Data Vital Signs: Vital Signs Temp Pulse Resp BP Pulse Ox 97.5 F L 82 20 H 90/67 96 01/15/21 11:00 01/15/21 11:00 01/15/21 11:00 01/15/21 11:00 01/15/21 11:00 Oxygen Delivery Method Room Air Weight: 188 lb 7.924 oz Body Mass Index (BMI) 27.0 Intake & Output: Intake and Output for Last 24 Hours 01/13/21 01/14/21 01/15/21 23:59 23:59 23:59 Intake Total 1391.41 / 1451.41 142.92 / 142.92 Balance 1391.41 / 1451.41 142.92 / 142.92 Lab / Micro Data Result Diagrams: 01/15/21 05:15 01/15/21 05:15 Labs: Laboratory Results - last 24 hr 01/14/21 01/14/21 01/15/21 10:32 14:30 05:15 WBC 9.7 RBC 3.93 L Hgb 12.5 L Hct 38.1 L MCV 96.9 H MCH 31.8 MCHC 32.8 RDW Std Deviation 49.3 H RDW Coeff of Dontae 14.1 Plt Count 207 MPV 9.5 Neut % (Auto) Not Reportable Absolute Neuts (auto) 7.9 H Absolute Lymphs (auto) 0.58 L Total Counted 100 Neutrophils % (Manual) 79 H Band Neutrophils % 2 Lymphocytes % (Manual) 6 L Monocytes % (Manual) 11 H Metamyelocytes % 2 H Diff Path Review May foll Platelet Estimate ADEQUATE RBC Morphology NORM C+C PT 14.5 INR 1.2 Sodium Potassium Chloride Carbon Dioxide Anion Gap BUN Creatinine Estim Creat Clear Calc Est GFR (MDRD) Af Amer Est GFR (MDRD) Non-Af BUN/Creatinine Ratio Glucose Calcium Magnesium 2.2 TSH 2.54 01/15/21 05:15 WBC RBC Hgb Hct MCV MCH MCHC RDW Std Deviation RDW Coeff of Dontae Plt Count MPV Neut % (Auto) Absolute Neuts (auto) Absolute Lymphs (auto) Total Counted Neutrophils % (Manual) Band Neutrophils % Lymphocytes % (Manual) Monocytes % (Manual) Metamyelocytes % Diff Path Review Platelet Estimate RBC Morphology PT INR Sodium 142 Potassium 3.4 L Chloride 106 Carbon Dioxide 30.0 Anion Gap 6 BUN 10 Creatinine 0.39 L Estim Creat Clear Calc 71.99 Est GFR (MDRD) Af Amer 286 Est GFR (MDRD) Non-Af 236 BUN/Creatinine Ratio 25.9 H Glucose 72 L Calcium 8.2 L Magnesium TSH Radiography Diagnostic Testing: Radiology Impression Chest X-Ray 01/14/21 10:35 IMPRESSION: Mild increased markings at the left lung base suggestive of either linear atelectasis and/or scarring. Electronically Signed: Jona Gonzalez MD at 10:47 EDT , Service support , Venous Doppler Study 01/14/21 11:03 Interpretation Summary No evidence for acute deep venous thrombosis bilateral lower extremities with patent and compressible bilateral great saphenous veins. Ordering Physician: Dotty Burgos Referring Physician: Tyler Reyes Performed By: Alize Adhikari RVT Rhythm Strip Rhythm Strip: A-fib Rate: 139 Ectopy: None Physical Exam Const alert, oriented x3, no apparent distress and no limitations General Appearance: cooperative HEENT normocephalic, head/scalp atraumatic, external ears normal, external nose normal and moist oral mucous membranes Eyes PERRL, EOMs intact bilaterally, conjunctivae normal and no scleral icterus General Eye: normal appearance of both eyes Neck no lymphadenopathy, supple, no meningeal signs, no JVD and no carotid bruits Lymph Lymphatic: no lymphadenopathy noted Resp normal respiratory effort, normal air movement and clear to auscultation b ilaterally Auscultation: Negative for crackles, rales, rhonchi or wheezes Cardio S1 normal heart sound, S2 normal heart sound, no murmurs and no JVD Cardio Narrative: Irregular rate and rhythm. GI normal to inspection, nondistended, normoactive bowel sounds, soft to palpation, non-tender and non-distended; Negative for hepatosplenomegaly Extremity normal to inspection and full ROM Extremity Narrative: Trace edema, no clubbing or cyanosis. Skin no rashes or lesions noted, no wounds and no petechiae Neuro oriented x3, CN's II-XII intact bilaterally and moves all extremities Sensorium / Orientation: alert Motor Exam: strength 5/5 throughout Psych mental status grossly normal, affect normal and denies hallucinations Assessment & Plan Assessment/Plan (1) Hypotension: (2) Atrial fibrillation with rapid ventricular response: (3) Glioblastoma multiforme: (4) Chronic atrial fibrillation: (5) Brain tumor: (6) Seizure disorder: PLAN: This is a 70 years old male patient was sent from his oncologist office for A. fib with RVR and hypotension. #1 A. fib with RVR: Remained on IV Cardizem drip and p.o. metoprolol, heart rate is down to 80s, blood pressure is getting better. Today, serum potassium is 3.4. Serum magnesium and TSH were normal. Apparently, he was taken off anticoagulation because he was started on Avastin chemotherapy as well as brain surgery on March,. Plan: Wean down IV Cardizem drip, start p.o. Cardizem CD, continue metoprolol twice daily, ambulate. #2 hypotension: Today blood pressure improved. We need to monitor blood pressure closely after starting Cardizem CD and metoprolol. If blood pressure dropped again, we may need to start patient on amiodarone for rate control. #3 history of brain tumor/glioblastoma multiforme: Status post brain surgery back in March,. Currently, he is on Avastin, last cycle was 2 weeks ago. He follows up with Dr. Reyes outpatient. #4 seizure disorder: Stable, continue Keppra twice daily. #5 DVT prophylaxis: Subcu Lovenox. This note was generated with [employer] dictation software. It may contain incorrect words, spelling, and punctuation that were not noted in checking the note before signing. Charges/Coding Visit Charges Inpatient E&M: 32981 Subs Hosp L2
[2021-01-15 11:57] LABS: Pathologist Review Reviewed
[2021-01-15 12:00] LABS: Pathologist Review Reviewed
--- NOTE | 2021-01-15 13:34 | CASEMGMT ---
LONI SCHULZ NOTE: Per therapy, [facility] appropriate for pt. LONI SCHULZ to room. Pt states he is interested in having SN for HHC as well. Call placed to Declan and she was made aware to add SN. Order placed. Green sheet placed on chart w/instructions for notifying [facility] @ discharge. Katrina JO RN, CM
--- NOTE | 2021-01-15 15:10 | ECHOCS_ITS ---
Reason For Study: Afib/Flutter Procedure This was a 2D Doppler, Color Flow transthoracic echocardiogram. The study was technically difficult. Contrast injection was performed. Exam performed portable in patient room. Left Ventricle Mildly dilated left ventricle. The estimated ejection fraction is EF 50-55% %. Right Ventricle Normal right ventricle. Normal systolic function. Atria The left atrium is moderately enlarged. The right atrium is mildly enlarged. Mitral Valve The mitral valve is structurally normal. No prolapse or stenosis seen. Mild (1+) mitral valve insufficiency. Tricuspid Valve Normal tricuspid valve. Mild tricuspid valve insufficiency. Aortic Valve Normal aortic valve. Pulmonic Valve The pulmonic valve is not well visualized. Great Vessels Normal aortic root. Pericardium/Pleural No pericardial effusion. Medication Diluted definity 4ml given slow IV push to enhance endocardial definition. MMode/2D Measurements & Calculations LVIDd: 4.1 cm IVSd: 1.00 cm LA dimension: 4.8 cm LVIDs: 3.3 cm LVPWd: 0.88 cm FS: 19.7 % LAV(MOD-sp4): 91.3 ml LA A4 area: 26.4 cm2 RA A4 area: 16.4 cm2 Doppler Measurements & Calculations MV E max desiree: 81.5 cm/sec Ao V2 max: 69.5 cm/sec LV V1 max: 50.3 cm/sec Ao max P.0 mmHg LV V1 max P.0 mmHg PA V2 max: 56.6 cm/sec TR max desiree: 251.3 cm/sec TR max P.3 mmHg ECHO/Echo Complete W/ Contrast Interpretation Summary Cardiac rhythm Atrial fbrillation The estimated ejection fraction is EF 50-55%. Normal LV systolic function Mild-moderate MR Mild TR Ordering Physician: Nolan Magaña Referring Physician: Donal Juarez Performed By: Reagan Hinkle RCS
[2021-01-15] MEDS: Amiodarone 360 MG in Dextrose 5% Viaflo Bag 192.8 ML 16.7 MG CONT INF (15:56)
--- NOTE | 2021-01-15 16:09 | PCM.CONS.C ---
Assessment & Plan Assessment/Plan (1) Atrial fibrillation with rapid ventricular response: PLAN: This patient 70-year-old with history of glioblastoma multiform a treated surgically in March 2020 Has chronic atrial fibrillation He is alert orientated surveillance monitor showed underlying A. fib with RVR. Plan recommendation 1. Discussed risk of stroke based on [id number] Continue on IV amiodarone and start on the anticoagulation Echocardiogram to evaluate, LV systolic function (2) Hypotension: (3) Glioblastoma multiforme: (4) Non Hodgkin's lymphoma: (5) Brain tumor: (6) Seizure disorder: (7) Chronic atrial fibrillation: HPI Consult Data Date of Consult: 01/15/21 HPI Narrative Reason for Consultation: Patient is A. fib and RVR/hypotension HPI Narrative: MINA HOUSTON, is a 70 M who presents [facility] Medical History (Updated 01/14/21 @ 13:[address] Nolan Magaña MD) Atrial fibrillation Brain cancer Home Medications acetaminophen 650 mg PO Q4H PRN 03/25/20 [History Last Taken Unknown] levetiracetam 500 mg PO BID 03/25/20 [History Last Taken 01/14/21] ondansetron HCl 4 mg PO Q6H PRN 03/25/20 [History Last Taken Unknown] acyclovir 400 mg PO BID 01/14/21 [History Last Taken 01/14/21] dexamethasone 2 mg PO DAILY 01/14/21 [History Last Taken 01/14/21] mirtazapine 15 mg PO QHS 01/14/21 [History Last Taken 01/13/21] nystatin 5 ml PO Q6H 01/14/21 [History Last Taken Unknown] sodium citrate dihydrate 230 mg PO/SL BID PRN PRN 01/14/21 [History Last Taken Unknown] Allergy/AdvReac Type Severity Reaction Status Date / Time No Known Allergies Allergy Verified 01/14/21 10:25 Surgical History (Updated 01/14/21 @ 13:[address] Nolan Magaña MD) H/O brain surgery Social History Smoking Status: Never smoker Physical Exam Narrative This patient seen and evaluated today at bedside with the nursing staff Alert orientated Patient had a history of glioblastoma multiform with surgical resection in March 2020 Has chronic atrial fibrillation and he was off anticoagulation Cardiac exam; Cardiac rhythm is A. fib with RVR S1-S2 is regular, no murmur no systolic or diastolic murmur, no pericardial rub. Chest examination minimal bilateral basilar rales Examination lower extremity with no lower extremity edema, no clubbing or cyanosis. Central nervous system exam; No focal neurological deficit. Objective Data Vital Signs: Vital Signs Temp Pulse Resp BP Pulse Ox 96.9 F L 92 24 H 94/74 96 01/15/21 15:56 01/15/21 15:56 01/15/21 15:56 01/15/21 15:56 01/15/21 15:56 Oxygen Delivery Method Room Air Weight: 188 lb 7.924 oz Body Mass Index (BMI) 27.0 Intake & Output: Intake and Output for Last 24 Hours 01/13/21 01/14/21 01/15/21 23:59 23:59 23:59 Intake Total 1391.41 / 1451.41 502.92 / 502.92 Balance 1391.41 / 1451.41 502.92 / 502.92 Lab / Micro Data Result Diagrams: 01/15/21 05:15 01/15/21 05:15 Labs: Laboratory Results - last 24 hr 01/14/21 01/15/21 01/15/21 10:33 05:15 05:15 WBC 9.7 RBC 3.93 L Hgb 12.5 L Hct 38.1 L MCV 96.9 H MCH 31.8 MCHC 32.8 RDW Std Deviation 49.3 H RDW Coeff of Dontae 14.1 Plt Count 207 MPV 9.5 Neut % (Auto) Not Reportable Absolute Neuts (auto) 7.9 H Absolute Lymphs (auto) 0.58 L Total Counted 100 Neutrophils % (Manual) 79 H Band Neutrophils % 2 Lymphocytes % (Manual) 6 L Monocytes % (Manual) 11 H Metamyelocytes % 2 H Diff Path Review Reviewed Reviewed Platelet Estimate ADEQUATE RBC Morphology NORM C+C Sodium 142 Potassium 3.4 L Chloride 106 Carbon Dioxide 30.0 Anion Gap 6 BUN 10 Creatinine 0.39 L Estim Creat Clear Calc 71.99 Est GFR (MDRD) Af Amer 286 Est GFR (MDRD) Non-Af 236 BUN/Creatinine Ratio 25.9 H Glucose 72 L Calcium 8.2 L Rhythm Strip Rhythm Strip: A-fib Rate: 139 Ectopy: None Cardiology Labs/Tests 01/15/21 05:15: WBC 9.7, RBC 3.93 L, Hgb 12.5 L, Hct 38.1 L, MCV 96.9 H, MCH 31.8, MCHC 32.8, Plt Count 207, MPV 9.5, Neut % (Auto) Not Reportable, Absolute Neuts (auto) 7.9 H, Total Counted 100, Neutrophils % (Manual) 79 H, Band Neutrophils % 2, Lymphocytes % (Manual) 6 L, Monocytes % (Manual) 11 H, Metamyelocytes % 2 H 01/15/21 05:15: Sodium 142, Potassium 3.4 L, Chloride 106, Carbon Dioxide 30.0, Anion Gap 6, BUN 10, Creatinine 0.39 L, Est GFR (MDRD) Af Amer 286, Est GFR (MDRD) Non-Af 236, BUN/Creatinine Ratio 25.9 H, Glucose 72 L, Calcium 8.2 L Rhythm: A. fib with RVR EKG: Atrial fibrillation
[2021-01-15] MEDS: APIXABAN 5 MG TABLET PO (21:04)
[2021-01-16] VITALS (32 sets, daily range): BP systolic 91–132; BP diastolic 69–95; PULSE 90–126; RESP 14–22; TEMP 36–36.6; O2SAT 93–100
[2021-01-16] MEDS: Amiodarone 360 MG in Dextrose 5% Viaflo Bag 192.8 ML 16.7 MG CONT INF ×2 (03:27→15:29)
[2021-01-16] MEDS: dexAMETHasone 4 MG Tablet 2 MG PO (08:01)
--- NOTE | 2021-01-16 08:31 | PN.HOSP_ITS ---
Subjective Subjective Chief complaint: Follow-up after admission for A. fib with RVR and hypotension. Patient seen and examined. No acute events overnight. He denies any complaints. He was started on IV amiodarone drip yesterday because of low blood pressure. He remains on IV amiodarone drip today. Heart rate still in the 120s, blood pressure stable. Patient is asymptomatic. Other vital signs are stable. Objective Data Objective Data Vital Signs: Vital Signs Temp Pulse Resp BP Pulse Ox 97.5 F L 117 H 20 H 126/85 H 100 01/16/21 08:00 01/16/21 08:00 01/16/21 08:00 01/16/21 08:00 01/16/21 08:00 Oxygen Delivery Method Room Air Weight: 188 lb 7.924 oz Body Mass Index (BMI) 27.0 Intake & Output: Intake and Output for Last 24 Hours 01/14/21 01/15/21 01/16/21 23:59 23:59 23:59 Intake Total 1391.41 / 1451.41 1220.94 / 1237.64 270.31 / 270.31 Balance 1391.41 / 1451.41 1220.94 / 1237.64 270.31 / 270.31 Lab / Micro Data Result Diagrams: 01/15/21 05:15 01/15/21 05:15 Labs: Laboratory Results - last 24 hr 01/14/21 01/15/21 10:33 05:15 Diff Path Review Reviewed Reviewed Radiography Diagnostic Testing: Radiology Impression Echocardiogram 01/15/21 15:10 Interpretation Summary Cardiac rhythm Atrial fbrillation The estimated ejection fraction is EF 50-55%. Normal LV systolic function Mild-moderate MR Mild TR Ordering Physician: Nolan Magaña Referring Physician: Donal Juarez Performed By: Brodwolf, Reagan, RCS Rhythm Strip Rhythm Strip: A-fib Rate: 139 Ectopy: None Physical Exam Const alert, oriented x3, no apparent distress and no limitations General Appearance: cooperative HEENT normocephalic, head/scalp atraumatic and moist oral mucous membranes Eyes PERRL, EOMs intact bilaterally, conjunctivae normal and no scleral icterus Neck no lymphadenopathy, supple, no meningeal signs, no JVD and no carotid bruits Lymph Lymphatic: no lymphadenopathy noted Resp normal respiratory effort, normal air movement and clear to auscultation melvi aterally Auscultation: Negative for crackles, rales, rhonchi or wheezes Cardio S1 normal heart sound, S2 normal heart sound, no murmurs and no JVD Cardio Narrative: Irregular rate and rhythm. Rate: tachycardic GI normal to inspection, nondistended, normoactive bowel sounds, soft to palpation, non-tender and non-distended; Negative for hepatosplenomegaly Extremity normal to inspection and full ROM Extremity Narrative: Trace edema. Skin no rashes or lesions noted, no wounds and no petechiae Neuro oriented x3, CN's II-XII intact bilaterally and moves all extremities Sensorium / Orientation: alert Speech: speech normal Motor Exam: strength 5/5 throughout Psych mental status grossly normal, affect normal and speech normal Appearance: appropriate Assessment & Plan Assessment/Plan (1) Hypotension: (2) Atrial fibrillation with rapid ventricular response: (3) Glioblastoma multiforme: (4) Chronic atrial fibrillation: (5) Seizure disorder: PLAN: This is a 70 years old male patient was sent from his oncologist office for A. fib with RVR and hypotension. #1 A. fib with RVR: Started on IV amiodarone drip because of hypotension. P.o. Cardizem CD and metoprolol continued. He remained in A. fib with RVR, heart rate has been in 120s, blood pressure improved. Patient is asymptomatic. I spoke to Dr. Reyes because patient claimed that Dr. Saunders she stopped his Eliquis and document she stated that he did not stop his Eliquis and is not sure why patient stopped taking it. Dr. Saunders she stated there is no indication to restart Eliquis. 2D echocardiogram revealed ejection fraction of 50 to 55%, mild to moderate MR, mild TR. Cardiology on the case. Plan to continue same treatment, repeat CBC and BMP tomorrow morning. #2 hypotension: Currently, patient is on IV amiodarone drip. After stopping Cardizem CD and metoprolol, blood pressure improved. Plan as above. #3 history of brain tumor/glioblastoma multiforme: Status post brain surgery back in March,. Currently, he is on Avastin, last cycle was 2 weeks ago. He follows up with Dr. Reyes outpatient. Continue Decadron. #4 seizure disorder: Stable, continue Keppra twice daily. #5 DVT prophylaxis: Subcu Lovenox. This note was generated with [employer] dictation software. It may contain incorrect words, spelling, and punctuation that were not noted in checking the note before signing. Charges/Coding Visit Charges Inpatient E&M: 12021 Subs Hosp L2
[2021-01-16] MEDS: levETIRAcetam 500 MG Tablet PO ×2 (09:25→21:05)
[2021-01-16] MEDS: APIXABAN 5 MG TABLET PO ×2 (09:26→21:06)
[2021-01-16] MEDS: Metoprolol Tartrate 25 MG Tablet PO ×2 (12:42→21:05)
[2021-01-17] VITALS (26 sets, daily range): BP systolic 82–128; BP diastolic 66–102; PULSE 90–117; RESP 13–22; TEMP 36.4–36.6; O2SAT 94–100
[2021-01-17] MEDS: Amiodarone 360 MG in Dextrose 5% Viaflo Bag 192.8 ML 16.7 MG CONT INF (03:14)
[2021-01-17 06:52] LABS: Hematocrit 38.4 % (40-54); Hemoglobin 12.4 g/dL (13.0-16.5); Mean Corp Hgb Conc 32.3 g/dL (32-36); Mean Corpuscular Hgb 31.6 pg (27.0-32.0); Mean Platelet Vol. 9.9 fl (6.2-12.0); POSITIVE COUNT YES; POSITIVE MORPHOLOGY YES; Platelet Count 257 K/mm3 (150-450); RBC Distribution Width CV 14.6 % (11.6-14.6); RBC Distribution Width SD 50.4 fl (35.1-43.9); Red Blood Count 3.92 M/mm3 (4.6-6.2); White Blood Count 11.8 K/mm3 (4.4-11.0)
[2021-01-17 07:01] LABS: Differential Indicated MANUAL DIFF
[2021-01-17 07:16] LABS: Anion Gap 5 (5-15); BUN 13 mg/dL (7-18); BUN/Creat Ratio 20.9 RATIO (10-20); Calcium,Total 8.2 mg/dL (8.5-10.1); Chloride 106 mmol/L (98-107); Creatinine, Serum 0.62 mg/dL (0.70-1.30); EST Glomerular Filtration Rate 136 mL/min (>60); Est Glom Filt Rate - Afr Amer 165 mL/min (>60); Estimated Creatinine Clearance 71.99 ml/min; Glucose 86 mg/dL (74-106); Potassium 4.2 mmol/L (3.5-5.1); Sodium Level 141 mmol/L (136-145)
[2021-01-17] MEDS: dexAMETHasone 4 MG Tablet 2 MG PO (07:28)
[2021-01-17 07:32] LABS: Lymphocyte 10 % (19-41); Metamyelocyte 2 % (0-1); Monocyte 4 % (0-10); Neutrophil-Band 3 % (0-5); Neutrophil-Segmented 81 % (47-70); Platelet Estimate ADEQUATE (ADEQ); Red Cell Morphology NORM C+C NORMAL (NORM C&C); Total Cells Counted 100 (MANUAL DIFF)
[2021-01-17 07:33] LABS: Absolute Lymphocyte Count 1.17 X10^3/uL (0.83-4.51); Absolute Neutrophil Count 9.9 X10^3/uL (2.0-7.7); Lymphocyte # 1.17 X10^3/ul (0.83-4.51); Neutrophil # 9.87 X10^3/uL (2.7-7.7)
--- NOTE | 2021-01-17 07:59 | PN.HOSP_ITS ---
Subjective Subjective Chief complaint: Follow-up after admission for A. fib with RVR and hypotension. Patient seen and examined. No acute events overnight. He remains on IV amiodarone drip, heart rate is down to 90s but goes up up to 110 up on ambulation. Blood pressure stabilized. He has no complaints. Other vital signs are stable. Objective Data Objective Data Vital Signs: Vital Signs Temp Pulse Resp BP Pulse Ox 97.6 F L 90 13 116/90 H 95 01/17/21 05:00 01/17/21 07:03 01/17/21 07:03 01/17/21 07:03 01/17/21 07:03 Oxygen Flow Rate (L/min) 3 Oxygen Delivery Method Room Air Weight: 188 lb 7.924 oz Body Mass Index (BMI) 27.0 Intake & Output: Intake and Output for Last 24 Hours 01/15/21 01/16/21 01/17/21 23:59 23:59 23:59 Intake Total 1220.94 / 1237.64 1039.85 / 1056.55 198.21 / 198.21 Balance 1220.94 / 1237.64 1039.85 / 1056.55 198.21 / 198.21 Lab / Micro Data Result Diagrams: 01/17/21 05:45 01/17/21 05:45 Labs: Laboratory Results - last 24 hr 01/17/21 01/17/21 05:45 05:45 WBC 11.8 H RBC 3.92 L Hgb 12.4 L Hct 38.4 L MCV 98.0 H MCH 31.6 MCHC 32.3 RDW Std Deviation 50.4 H RDW Coeff of Dontae 14.6 Plt Count 257 MPV 9.9 Neut % (Auto) Not Reportable Absolute Neuts (auto) 9.9 H Absolute Lymphs (auto) 1.17 Total Counted 100 Neutrophils % (Manual) 81 H Band Neutrophils % 3 Lymphocytes % (Manual) 10 L Monocytes % (Manual) 4 Metamyelocytes % 2 H Diff Path Review May foll Platelet Estimate ADEQUATE RBC Morphology NORM C+C Sodium 141 Potassium 4.2 Chloride 106 Carbon Dioxide 30.0 Anion Gap 5 BUN 13 Creatinine 0.62 L Estim Creat Clear Calc 71.99 Est GFR (MDRD) Af Amer 165 Est GFR (MDRD) Non-Af 136 BUN/Creatinine Ratio 20.9 H Glucose 86 Calcium 8.2 L Rhythm Strip Rhythm Strip: A-fib Rate: 139 Ectopy: None Physical Exam Const alert, oriented x3, no apparent distress and no limitations General Appearance: cooperative HEENT normocephalic, head/scalp atraumatic, external ears normal and external nose normal Eyes PERRL, EOMs intact bilaterally, conjunctivae normal and no scleral icterus General Eye: normal appearance of both eyes Neck no lymphadenopathy, supple, no meningeal signs, no JVD and no carotid bruits Lymph Lymphatic: no lymphadenopathy noted Resp normal respiratory effort, normal air movement and clear to auscultation bilaterally Resp Narrative: Diminished breath sounds bilateral, otherwise clear. Auscultation: Negative for crackles, rales, rhonchi or wheezes Cardio S1 normal heart sound, S2 normal heart sound, no murmurs and no JVD Cardio Narrative: Irregular rate and rhythm. GI normal to inspection, nondistended, normoactive bowel sounds, soft to palpation, non-tender and non-distended; Negative for hepatosplenomegaly Extremity normal to inspection and full ROM Extremity Narrative: Trace edema, no clubbing or cyanosis. Skin no rashes or lesions noted, no wounds and no petechiae Neuro oriented x3, CN's II-XII intact bilaterally and moves all extremities Sensorium / Orientation: alert Speech: speech normal Motor Exam: strength 5/5 throughout Psych mental status grossly normal and affect normal Appearance: appropriate Assessment & Plan Assessment/Plan (1) Hypotension: (2) Atrial fibrillation with rapid ventricular response: (3) Glioblastoma multiforme: (4) Chronic atrial fibrillation: (5) Seizure disorder: PLAN: This is a 70 years old male patient was sent from his oncologist office for A. fib with RVR and hypotension. #1 A. fib with RVR: Remains on IV amiodarone drip and p.o. metoprolol. He is on Eliquis for anticoagulation. Heart rate is down to 90s to 100. Blood pressure stable. 2D echocardiogram revealed ejection fraction of 50 to 55%, mild to moderate MR, mild TR. Cardiology on the case. Plan to continue same treatment, may need to switch amiodarone to p.o. #2 hypotension: Blood pressure stabilized, improved. Patient remains on IV amiodarone drip and p.o. metoprolol. Plan as above. #3 history of brain tumor/glioblastoma multiforme: Status post brain surgery back in March,. Currently, he is on Avastin, last cycle was 2 weeks ago. He follows up with Dr. Reyes outpatient. Continue Decadron. #4 seizure disorder: Stable, continue Keppra twice daily. #5 DVT prophylaxis: Subcu Lovenox. This note was generated with [employer] dictation software. It may contain incorrect words, spelling, and punctuation that were not noted in checking the note before signing. Charges/Coding Visit Charges Inpatient E&M: 45045 Subs Hosp L2
[2021-01-17] MEDS: APIXABAN 5 MG TABLET PO ×2 (09:09→21:26)
[2021-01-17] MEDS: levETIRAcetam 500 MG Tablet PO ×2 (09:09→21:26)
[2021-01-17] MEDS: Metoprolol Tartrate 25 MG Tablet PO (09:09)
--- NOTE | 2021-01-17 12:43 | PN.CARD_ITS ---
Subjective Subjective Discussed all cardiac medications with the nursing staff Still has underlying atrial fibrillation no symptoms reported. Objective Data Vital Signs: Vital Signs Temp Pulse Resp BP Pulse Ox 97.6 F L 95 20 H 87/66 L 95 01/17/21 05:00 01/17/21 12:00 01/17/21 12:00 01/17/21 12:00 01/17/21 12:00 Oxygen Flow Rate (L/min) 3 Oxygen Delivery Method Room Air Weight: 188 lb 7.924 oz Body Mass Index (BMI) 27.0 Intake & Output: Intake and Output for Last 24 Hours 01/15/21 01/16/21 01/17/21 23:59 23:59 23:59 Intake Total 1220.94 / 1237.64 1039.85 / 1056.55 680.88 / 680.88 Balance 1220.94 / 1237.64 1039.85 / 1056.55 680.88 / 680.88 Lab / Micro Data Result Diagrams: 01/17/21 05:45 01/17/21 05:45 Labs: Laboratory Results - last 24 hr 01/17/21 01/17/21 05:45 05:45 WBC 11.8 H RBC 3.92 L Hgb 12.4 L Hct 38.4 L MCV 98.0 H MCH 31.6 MCHC 32.3 RDW Std Deviation 50.4 H RDW Coeff of Dontae 14.6 Plt Count 257 MPV 9.9 Neut % (Auto) Not Reportable Absolute Neuts (auto) 9.9 H Absolute Lymphs (auto) 1.17 Total Counted 100 Neutrophils % (Manual) 81 H Band Neutrophils % 3 Lymphocytes % (Manual) 10 L Monocytes % (Manual) 4 Metamyelocytes % 2 H Diff Path Review May foll Platelet Estimate ADEQUATE RBC Morphology NORM C+C Sodium 141 Potassium 4.2 Chloride 106 Carbon Dioxide 30.0 Anion Gap 5 BUN 13 Creatinine 0.62 L Estim Creat Clear Calc 71.99 Est GFR (MDRD) Af Amer 165 Est GFR (MDRD) Non-Af 136 BUN/Creatinine Ratio 20.9 H Glucose 86 Calcium 8.2 L Rhythm Strip Rhythm Strip: A-fib Rate: 139 Ectopy: None Cardiology Labs/Tests 01/17/21 05:45: WBC 11.8 H, RBC 3.92 L, Hgb 12.4 L, Hct 38.4 L, MCV 98.0 H, MCH 31.6, MCHC 32.3, Plt Count 257, MPV 9.9, Neut % (Auto) Not Reportable, Absolute Neuts (auto) 9.9 H, Total Counted 100, Neutrophils % (Manual) 81 H, Band Neutrophils % 3, Lymphocytes % (Manual) 10 L, Monocytes % (Manual) 4, Metamyelocytes % 2 H 01/17/21 05:45: Sodium 141, Potassium 4.2, Chloride 106, Carbon Dioxide 30.0, Anion Gap 5, BUN 13, Creatinine 0.62 L, Est GFR (MDRD) Af Amer 165, Est GFR (MDRD) Non-Af 136, BUN/Creatinine Ratio 20.9 H, Glucose 86, Calcium 8.2 L Rhythm: Reviewed cardiac exercise physiologist showed underlying atrial fibrillation with variable ventricular rate Physical Exam Narrative air sampling and monitoring showed A. fib with variable ventricular rate Cardiac exam S1-S2 is irregular, no murmur no systolic or diastolic murmur Chest examination minimal bilateral basilar rales Rest of physical exam is unremarkable Assessment & Plan Assessment/Plan (1) Atrial fibrillation with rapid ventricular response: PLAN: This patient is 70-year-old with glioblastoma multiforme E and had a chronic atrial fibrillation Admitted with hypotension with A. fib and rapid ventricular rate Current medication reviewed Plan and recommendation; 1. Change to p.o. amiodarone 2. Decrease the dose of beta-jaspreet metoprolol tartrate to 12.5 twice daily as tolerated patient is still having hypotension 3. Added digoxin to the current treatment 6. 4 continue anticoagulation with Eliquis 7. We will follow-up for continuation of cardiac care. (2) Glioblastoma multiforme: (3) Chronic atrial fibrillation: (4) Seizure disorder:
[2021-01-17] MEDS: Digoxin 250 MCG Tablet PO (12:45)
[2021-01-17] MEDS: Amiodarone 200 MG Tablet PO ×2 (12:45→21:26)
[2021-01-17] MEDS: Metoprolol Tartrate 25 MG Tablet 12.5 MG PO (21:25)
[2021-01-18] VITALS (7 sets, daily range): BP systolic 103–118; BP diastolic 71–85; PULSE 84–113; RESP 14–16; TEMP 36.3–36.8; O2SAT 95–96
--- NOTE | 2021-01-18 07:12 | PN.CARD_ITS ---
Subjective Subjective Patient seen and evaluated. Appears to be fairly stable at this time. Objective Data Vital Signs: Vital Signs Temp Pulse Resp BP Pulse Ox 97.5 F L 101 H 16 103/78 95 01/18/21 03:45 01/18/21 03:45 01/18/21 03:45 01/18/21 03:45 01/18/21 03:45 Oxygen Flow Rate (L/min) 3 Oxygen Delivery Method Room Air Weight: 188 lb 7.924 oz Body Mass Index (BMI) 27.0 Intake & Output: Intake and Output for Last 24 Hours 01/16/21 01/17/21 01/18/21 23:59 23:59 23:59 Intake Total 1039.85 / 1056.55 1112.89 / 1232.89 120 / 120 Output Total 0 / 0 Balance 1039.85 / 1056.55 1112.89 / 1232.89 120 / 120 Lab / Micro Data Result Diagrams: 01/17/21 05:45 01/17/21 05:45 Labs: Laboratory Results - last 24 hr 01/17/21 01/17/21 05:45 05:45 Absolute Neuts (auto) 9.9 H Absolute Lymphs (auto) 1.17 Total Counted 100 Neutrophils % (Manual) 81 H Band Neutrophils % 3 Lymphocytes % (Manual) 10 L Monocytes % (Manual) 4 Metamyelocytes % 2 H Diff Path Review May foll Platelet Estimate ADEQUATE RBC Morphology NORM C+C Sodium 141 Potassium 4.2 Chloride 106 Carbon Dioxide 30.0 Anion Gap 5 BUN 13 Creatinine 0.62 L Estim Creat Clear Calc 71.99 Est GFR (MDRD) Af Amer 165 Est GFR (MDRD) Non-Af 136 BUN/Creatinine Ratio 20.9 H Glucose 86 Calcium 8.2 L Rhythm Strip Rhythm Strip: A-fib Rate: 139 Ectopy: None Cardiology Labs/Tests 01/17/21 05:45: Absolute Neuts (auto) 9.9 H, Total Counted 100, Neutrophils % (Manual) 81 H, Band Neutrophils % 3, Lymphocytes % (Manual) 10 L, Monocytes % (Manual) 4, Metamyelocytes % 2 H 01/17/21 05:45: Sodium 141, Potassium 4.2, Chloride 106, Carbon Dioxide 30.0, Anion Gap 5, BUN 13, Creatinine 0.62 L, Est GFR (MDRD) Af Amer 165, Est GFR (MDRD) Non-Af 136, BUN/Creatinine Ratio 20.9 H, Glucose 86, Calcium 8.2 L Rhythm: EKG: ECHO: Ejection fraction is 50 to 55% with 1+ mitral regurgitation Stress Test: Cardiac Cath: PCI: CT Surgery: Holter monitor: EPS: PPM: CXR: Chest CT Scan: Physical Exam Const oriented x3 and healthy appearing Orientation / Consciousness: awake HEENT normocephalic Eyes PERRL and conjunctivae normal Neck supple, no JVD and no carotid bruits Chest inspection of chest normal Resp normal respiratory effort and clear to auscultation bilaterally Cardio Palpation: normal PMI Rate: regular rate Rhythm: other Other Details: Irregular rate and rhythm Heart Sounds: S1 normal and S2 normal Peripheral Pulses: pulses 2+ throughout GI normal to inspection, nondistended, normoactive bowel sounds Extremity normal to inspection and no clubbing, cyanosis or edema Psych mental status grossly normal Assessment & Plan Assessment/Plan (1) Chronic atrial fibrillation: PLAN: He does have chronic atrial fibrillation with a controlled vent ricular response rate. His left ventricular systolic function is noted to be normal at this time. We will continue to monitor his heart rate and rhythm. * He will continue on the beta-jaspreet as well as the amiodarone and reduce the dose of his digoxin. * As an outpatient he can have adjustments to the above. * He will also continue with his anticoagulation. * From the cardiac standpoint he is ready to be seen as an outpatient.
[2021-01-18] MEDS: Amiodarone 200 MG Tablet PO (09:26)
[2021-01-18] MEDS: Metoprolol Tartrate 25 MG Tablet 12.5 MG PO (09:27)
[2021-01-18] MEDS: Digoxin 125 MCG Tablet PO (09:27)
[2021-01-18] MEDS: APIXABAN 5 MG TABLET PO (09:28)
[2021-01-18] MEDS: dexAMETHasone 4 MG Tablet 2 MG PO (09:28)
[2021-01-18] MEDS: levETIRAcetam 500 MG Tablet PO (09:28)
[2021-01-18 13:55] LABS: Pathologist Review Reviewed
--- NOTE | 2021-01-18 14:00 | PCM.DC.SUM ---
Providers Date of Admission: 01/14/21 Primary Care Physician: Dr. Donal Juarez, Consultations 01/15/21 14:52 Consult: Cardiology Routine Consulting Provider: Aleena Corbin Reason for Consult: A. fib with RVR, hypotension EMERGENT Consult: No MD Notified: Yes Date Notified: 01/15/21 Time Notified: 14:52 Method of Notification: md to md Method of Consult:: In-Person Reason For Visit: A. FIB WITH RVR, HYPOTENSION Diagnosis Discharge Diagnosis (1) Chronic atrial fibrillation: Status: Chronic Code(s): I48.20 - Chronic atrial fibrillation, unspecified Medications at Discharge Home Medications acetaminophen 650 mg PO Q4H PRN 03/25/20 levetiracetam 500 mg PO BID 03/25/20 ondansetron HCl 4 mg PO Q6H PRN 03/25/20 acyclovir 400 mg PO BID 01/14/21 dexamethasone 2 mg PO DAILY 01/14/21 mirtazapine 15 mg PO QHS 01/14/21 nystatin 5 ml PO Q6H 01/14/21 sodium citrate dihydrate 230 mg PO/SL BID PRN PRN 01/14/21 amiodarone 200 mg PO BID #30 tab 01/18/21 apixaban [Eliquis] 5 mg PO BID #60 tab 01/18/21 digoxin 125 mcg PO DAILY #30 tab 01/18/21 metoprolol tartrate 12.5 mg PO BID #30 tab 01/18/21 Hospital Course Operations None Procedures 2-D Echocardiogram Summary of Care Provided Minutes Spent on Discharge: 40 Hospital Course: Patient is a 70-year-old male with a past medical history as outlined was admitted through the ED on 01/14/2021 from his oncologist office after he was found to be in A. fib with RVR there as well as being hypotensive. Patient had been diagnosed with glioblastoma multiforme he was s/p resection in March 2020 and subsequently started on chemotherapy. He was also on Keppra for seizure disorder. He had a history of chronic A. fib and was on Cardizem and metoprolol and said one of his doctors are taking him off Cardizem but he could not tell when any had also been taking of his anticoagulation after he had brain surgery in March 2020. On admission, blood pressure was 85/59 and his heart rate was up to the 180s. He was started on Cardizem bolus. Chest x-ray showed no acute cardiopulmonary findings and duplex of lower extremities was negative for DVT. He was admitted to be managed for A. fib with RVR. He was continued on Cardizem drip and started on p.o. metoprolol. Cardiology was consulted. Hypotension resolved with administration of IV fluids. He was put back on anticoagulation. He was subsequently transitioned to IV amiodarone and heart rate control improved. He was therefore subsequently switched to p.o. amiodarone. 2D echo done showed EF of 50 to 55% with moderate mitral regurgitation and mild tricuspid regurgitation. He was switched to p.o. amiodarone and beta-jaspreet decreased to 12.5 mg twice daily of metoprolol. Digoxin was also added onto his treatment. He remained stable and was discharged home on 01/18/2021. 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 Patient seen and examined prior to discharge. He had a complete and felt well. Review of systems otherwise negative. It was noted that patient was mildly tachycardic when he got up to walk to the bathroom but this was asymptomatic and quickly resolved. Review of systems otherwise negative. Labs and vitals reviewed. Home medication reviewed and reconciled. Physical Exam Const alert, oriented x3 and no apparent distress General Appearance: cooperative Orientation / Consciousness: awake Exam Limitations: no limitations HEENT normocephalic and head/scalp atraumatic Eyes PERRL, EOMs intact bilaterally and conjunctivae normal Neck no lymphadenopathy Resp normal respiratory effort, no retractions, no use of accessory muscles and clear to auscultation bilaterally Cardio regular rate, regular rhythm, S1 normal heart sound, S2 normal heart sound and no murmurs GI normal to inspection, nondistended, normoactive bowel sounds, soft to palpation, non-tender and non-distended Extremity normal to inspection, full ROM and no clubbing, cyanosis or edema Skin no rashes or lesions noted Neuro oriented x3 Sensorium / Orientation: awake and alert Psych affect normal Weight / BMI Weight Weight: 188 lb 7.924 oz Body Mass Index (BMI) 27.0 ABG / Lab / Microbiology Data Result Diagrams: 01/17/21 05:45 01/17/21 05:45 Laboratory: Laboratory Results - last 24 hr 01/17/21 05:45 Diff Path Review Reviewed D/C Instructions Discharge Diet: 2000 mg Sodium Diet Discharge Activity: Return to Normal Activity Weight Bearing Status: Weight bearing as tolerated Call your doctor if you observe: Fever of 101 or Higher and Increased palpitations (irregular heartbeat) Meaningful Use Info Meaningful Use Diagnoses (Choose all that apply): None applicable Discharge Plan Admission Admit Date/Time: 01/14/21 12:19 Primary Reason for Your Visit: afib with RVR Attending Provider: Andreia Jane Primary Care Provider: Donal Juarez Consulting Providers: Aleena Corbin Instructions Patient Instructions: Atrial Fibrillation Discharge Orders/Prescriptions Prescriptions: New amiodarone 200 mg Tablet 200 mg PO BID Qty: 30 RF: 1 digoxin 125 mcg (0.125 mg) Tablet 125 mcg PO DAILY Qty: 30 RF: 1 metoprolol tartrate 25 mg Tablet 12.5 mg PO BID Qty: 30 RF: 0 Eliquis 5 mg Tablet 5 mg PO BID Qty: 60 RF: 1 Continued acetaminophen 325 MG tablet 650 mg PO Q4H PRN (Reason: Pain Or Fever) RF: 0 ondansetron HCl 4 MG tablet 4 mg PO Q6H PRN (Reason: Nausea) RF: 0 levetiracetam 1,000 MG tablet 500 mg PO BID RF: 0 nystatin 100,000 unit/mL suspension 5 ml PO Q6H RF: 0 acyclovir 400 mg tablet 400 mg PO BID RF: 0 dexamethasone 4 mg tablet 2 mg PO DAILY RF: 0 mirtazapine 15 mg tablet 15 mg PO QHS RF: 0 sodium citrate dihydrate 230 mg PO/SL BID PRN PRN (Reason: Nausea) RF: 0 Referrals / Follow Up: Mick Harvey MD [STAFF PHYSICIAN] - Within 2 Weeks Donal Juarze DO [Primary Care Provider] - Within 2 Weeks Tyler Reyes DO [STAFF PHYSICIAN] - Within 1 Month Disposition Disposition (needs filled in before D/C Order can be placed): Home, self care
--- NOTE | 2021-01-18 15:13 | CASEMGMT ---
H&P, facesheet, SAVANNAH order w/ SN added, and D/C summary faxed to [facility]. Call to [facility] to notify of discharge and voice understanding. Pt also to be sent home on Eliquis and med e-scribed to [facility] retail pharmacy previously. Call to Suresh, pharmacist, and he states pt's co-pay will be $47.00 and 30 day free trial coupon to be applied. Pt/sig other updated on all, voice understanding and aware that pharmacy will deliver to room, voice understanding. Pt/sig other voice no further questions/concerns/needs. SStcady IVEY CM
--- NOTE | 2021-01-19 14:33 | NURSING ---
MELECIO DC F/U Call: DC Date: 01/18/2021 DC Diagnosis: Chronic atrial fibrillation DC Disposition: Home with SAVANNAH and add [facility] Lace/Strata: 17/11 Called patient listed cell phone, no answer. VM difficult to understand on first name identification and therefore no VM was left. MELECIO Oropeza
== END 2021-01-18 16:55 | disposition home health service (06) | DRG 309 ==
LOC: ED 12:26 → PCU 16:24
PROVIDERS: Admitting Provider Hospitalist; Emergency Provider Emergency Medicine; Visit Provider Student in an Organized Health Care Education/Training Program
DX: I48.20 Chronic atrial fibrillation, unspecified (principal); C71.9 Malignant neoplasm of brain, unspecified; G40.909 Epilepsy, unspecified, not intractable, without status epilepticus; I95.9 Hypotension, unspecified; E86.0 Dehydration; H91.90 Unspecified hearing loss, unspecified ear; F32.9 Major depressive disorder, single episode, unspecified; Z79.52 Long term (current) use of systemic steroids; Z79.899 Other long term (current) drug therapy
CPT/HCPCS: 36415; 71045; 80048; 81001; 83735; 83880; 84443; 84484; 85025; 85610; 93005; 93306; 93970; 94762; 97110; 97162; 97166; 97530; 97535; 97802; 97803; 99285; J7030; Q9957; A4216; C8929; J3490